=== PATIENT | female | born 1940 | race Caucasian/White ===

== ENCOUNTER → 2016-08-12 | Outpatient (CLI) | payer OTHER, BC ==
[2016-08-12 13:09] LABS: ALT/SGPT 11 U/L (12-78); AST/SGOT 12 U/L (15-37); BLOOD UREA NITROGEN 19 mg/dl (7-18); BUN/CREATININE RATIO 21.3 (10-20); CALCIUM 8.9 mg/dl (8.5-10.1); CARBON DIOXIDE 26 mmol/L (21-32); CHLORIDE 110 mmol/L (98-107); CHOLESTEROL 115 mg/dl (0-200); GLUCOSE 78 mg/dl (70-99); POTASSIUM 4.3 mmol/L (3.5-5.1); SODIUM 144 mmol/L (136-145); TRIGLYCERIDES 62 mg/dl (0-150); VERY LOW DENSITY LIPOPROT CALC 12 mg/dl
[2016-08-12 13:12] LABS: ALKALINE PHOSPHATASE 77 U/L (45-117); CHOLESTEROL/HDL RATIO 2.4; HDL CHOLESTEROL 47 mg/dl; LDL CHOLESTEROL CALCULATED 56 mg/dl
== END | disposition home or self-care (01) ==
LOC: C.LABWYN 11:45
PROVIDERS: ATTEND Nurse Practitioner Family
DX: E78.5 Hyperlipidemia, unspecified (principal)

== ENCOUNTER → 2017-09-10 | Outpatient (CLI) | payer OTHER, BC ==
[~2017-09-10] MED LIST: ACET1TAB84 PO; ARTIOIN OP; CARV6.252 PO; CLR10 PO; DIPH25CA65 PO; DOCU100C31 PO; DULO60CA44 PO; GABA-112 PO; IMD/2 PO; MELO7.5T5 PO; OMEG10007 PO; POLY335019 PO; PRAV20TA PO; PRLSR20 PO; RISP1TAB68 PO; SENN-65 PO
[2017-09-10 13:09] LABS: HEMATOCRIT 39.9 % (37-47); MEAN CELL VOLUME 93.4 fL (80-100); MEAN CORPUSCULAR HEMOGLOBIN 30.4 pg (25-34); MEAN CORPUSCULAR HGB CONC 32.6 g/dl (32-36); MEAN PLATELET VOLUME 10.2 fL (7.4-10.4); PLATELET COUNT 216 K/uL (130-400); RED CELL DISTRIBUTION WIDTH CV 14.1 % (11.5-14.5); RED CELL DISTRIBUTION WIDTH SD 48.1 fL (36.4-46.3); WHITE BLOOD COUNT 5.56 K/uL (4.8-10.8)
[2017-09-10 16:11] LABS: BLOOD UREA NITROGEN 18 mg/dl (7-18); CALCIUM 9.1 mg/dl (8.5-10.1); CARBON DIOXIDE 27 mmol/L (21-32); CREATININE 0.97 mg/dl (0.60-1.20); GLUCOSE 79 mg/dl (70-99); POTASSIUM 4.2 mmol/L (3.5-5.1); SODIUM 141 mmol/L (136-145)
== END | disposition home or self-care (01) ==
LOC: C.LABWYN 11:49
PROVIDERS: ATTEND Internal Medicine
DX: E03.9 Hypothyroidism, unspecified (principal); I10 Essential (primary) hypertension

== ENCOUNTER 2021-06-22 12:34 | Inpatient (IN) ==
--- NOTE | 2021-06-22 12:43 | Emergency Department Note ---
Impression & Plan Subarachnoid hemorrhage, Generalized weakness, SARS-CoV-2 positive ED Provider Note Name: TAMARA ROBLES Age: 81 Sex: F Arrives Via: Ambulance Informant: Patient, Daughter, EMS ED Provider: Sukhwinder Cline MD Chief Complaint: Weakness Impression: As per impressions above Medical Decision Making: This is an 81-year-old female with a recent history of Covid 11 to 12 days ago status post monoclonal antibody therapy. Patient with history of hypertension depression tardive dyskinesia hyperlipidemia and GERD. She apparently has been having significant tardive dyskinesia issues for the last few months and with working through neurology was started on Ingrezza but this was only begun about 2 days ago. Over the last few days patient's has been having worsening weakness confusion and decreased appetite. Patient without any focal neurologic deficits but does have diffuse weakness and is essentially unable to even sit up on her own. By exam she is also quite dehydrated appearing and thus was given 500 mL IV fluids. Given the findings and history she had labs chest x-ray EKG and a CT head obtained we did try straight cath UA without success consistent with her significant dehydration. CT head reveals a small right parietal subarachnoid hemorrhage. She has no recent trauma, injuries, falls. She has no evidence of head trauma on exam. She is on no blood thinners. Per the daughter she never really even had much of a cough during her episode of Covid. Covid is positive here but this would be consistent with her infection 11 to 12 days ago. There is no clear electrolyte nor infectious etiology of her weakness. Given the bleed I am suspicious that that is the cause of her generalized weakness. Is unclear why she has a bleed and it could either be that she did have an ischemic stroke that bled, spontaneous bleed versus other. As we do not have neurosurgical services at this facility [facility] was contacted given that is where she follows with neurology. After discussion with her she had a requested CT to be obtained of the head and neck. Images were sent to [facility] for evaluation by them. While awaiting those images to be evaluated by them I have signed her out to Dr. Singh pending their input. I will note patient blood pressure started to trend up and at that point I felt it was an indicated to start Cardene at a low dose. After about an hour and a half this is actually able to be titrated off. Prior Medical Record and Triage/Nursing Notes reviewed by Me Additional history obtained from chart, daughter Differentials:Infection, dehydration, metabolic abnormality, hypo/hyperglycemia, electrolyte disturbance, anemia, hypoxia, cardiac sources, intracerebral event, toxicologic, neurologic, as well as other pathologies. Vital Signs: reviewed and remarkable for hypotension Interventions: NSS Bolus 500mL IV Labs:Reviewed and remarkable for no significant abnormalities Imaging:Radiologist interpretation reviewed by me: CXR No acute findings. CT head right parietal subarachnoid hemorrhage EKG:Per My Interpretation: Indication weakness: NSR 96 bpm, qtc 459. No Ectopy. No Ischemia. No previous for comparison Cardiac/Tele Monitoring: Cardiac Monitoring: An Order was placed for continuous cardiac monitoring. The monitor shows a rate of 90 with a normal sinus rhythm. Consults:Dr. Mills at [facility] Plan: Disposition: Signed out to Dr Singh Condition: Fair History of Present Illness:81-year-old female arrives for evaluation of breathing difficulty. She arrives from group home after being referred here when her oxygen was reportedly 59% on room air. She has also been dealing with issues with tar dive dyskinesia and was recently started on Ingrezza 40 mg daily about 2 days ago. Per EMS she was having difficulty breathing and thus they w ere called. She was diagnosed with Covid 11 days ago and per EMS she received monoclonal antibodies over a week ago for this. Patient states that she feels well she has no chest pain, no shortness of breath, nausea, abdominal pain, vomiting, fevers, chills, headache, neck pain, urinary/bowel symptoms, leg swelling, weakness or other symptoms. She denies any significant cough nor breathing difficulty. Patient states she is fine and does not know why she is here. Patient denies any falls, trauma, injuries. Daughter called in to state that the patient has been having a lot of trouble over the last few days. She has been having worsening weakness, confusion, breathing difficulty and has been having episodes of full body tremors. She has not had reported seizure-like activity nor obtundation. ROS: See above HPI for pertinent positives & negatives. A total of 10 systems reviewed and were otherwise negative. Past Medical History:See Below Past Surgical History:See Below Family History:See Below Social History:See Below Home Medications:See Below Allergies:See Below Vitals:Blood Pressure: 91/70, Pulse 100, RR 20, T 36.8C, O2 95% on RA Physical Exam: GENERAL: Patient is tired/dehydrated appearing and in mild distress. Distant and diffusely weak. EYES: No scleral icterus, unremarkable pupils. ENT: Mucous membranes dry, no nasal congestion. NECK: No masses appreciated, nomeningismus, trachea is midline. RESPIRATORY: No dyspnea. Clear to auscultation and equal bilaterally. No wheeze, no rhonchi. CARDIOVASCULAR: Regular rate and rhythm.No murmurs, rubs, gallops appreciated. GASTROINTESTINAL: Abdomen soft, non-tender, no peritonitis.Bowel sounds positive.No masses appreciated. BACK: No midline tenderness, no CVA tenderness EXTREMITIES: Normal motion all extremities, no cyanosis, no edema. NEUROLOGIC: Distant and slow to respond. Oriented to place. Generalized weakness, no acute motor or sensory deficits, no focal weakness, cranial nerves grossly intact. SKIN: No rash, no jaundice, no diaphoresis. GCS: 15 ED Course: Times/Reassessments: Many repeat evaluations of the patient. She is calm no distress no continues to be distant and somewhat confused. I had several discussions with her daughter Sue regarding her symptoms and findings and the plan to await [facility]'s input. Critical Care: I have personally spent 45 minutes of critical care time in the direct management of this patient. Acute subarachnoid hemorrhage with hypertension started on Cardene IV drip. This was a life/limb threatening event. This 45 minutes is in excess of all separately billable procedures. Sukhwinder Cline MD Past Med/Surg History Medical History (Updated 06/22/21 @ 21:01 by Yahaira Toledo DO) Depression GERD (gastroesophageal reflux disease) Hyperlipidemia Hypertension Surgical History Surgical history unknown Family History Other Unknown family medical history Social History Smoking Status: Former smoker Tobacco Type: Cigarettes Preferred Language: Filipino Communication Ability: Impaired Communication Ability Comment: unknown marital status: / Current Living Situation Comment: lives at [facility] Feels Safe at Home: Yes Assistive Devices: Walker Allergies Allergies Allergy/AdvReac Type Severity Reaction Status Date / Time adhesive Allergy Mild RASH Verified 06/22/21 14:52 acetaminophen Allergy Unknown RASH Verified 06/22/21 14:52 codeine Allergy Unknown GI SYMPTOMS Verified 06/22/21 14:52 hydrocodone Allergy Unknown GI SYMPTOMS Verified 06/22/21 14:52 Penicillins Allergy Unknown RASH Verified 06/22/21 14:52 Home Meds Home Medications Medication Instructions Recorded Confirmed Meaghan Avendañobasilsneha Gummy Bear Viy 2 dose PO DAILY 06/14/21 06/22/21 duloxetine 60 mg capsule,delayed 60 mg PO DAILY 06/14/21 06/22/21 release food supplemt, lactose-reduced 1 ea PO BID 06/14/21 06/22/21 lisinopril 10 mg tablet 10 mg PO DAILY 06/14/21 06/22/21 lisinopril 2.5 mg tablet 2.5 mg PO DAILY 06/14/21 06/22/21 loperamide 2 mg capsule (Imodium 2 mg PO Q4H PRN 06/14/21 06/22/21 A-D) meloxicam 15 mg tablet 15 mg PO DAILY 06/14/21 06/22/21 naproxen sodium 220 mg tablet 220 mg PO Q4 PRN 06/14/21 06/22/21 nystatin 100,000 unit/gram topical 1 applic TOPICAL BID 06/14/21 06/22/21 cream omega 3-bpb-aav-fish oil 1,200 mg 1 cap PO BID 06/14/21 06/22/21 (144 mg-216 mg) capsule (Fish Oil) omeprazole 20 mg capsule,delayed 20 mg PO DAILY 06/14/21 06/22/21 release polyethylene glycol 3350 17 17 g PO DAILY 06/14/21 06/22/21 gram/dose oral powder (Miralax) pravastatin 40 mg tablet 40 mg PO HS 06/14/21 06/22/21 risperidone 0.5 mg tablet 0.5 mg PO BID 06/14/21 06/22/21 valbenazine 40 mg capsule 40 mg PO QAM 06/14/21 06/22/21 (Ingrezza) risperidone 0.25 mg tablet 0.25 mg PO BID 06/22/21 06/22/21 Results & Data (ED) Vital Signs Vital Signs - 24 hr 06/22/21 14:00 06/22/21 14:43 06/22/21 15:00 Pulse Rate 77 79 Pulse Rate [Apical] 77 Pulse Rate from SpO2 Sensor 77 80 Respiratory Rate 16 18 19 Respiratory Depth Normal Blood Pressure 105/66 138/82 Blood Pressure [Left Arm] 138/82 Blood Pressure Mean 79 100 Blood Pressure Mean [Left Arm] 100 Blood Pressure Position [Left Arm] Pulse Oximetry 89 L 94 94 Oxygen Delivery Method Room Air 06/22/21 15:15 06/22/21 15:30 06/22/21 16:18 Pulse Rate 77 Pulse Rate [Apical] 74 75 Pulse Rate from SpO2 Sensor 77 Respiratory Rate 20 17 20 Respiratory Depth Blood Pressure 121/82 Blood Pressure [Left Arm] 138/82 162/90 H Blood Pressure Mean 95 Blood Pressure Mean [Left Arm] 100 114 Blood Pressure Position [Left Arm] Pulse Oximetry 99 99 100 Oxygen Delivery Method 06/22/21 17:00 06/22/21 17:15 06/22/21 17:23 Pulse Rate 82 82 Pulse Rate [Apical] 86 Pulse Rate from SpO2 Sensor 82 84 Respiratory Rate 15 16 18 Respiratory Depth Blood Pressure 134/83 121/61 Blood Pressure [Left Arm] 121/61 Blood Pressure Mean 100 81 Blood Pressure Mean [Left Arm] 81 Blood Pressure Position [Left Arm] Lying Pulse Oximetry 99 93 98 Oxygen Delivery Method 06/22/21 17:30 06/22/21 18:00 06/22/21 18:30 Pulse Rate 87 74 83 Pulse Rate [Apical] Pulse Rate from SpO2 Sensor 87 74 83 Respiratory Rate 19 16 19 Respiratory Depth Blood Pressure 120/77 125/82 134/81 Blood Pressure [Left Arm] Blood Pressure Mean 91 96 98 Blood Pressure Mean [Left Arm] Blood Pressure Position [Left Arm] Pulse Oximetry 97 98 92 Oxygen Delivery Method 06/22/21 18:45 06/22/21 19:00 06/22/21 19:15 Pulse Rate 81 82 Pulse Rate [Apical] 81 Pulse Rate from SpO2 Sensor 82 80 Respiratory Rate 20 20 14 Respiratory Depth Blood Pressure 149/90 H 125/83 Blood Pressure [Left Arm] 149/90 H Blood Pressure Mean 109 97 Blood Pressure Mean [Left Arm] 109 Blood Pressure Position [Left Arm] Pulse Oximetry 96 97 93 Oxygen Delivery Method Room Air 06/22/21 19:30 06/22/21 19:45 06/22/21 20:00 Pulse Rate 93 H 86 89 Pulse Rate [Apical] Pulse Rate from SpO2 Sensor 82 85 89 Respiratory Rate 26 H 22 23 Respiratory Depth Blood Pressure 128/99 138/93 130/97 Blood Pressure [Left Arm] Blood Pressure Mean 108 108 108 Blood Pressure Mean [Left Arm] Blood Pressure Position [Left Arm] Pulse Oximetry 94 94 97 Oxygen Delivery Method 06/22/21 20:15 06/22/21 20:30 Pulse Rate 79 76 Pulse Rate [Apical] Pulse Rate from SpO2 Sensor 79 76 Respiratory Rate 19 19 Respiratory Depth Blood Pressure 122/83 124/84 Blood Pressure [Left Arm] Blood Pressure Mean 96 97 Blood Pressure Mean [Left Arm] Blood Pressure Position [Left Arm] Pulse Oximetry 98 92 Oxygen Delivery Method Laboratory Data Result diagrams: 06/23/21 07:39 06/23/21 07:39 Lab Results 06/22/21 06/22/21 06/22/21 Range/Units 13:04 13:16 13:16 WBC 6.30 (4.8-10.8) K/uL RBC 4.47 (4.2-5.4) M/uL Hgb 13.9 (12.0-16.0) g/dL Hct 42.8 (37-47) % MCV 95.7 (80-100) fL MCH 31.1 (25-34) pg MCHC 32.5 (32-36) g/dL RDW Std Deviation 45.9 (36.4-46.3) fL RDW Coeff of Miguel A 13.1 (11.5-14.5) % Plt Count 309 (130-400) K/uL MPV 9.8 (7.4-10.4) fL Immature Gran % (Auto) 0.8 % Neut % (Auto) 68.5 % Lymph % (Auto) 15.9 % [place] % (Auto) 11.6 % Eos % (Auto) 3.0 % Baso % (Auto) 0.2 % Neut # (Auto) 4.32 (1.4-6.5) K/uL Lymph # (Auto) 1.00 L (1.2-3.4) K/uL [place] # (Auto) 0.73 H (0.11-0.59) K/uL Eos # (Auto) 0.19 (0-0.5) K/uL Baso # (Auto) 0.01 (0-0.2) K/uL Immature Gran # (Auto) 0.05 H (0.00-0.02) K/uL PT (9.0-12.0) Seconds INR (0.9-1.1) APTT (21.0-31.0) Seconds PTT Ratio Sodium 139 (136-145) mmol/L Potassium 4.6 (3.5-5.1) mmol/L Chloride 110 H (98-107) mmol/L Carbon Dioxide 25 (21-32) mmol/L Anion Gap 4.0 (3-11) BUN 33 H (7-18) mg/dl Creatinine 1.16 (0.6-1.2) mg/dl Est Cr Clr Drug Dosing 30.9 ml/min Est GFR ( Amer) 50.8 ml/min Est GFR (Non-Af Amer) 43.8 ml/min BUN/Creatinine Ratio 28.6 H (10-20) Glucose 108 H (70-99) mg/dl Calcium 10.2 H (8.5-10.1) mg/dl Total Bilirubin 0.7 (0.2-1) mg/dl Direct Bilirubin 0.2 (0-0.2) mg/dl AST 14 L (15-37) U/L ALT 17 (12-78) Alkaline Phosphatase 95 (45-117) U/L Total Creatine Kinase 46 (26-192) U/L Troponin I < 0.015 (0-0.045) ng/ml Total Protein 7.5 (6.4-8.2) gm/dl Albumin 3.1 L (3.4-5.0) gm/dl Lipase 291 (73-393) U/L Procalcitonin (0-0.5) ng/ml Urine Color Urine Appearance (Clear) Urine pH (4.5-7.5) Ur Specific [place] (1.000-1.030) Urine Protein (Negative) Urine Glucose (UA) (Negative) Urine Ketones (Negative) Urine Blood (Negative) Urine Nitrite (Negative) Urine Bilirubin (Negative) Urine Urobilinogen (Negative) Ur Leukocyte Esterase (Negative) Urine WBC (Auto) (0-5) /hpf Urine RBC (Auto) (0-4) /hpf U Hyaline Cast (Auto) (0-5) /lpf U Epithel Cells (Auto) (0-5) /lpf Urine Bacteria (Auto) (Negative) SARS-CoV-2 (PCR) POSITIVE A* (Negative) Influenza Type A (PCR) Negative (Neg) Influenza Type B (PCR) Negative (Neg) RSV (RT-PCR) Negative (Neg) 06/22/21 06/22/21 06/22/21 Range/Units 13:16 13:19 15:18 WBC (4.8-10.8) K/uL RBC (4.2-5.4) M/uL Hgb (12.0-16.0) g/dL Hct (37-47) % MCV (80-100) fL MCH (25-34) pg MCHC (32-36) g/dL RDW Std Deviation (36.4-46.3) fL RDW Coeff of Miguel A (11.5-14.5) % Plt Count (130-400) K/uL MPV (7.4-10.4) fL Immature Gran % (Auto) % Neut % (Auto) % Lymph % (Auto) % [place] % (Auto) % Eos % (Auto) % Baso % (Auto) % Neut # (Auto) (1.4-6.5) K/uL Lymph # (Auto) (1.2-3.4) K/uL [place] # (Auto) (0.11-0.59) K/uL Eos # (Auto) (0-0.5) K/uL Baso # (Auto) (0-0.2) K/uL Immature Gran # (Auto) (0.00-0.02) K/uL PT 10.3 (9.0-12.0) Seconds INR 1.0 (0.9-1.1) APTT 27.9 (21.0-31.0) Seconds PTT Ratio 1.1 Sodium (136-145) mmol/L Potassium (3.5-5.1) mmol/L Chloride (98-107) mmol/L Carbon Dioxide (21-32) mmol/L Anion Gap (3-11) BUN (7-18) mg/dl Creatinine (0.6-1.2) mg/dl Est Cr Clr Drug Dosing ml/min Est GFR ( Amer) ml/min Est GFR (Non-Af Amer) ml/min BUN/Creatinine Ratio (10-20) Glucose (70-99) mg/dl Calcium (8.5-10.1) mg/dl Total Bilirubin (0.2-1) mg/dl Direct Bilirubin (0-0.2) mg/dl AST (15-37) U/L ALT (12-78) Alkaline Phosphatase (45-117) U/L Total Creatine Kinase (26-192) U/L Troponin I (0-0.045) ng/ml Total Protein (6.4-8.2) gm/dl Albumin (3.4-5.0) gm/dl Lipase (73-393) U/L Procalcitonin < 0.05 (0-0.5) ng/ml Urine Color Dark Yellow Urine Appearance Clear (Clear) Urine pH 5.0 (4.5-7.5) Ur Specific [place] 1.022 (1.000-1.030) Urine Protein Negative (Negative) Urine Glucose (UA) Negative (Negative) Urine Ketones Trace H (Negative) Urine Blood Negative (Negative) Urine Nitrite Negative (Negative) Urine Bilirubin Negative (Negative) Urine Urobilinogen Negative (Negative) Ur Leukocyte Esterase Trace H (Negative) Urine WBC (Auto) 1-5 (0-5) /hpf Urine RBC (Auto) 0-4 (0-4) /hpf U Hyaline Cast (Auto) 1-5 (0-5) /lpf U Epithel Cells (Auto) 10-20 H (0-5) /lpf Urine Bacteria (Auto) Negative (Negative) SARS-CoV-2 (PCR) (Negative) Influenza Type A (PCR) (Neg) Influenza Type B (PCR) (Neg) RSV (RT-PCR) (Neg) Administered Medications Discontinued Medications Gadobutrol (Gadobutrol 30ml Vial) 5.5 ml IV ONCE ONE Stop: 06/23/21 11:32 Last Admin: 06/23/21 11:31 Dose: 5.5 ml Documented by: [id number] Sodium Chloride (Nss 1000ml) 500 mls @ 999 mls/hr IV .Q31M ONE Stop: 06/22/21 13:46 Last Infusion: 06/22/21 16:33 Dose: 0 mls/hr Documented by: [id number] Admin: 06/22/21 13:41 Dose: 999 mls/hr Documented by: [id number] Levetiracetam 1,000 mg/ Sodium (Chloride) 110 mls @ 440 mls/hr IV NOW STA Stop: 06/22/21 15:42 Last Infusion: 06/22/21 16:33 Dose: 0 mls/hr Documented by: [id number] Admin: 06/22/21 15:45 Dose: 440 mls/hr Documented by: [id number] Nicardipine HCl 25 mg/ Sodium (Chloride) 250 mls @ 0 mls/hr IV .Q0M JENELLE; Protocol Stop: 07/22/21 16:29 Last Titration: 06/22/21 17:22 Dose: 0 mg/hr, 0 mls/hr Documented by: [id number] Admin: 06/22/21 16:46 Dose: 5 mg/hr, 50 mls/hr Documented by: [id number] Cosigned by: [id number] Ioversol (Optiray 320 125ml) 120 ml IV ONCE ONE Stop: 06/22/21 16:02 Last Admin: 06/22/21 16:01 Dose: 120 ml Documented by: [id number] Miscellaneous (Stat Iv Infusion Titration Per Protocol) 1 ea N/A NOW STA Stop: 06/22/21 16:28 Last Admin: 06/22/21 16:51 Dose: 1 ea Documented by: [id number] Imaging Data Radiologist's Impression: Chest X-Ray 06/22/21 12:42 SINGLE VIEW CHEST CLINICAL HISTORY: Dyspnea. FINDINGS: An AP, portable, upright chest radiograph is compared to study dated 06/14/2021. The examination is degraded by portable technique and patient ro tation. The heart is enlarged noting atherosclerotic calcification of the thoracic aorta. The pulmonary vasculature is noncongested. Chronic interstitial thickening is similar to previous. There are linear right basilar opacities. No large pleural effusion or pneumothorax is seen. The skeletal structures are osteopenic. The bony thorax is grossly intact. Surgical clips are noted in the right axilla. Cholecystectomy clips are noted in the right upper quadrant. IMPRESSION: 1. Cardiomegaly without radiographic evidence of congestive failure. 2. Right basilar opacities likely represent platelike atelectasis. Correlate clinically for evidence of an infectious/inflammatory pneumonitis. ACT 112: Negative or not required by law. Electronically signed by: Franky Juares M.D. 06/22/2021 12:[address] 06/22/21 13:16 CT SCAN OF THE BRAIN WITHOUT IV CONTRAST CLINICAL HISTORY: Change in mental status. Generalized weakness. COMPARISON STUDY: CT of the brain dated 05/14/2021. TECHNIQUE: Unenhanced axial CT scan of the brain is performed from the vertex to the skull base. A dose lowering technique was utilized adhering to the principles of ALARA. CT DOSE: 537.48 mGy.cm FINDINGS: Brain parenchyma: There are age-related involutional changes noting moderate confluent subcortical and periventricular microangiopathic change. There is trace subarachnoid hemorrhage identified along the high right parietal sulcus on axial image #23. No additional foci of hemorrhage are identified. There is no mass effect or evidence of acute territorial ischemia by CT criteria. Bullock-white matter differentiation is preserved. No extra-axial fluid collection is seen. Ventricles, sulci, cisterns: Prominent secondary to involutional change. Intracranial vasculature: There is atherosclerotic calcification of the cavernous carotid and vertebral arteries. Calvarium: Unremarkable. Sinuses and mastoids: The visualized paranasal sinuses are clear. There are left larger than right mastoid effusions. Orbits: The bony orbits are grossly intact. IMPRESSION: 1. There is trace subarachnoid hemorrhage identified along the high right parietal sulcus. 2. No additional foci of hemorrhage are identified. 3. There is no mass effect or evidence of acute territorial ischemia by CT criteria. ACT 112: Negative or not required by law. Electronically signed by: Franky Juares M.D. 06/22/2021 2:33 PM Head CTA 06/22/21 15:27 CT ANGIOGRAM OF THE BRAIN; CT ANGIOGRAM OF THE NECK CLINICAL HISTORY: Subarachnoid hemorrhage. COMPARISON STUDY: Unenhanced CT of the brain performed earlier the same day 06/22/2021. TECHNIQUE: Following the IV administration of 120 of Optiray 320, CT angiogram of the head and neck was performed from the aortic arch to the vertex. Images are reviewed in the axial, sagittal, and coronal planes. 3-D MIPS images are created and assessed. IV contrast was administered without complication. All measurements were calculated based on NASCET criteria. A dose lowering technique was utilized adhering to the principles of ALARA. CT DOSE: 452.13 mGy.cm FINDINGS: Brain parenchyma: Trace subarachnoid hemorrhage is again seen along the high right parietal lobe sulcus. This was much better visualized on the unenhanced examination performed earlier today due to lack of IV contrast. There is age- related involutional change noting moderate confluent subcortical and periventricular microangiopathic disease. There is no mass effect or evidence of acute territorial ischemia noting angiographic phase technique. There is no evidence of enhancing mass lesion on the angiogram phase images. The ventricles, sulci, and cisterns are prominent secondary to involutional change. Bullock-white matter differentiation is preserved. No extra-axial fluid collection is seen. Thoracic aorta: There is atherosclerotic calcification of the thoracic aorta. Visualized portions of the thoracic aorta are normal in caliber. The aortic arch demonstrates standard 3-vessel anatomy. Right carotid arterial system: The right common carotid artery is widely patent, as are the right internal and external carotid arteries. Calcified plaque is noted in the carotid bulb. Left carotid arterial system: The left common carotid artery is widely patent, as are the left internal and external carotid arteries. Calcified plaque is noted in the carotid bulb. Vertebral arteries: Vertebral arteries are widely patent bilaterally and codominant. Subclavian arteries: Widely patent bilaterally. Intracranial vasculature: There is atherosclerotic calcification of the c avernous carotid and vertebral arteries. The internal carotid arteries are patent at the skull base, as are the anterior and middle cerebral arteries bilaterally. The vertebrobasilar system and posterior cerebral arteries are widely patent. The vertebral arteries are codominant. There is no aneurysm, high-grade stenosis, or focal vessel cut off seen throughout the intracranial circulation. Jugular veins: Patent bilaterally. Dural sinuses: Patent. Lung apices: There is a 7 mm groundglass focus of the right apex seen on image #37. Apical lung parenchyma is otherwise clear as imaged. Soft tissues: The visualized pharyngeal soft tissues are normal in appearance noting angiographic phase technique. The oropharyngeal airway appears widely patent. The thyroid gland is heterogeneous. The salivary glands are normal in appearance. No cervical lymphadenopathy is seen. Skeletal structures: The skeletal structures are osteopenic. The calvarium appears intact. The cervical spine is maintained noting multilevel spondylosis. No lytic or blastic lesion is seen. Orbits: The bony orbits are intact. Orbital contents are normal as visualized. Sinuses and mastoids: The paranasal sinuses are clear. There are small bilateral mastoid effusions. IMPRESSION: 1. Trace subarachnoid hemorrhage is again suggested along a high right parietal lobe sulcus. This was much better visualized on today's unenhanced examination. 2. There is no mass effect or evidence of acute territorial ischemia noting angiographic phase technique. 3. Unremarkable CT angiogram of the brain. 4. Unremarkable CT head around the neck. 5. There is an indeterminant 7 mm groundglass focus at the right apex. A follow- up chest CT in 3 months time is recommended for reevaluation and full assessment of the thorax. ACT 112: Negative or not required by law. Electronically signed by: Franky Juares M.D. 06/22/2021 4:13 PM Neck CTA 06/22/21 15:27 CT ANGIOGRAM OF THE BRAIN; CT ANGIOGRAM OF THE NECK CLINICAL HISTORY: Subarachnoid hemorrhage. COMPARISON STUDY: Unenhanced CT of the brain performed earlier the same day 06/22/2021. TECHNIQUE: Following the IV administration of 120 of Optiray 320, CT angiogram of the head and neck was performed from the aortic arch to the vertex. Images are reviewed in the axial, sagittal, and coronal planes. 3-D MIPS images are created and assessed. IV contrast was administered without complication. All measurements were calculated based on NASCET criteria. A dose lowering technique was utilized adhering to the principles of ALARA. CT DOSE: 452.13 mGy.cm FINDINGS: Brain parenchyma: Trace subarachnoid hemorrhage is again seen along the high right parietal lobe sulcus. This was much better visualized on the unenhanced examination performed earlier today due to lack of IV contrast. 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 There is no mass effect or evidence of acute territorial ischemia noting angiographic phase technique. There is no evidence of enhancing mass lesion on the angiogram phase images. The ventricles, sulci, and cisterns are prominent secondary to involutional change. Bullock-white matter differentiation is preserved. No extra-axial fluid collection is seen. Thoracic aorta: There is atherosclerotic calcification of the thoracic aorta. Visualized portions of the thoracic aorta are normal in caliber. The aortic arch demonstrates standard 3-vessel anatomy. Right carotid arterial system: The right common carotid artery is widely patent, as are the right internal and external carotid arteries. Calcified plaque is no roney in the carotid bulb. Left carotid arterial system: The left common carotid artery is widely patent, as are the left internal and external carotid arteries. Calcified plaque is noted in the carotid bulb. Vertebral arteries: Vertebral arteries are widely patent bilaterally and codominant. Subclavian arteries: Widely patent bilaterally. Intracranial vasculature: There is atherosclerotic calcification of the cavernous carotid and vertebral arteries. The internal carotid arteries are patent at the skull base, as are the anterior and middle cerebral arteries bilaterally. The vertebrobasilar system and posterior cerebral arteries are widely patent. The vertebral arteries are codominant. There is no aneurysm, high-grade stenosis, or focal vessel cut off seen throughout the intracranial circulation. Jugular veins: Patent bilaterally. Dural sinuses: Patent. Lung apices: There is a 7 mm groundglass focus of the right apex seen on image #37. Apical lung parenchyma is otherwise clear as imaged. Soft tissues: The visualized pharyngeal soft tissues are normal in appearance noting angiographic phase technique. The oropharyngeal airway appears widely patent. The thyroid gland is heterogeneous. The salivary glands are normal in appearance. No cervical lymphadenopathy is seen. Skeletal structures: The skeletal structures are osteopenic. The calvarium appears intact. The cervical spine is maintained noting multilevel spondylosis. No lytic or blastic lesion is seen. Orbits: The bony orbits are intact. Orbital contents are normal as visualized. Sinuses and mastoids: The paranasal sinuses are clear. There are small bilateral mastoid effusions. IMPRESSION: 1. Trace subarachnoid hemorrhage is again suggested along a high right parietal lobe sulcus. This was much better visualized on today's unenhanced examination. 2. There is no mass effect or evidence of acute territorial ischemia noting angiographic phase technique. 3. Unremarkable CT angiogram of the brain. 4. Unremarkable CT head around the neck. 5. There is an indeterminant 7 mm groundglass focus at the right apex. A follow- up chest CT in 3 months time is recommended for reevaluation and full assessment of the thorax. ACT 112: Negative or not required by law. Electronically signed by: Franky Juares M.D. 06/22/2021 4:13 PM Discharge Plan Visit Data Chief Complaint: Shortness of Breath/Dyspnea Stated Complaint: SOB COVID+ tremors ED Provider: Oni Singh Discharge Problem: Subarachnoid hemorrhage, Generalized weakness, SARS-CoV-2 positive Patient Disposition: Admitted As Inpatient Discharge Instructions Interventions: ED Discharge Assessment Last Done: 06/23/21 00:00
--- NOTE | 2021-06-22 12:55 | XRay Report ---
SINGLE VIEW CHEST CLINICAL HISTORY: Dyspnea. FINDINGS: An AP, portable, upright chest radiograph is compared to study dated 06/14/2021. The examin ation is degraded by portable technique and patient rotation. The heart is enlarged noting atheroscle rotic calcification of the thoracic aorta. The pulmonary vasculature is noncongested. Chronic interst itial thickening is similar to previous. There are linear right basilar opacities. No large pleural e ffusion or pneumothorax is seen. The skeletal structures are osteopenic. The bony thorax is grossly i ntact. Surgical clips are noted in the right axilla. Cholecystectomy clips are noted in the right upp er quadrant. IMPRESSION: 1. Cardiomegaly without radiographic evidence of congestive failure. 2. Right basilar opacities likely represent platelike atelectasis. Correlate clinically for evidence of an infectious/inflammatory pneumonitis. ACT 112: Negative or not required by law. Electronically signed by: Franky Juares M.D. 06/22/2021 12:53 PM
[2021-06-22] MEDS ORDERED: SODIUM CHLORIDE 0.9% 1000ML 500 ML IV ONE (13:16)
[2021-06-22 13:35] LABS: Basophils # (auto) 0.01 K/uL (0-0.2); Basophils % (auto) 0.2 %; Eosinophils # (auto) 0.19 K/uL (0-0.5); Hematocrit (blood only) 42.8 % (37-47); Hemoglobin 13.9 g/dL (12.0-16.0); Immature Granulocytes # (auto) 0.05 K/uL (0.00-0.02); Immature Granulocytes % (auto) 0.8 %; Lymphocytes % (auto) 15.9 %; Mean Corpuscular Hemoglobin 31.1 pg (25-34); Mean Corpuscular Hgb Conc 32.5 g/dL (32-36); Mean Corpuscular Volume 95.7 fL (80-100); Mean Platelet Volume 9.8 fL (7.4-10.4); Monocytes # (auto) 0.73 K/uL (0.11-0.59); Monocytes % (auto) 11.6 %; Neutrophils # (auto) 4.32 K/uL (1.4-6.5); Neutrophils % (auto) 68.5 %; Platelet Count 309 K/uL (130-400); RDW Coefficient of Variation 13.1 % (11.5-14.5); RDW Standard Deviation 45.9 fL (36.4-46.3); Red Blood Count 4.47 M/uL (4.2-5.4)
[2021-06-22 14:00] LABS: Alanine Aminotransferase 17 (12-78); Albumin Level 3.1 gm/dl (3.4-5.0); Aspartate Aminotransferase 14 U/L (15-37); BUN Creatinine Ratio 28.6 (10-20); Bilirubin Direct 0.2 mg/dl (0-0.2); Blood Urea Nitrogen 33 mg/dl (7-18); Calcium 10.2 mg/dl (8.5-10.1); Carbon Dioxide 25 mmol/L (21-32); Chloride 110 mmol/L (98-107); Creatinine Clr Calc Pharmacy 30.9 ml/min; Est GFR (African American) 50.8 ml/min; Est GFR (Non-African American) 43.8 ml/min; Glucose 108 mg/dl (70-99); Lipase 291 U/L (73-393); Potassium 4.6 mmol/L (3.5-5.1); Sodium 139 mmol/L (136-145)
[2021-06-22 14:05] LABS: Alkaline Phosphatase 95 U/L (45-117); Bilirubin,Total 0.7 mg/dl (0.2-1); Creatine Kinase 46 U/L (26-192); Total Protein 7.5 gm/dl (6.4-8.2); Troponin I < 0.015 ng/ml (0-0.045)
[2021-06-22 14:19] LABS: Influenza A virus by PCR Negative (Neg); Influenza B virus by PCR Negative (Neg); RSV by PCR Negative (Neg)
[2021-06-22 14:32] LABS: SARS CoV2 RNA(COVID-19) InHosp POSITIVE (Negative)
--- NOTE | 2021-06-22 14:34 | CT Scan Report ---
CT SCAN OF THE BRAIN WITHOUT IV CONTRAST CLINICAL HISTORY: Change in mental status. Generalized weakness. COMPARISON STUDY: CT of the brain dated 05/14/2021. TECHNIQUE: Unenhanced axial CT scan of the brain is performed from the vertex to the skull base. A do se lowering technique was utilized adhering to the principles of ALARA. CT DOSE: 537.48 mGy.cm FINDINGS: Brain parenchyma: There are age-related involutional changes noting moderate confluent subcortical a nd periventricular microangiopathic change. There is trace subarachnoid hemorrhage identified along t he high right parietal sulcus on axial image #23. No additional foci of hemorrhage are identified. Th ere is no mass effect or evidence of acute territorial ischemia by CT criteria. Bullock-white matter dif ferentiation is preserved. No extra-axial fluid collection is seen. Ventricles, sulci, cisterns: Prominent secondary to involutional change. Intracranial vasculature: There is atherosclerotic calcification of the cavernous carotid and vertebr al arteries. Calvarium: Unremarkable. Sinuses and mastoids: The visualized paranasal sinuses are clear. There are left larger than right ma stoid effusions. Orbits: The bony orbits are grossly intact. IMPRESSION: 1. There is trace subarachnoid hemorrhage identified along the high right parietal sulcus. 2. No additional foci of hemorrhage are identified. 3. There is no mass effect or evidence of acute territorial ischemia by CT criteria. ACT 112: Negative or not required by law. Electronically signed by: Franky Juares M.D. 06/22/2021 2:33 PM
[2021-06-22 15:03] LABS: Partial Thromboplastin Ratio 1.1; Partial Thromboplastin Time 27.9 Seconds (21.0-31.0); Prothrombin Time 10.3 Seconds (9.0-12.0)
[2021-06-22] MEDS ORDERED: levETIRAcetam 1,000 MG in 0.9 % SODIUM CHLORIDE 100 ML IV STA (15:28)
[2021-06-22 15:51] LABS: Appearance Urine Clear (Clear); Bacteria Urine Automated Negative (Negative); Bilirubin Urine Negative (Negative); Blood Urine Negative (Negative); Color Urine Dark Yellow; Glucose Urine UA Negative (Negative); Ketones Urine Trace (Negative); Leukocyte Esterase Urine Trace (Negative); Nitrite Urine Negative (Negative); Protein Urine Negative (Negative); RBC Urine Automated 0-4 /hpf (0-4); Specific Gravity Urine 1.022 (1.000-1.030); Urobilinogen Urine Negative (Negative)
[2021-06-22] MEDS ORDERED: OPTIRAY 320 125ml IV ONE (16:01)
--- NOTE | 2021-06-22 16:14 | CT Scan Report ---
CT ANGIOGRAM OF THE BRAIN; CT ANGIOGRAM OF THE NECK CLINICAL HISTORY: Subarachnoid hemorrhage. COMPARISON STUDY: Unenhanced CT of the brain performed earlier the same day 06/22/2021. TECHNIQUE: Following the IV administration of 120 of Optiray 320, CT angiogram of the head and neck w as performed from the aortic arch to the vertex. Images are reviewed in the axial, sagittal, and jermaine nal planes. 3-D MIPS images are created and assessed. IV contrast was administered without complicati on. All measurements were calculated based on NASCET criteria. A dose lowering technique was utilize d adhering to the principles of ALARA. CT DOSE: 452.13 mGy.cm FINDINGS: Brain parenchyma: Trace subarachnoid hemorrhage is again seen along the high right parietal lobe sulc us. This was much better visualized on the unenhanced examination performed earlier today due to lack of IV contrast. There is age-related involutional change noting moderate confluent subcortical and p eriventricular microangiopathic disease. There is no mass effect or evidence of acute territorial isc hemia noting angiographic phase technique. There is no evidence of enhancing mass lesion on the angio gram phase images. The ventricles, sulci, and cisterns are prominent secondary to involutional change . Bullock-white matter differentiation is preserved. No extra-axial fluid collection is seen. Thoracic aorta: There is atherosclerotic calcification of the thoracic aorta. Visualized portions of the thoracic aorta are normal in caliber. The aortic arch demonstrates standard 3-vessel anatomy. Right carotid arterial system: The right common carotid artery is widely patent, as are the right int ernal and external carotid arteries. Calcified plaque is noted in the carotid bulb. Left carotid arterial system: The left common carotid artery is widely patent, as are the left physician internist al and external carotid arteries. Calcified plaque is noted in the carotid bulb. Vertebral arteries: Vertebral arteries are widely patent bilaterally and codominant. Subclavian arteries: Widely patent bilaterally. Intracranial vasculature: There is atherosclerotic calcification of the cavernous carotid and vertebr al arteries. The internal carotid arteries are patent at the skull base, as are the anterior and midd le cerebral arteries bilaterally. The vertebrobasilar system and posterior cerebral arteries are wide ly patent. The vertebral arteries are codominant. There is no aneurysm, high-grade stenosis, or focal vessel cut off seen throughout the intracranial circulation. Jugular veins: Patent bilaterally. Dural sinuses: Patent. Lung apices: There is a 7 mm groundglass focus of the right apex seen on image #37. Apical lung paren chyma is otherwise clear as imaged. Soft tissues: The visualized pharyngeal soft tissues are normal in appearance noting angiographic pha se technique. The oropharyngeal airway appears widely patent. The thyroid gland is heterogeneous. The salivary glands are normal in appearance. No cervical lymphadenopathy is seen. Skeletal structures: The skeletal structures are osteopenic. The calvarium appears intact. The cervic al spine is maintained noting multilevel spondylosis. No lytic or blastic lesion is seen. Orbits: The bony orbits are intact. Orbital contents are normal as visualized. Sinuses and mastoids: The paranasal sinuses are clear. There are small bilateral mastoid effusions. IMPRESSION: 1. Trace subarachnoid hemorrhage is again suggested along a high right parietal lobe sulcus. This was much better visualized on today's unenhanced examination. 2. There is no mass effect or evidence of acute territorial ischemia noting angiographic phase techni que. 3. Unremarkable CT angiogram of the brain. 4. Unremarkable CT head around the neck. 5. There is an indeterminant 7 mm groundglass focus at the right apex. A follow-up chest CT in 3 karen hs time is recommended for reevaluation and full assessment of the thorax. ACT 112: Negative or not required by law. Electronically signed by: Franky Juares M.D. 06/22/2021 4:13 PM
[2021-06-22] MEDS ORDERED: STAT IV Infusion **Titration per Protocol STA (16:27)
[2021-06-22] MEDS ORDERED: niCARdipine 25 MG in SODIUM CHLORIDE 0.9% 240 ML IV SCH (16:30)
--- NOTE | 2021-06-22 17:25 | Emergency Department Note ---
ED Visit Note Received this patient in signout. Awaiting input from neurosurgery based on the CT angiograms obtained of the patient with subarachnoid hemorrhage found on imaging today. Patient has been weak per her report for several days and is being treated for Covid approximately 11-12 days into illness. Patient's not been hypoxic here with blood pressures somewhat elevated now requiring nicardipine drip. Patient did previously receive Keppra by direction earlier. Discussed with Dr. Mills of neurosurgery of [facility] who did review the CTA did not feel any intervention or procedure was indicated. Recommended 7-day course of Keppra and MRI MRA of the brain with and without contrast in the morning and following stability with this in the morning of any bleeding. Do not feel transfer was to [facility] was acutely indicated. Will discuss with the hospitalist here. Additional discussions with her and again there is no tertiary care beds available at [facility] or [place]. Patient's blood pressure [address] Mills of neurosurgery at [place] could be liberalized in the morning and the [facility] neurosurgical team did not feel she required a blood pressure At all. In discussion the hospitalist will monitor here closely. Again patient's SAH is minimal in size. Dr. Toledo of the [facility] hospitalist team did discuss with Dr. Bonner of neurology here for additional consultation as well. .
--- NOTE | 2021-06-22 20:00 | History & Physical Report ---
Date of Service June 22, 2021 Assessment & Plan (1) Stroke-like symptoms: Plan: Patient has been exhibiting decreased functional abilities for the last 3 days at [facility]. Specifically she ambulates with a walker at baseline and is conversational and oriented, eating independently and toilet independently. Currently she is confused, lethargic, generally weak and exhibiting dehydration concerning for recent stroke with possible hemorrhagic conversion. MRI with and without contrast to definitively understand if this trace subarachnoid hemorrhage is truly a bleed or possibly laminar necrosis or other possible etiology. MRI will also rule out a tumor which may cause a head bleed and will rule out a stroke. As she is Covid positive, she is at high risk for stroke. Given the concern for acute bleeding we will hold off on aspirin for DVT prophylaxis at this time pending MRI read. Will place in PCU and monitor with neuro checks every 2 hours. We will keep blood pressure less than systolic of 180 with parenteral agents. Will order PT/OT and speech consults. Currently at bedside swallow exam is not appropriate until she is able to follow instructions more clearly and is more awake. Neuro consulted to assist with management. (2) Subarachnoid hemorrhage: Plan: We will plan to keep systolic blood pressure less than 180 and until MRI read returns we will hold off on giving Keppra for seizure prophylaxis. That being said we will place her on seizure precautions as she would be at high risk for this with a head bleed. (3) Hypertension: Plan: Hold home oral antihypertensive and managed with parenteral agents. Ideally we do not want her blood pressure to be too low in the setting of stroke, allowing permissive hypertension. However, with evidence of a possible trace subarachnoid hemorrhage systolic blood pressure should not go higher than 180 systolic. (4) Depression: Plan: Continue duloxetine once patient has passed bedside swallow study (5) SARS-CoV-2 positive: Plan: No indication for Covid specific therapy. Covid precautions (6) DVT prophylaxis: Plan: SCDs Full code as discussed with her daughter on admission Disposition-to PCU and then pending further work-up and evaluations by ancillary services and specialty services. [facility] History of Present Illness Chief Complaint: weakness Primary Care Provider: [facility] 81-year-old female with a recent history of Covid infection approximately 11 to 12 days ago status post monoclonal antibody therapy presented with worsening weakness, confusion and decreased appetite. In the ER she appeared dehydrated and was given 500 cc of IV fluids. During her work-up a CT of the head revealed a small right parietal subarachnoid hemorrhage. This was nontraumatic as it was no history of recent trauma, injuries or falls. There was no evidence of head trauma on exam and she is not on blood thinners. Her Covid infection is relatively asymptomatic per daughter. Patient is answering questions appropriately but giving answers in one-word and sometimes does not respond. She is oriented to person and place but does not know why she is here. She has no clear electrolyte or infectious etiology of her weakness. Further evaluation was performed including a CT angiogram of the brain and neck that was unremarkable outside of the revisualization of the trace subarachnoid hemorrhage seen at the high right parietal lobe sulcus. No mass-effect or evidence of acute territorial ischemia was noted. There was an indeterminate 7 mm groundglass focus at the right apex for which a repeat chest CT in 3 months was recommended. These results were called to [facility] we did review the images and did not feel an intervention or procedure was indicated. They recommended a 7- day course of Keppra and an MRI of the brain with and without contrast in the morning. Furthermore, they recommended her systolic blood pressure be less than 140 with use of a nicardipine drip to achieve that value. She was temporarily placed on a nicardipine drip in the ER. Use of a nicardipine drip in this facility requires an ICU admission however the ICU team declined the admission requesting the patient be sent to a tertiary care facility. [facility] was again contacted and stated that it would be greater than 24 hours prior to any acceptance of this patient. [facility] was contacted and I discussed the case with Dr. Vuong from neurology who also had the images for review. At baseline the patient ambulates with a walker and is oriented and conversational, knowing staff members names at [facility]. She eats independently on the table and toilets independently with minimal assistance. Staff at [facility] reports that over the last 3 days she acutely changed and is now not walking and not swallowing or sitting up with increased weakness. Her daughter corroborates this baseline. With this clinical history, Dr. Vuong suspected an embolic stroke and did not recommend transfer as there was no indication for neurosurgical intervention. In fact, he recommended starting aspirin and DVT prophylaxis for acute stroke. I contacted neurology at [facility], Dr. Bonner, with a consult request for the morning. I ordered the MRI with and without contrast of the brain and an EEG for the morning. Dr. Bonner will contact the catheterization laboratory technician to come in and administer the test. There were no nurses present at the facility any medication reconciliation and full history could not be obtained from the patient or outpatient records at this time as this was unavailable. History is therefore limited and from ER notes below Allergies Allergy/AdvReac Type Severity Reaction Status Date / Time adhesive Allergy Mild RASH Verified 06/22/21 14:52 acetaminophen Allergy Unknown RASH Verified 06/22/21 14:52 codeine Allergy Unknown GI SYMPTOMS Verified 06/22/21 14:52 hydrocodone Allergy Unknown GI SYMPTOMS Verified 06/22/21 14:52 Penicillins Allergy Unknown RASH Verified 06/22/21 14:52 Home Medications Medication Instructions Recorded Confirmed Type Enrico'Osei Phan Gummy Bear Viy 2 dose PO DAILY 06/14/21 06/22/21 History duloxetine 60 mg capsule,delayed 60 mg PO DAILY 06/14/21 06/22/21 History release food supplemt, lactose-reduced 1 ea PO BID 06/14/21 06/22/21 History lisinopril 10 mg tablet 10 mg PO DAILY 06/14/21 06/22/21 History lisinopril 2.5 mg tablet 2.5 mg PO DAILY 06/14/21 06/22/21 History loperamide 2 mg capsule (Imodium 2 mg PO Q4H PRN 06/14/21 06/22/21 History A-D) meloxicam 15 mg tablet 15 mg PO DAILY 06/14/21 06/22/21 History naproxen sodium 220 mg tablet 220 mg PO Q4 PRN 06/14/21 06/22/21 History nystatin 100,000 unit/gram topical 1 applic TOPICAL BID 06/14/21 06/22/21 History cream omega 3-qik-kyt-fish oil 1,200 mg 1 cap PO BID 06/14/21 06/22/21 History (144 mg-216 mg) capsule (Fish Oil) omeprazole 20 mg capsule,delayed 20 mg PO DAILY 06/14/21 06/22/21 History release polyethylene glycol 3350 17 17 g PO DAILY 06/14/21 06/22/21 History gram/dose oral powder (Miralax) pravastatin 40 mg tablet 40 mg PO HS 06/14/21 06/22/21 History risperidone 0.5 mg tablet 0.5 mg PO BID 06/14/21 06/22/21 History valbenazine 40 mg capsule 40 mg PO QAM 06/14/21 06/22/21 History (Ingrezza) risperidone 0.25 mg tablet 0.25 mg PO BID 06/22/21 06/22/21 History Past Med/Surg History Medical History (Updated 06/22/21 @ 21:01 by Yahaira Toledo DO) Depression GERD (gastroesophageal reflux disease) Hyperlipidemia Hypertension Surgical History Surgical history unknown Family History Other Unknown family medical history Social History Smoking Status: Former smoker Tobacco Type: Cigarettes Preferred Language: Cypriot Feels Safe at Home: Yes Review of Systems Review of Systems: Review of systems is limited. All systems were reviewed and negative except as indicated in HPI and below. Denies headache Denies pain Physical Exam Physical Exam: CONSTITUTIONAL: thin, elderly, vitals as above, generally ill- appearing and sleepy, occasionally attempts to crawl out of bed. Questions have to be repeated multiple times for her to answer and answers are in one word sentences but are appropriate. EYES: normal conjunctivae, no scleral icterus ENT: external ear and nose normal, mucous membranes are dry. NECK: trachea midline RESPIRATORY: clear to auscultation bilaterally, no crackles, rales or wheezes, normal respiratory effort CARDIOVASCULAR: regular rate and rhythm, S1 and 2 heard without murmurs, gallops or rubs, no JVD, no peripheral edema GASTROINTESTINAL: normal bowel sounds, soft, nontender, no hepatomegaly, no guarding MUSCULOSKELETAL: strength 5/5 throughout, head is normocephalic and atraumatic SKIN: warm and dry NEUROLOGIC: patellar DTRs -could not elicit, BR reflex 2/4 on right, unobtainable on the left. PERRL, patient would not perform EOM exam for me, no facial palsy, no dysarthria but limited speech. Could not answer sensation or proprioception questions. CN 2-12 grossly intact, sleepy, +occasional tremor at baseline. PSYCHIATRIC: alert and oriented to person and place, follows instructions with significant prompting. Doesn't make good eye contact. Results & Data Results & Data ([facility]) Vital Signs (Past 12 Hours) Vital Signs Temp Pulse Pulse Resp BP BP Pulse Ox 06/22/21 19:00 81 20 149/90 H 97 06/22/21 17:23 86 18 121/61 98 06/22/21 17:15 82 16 121/61 93 06/22/21 17:00 82 15 134/83 99 06/22/21 16:18 75 20 162/90 H 100 06/22/21 15:30 77 17 121/82 99 06/22/21 15:15 74 20 138/82 99 06/22/21 15:00 79 19 138/82 94 06/22/21 14:43 77 18 138/82 94 06/22/21 14:00 77 16 105/66 89 L 06/22/21 12:44 36.8 C 100 H 20 91/70 L 95 06/22/21 12:43 92 H Laboratory Results Short CBC 06/22/21 Range/Units 13:16 WBC 6.30 (4.8-10.8) K/uL Hgb 13.9 (12.0-16.0) g/dL Hct 42.8 (37-47) % Plt Count 309 (130-400) K/uL BMP 06/22/21 13:16 Sodium 139 Potassium 4.6 Chloride 110 H Carbon Dioxide 25 BUN 33 H Creatinine 1.16 Glucose 108 H Calcium 10.2 H Cardiac Enzymes 06/22/21 Range/Units 13:16 Total Creatine Kinase 46 (26-192) U/L Troponin I < 0.015 (0-0.045) ng/ml Liver Function 06/22/21 Range/Units 13:16 Total Bilirubin 0.7 (0.2-1) mg/dl Direct Bilirubin 0.2 (0-0.2) mg/dl AST 14 L (15-37) U/L ALT 17 (12-78) Alkaline Phosphatase 95 (45-117) U/L Albumin 3.1 L (3.4-5.0) gm/dl Urine 06/22/21 Range/Units 15:18 Urine Color Dark Yellow Urine Appearance Clear (Clear) Urine pH 5.0 (4.5-7.5) Ur Specific [place] 1.022 (1.000-1.030) Urine Protein Negative (Negative) Urine Glucose (UA) Negative (Negative) Diagnostic Findings Chest X-Ray 06/22/21 12:42 SINGLE VIEW CHEST CLINICAL HISTORY: Dyspnea. FINDINGS: An AP, portable, upright chest radiograph is compared to study dated 06/14/2021. The examination is degraded by portable technique and patient rotation. The heart is enlarged noting atherosclerotic calcification of the thoracic aorta. The pulmonary vasculature is noncongested. Chronic interstitial thickening is similar to previous. There are linear right basilar opacities. No large pleural effusion or pneumothorax is seen. The skeletal structures are osteopenic. The bony thorax is grossly intact. Surgical clips are noted in the right axilla. Cholecystectomy clips are noted in the right upper quadrant. IMPRESSION: 1. Cardiomegaly without radiographic evidence of congestive failure. 2. Right basilar opacities likely represent platelike atelectasis. Correlate clinically for evidence of an infectious/inflammatory pneumonitis. ACT 112: Negative or not required by law. Electronically signed by: Franky Juares M.D. 06/22/2021 12:[address] 06/22/21 13:16 CT SCAN OF THE BRAIN WITHOUT IV CONTRAST CLINICAL HISTORY: Change in mental status. Generalized weakness. COMPARISON STUDY: CT of the brain dated 05/14/2021. TECHNIQUE: Unenhanced axial CT scan of the brain is performed from the vertex to the skull base. A dose lowering technique was utilized adhering to the principles of ALARA. CT DOSE: 537.48 mGy.cm FINDINGS: Brain parenchyma: There are age-related involutional changes noting moderate confluent subcortical and periventricular microangiopathic change. There is trace subarachnoid hemorrhage identified along the high right parietal sulcus on axial image #23. No additional foci of hemorrhage are identified. There is no mass effect or evidence of acute territorial ischemia by CT criteria. Bullock-white matter differentiation is preserved. No extra-axial fluid collection is seen. Ventricles, sulci, cisterns: Prominent secondary to involutional change. Intracranial vasculature: There is atherosclerotic calcification of the cavernous carotid and vertebral arteries. Calvarium: Unremarkable. Sinuses and mastoids: The visualized paranasal sinuses are clear. There are left larger than right mastoid effusions. Orbits: The bony orbits are grossly intact. IMPRESSION: 1. There is trace subarachnoid hemorrhage identified along the high right parietal sulcus. 2. No additional foci of hemorrhage are identified. 3. There is no mass effect or evidence of acute territorial ischemia by CT criteria. ACT 112: Negative or not required by law. Electronically signed by: Franky Juares M.D. 06/22/2021 2:33 PM Head CTA 06/22/21 15:27 CT ANGIOGRAM OF THE BRAIN; CT ANGIOGRAM OF THE NECK CLINICAL HISTORY: Subarachnoid hemorrhage. COMPARISON STUDY: Unenhanced CT of the brain performed earlier the same day 06/22/2021. TECHNIQUE: Following the IV administration of 120 of Optiray 320, CT angiogram of the head and neck was performed from the aortic arch to the vertex. Images are reviewed in the axial, sagittal, and coronal planes. 3-D MIPS images are created and assessed. IV contrast was administered without complication. All measurements were calculated based on NASCET criteria. A dose lowering technique was utilized adhering to the principles of ALARA. CT DOSE: 452.13 mGy.cm FINDINGS: Brain parenchyma: Trace subarachnoid hemorrhage is again seen along the high right parietal lobe sulcus. This was much better visualized on the unenhanced examination performed earlier today due to lack of IV contrast. There is age-r elated involutional change noting moderate confluent subcortical and periventricular microangiopathic disease. There is no mass effect or evidence of acute territorial ischemia noting angiographic phase technique. There is no evidence of enhancing mass lesion on the angiogram phase images. The ventricles, sulci, and cisterns are prominent secondary to involutional change. Bullock-white matter differentiation is preserved. No extra-axial fluid collection is seen. Thoracic aorta: There is atherosclerotic calcification of the thoracic aorta. Visualized portions of the thoracic aorta are normal in caliber. The aortic arch demonstrates standard 3-vessel anatomy. Right carotid arterial system: The right common carotid artery is widely patent, as are the right internal and external carotid arteries. Calcified plaque is noted in the carotid bulb. Left carotid arterial system: The left common carotid artery is widely patent, as are the left internal and external carotid arteries. Calcified plaque is noted in the carotid bulb. Vertebral arteries: Vertebral arteries are widely patent bilaterally and codominant. Subclavian arteries: Widely patent bilaterally. Intracranial vasculature: There is atherosclerotic calcification of the cavernous carotid and vertebral arteries. The internal carotid arteries are patent at the skull base, as are the anterior and middle cerebral arteries bi laterally. The vertebrobasilar system and posterior cerebral arteries are widely patent. The vertebral arteries are codominant. There is no aneurysm, high-grade stenosis, or focal vessel cut off seen throughout the intracranial circulation. Jugular veins: Patent bilaterally. Dural sinuses: Patent. Lung apices: There is a 7 mm groundglass focus of the right apex seen on image #37. Apical lung parenchyma is otherwise clear as imaged. Soft tissues: The visualized pharyngeal soft tissues are normal in appearance noting angiographic phase technique. The oropharyngeal airway appears widely p atent. The thyroid gland is heterogeneous. The salivary glands are normal in appearance. No cervical lymphadenopathy is seen. Skeletal structures: The skeletal structures are osteopenic. The calvarium appears intact. The cervical spine is maintained noting multilevel spondylosis. No lytic or blastic lesion is seen. Orbits: The bony orbits are intact. Orbital contents are normal as visualized. Sinuses and mastoids: The paranasal sinuses are clear. There are small bilateral mastoid effusions. IMPRESSION: 1. Trace subarachnoid hemorrhage is again suggested along a high right parietal lobe sulcus. This was much better visualized on today's unenhanced examination. 2. There is no mass effect or evidence of acute territorial ischemia noting angiographic phase technique. 3. Unremarkable CT angiogram of the brain. 4. Unremarkable CT head around the neck. 5. There is an indeterminant 7 mm groundglass focus at the right apex. A follow- up chest CT in 3 months time is recommended for reevaluation and full assessment of the thorax. ACT 112: Negative or not required by law. Electronically signed by: Franky Juares M.D. 06/22/2021 4:13 PM Neck CTA 06/22/21 15:27 CT ANGIOGRAM OF THE BRAIN; CT ANGIOGRAM OF THE NECK CLINICAL HISTORY: Subarachnoid hemorrhage. COMPARISON STUDY: Unenhanced CT of the brain performed earlier the same day 06/22/2021. TECHNIQUE: Following the IV administration of 120 of Optiray 320, CT angiogram of the head and neck was performed from the aortic arch to the vertex. Images are reviewed in the axial, sagittal, and coronal planes. 3-D MIPS images are created and assessed. IV contrast was administered without complication. All measurements were calculated based on NASCET criteria. A dose lowering technique was utilized adhering to the principles of ALARA. CT DOSE: 452.13 mGy.cm FINDINGS: Brain parenchyma: Trace subarachnoid hemorrhage is again seen along the high right parietal lobe sulcus. This was much better visualized on the unenhanced examination performed earlier today due to lack of IV contrast. There is age- related involutional change noting moderate confluent subcortical and periventricular microangiopathic disease. There is no mass effect or evidence of acute territorial ischemia noting angiographic phase technique. There is no evidence of enhancing mass lesion on the angiogram phase images. The ventricles, sulci, and cisterns are prominent secondary to involutional change. Bullock-white matter differentiation is preserved. No extra-axial fluid collection is seen. Thoracic aorta: There is atherosclerotic calcification of the thoracic aorta. Visualized portions of the thoracic aorta are normal in caliber. The aortic arch demonstrates standard 3-vessel anatomy. Right carotid arterial system: The right common carotid artery is widely patent, as are the right internal and external carotid arteries. Calcified plaque is noted in the carotid bulb. Left carotid arterial system: The left common carotid artery is widely patent, as are the left internal and external carotid arteries. Calcified plaque is noted in the carotid bulb. Vertebral arteries: Vertebral arteries are widely patent bilaterally and codominant. Subclavian arteries: Widely patent bilaterally. Intracranial vasculature: There is atherosclerotic calcification of the cavernous carotid and vertebral arteries. The internal carotid arteries are patent at the skull base, as are the anterior and middle cerebral arteries bilaterally. The vertebrobasilar system and posterior cerebral arteries are widely patent. The vertebral arteries are codominant. There is no aneurysm, high-grade stenosis, or focal vessel cut off seen throughout the intracranial circulation. Jugular veins: Patent bilaterally. Dural sinuses: Patent. Lung apices: There is a 7 mm groundglass focus of the right apex seen on image #37. Apical lung parenchyma is otherwise clear as imaged. Soft tissues: The visualized pharyngeal soft tissues are normal in appearance noting angiographic phase technique. The oropharyngeal airway appears widely patent. The thyroid gland is heterogeneous. The salivary glands are normal in appearance. No cervical lymphadenopathy is seen. Skeletal structures: The skeletal structures are osteopenic. The calvarium appears intact. The cervical spine is maintained noting multilevel spondylosis. No lytic or blastic lesion is seen. Orbits: The bony orbits are intact. Orbital contents are normal as visualized. Sinuses and mastoids: The paranasal sinuses are clear. There are small bilateral mastoid effusions.
--- NOTE | 2021-06-22 22:53 | Electrocardiogram Report ---
Test Reason : Blood Pressure : / mmHG Vent. Rate : 096 BPM Atrial Rate : 096 BPM P-R Int : 188 ms QRS Dur : 082 ms QT Int : 364 ms P-R-T Axes : 047 -38 055 degrees QTc Int : 459 ms Poor data quality, interpretation may be adversely affected Normal sinus rhythm Left axis deviation Abnormal ECG No previous ECGs available Confirmed by Samuel Álvarez ([id number]) on 06/22/2021 10:53:42 PM Referred By: SELF Confirmed By:Samuel Álvarez
[2021-06-22] MEDS ORDERED: ONDANSETRON INJ 2 MG/ML 2 ML VIAL IV PRN (23:29)
[2021-06-22] MEDS ORDERED: PHARMACIST DISCHARGE MED REC CONSULT PRN (23:29)
[2021-06-23 07:54] LABS: Basophils # (auto) 0.01 K/uL (0-0.2); Basophils % (auto) 0.2 %; Eosinophils # (auto) 0.23 K/uL (0-0.5); Eosinophils % (auto) 3.6 %; Hematocrit (blood only) 41.9 % (37-47); Hemoglobin 13.5 g/dL (12.0-16.0); Immature Granulocytes # (auto) 0.05 K/uL (0.00-0.02); Immature Granulocytes % (auto) 0.8 %; Lymphocytes # (auto) 1.35 K/uL (1.2-3.4); Lymphocytes % (auto) 21.3 %; Mean Corpuscular Hemoglobin 31.5 pg (25-34); Mean Corpuscular Hgb Conc 32.2 g/dL (32-36); Mean Corpuscular Volume 97.9 fL (80-100); Mean Platelet Volume 9.7 fL (7.4-10.4); Monocytes # (auto) 0.85 K/uL (0.11-0.59); Monocytes % (auto) 13.4 %; Neutrophils # (auto) 3.85 K/uL (1.4-6.5); Neutrophils % (auto) 60.7 %; Platelet Count 317 K/uL (130-400); RDW Coefficient of Variation 13.4 % (11.5-14.5); RDW Standard Deviation 47.9 fL (36.4-46.3); Red Blood Count 4.28 M/uL (4.2-5.4); White Blood Count 6.34 K/uL (4.8-10.8)
[2021-06-23 08:24] LABS: BUN Creatinine Ratio 27.7 (10-20); Calcium 9.6 mg/dl (8.5-10.1); Creatinine Clr Calc Pharmacy 35.3 ml/min; Est GFR (African American) 60.8 ml/min; Est GFR (Non-African American) 52.4 ml/min; Potassium 5.1 mmol/L (3.5-5.1)
[2021-06-23] MEDS ORDERED: GADOBUTROL 30ML VIAL IV ONE (11:31)
--- NOTE | 2021-06-23 11:55 | Magnetic Resonance Report ---
MR brain wo/w con HISTORY: 81 years-old Female rule out stroke, SAH on CT acute strokelike symptoms COMPARISON: Head CT 06/22/2018 TECHNIQUE: Multiplanar multisequence MRI of the brain was obtained both with and without the use of 5 .5 cc Gadavist FINDINGS: Mildly motion degraded exam. There is no restricted diffusion to suggest acute or subacute infarct. T he midline structures appear unremarkable. The trace acute subarachnoid hemorrhage within the superio r right parietal lobe seen on yesterday's head CT is faintly visualized on image 16 of series 9. Age- related involutional changes. Extensive confluent T2/FLAIR hyperintense foci noted throughout the whi te matter the cerebral venous sinuses and major arterial flow voids are patent. Moderate left mastoid effusion. Minimal mucosal thickening of the paranasal sinuses and skull, orbits and soft tissues are unremarkable. No abnormal intra-axial or extra-axial enhancement. IMPRESSION: 1. Trace subarachnoid hemorrhage of the superior right parietal lobe is unchanged. 2. No acute or subacute infarct. 3. Age-related involutional changes with extensive chronic microvascular ischemic disease. 4. No abnormal enhancement. ACT 112: Negative or not required by law. The above report was generated using voice recognition software. It may contain grammatical, syntax o r spelling errors. Electronically signed by: Cullen Francisco M.D. 06/23/2021 11:53 AM
--- NOTE | 2021-06-23 12:22 | Hospitalist Progress Note ---
Date of Service June 23, 2021 Assessment & Plan (1) Encephalopathy acute: Plan: Uncertain cause with etiologies including but not limited to covid-19 infection, medication side effect including Ingressa (recently started Thursday, took two pills, however, she was worsening prior to taking this), Regeneron infusion given 06/14. SAH less likely to be the cause and suspect some trauma with medication list including NSAIDs--unable to confirm with [facility] staff regarding MAR and she states she is unable to send this over to the hospital so cannot verify what has been taken. SAH is stable and there is no aneurysmal source or tumor present. vasculitis in the differential, however, the timing would moreso point to a medication side effect from Regeneraon or worsening from covid infection. MRI reveals no evidence of acute stroke and SAH is stable in size. EEG was performed revealing mild to moderate generalized nonfocal slowing without any potentially epileptiform activity. Remains off Keppra at this time. Remains off ingressa, risperidone and all other PO meds as she is unable to tolerate PO at this time. Cont clinical monitoring and support with IVF and PPN. (2) Subarachnoid hemorrhage: Plan: We will plan to keep systolic blood pressure less than 180 and until MRI read returns we will hold off on giving Keppra for seizure prophylaxis. Stable in size overnight. (3) Tardive dyskinesia: Plan: Sees Dr. Madelyn Pack Neurology who has her on risperidone and recently started her on Ingressa. Has take two pills so far and is now off this. No dyskinetic movements are seen today on exam. Cont to monitor. (4) SARS-CoV-2 positive: Plan: No indication for Covid specific therapy. Covid precautions (5) Severe protein-calorie malnutrition: Plan: Poor oral intake recently with weight loss. Patient appears cachectic and malnourished. I am concerned with aspiration and changing ICP with placement of any NG tube. Will opt for PPN at this time as she has not eaten much at all in the last week per daughter. She is being hydrated with IVF. Nutrition consult. PPN consult placed to pharmacy to start Thursday at the earliest. (6) Hypertension: Plan: Hold home oral antihypertensive and managed with parenteral agents. Ideally we do not want her blood pressure to be too low in the setting of stroke, allowing permissive hypertension. However, with evidence of a possible trace subarachnoid hemorrhage systolic blood pressure should not go higher than 180 systolic. (7) Depression: Plan: Continue duloxetine once patient has passed bedside swallow study (8) DVT prophylaxis: Plan: SCDs Full code as discussed with her daughter on admission Disposition-to PCU and then pending further work-up and evaluations by ancillary services and specialty services. [facility] and Anticipated Discharge Date Admission Date: June 22, 2021 Subjective 81 yo covid positive female presents with altered mental status, weakness and decreased ability to eat for the past week. She was administered casivimab on 06/14 and had no immediate reactions, observed for 45 minutes post transfusion. Daughter notes that she was very tired the rest of the weekend and specifically noted mom was falling asleep while daughter was talking with her that following Thursday, 3 days later. She progressively remained fatigued and wasn't eating anything, also exhibiting large dyskinetic movements with her arms. For this reason, the recently approved Ingressa was started on Thu (06/21) morning and she took one pill. The following day daughter states staff reported patient was very anxious and was pacing around her room. Staff wasn't able to get her to eat and patient was agitated. Pill were given in applesauce that day including a second dose of Ingressa. Subsequently brought in 06/22 for worsening symptoms. There are no nurses available at [facility] and the med healthcare technician is ill- equipped to answer my questions and is unhelpful. There is no known trauma or fall and no MAR confirmation was made of this but the med tech confirmed only two pills of Ingressa were "taken out of the package." MRI today reveals no tumor or acute stroke and her SAH is stable. She is very lethargic despite significant prompting and is unable to verbalize a ROS for me or follow instructions. She has a difficult time holding her eyes open. Review of Systems Review of Systems: cannot elicit a ROS as patient is obtunded. Physical Exam Physical Exam: CONSTITUTIONAL: thin, elderly, vitals as above, generally ill- appearing and obtunded. EYES: normal conjunctivae, no scleral icterus ENT: external ear and nose normal, mucous membranes are dry. NECK: trachea midline RESPIRATORY: clear to auscultation bilaterally, no crackles, rales or wheezes, normal respiratory effort CARDIOVASCULAR: regular rate and rhythm, S1 and 2 heard without murmurs, gallops or rubs, no JVD, no peripheral edema GASTROINTESTINAL: normal bowel sounds, soft, nontender, no guarding MUSCULOSKELETAL: obtunded, cannot examine. SKIN: warm and dry NEUROLOGIC: obtunded, limited exam. pupils are round and equal bilaterally. PSYCHIATRIC: obtunded Results & Data Results & Data ([facility]) Vital Signs (Past 12 Hours) Vital Signs Temp Pulse Resp BP Pulse Ox 06/23/21 07:56 36.5 C 76 17 99/73 L 98 06/23/21 03:29 36.7 C 94 H 16 120/87 88 L Laboratory Results Short CBC 06/22/21 06/23/21 Range/Units 13:16 07:39 WBC 6.30 6.34 (4.8-10.8) K/uL Hgb 13.9 13.5 (12.0-16.0) g/dL Hct 42.8 41.9 (37-47) % Plt Count 309 317 (130-400) K/uL BMP 06/22/21 06/23/21 13:16 07:39 Sodium 139 143 Potassium 4.6 5.1 Chloride 110 H 115 H Carbon Dioxide 25 24 BUN 33 H 28 H Creatinine 1.16 1.00 Glucose 108 H 94 Calcium 10.2 H 9.6 Cardiac Enzymes 06/22/21 Range/Units 13:16 Total Creatine Kinase 46 (26-192) U/L Troponin I < 0.015 (0-0.045) ng/ml Liver Function 06/22/21 Range/Units 13:16 Total Bilirubin 0.7 (0.2-1) mg/dl Direct Bilirubin 0.2 (0-0.2) mg/dl AST 14 L (15-37) U/L ALT 17 (12-78) Alkaline Phosphatase 95 (45-117) U/L Albumin 3.1 L (3.4-5.0) gm/dl Urine 06/22/21 Range/Units 15:18 Urine Color Dark Yellow Urine Appearance Clear (Clear) Urine pH 5.0 (4.5-7.5) Ur Specific [place] 1.022 (1.000-1.030) Urine Protein Negative (Negative) Urine Glucose (UA) Negative (Negative) Diagnostic Findings Brain MRI 06/23/21 09:04 MR brain wo/w con HISTORY: 81 years-old Female rule out stroke, SAH on CT acute strokelike symptoms COMPARISON: Head CT 06/22/2018 TECHNIQUE: Multiplanar multisequence MRI of the brain was obtained both with and without the use of 5.5 cc Gadavist FINDINGS: Mildly motion degraded exam. There is no restricted diffusion to suggest acute or subacute infarct. The midline structures appear unremarkable. The trace acute subarachnoid hemorrhage within the superior right parietal lobe seen on yesterday's head CT is faintly visualized on image 16 of series 9. Age-related involutional changes. Extensive confluent T2/FLAIR hyperintense foci noted throughout the white matter the cerebral venous sinuses and major arterial flow voids are patent. Moderate left mastoid effusion. Minimal mucosal thickening of the paranasal sinuses and skull, orbits and soft tissues are unremarkable. No abnormal intra-axial or extra-axial enhancement. IMPRESSION: 1. Trace subarachnoid hemorrhage of the superior right parietal lobe is unchanged. 2. No acute or subacute infarct. 3. Age-related involutional changes with extensive chronic microvascular ischemic disease. 4. No abnormal enhancement. ACT 112: Negative or not required by law. The above report was generated using voice recognition software. It may contain grammatical, syntax or spelling errors. Electronically signed by: Cullen Francisco M.D. 06/23/2021 11:53 AM Medications Administered Current Inpatient Medications Miscellaneous Information (Pharmacist Discharge Med Rec Consult) 1 ea N/A UD PRN PRN Reason: Consult Stop: 07/22/21 23:28 Ondansetron HCl (Ondansetron Inj 2 Mg/Ml 2 Ml Vial) 4 mg IV Q6H PRN PRN Reason: Nausea Stop: 07/22/21 23:28
--- NOTE | 2021-06-23 12:40 | Communication Note ---
Date of Service: June 23, 2021 Sharron Emery is 81 years old currently resides [facility] suffers from depression tardive dyskinesia generative arthritis hypertension and was recently started on Ingrezza, central dopamine depleting agent for treatment of tardive dyskinesia. I am not clear who exactly prescribed this but the emergency room notes indicate that an neurologist is apparently working with her. It is possible her psychiatrist at also prescribed. She also takes Risperdal and relatively low doses, duloxetine 60 mg daily Her nonpsychiatry related medications include lisinopril loperamide meloxicam Naprosyn nystatin omega-3 fatty acids omeprazole polyethylene glycol pravastatin She claims allergies to adhesive tape acetaminophen codeine hydrocodeine and pen icillins She was diagnosed as having COVID-19 2 weeks ago had minimal symptoms and was doing well About 2 to 3 days ago theoretically correlating with the initiation of the Ingrezza therapy she began to demonstrate lethargy inattentiveness weakness and was brought to the emergency room because of the progressive nature of the symptoms. In the course of the work-up an incidental small high right parietal subarachnoid bleed was detected and she has had extensive CT angiographic studies and an MRI which show only the small area of hemorrhage no areas of enhancement no new strokes no aneurysms or other vascular malformations but with a fairly prominent degree of leukoencephalopathy An EEG has been done which shows mild to moderate generalized nonfocal slowing without any potentially epileptiform activity She has been admitted for observation to the Covid unit because of her positivity Past medical history social history family history are all as recorded on the emergency room chart and on her admission history and physical Radiographic studies are as described above chest x-ray shows only platelike atelectasis and no groundglass opacities or other indicators of significant COV ID-19 pneumonitis Basic laboratory studies show some low-grade renal failure but otherwise no significant metabolic abnormalities and no evidence for an underlying urinary tract infection I cannot obtain a review of systems Exam shows a blood pressure of 99/73 pulse 76 respirations 17 she is afebrile she has an O2 saturation 98% on 2 L She is quite lethargic but can be aroused there may be a slight right facial asymmetry there is no real clear head or eye deviation no visual field cuts to threat but she is a monotonous flat affect states it is 2001, does not know the location, cannot name her physicians, does not seem to know that she has had COVID-19, but denies any head injury although really avoided answering this question directly. She moves all extremities well but prefers to lie flat with her arms crossed across her abdomen and there is some repetitive movements of the distal right leg but not of the right arm and some of these may be slightly dyskinetic in appearance. Reflexes are difficult to assess because of poor relaxation but there is no clear extensor toe signs except perhaps on the right no Sami signs. Strength testing is very difficult because of her inat tentiveness and withdrawal state. She responds to noxious stimulation but detailed sensory examination was not possible I believe this small subarachnoid hemorrhage has very little to do with her cu rrent encephalopathy and suspicious about the agent that has just been added for treatment of her tardive dyskinesia and I am strongly recommending that this be held Cause of subarachnoid bleed remains uncertain there is certainly no evidence for aneurysm on CT angiogram there is no evidence for an underlying stroke or mass but of course we cannot exclude vasculitis and I am suspicious that there may have been an unobserved fall with closed head injury as a cause for all of this I discussed her case with Dr. Toledo her attending physician and she is going to feel more comfortable transferring the case to [place] where apparently this patient is followed by psychiatry neurology and has already been contacted release for advice regarding management of the subarachnoid hemorrhage. Recommendations to start her empirically on Keppra were not carried out as there is no clinical evidence for seizures nor electroencephalographic evidence and recommendations for blood pressure management which would have required ICU monitoring was not possible as the ICU staff here did not feel that she was appropriate for admission and were more comfortable if she would be managed at a tertiary care institution I would check back with her chart periodically and if she is still in house I will make another visit tomorrow but at this point I have no suggestions other than the fact in the very suspicious about the drug that was just added for control of her tardive dyskinesia as a cause for her 2 to 3-day history of behavioral decline, weakness and lethargy Trae Bonner MD
--- NOTE | 2021-06-23 12:58 | Electroencephalogram ---
EEG Procedure Note Date of Service June 23, 2021 Start / End Times Start Time: 1010 End Time: 1030 Referring Physician Yahaira Toledo DO History Increasing lethargy for 3 days in the setting of recent COVID-19 infection and institution of Ingrezza therapy for tardive dyskinesia Home Medication List Medication Instructions Recorded Confirmed Type L'Osei Andersenmy Bear Viy 2 dose PO DAILY 06/14/21 06/22/21 History duloxetine 60 mg capsule,delayed 60 mg PO DAILY 06/14/21 06/22/21 History release food supplemt, lactose-reduced 1 ea PO BID 06/14/21 06/22/21 History lisinopril 10 mg tablet 10 mg PO DAILY 06/14/21 06/22/21 History lisinopril 2.5 mg tablet 2.5 mg PO DAILY 06/14/21 06/22/21 History loperamide 2 mg capsule (Imodium 2 mg PO Q4H PRN 06/14/21 06/22/21 History A-D) meloxicam 15 mg tablet 15 mg PO DAILY 06/14/21 06/22/21 History naproxen sodium 220 mg tablet 220 mg PO Q4 PRN 06/14/21 06/22/21 History nystatin 100,000 unit/gram topical 1 applic TOPICAL BID 06/14/21 06/22/21 History cream omega [id number] oil 1,200 mg 1 cap PO BID 06/14/21 06/22/21 History (144 mg-216 mg) capsule (Fish Oil) omeprazole 20 mg capsule,delayed 20 mg PO DAILY 06/14/21 06/22/21 History release polyethylene glycol 3350 17 17 g PO DAILY 06/14/21 06/22/21 History gram/dose oral powder (Miralax) pravastatin 40 mg tablet 40 mg PO HS 06/14/21 06/22/21 History risperidone 0.5 mg tablet 0.5 mg PO BID 06/14/21 06/22/21 History valbenazine 40 mg capsule 40 mg PO QAM 06/14/21 06/22/21 History (Ingrezza) risperidone 0.25 mg tablet 0.25 mg PO BID 06/22/21 06/22/21 History Inpatient Medication List Discontinued Medications Gadobutrol (Gadobutrol 30ml Vial) 5.5 ml IV ONCE ONE Stop: 06/23/21 11:32 Last Admin: 06/23/21 11:31 Dose: 5.5 ml Documented by: [id number] Sodium Chloride (Nss 1000ml) 500 mls @ 999 mls/hr IV .Q31M ONE Stop: 06/22/21 13:46 Last Infusion: 06/22/21 16:33 Dose: 0 mls/hr Documented by: [id number] Admin: 06/22/21 13:41 Dose: 999 mls/hr Documented by: [id number] Levetiracetam 1,000 mg/ Sodium (Chloride) 110 mls @ 440 mls/hr IV NOW STA Stop: 06/22/21 15:42 Last Infusion: 06/22/21 16:33 Dose: 0 mls/hr Documented by: [id number] Admin: 06/22/21 15:45 Dose: 440 mls/hr Documented by: [id number] Nicardipine HCl 25 mg/ Sodium (Chloride) 250 mls @ 0 mls/hr IV .Q0M [facility]; Protocol Stop: 07/22/21 16:29 Last Titration: 06/22/21 17:22 Dose: 0 mg/hr, 0 mls/hr Documented by: [id number] Admin: 06/22/21 16:46 Dose: 5 mg/hr, 50 mls/hr Documented by: [id number] Cosigned by: [id number] Ioversol (Optiray 320 125ml) 120 ml IV ONCE ONE Stop: 06/22/21 16:02 Last Admin: 06/22/21 16:01 Dose: 120 ml Documented by: [id number] Miscellaneous (Stat Iv Infusion Titration Per Protocol) 1 ea N/A NOW STA Stop: 06/22/21 16:28 Last Admin: 06/22/21 16:51 Dose: 1 ea Documented by: [id number] Description This is a 21 electrode EEG with a single channel dedicated to limited EKG. The electrodes were placed in accordance with the International 10-20 system. This EEG was done as a bedside recording and is of good technical quality with fewer no muscle movement artifacts. Photic stimulation was performed. During the tracing the patient was drowsy and inattentive Full stages of sleep were not recorded In this clinical state there is evidence for a background rhythm in the mid to upper theta range at about 7 8 Hz and maximum frequency and 30 V a maximum amplitude which is maximal in the posterior head regions bilaterally symmetrical. Centrally theta activity is in the slower range is intermixed with delta activity which is polymorphic a modest amplitude but is also symmetrical and demonstrates no lateralizing predominance. Beta activity is difficult detect Photic stimulation provokes a minimal driving response There is no evidence for potentially epileptogenic activity Interpretation This is a moderately slow nonspecific EEG consistent with a generalized nonfocal encephalopathy and will without any potentially epileptogenic features Clinical Correlation Nonspecific generalized nonfocal encephalopathy without ongoing potentially epileptogenic patterns Trae Bonner MD
[2021-06-23] MEDS ORDERED: TPN/PPN CONSULT PHARMACY PRN (13:45)
[2021-06-23] MEDS: D5W AND 1/2NSS 1,000 ML IV SCH (14:37)
[2021-06-24] MEDS: D5W AND 1/2NSS 1,000 ML IV SCH ×2 (05:45→17:13)
--- NOTE | 2021-06-24 07:32 | CT Scan Report ---
CT head/brain wo con CLINICAL HISTORY: re-eval SAH Technique: Contiguous axial CT images of the head were acquired from the base of the skull to the richard mendel without intravenous contrast administration. Images were viewed in brain, subdural and [facility]. Automated dose lowering techniques and/or adjustment according to patient size were utilized for this exam. Comparison: Comparison is made to CT head 06/22/2021 Findings: Areas of decreased attenuation are present in the periventricular and subcortical white matter bilate rally consistent with small vessel ischemic disease. Generalized cerebral atrophy with commensurate e nlargement of the ventricles, sulci, and cisterns is also present. There is no acute intracranial hem orrhage or evidence of acute territorial infarction. No shift of the midline structures, mass effect, or extra-axial abnormalities are shown. Atherosclerotic calcifications are present in the intracran ial segments of the internal carotid arteries. Imaged portions of the paranasal sinuses and mastoid air cells are clear. The orbits appear normal. There are no acute fractures of the calvaria or scalp swelling. Impression: No acute intracranial hemorrhage, no evidence of acute territorial infarction or other acute intracra nial disease process. ACT 112: Negative or not required by law. Electronically signed by: Chino Estevez M.D. 06/24/2021 7:31 AM
[2021-06-24 07:47] LABS: Estimated Average Glucose 126 mg/dl
[2021-06-24 08:09] LABS: Basophils # (auto) 0.02 K/uL (0-0.2); Basophils % (auto) 0.3 %; Eosinophils # (auto) 0.35 K/uL (0-0.5); Eosinophils % (auto) 5.6 %; Hematocrit (blood only) 42.4 % (37-47); Hemoglobin 13.3 g/dL (12.0-16.0); Immature Granulocytes # (auto) 0.04 K/uL (0.00-0.02); Immature Granulocytes % (auto) 0.6 %; Lymphocytes # (auto) 1.28 K/uL (1.2-3.4); Lymphocytes % (auto) 20.6 %; Mean Corpuscular Hemoglobin 30.7 pg (25-34); Mean Corpuscular Hgb Conc 31.4 g/dL (32-36); Mean Corpuscular Volume 97.9 fL (80-100); Mean Platelet Volume 9.8 fL (7.4-10.4); Monocytes % (auto) 14.5 %; Neutrophils # (auto) 3.62 K/uL (1.4-6.5); Neutrophils % (auto) 58.4 %; Platelet Count 293 K/uL (130-400); RDW Coefficient of Variation 13.3 % (11.5-14.5); RDW Standard Deviation 47.4 fL (36.4-46.3); Red Blood Count 4.33 M/uL (4.2-5.4); White Blood Count 6.21 K/uL (4.8-10.8)
[2021-06-24 08:26] LABS: BUN Creatinine Ratio 32.4 (10-20); Calcium 9.3 mg/dl (8.5-10.1); Creatinine Clr Calc Pharmacy 47.7 ml/min; Est GFR (Non-African American) 74.2 ml/min; Magnesium 2.1 mg/dl (1.8-2.4); Potassium 4.5 mmol/L (3.5-5.1)
[2021-06-24 08:29] LABS: Bilirubin,Total 0.6 mg/dl (0.2-1); Phosphorus 3.1 mg/dl (2.5-4.9)
--- NOTE | 2021-06-24 08:50 | XRay Report ---
XR chest 1V portable CLINICAL HISTORY: covid assess for pna, +hypoxia COMPARISON STUDY: Chest radiograph June 22, 2021. FINDINGS: Lung volumes are normal. There is no pneumothorax or pleural effusion. Right basilar opacit y has decreased. There is mild left basilar opacity. There is no evidence for pulmonary edema. Cardia c size is normal. Mediastinal contours are unremarkable. Cholecystectomy clips are incidentally noted . IMPRESSION: Bibasilar opacities, decreased since chest radiograph of June 22, 2021. ACT 112: Negative or not required by law. Electronically signed by: Sampson Baker M.D. 06/24/2021 8:49 AM
--- NOTE | 2021-06-24 13:03 | Hospitalist Progress Note ---
Date of Service June 24, 2021 Assessment & Plan (1) Encephalopathy acute: Plan: Uncertain cause with etiologies including but not limited to covid-19 infection, medication side effect including Ingressa (recently started, took two pills, however, she was worsening prior to taking this), Regeneron infusion given 06/14. SAH less likely to be the cause and suspect some trauma with medication list including NSAIDs--Dr. Toledo was unable to confirm with [facility] staff regarding MAR and was unable to send this over to the hospital so cannot verify what has been taken. SAH is stable and there is no aneurysmal source or tumor present. MRI reveals no evidence of acute stroke and SAH is stable in size. EEG was performed revealing mild to moderate generalized nonfocal slowing without any potentially epileptiform activity. Remains off Keppra at this time. Remains off ingressa, risperidone and all other PO meds as she is unable to tolerate PO at this time. Cont clinical monitoring and patient will be on an easy to chew diet and lift supplements to meet her caloric needs. We will DC the PPN (2) Subarachnoid hemorrhage: Plan: We will plan to keep systolic blood pressure less than 180 and until MRI read returns we will hold off on giving Keppra for seizure prophylaxis. Stable in size overnight. (3) Tardive dyskinesia: Plan: Sees Dr. Madelyn Pack Neurology who has her on risperidone and recently started her on Ingressa. Has take two pills so far and is now off this. No dyskinetic movements are seen today on exam. Cont to monitor. (4) SARS-CoV-2 positive: Plan: No indication for Covid specific therapy. Covid precautions (5) Severe protein-calorie malnutrition: Plan: Poor oral intake recently with weight loss. Patient appears cachectic and malnourished. Diet now easy to chew with supplements to meet caloric intake. (6) Hypertension: Plan: Hold home oral antihypertensive and managed with parenteral agents. Permissive hypertension. (7) Depression: Plan: Continue duloxetine once patient has passed bedside swallow study (8) DVT prophylaxis: Plan: SCDs Full code as discussed with her daughter on admission Disposition-PCU ROS-offers little to no reliable history Physical Exam Gen-AAO x 1, NAD, Afebrile Head-NCAT, EOMI, PERRLA, Anicteric Sclera, No Posterior Pharyngeal Erythema Neck-Supple, No JVD, No Thyromegaly, No Masses, No LAD, No Bruits Lungs-Clear to Auscultation Bilaterally, No Rales, No Rhonchi, No Wheezing, No Crepitus Chest-No S4, +S1, +S2, No S3, No Murmurs, No Rubs, No Gallops, No Ectopy Abdomen-Soft, Bowel Sounds Present, Non Tender, Non Distended, No Hepatomegaly, No Splenomegaly, No Palpable Masses, No Rebound, No Rigidity, No Guarding Musculoskeletal-Full Range of Motion Bilaterally, No CVAT Extremities-No Cyanosis, No Clubbing, No Edema Nuero-Cranial Nerves II-XII grossly intact, Motor WNL, DTRs WNL, Strength WNL, Non Focal Psych-Pleasant Admission and Anticipated Discharge Date Admission Date: June 22, 2021 Subjective 81 yo covid positive female presents with altered mental status, weakness and decreased ability to eat for the past week. She was administered casivimab on 06/14 and had no immediate reactions, observed for 45 minutes post transfusion. Daughter notes that she was very tired the rest of the weekend and specifically noted mom was falling asleep while daughter was talking with her that following Thursday, 3 days later. She progressively remained fatigued and wasn't eating anything, also exhibiting large dyskinetic movements with her arms. For this reason, the recently approved Ingressa was started on Thu (06/21) morning and she took one pill. The following day daughter states staff reported patient was very anxious and was pacing around her room. Staff wasn't able to get her to eat and patient was agitated. Pill were given in applesauce that day including a second dose of Ingressa. Subsequently brought in 06/22 for worsening symptoms. Patient seen, did not offer much of a reliable history. Results & Data Results & Data ([facility]) Vital Signs (Past 12 Hours) Vital Signs Temp Pulse Resp BP Pulse Ox 06/24/21 12:14 36.4 C L 78 18 118/76 100 06/24/21 07:41 36.4 C L 53 L 12 146/70 H 99 06/24/21 03:18 36.9 C 66 16 138/79 100 Laboratory Results Reviewed
--- NOTE | 2021-06-24 17:00 | Communication Note ---
Date of Service: June 24, 2021 I saw Sharron today and I am impressed by her improvement. She certainly far from lethargic she is awake conversant to some degree knows she is in the hospital knows it is June can tell me she has been in [facility] for quite a number of years and I corroborated this with her daughter and denies any headaches, denies having fallen, and denies feeling ill but is quite thirsty and unfortunately now off her medications is back to a significant tardive dyskinetic picture with a lot of rocking and dyskinetic movements of her head extremities and this is really impairing her ability to take in food and water to some degree I have had a series of conversations with Sharron's daughter and the history suggests that the initial Covid diagnosed June 11 was actually fairly mild but that the daughter was concerned enough about the potential for progression that she requested the monoclonal antibody treatment which was received. After that Sharron continued to decline but it turns out she had been declining slowly for at least several months with weight loss anorexia and increasing problems with her tardive dyskinesia and the Ingrezza therapy had actually been requested back in May and only arrived this past Thursday and the first doses were given. The history suggests that her decline into her more withdrawn state correlates with the use of this agent but some of this may have been coming on anyway There is no history for head injury sudden headache and the subarachnoid hemorrhage may simply be part of her Covid as spontaneous nonaneurysmal subarachnoid hemorrhages and small size are reported in this entity I suspect it was an incidental finding and the CT scan was performed only because of her decline in mental status in the several days prior to admission and this correlates perhaps with the Ingrezza therapy At this point I see no reason to use nimodipine, Keppra as per the initial neurosurgical recommendations and I really do not think transfer to a tertiary center is going to be necessary if her tardive dyskinesia can be managed here I am going to try to contact her neurologist at [facility] and discussed the case tomorrow and perhaps consider a lower dose of the Ingrezza For now however I would suggest we put her back on the Risperdal which she takes according to the chart 5.25 mg twice a day and I would start her back on her duloxetine at 60 mg a day and I am going to contact her hospitalist regarding these recommendations I do not think she needs further neurodiagnostic testing although another CT in 5 to 7 days might be helpful to monitor the subarachnoid hemorrhage Trae Bonner MD
[2021-06-24] MEDS: DULoxetine HCL 60 MG CAP PO SCH (20:15)
[2021-06-24] MEDS: risperiDONE 0.5 MG TABLET PO SCH (20:16)
[2021-06-24] MEDS ORDERED: LORazepam 0.25 MG/0.5 ML VIAL IV STA (22:57)
[2021-06-24] MEDS ORDERED: SODIUM CHLORIDE 0.45 % 1,000 ML IV STA (22:59)
[2021-06-24] MEDS ORDERED: MAGNESIUM SULFATE / D5W 1 GM/100 ML BAG IV ONE (23:30)
[2021-06-25] MEDS ORDERED: XOPENEX/ATROVENT 1.25mg/0.5MG NEB COMBO NEB STA (00:01)
[2021-06-25] MEDS ORDERED: IPRATROPIUM BROMIDE NEB SOLN 0.02% 2.5 ML VIAL INH STA (00:05)
[2021-06-25] MEDS ORDERED: LEVALBUTEROL 1.25MG/0.5ML NEB INH STA (00:06)
--- NOTE | 2021-06-25 00:08 | Communication Note ---
Date of Service: June 25, 2021 Patient with O2 sats in the 90s with shallow breathing as per RN. Lowest O2 level 84% when patient moving around a lot. No obvious cough symptoms as per RN. Chest x-ray as per my interpretation : elevated right hemidiaphragm, bibasilar opacities AP Hypoxemic respiratory failure Severe COVID-19 pneumonia Continue supplemental O2 Baseline ABG Decadron course Consider CT angio chest to rule out PE if hypoxemia persistent given history of COVID-19 illness and episode of tachycardia last night. Patient daughter (Ms. Sue Emery) of developments over the phone. She requests for periodic updates from a.m. provider
[2021-06-25] MEDS ORDERED: dexAMETHasone 6 MG in SYRINGE 0 ML IV ONE (00:15)
[2021-06-25 01:30] LABS: Basophils # (auto) 0.02 K/uL (0-0.2); Basophils % (auto) 0.2 %; Eosinophils # (auto) 0.08 K/uL (0-0.5); Eosinophils % (auto) 0.8 %; Hematocrit (blood only) 36.7 % (37-47); Hemoglobin 12.2 g/dL (12.0-16.0); Immature Granulocytes # (auto) 0.04 K/uL (0.00-0.02); Immature Granulocytes % (auto) 0.4 %; Lymphocytes # (auto) 0.91 K/uL (1.2-3.4); Lymphocytes % (auto) 8.6 %; Mean Corpuscular Hemoglobin 31.9 pg (25-34); Mean Corpuscular Hgb Conc 33.2 g/dL (32-36); Mean Corpuscular Volume 95.8 fL (80-100); Mean Platelet Volume 9.6 fL (7.4-10.4); Monocytes # (auto) 0.94 K/uL (0.11-0.59); Monocytes % (auto) 8.9 %; Neutrophils # (auto) 8.59 K/uL (1.4-6.5); Neutrophils % (auto) 81.1 %; Platelet Count 316 K/uL (130-400); RDW Coefficient of Variation 12.8 % (11.5-14.5); RDW Standard Deviation 44.4 fL (36.4-46.3); Red Blood Count 3.83 M/uL (4.2-5.4); White Blood Count 10.58 K/uL (4.8-10.8)
[2021-06-25 01:43] LABS: Partial Thromboplastin Ratio 1.1; Partial Thromboplastin Time 29.1 Seconds (21.0-31.0)
[2021-06-25 01:52] LABS: Albumin Level 2.7 gm/dl (3.4-5.0); BUN Creatinine Ratio 24.4 (10-20); Bilirubin Direct 0.2 mg/dl (0-0.2); Bilirubin,Total 0.6 mg/dl (0.2-1); C Reactive Protein 0.38 mg/dl (0-0.29); Calcium 9.3 mg/dl (8.5-10.1); Creatinine Clr Calc Pharmacy 36.1 ml/min; Est GFR (African American) 61.5 ml/min; Est GFR (Non-African American) 53.1 ml/min; Potassium 3.7 mmol/L (3.5-5.1); Total Protein 6.3 gm/dl (6.4-8.2)
[2021-06-25] MEDS ORDERED: SODIUM CHLORIDE 0.9% 1000ML 1,000 ML IV ONE (02:11)
[2021-06-25] MEDS ORDERED: POTASSIUM CHLORIDE PWD 20 MEQ PACK PO STA (02:46)
[2021-06-25 07:41] LABS: Basophils # (auto) 0.01 K/uL (0-0.2); Basophils % (auto) 0.1 %; Eosinophils # (auto) 0.01 K/uL (0-0.5); Eosinophils % (auto) 0.1 %; Hematocrit (blood only) 35.2 % (37-47); Hemoglobin 11.5 g/dL (12.0-16.0); Immature Granulocytes # (auto) 0.03 K/uL (0.00-0.02); Immature Granulocytes % (auto) 0.4 %; Lymphocytes # (auto) 0.59 K/uL (1.2-3.4); Lymphocytes % (auto) 7.2 %; Mean Corpuscular Hemoglobin 31.3 pg (25-34); Mean Corpuscular Hgb Conc 32.7 g/dL (32-36); Mean Corpuscular Volume 95.9 fL (80-100); Mean Platelet Volume 9.7 fL (7.4-10.4); Monocytes # (auto) 0.22 K/uL (0.11-0.59); Monocytes % (auto) 2.7 %; Neutrophils # (auto) 7.35 K/uL (1.4-6.5); Neutrophils % (auto) 89.5 %; Platelet Count 289 K/uL (130-400); RDW Coefficient of Variation 12.7 % (11.5-14.5); RDW Standard Deviation 44.3 fL (36.4-46.3); Red Blood Count 3.67 M/uL (4.2-5.4); White Blood Count 8.21 K/uL (4.8-10.8)
--- NOTE | 2021-06-25 07:42 | XRay Report ---
XR chest 1V portable CLINICAL HISTORY: low o2 TECHNIQUE: Single frontal radiograph of the chest was obtained. Comparison: Comparison is made to chest one view 06/24/2021 FINDINGS: No lines and tubes are seen. Calcified aortic knob is seen. The lungs are clear. No evidence of pleur al effusion or pneumothorax. IMPRESSION: No significant opacities are seen. ACT 112: Negative or not required by law. Electronically signed by: Chino Estevez M.D. 06/25/2021 7:41 AM
[2021-06-25] MEDS: risperiDONE 0.5 MG TABLET PO SCH ×2 (08:21→19:53)
[2021-06-25] MEDS: DULoxetine HCL 60 MG CAP PO SCH (08:22)
[2021-06-25] MEDS: HEPARIN SOD 5,000 UNIT/0.5 ML VIAL SQ SCH ×2 (08:22→19:52)
[2021-06-25 09:26] LABS: BUN Creatinine Ratio 25.9 (10-20); Calcium 9.4 mg/dl (8.5-10.1); Creatinine Clr Calc Pharmacy 40.8 ml/min; Est GFR (African American) 70.9 ml/min; Est GFR (Non-African American) 61.2 ml/min; Potassium 5.4 mmol/L (3.5-5.1)
[2021-06-25] MEDS ORDERED: OPTIRAY 320 125ml IV ONE (10:37)
--- NOTE | 2021-06-25 10:57 | CT Scan Report ---
CT angio chest PE protocol CLINICAL HISTORY: sob, tachy, Covid positive. Evaluate for pulmonary embolus COMPARISON STUDY: Portable chest from 06/25/2021 CT DOSE: 523.14 mGycm TECHNIQUE: CT Angio of the chest was performed.followed by image post processing with coronal, and s agittal MIP reformats. Contrast Volume: Optiray 320, 120 ml FINDINGS: There is breathing motion artifact present. Vasculature: There is homogeneous perfusion of the pulmonary vasculature bilaterally. No intraluminal filling defects or evidence for pulmonary embolus is seen. Airway: The airway is clear. No endobronchial lesion is identified. Lungs: There is asymmetric elevation of the right hemidiaphragm with crowding of the bronchovascular markings at the right lung base. The lungs are otherwise clear of acute alveolar opacities, air bronc hograms or pulmonary nodules. Pleura: There is no evidence for pleural effusion. There is no evidence for pneumothorax. Mediastinum: There is no evidence for pathologic adenopathy. The heart size is within normal limits. There is mild coronary artery calcification. The thoracic aorta is within normal limits. Atherosclero tic calcification is seen. There is no evidence for pericardial effusion. Upper abdomen:The adrenal glands are normal bilaterally. Osseous structures: There is no acute osseous pathology. Degenerative changes are present within the spine. Impression: 1. No CTA evidence for pulmonary embolus. 2. No acute chest disease. 3. There is breathing motion artifact limiting the study. However, no gross abnormality is seen. ACT 112: Negative or not required by law. Electronically signed by: Thad Leal M.D. 06/25/2021 10:55 AM
--- NOTE | 2021-06-25 12:30 | Hospitalist Progress Note ---
Date of Service June 25, 2021 Assessment & Plan (1) Encephalopathy acute: Plan: Uncertain cause with etiologies including but not limited to covid-19 infection, medication side effect including Ingressa (recently started, took two pills, however, she was worsening prior to taking this), Regeneron infusion given 06/14. SAH less likely to be the cause and suspect some trauma with medication list including NSAIDs. SAH is stable and there is no aneurysmal source or tumor present. MRI reveals no evidence of acute stroke and SAH is stable in size. EEG was performed revealing mild to moderate generalized nonfocal slowing without any potentially epileptiform activity. Remains off Keppra at this time. Remains off Ingressa, Risperidone restarted. Cont clinical monitoring and patient will be on an easy to chew diet and supplements to meet her caloric needs. Daughter Sue updated. (2) Subarachnoid hemorrhage: Plan: We will plan to keep systolic blood pressure less than 180. (3) Tardive dyskinesia: Plan: Sees Dr. [facility] who has her on risperidone and recently started her on Ingressa. Has taken two pills so far and is now off this. Disgussed the case with Dr. Bonner we are trying to get in touch with the neurologist at [facility] to see if we can restart the Ingrezza which we would have to get from [facility] since is not on formulary. (4) SARS-CoV-2 positive: Plan: No indication for Covid specific therapy. Covid precautions (5) Severe protein-calorie malnutrition: Plan: Poor oral intake recently with weight loss. Patient appears cachectic and malnourished. Diet now easy to chew with supplements to meet caloric intake. (6) Hypertension: Plan: Hold home oral antihypertensive and managed with parenteral agents. Permissive hypertension. (7) Depression: Plan: Continue duloxetine (8) DVT prophylaxis: Plan: SCDs Full code Disposition-PCU ROS-No Headache, No Visual Changes, No Nausea, No Vomiting, No Fever, No Chills, No Neck Pain or Stiffness, No Chest Pain, No Palpitations, No SOB, No SYED, No Cough, No Sputum, No Wheezing, No Abdominal Pain, No Diarrhea, No Hematemesis, No Hemoptysis, No Unexpected Weight Loss, No Flank pain, No Melena, No Hematochezia, No Frequency, No Urgency, No Burning, No Hematuria, No Rashes, No Diaphoresis. Appetite is Normal Physical Exam Gen-AAO x 3, NAD, Afebrile, +Dyskinetic movements Head-NCAT, EOMI, PERRLA, Anicteric Sclera, No Posterior Pharyngeal Erythema Neck-Supple, No JVD, No Thyromegaly, No Masses, No LAD, No Bruits Lungs-Clear to Auscultation Bilaterally, No Rales, No Rhonchi, No Wheezing, No Crepitus Chest-No S4, +S1, +S2, No S3, No Murmurs, No Rubs, No Gallops, No Ectopy Abdomen-Soft, Bowel Sounds Present, Non Tender, Non Distended, No Hepatomegaly, No Splenomegaly, No Palpable Masses, No Rebound, No Rigidity, No Guarding Musculoskeletal-Full Range of Motion Bilaterally, No CVAT Extremities-No Cyanosis, No Clubbing, No Edema Nuero-Cranial Nerves II-XII grossly intact, Motor WNL, DTRs WNL, Strength WNL, Non Focal, Dyskinetic Psych-Normal Mood Admission and Anticipated Discharge Date Admission Date: June 22, 2021 Results & Data Results & Data ([facility]) Vital Signs (Past 12 Hours) Vital Signs Temp Pulse Resp BP Pulse Ox 06/25/21 11:29 36.7 C 79 16 110/69 95 06/25/21 07:44 36.6 C 82 18 101/65 97 06/25/21 03:47 36.8 C 105 H 24 114/92 93 06/25/21 01:26 96 06/25/21 00:49 96 H 20 97 06/25/21 00:39 97 Laboratory Results Current Diagnoses Unspecified severe protein-calorie malnutrition (06/22/21) Depression, unspecified (06/22/21) Drug induced subacute dyskinesia (06/22/21) Encephalopathy, unspecified (06/22/21) Essential (primary) hypertension (06/22/21) Nontraumatic subarachnoid hemorrhage, unspecified (06/22/21) Unspecified symptoms and signs involving the nervous system (06/22/21) COVID-19 (06/22/21) Encounter for prophylactic measures, unspecified (06/22/21) Allergies adhesive Allergy (Mild, Verified 06/22/21 14:52) RASH acetaminophen Allergy (Unknown, Verified 06/22/21 14:52) RASH codeine Allergy (Unknown, Verified 06/22/21 14:52) GI SYMPTOMS hydrocodone Allergy (Unknown, Verified 06/22/21 14:52) GI SYMPTOMS Penicillins Allergy (Unknown, Verified 06/22/21 14:52) RASH Height/Weight/Isolation Height 5 ft 3 in Weight 54.8 kg Isolation Type Airborne Precautions Chemistry 06/24/21 06/25/21 06/25/21 07:29 01:15 07:01 Sodium 145 139 136 Potassium 4.5 3.7 D 5.4 H D Chloride 114 H 109 H 110 H Carbon Dioxide 25 24 21 Anion Gap 7.0 6.0 5.0 BUN 24 H 24 H 23 H Creatinine 0.75 0.99 0.88 Glucose 84 125 H 132 H Microbiology 06/25/21 01:47 Blood Aerobic Blood Culture - Pending 06/25/21 01:47 Blood Anaerobic Blood Culture - Pending 06/25/21 01:15 Blood Aerobic Blood Culture - Pending 06/25/21 01:15 Blood Anaerobic Blood Culture - Pending
--- NOTE | 2021-06-25 16:39 | Communication Note ---
Date of Service: June 25, 2021 Sharron was sleepy today when I visited her and had apparently been pretty dyskinetic all afternoon according to my conversation with her attending physic zeynep. I finally did get in contact with a distribution sales representative from [facility] at [place] and I have suggested restarting the Ingrezza at a dose of 20 mg rather than 40 and we would have to break the capsules in pieces and use applesauce as a delivery system. The medication not on our formulary so we will try to collect it from [facility] and have nurses administer it and 20 mg doses but this may not be until tomorrow and fortunately currently she is really not demonstrating any abnormal involuntary movements but this would be expected in sedated individual She is arousable awake knows she is in [facility] knows [facility] knows about how long she has been here knows the name of the hospital and again has no abnormal involuntary movements at the present time but does appear to be a very emaciated woman and I agree with her daughter's concerns about her nutritional status I will check back with her tomorrow I did review the situation with her daughter and Dr. Cramer today Trae Bonner MD
--- NOTE | 2021-06-26 06:31 | Electrocardiogram Report ---
Test Reason : Blood Pressure : / mmHG Vent. Rate : 080 BPM Atrial Rate : 080 BPM P-R Int : 202 ms QRS Dur : 078 ms QT Int : 386 ms P-R-T Axes : 064 010 069 degrees QTc Int : 445 ms Sinus rhythm with Premature atrial complexes Minimal voltage criteria for LVH, may be normal variant Borderline ECG When compared with ECG of 24-JUN-2021 11:49, No significant change Confirmed by Samuel Álvarez ([id number]) on 06/26/2021 6:31:14 AM Referred By: REFERRED SELF Confirmed By:Samuel Álvarez
--- NOTE | 2021-06-26 06:31 | Electrocardiogram Report ---
Test Reason : Blood Pressure : / mmHG Vent. Rate : 085 BPM Atrial Rate : 084 BPM P-R Int : 000 ms QRS Dur : 080 ms QT Int : 380 ms P-R-T Axes : 000 026 082 degrees QTc Int : 452 ms Sinus rhythm with Premature atrial complexes Minimal voltage criteria for LVH, may be normal variant Nonspecific T wave abnormality Abnormal ECG When compared with ECG of 22-JUN-2021 13:01, Premature atrial complexes are now Present Confirmed by Samuel Álvarez ([id number]) on 06/26/2021 6:30:43 AM Referred By: REFERRED SELF Confirmed By:Samuel Álvarez
--- NOTE | 2021-06-26 08:41 | CT Scan Report ---
CT head/brain wo con CLINICAL HISTORY: Follow up SAH . Patient confused COMPARISON STUDY: 06/22/2021 and 06/24/2021 CT DOSE: 638.56 mGycm TECHNIQUE: Standard CT of the Brain was performed without IV contrast. A dose lowering technique was utilized adhering to the principles of ALARA. FINDINGS: Extraaxial space: There is no evidence for subdural hematoma. There are no extra-axial fluid collecti ons. Ventricles and cisterns: The ventricles are again mildly to moderately dilated bilaterally. There is no evidence for midline shift or mass effect. Parenchyma: Compared to the [address] examinations, there is a stable, very small subarachnoid h emorrhage present along one of the high right parietal sulci. This is seen on images 22 and 23. No ne w hemorrhage is seen. No increase in size is identified. No parenchymal hemorrhages are seen. There i s no evidence for an acute infarct or cerebral edema. There is mild cerebral cortical atrophy and decreased attenuation in the periventricular white matter representing remote small vessel disease. There are no gross mass lesions. Osseous structures: There is no evidence for an acute fracture. The visualized paranasal sinuses are clear. There is asymmetric mucosal thickening of the mastoid air cells on the left when compared to t he right characteristic of chronic mastoiditis. Soft tissues: There is no evidence for focal soft tissue swelling. IMPRESSION: 1. No significant interval change in the very small subarachnoid hemorrhage identified along one of t he high right parietal sulci. 2. No new subarachnoid or intracerebral hemorrhage. 3. Cerebral cortical atrophy and remote small vessel disease are again seen. 4. Evidence for chronic left mastoiditis. ACT 112: Negative or not required by law. Electronically signed by: Thad Leal M.D. 06/26/2021 8:39 AM
[2021-06-26 08:45] LABS: Hematocrit (blood only) 34.4 % (37-47); Hemoglobin 11.2 g/dL (12.0-16.0); Mean Corpuscular Hemoglobin 30.9 pg (25-34); Mean Corpuscular Hgb Conc 32.6 g/dL (32-36); Mean Corpuscular Volume 94.8 fL (80-100); Mean Platelet Volume 9.6 fL (7.4-10.4); Platelet Count 281 K/uL (130-400); RDW Coefficient of Variation 13.1 % (11.5-14.5); RDW Standard Deviation 45.8 fL (36.4-46.3); Red Blood Count 3.63 M/uL (4.2-5.4); White Blood Count 6.48 K/uL (4.8-10.8)
[2021-06-26 08:55] LABS: BUN Creatinine Ratio 32.5 (10-20); Calcium 9.5 mg/dl (8.5-10.1); Creatinine Clr Calc Pharmacy 49.1 ml/min; Est GFR (African American) 88.9 ml/min; Est GFR (Non-African American) 76.7 ml/min; Potassium 4.2 mmol/L (3.5-5.1)
[2021-06-26] MEDS ORDERED: dexAMETHasone 6 MG in SYRINGE 0 ML IV SCH (09:00)
[2021-06-26] MEDS: risperiDONE 0.5 MG TABLET PO SCH ×2 (09:09→20:39)
[2021-06-26] MEDS: VALBENAZINE 40 MG PO SCH (09:09)
[2021-06-26] MEDS: HEPARIN SOD 5,000 UNIT/0.5 ML VIAL SQ SCH ×2 (09:10→20:40)
[2021-06-26] MEDS: DULoxetine HCL 60 MG CAP PO SCH (09:10)
--- NOTE | 2021-06-26 16:12 | Hospitalist Progress Note ---
Date of Service June 26, 2021 Assessment & Plan (1) Encephalopathy acute: Plan: Uncertain cause with etiologies including but not limited to covid-19 infection, medication side effect including Ingressa (recently started, took two pills, however, she was worsening prior to taking this), Regeneron infusion given 06/14. SAH less likely to be the cause and suspect some trauma with medication list including NSAIDs. SAH is stable and there is no aneurysmal source or tumor present. MRI reveals no evidence of acute stroke and SAH is stable in size. EEG was performed revealing mild to moderate generalized nonfocal slowing without any potentially epileptiform activity. Remains off Keppra at this time. Was off Ingressa (now restarted 05/27 at lower dose of 20 mg daily). Risperidone restarted. Cont clinical monitoring and patient will be on an easy to chew diet and supplements to meet her caloric needs. Daughter Sue updated by previous hospitalist. (2) Subarachnoid hemorrhage: Plan: We will plan to keep systolic blood pressure less than 180. CT head repeated (05/27)- SAH stable (3) Tardive dyskinesia: Plan: Sees Dr. Madelyn [facility] ([facility]) who has her on risperidone and recently started her on Ingressa. Has taken two pills so far as outpt. Discussed the case with Dr. Bonner Restarted Ingrezza at lower dose (on 06/26) 20 mg daily - plan is to continue this dose for 1 week then increase to 40 mg then to 60 mg (then reconsult w/ [facility]) (4) SARS-CoV-2 positive: Plan: No indication for Covid specific therapy. Covid precautions (5) Severe protein-calorie malnutrition: Plan: Poor oral intake recently with weight loss. Patient appears cachectic and malnourished. Diet now easy to chew with supplements to meet caloric intake. (6) Hypertension: Plan: Hold home oral antihypertensive and managed with parenteral agents. Permissive hypertension. (7) Depression: Plan: Continue duloxetine (8) DVT prophylaxis: Plan: SCDs Full code Disposition-PCU Admission and Anticipated Discharge Date Admission Date: June 22, 2021 Subjective Pt seen in follow up of tardive dyskinesia, found to be covid 19 positive Currently pt is laying in bed, has some rocking movements Started on Ingrezza and is followed by neurology closely Pt denies any chest pain, shortness of breath, abd. pain, n/v Review of Systems Review of Systems: All systems reviewed & are unremarkable except as noted in Subjective Physical Exam Physical Exam: Gen- AAO x 3, NAD, +Dyskinetic movements Head-NCAT, EOMI, PERRL Neck-Supple, No JVD Lungs-Clear to Auscultation Bilaterally, No Rales, No Rhonchi, No Wheezing Chest- +S1, +S2, No Murmurs Abdomen-Soft, Bowel Sounds Present, Non Tender, Non Distended, No Guarding Musculoskeletal-Full Range of Motion Bilaterally, No CVAT Extremities-No Cyanosis, No Clubbing, No Edema Neuro- awake and alert, answers simple questions appropriately, +Dyskinetic (rocking movement) Psych-Normal Mood Results & Data Results & Data ([facility]) Vital Signs (Past 12 Hours) Vital Signs Temp Pulse Resp BP Pulse Ox 06/26/21 15:53 37.0 C 122 H 18 91/64 L 92 06/26/21 11:27 37.0 C 75 17 116/65 100 06/26/21 07:24 36.7 C 73 16 116/68 96 06/26/21 05:10 36.9 C 75 20 117/58 L 94 Laboratory Results 06/26/21 06/26/21 06/25/21 Range/Units 07:39 07:39 20:23 WBC 6.48 (4.8-10.8) K/uL RBC 3.63 L (4.2-5.4) M/uL Hgb 11.2 L (12.0-16.0) g/dL Hct 34.4 L (37-47) % MCV 94.8 (80-100) fL MCH 30.9 (25-34) pg MCHC 32.6 (32-36) g/dL RDW Std Deviation 45.8 (36.4-46.3) fL RDW Coeff of Miguel A 13.1 (11.5-14.5) % Plt Count 281 (130-400) K/uL MPV 9.6 (7.4-10.4) fL Sodium 141 (136-145) mmol/L Potassium 4.2 D (3.5-5.1) mmol/L Chloride 113 H (98-107) mmol/L Carbon Dioxide 22 (21-32) mmol/L Anion Gap 6.0 (3-11) BUN 24 H (7-18) mg/dl Creatinine 0.73 (0.6-1.2) mg/dl Est Cr Clr Drug Dosing 49.1 ml/min Est GFR ( Amer) 88.9 ml/min Est GFR (Non-Af Amer) 76.7 ml/min BUN/Creatinine Ratio 32.5 H (10-20) Glucose 76 (70-99) mg/dl POC Glucose 99 (70-99) mg/dl Calcium 9.5 (8.5-10.1) mg/dl 06/25/21 Range/Units 16:42 WBC (4.8-10.8) K/uL RBC (4.2-5.4) M/uL Hgb (12.0-16.0) g/dL Hct (37-47) % MCV (80-100) fL MCH (25-34) pg MCHC (32-36) g/dL RDW Std Deviation (36.4-46.3) fL RDW Coeff of Miguel A (11.5-14.5) % Plt Count (130-400) K/uL MPV (7.4-10.4) fL Sodium (136-145) mmol/L Potassium (3.5-5.1) mmol/L Chloride (98-107) mmol/L Carbon Dioxide (21-32) mmol/L Anion Gap (3-11) BUN (7-18) mg/dl Creatinine (0.6-1.2) mg/dl Est Cr Clr Drug Dosing ml/min Est GFR ( Amer) ml/min Est GFR (Non-Af Amer) ml/min BUN/Creatinine Ratio (10-20) Glucose (70-99) mg/dl POC Glucose 115 H (70-99) mg/dl Calcium (8.5-10.1) mg/dl Medications Administered Current Inpatient Medications Duloxetine HCl (Duloxetine Hcl 60 Mg Cap) 60 mg PO QAM JENELLE Stop: 07/24/21 19:14 Last Admin: 06/26/21 09:10 Dose: 60 mg Documented by: Heparin Sodium (Porcine) (Heparin Sod 5,000 Unit/0.5 Ml Vial) 5,000 units SQ Q12 JENELLE Stop: 07/25/21 08:59 Last Admin: 06/26/21 09:10 Dose: 5,000 units Documented by: Dexamethasone 6 mg/ Syringe 1.5 mls @ 1 mls/min IV DAILY [facility] Stop: 07/26/21 08:59 Last Admin: 06/26/21 09:10 Dose: 1 mls/min Documented by: Valbenazine ( Ingrezza) 40mg Capsule~Non- Formulary Patient's Own Med 1 ea PO QAM [facility] Stop: 07/26/21 08:59 Last Admin: 06/26/21 09:09 Dose: 20 mg Documented by: Ondansetron HCl (Ondansetron Inj 2 Mg/Ml 2 Ml Vial) 4 mg IV Q6H PRN PRN Reason: Nausea Stop: 07/22/21 23:28 Risperidone (Risperidone 0.5 Mg Tablet) 0.75 mg PO BID [facility] Stop: 07/24/21 20:59 Last Admin: 06/26/21 09:09 Dose: 0.75 mg Documented by:
--- NOTE | 2021-06-26 16:43 | Communication Note ---
Date of Service: June 26, 2021 I saw Sharron today discussed her case at length with the nurse who has been attending her and once her medications and note that she has received 2 doses of Decadron for unclear reasons yesterday and today. There is no notation as to why this medication was being given and it certainly could serve to activate her psychiatrically and exacerbate the underlying tardive dyskinesia which at present is relatively dramatic and consists of the rocking motions that we have seen episodically over the past several days She is awake alert oriented is somewhat desperate as she has been but apparently has been eating and able to swallow I am not sure she really needs to be in the Covid unit as she contracted the illness several weeks ago received monoclonal antibodies and does not have any significant respiratory issues and has apparently a negative chest x-ray save for some atelectasis I discussed her case with her new attending and I am recommending that we continue the Ingrezza at 20 mg/day which she seems to be tolerating so far without excessive sedation, I would stop the Decadron as am not sure why she is receiving it, I wonder if she can be transferred out of the Covid unit which would make her care much easier, I suggested that social service be consulted regarding placement as her daughter and one of my phone calls was really against having her go back to [facility] I will check back with her again tomorrow but I think the policy would be to continue the Ingrezza 20 mg a day for a week then moved up to 40 mg a day for a week and then to 60 mg a day which was the initial plan by her neurologist at the [facility] at [place] who will be returning after July 06 and could be consulted in her case at that point Trae Bonner MD
--- NOTE | 2021-06-27 06:07 | Electrocardiogram Report ---
Test Reason : Blood Pressure : / mmHG Vent. Rate : 135 BPM Atrial Rate : 135 BPM P-R Int : 168 ms QRS Dur : 080 ms QT Int : 278 ms P-R-T Axes : 035 -54 077 degrees QTc Int : 417 ms Poor data quality, interpretation may be adversely affected Sinus tachycardia Left anterior fascicular block Abnormal ECG When compared with ECG of 24-JUN-2021 11:49, HR has increased by 55 bpm Confirmed by Samuel Álvarez ([id number]) on 06/27/2021 6:07:05 AM Referred By: REFERRED SELF Confirmed By:Samuel Álvarez
--- NOTE | 2021-06-27 06:10 | Electrocardiogram Report ---
Test Reason : Blood Pressure : / mmHG Vent. Rate : 088 BPM Atrial Rate : 088 BPM P-R Int : 208 ms QRS Dur : 094 ms QT Int : 374 ms P-R-T Axes : 055 -37 028 degrees QTc Int : 452 ms Normal sinus rhythm Left axis deviation Cannot rule out Anterior infarct , age undetermined Abnormal ECG When compared with ECG of 24-JUN-2021 23:32, Vent. rate has decreased BY 47 BPM Confirmed by Samuel Álvarez ([id number]) on 06/27/2021 6:10:23 AM Referred By: REFERRED SELF Confirmed By:Samuel Álvarez
[2021-06-27 08:30] LABS: Hematocrit (blood only) 34.8 % (37-47); Hemoglobin 11.6 g/dL (12.0-16.0); Mean Corpuscular Hemoglobin 31.3 pg (25-34); Mean Corpuscular Hgb Conc 33.3 g/dL (32-36); Mean Corpuscular Volume 93.8 fL (80-100); Mean Platelet Volume 9.8 fL (7.4-10.4); Platelet Count 305 K/uL (130-400); RDW Standard Deviation 44.7 fL (36.4-46.3); Red Blood Count 3.71 M/uL (4.2-5.4); White Blood Count 7.69 K/uL (4.8-10.8)
[2021-06-27 08:55] LABS: BUN Creatinine Ratio 34.8 (10-20); Calcium 9.6 mg/dl (8.5-10.1); Creatinine Clr Calc Pharmacy 44.8 ml/min; Est GFR (African American) 79.6 ml/min; Est GFR (Non-African American) 68.7 ml/min; Magnesium 1.8 mg/dl (1.8-2.4); Phosphorus 2.9 mg/dl (2.5-4.9)
[2021-06-27] MEDS: DULoxetine HCL 60 MG CAP PO SCH (09:23)
[2021-06-27] MEDS: HEPARIN SOD 5,000 UNIT/0.5 ML VIAL SQ SCH ×2 (09:23→22:00)
[2021-06-27] MEDS: risperiDONE 0.5 MG TABLET PO SCH ×2 (09:23→23:40)
[2021-06-27] MEDS: VALBENAZINE 40 MG PO SCH (09:24)
--- NOTE | 2021-06-27 13:46 | Hospitalist Progress Note ---
Date of Service June 27, 2021 Assessment & Plan (1) Encephalopathy acute: Plan: Uncertain cause with etiologies including but not limited to covid-19 infection, medication side effect including Ingressa (recently started, took two pills, however, she was worsening prior to taking this), Regeneron infusion given 06/14. SAH less likely to be the cause and suspect some trauma with medication list including NSAIDs. SAH is stable and there is no aneurysmal source or tumor present. MRI reveals no evidence of acute stroke and SAH is stable in size. EEG was performed revealing mild to moderate generalized nonfocal slowing without any potentially epileptiform activity. Remains off Keppra at this time. Was off Ingressa (now restarted 05/27 at lower dose of 20 mg daily). Risperidone restarted. Cont clinical monitoring. Will need repeat CT head in 1 week. Daughter Sue updated. (2) Subarachnoid hemorrhage: Plan: We will plan to keep systolic blood pressure less than 180. CT head repeated (05/27)- SAH stable Repeat CT head in 1 week. (3) Tardive dyskinesia: Plan: Sees Dr. Madelyn [facility] (movement disorder) who has her on risperidone and recently started her on Ingressa. Has taken two pills so far as outpt. Discussed the case with Dr. Bonner Restarted Ingrezza at lower dose (on 06/26) 20 mg daily - plan is to continue this dose for 1 week then increase to 40 mg then to 60 mg (then reconsult w/ [facility] neurology) (4) SARS-CoV-2 positive: Plan: No indication for Covid specific therapy. Covid precautions (5) Severe protein-calorie malnutrition: Plan: Poor oral intake recently with weight loss. Patient appears cachectic and malnourished. Diet - easy to chew with supplements to meet caloric intake. Pt had a chocking episode on 05/28 - will obtain speech eval. (6) Hypertension: Plan: Hold home oral antihypertensive and managed with parenteral agents. Permissive hypertension. (7) Depression: Plan: Continue duloxetine (8) DVT prophylaxis: Plan: SCDs Full code Disposition-PCU Admission and Anticipated Discharge Date Admission Date: June 22, 2021 Subjective Pt seen in follow up of tardive dyskinesia, found to be covid 19 positive Currently pt is laying in bed, in NAD Involuntary movements improved today per nursing staff Started on Ingrezza yesterday and is followed by neurology closely Pt denies any chest pain, shortness of breath, abd. pain, n/v Update: pt had a chocking episode while eating dinner, RN was at the bedside, able to help the pt resolve this Pt satting in 90s , monitored on cont. pulse ox CXR obtained, start empiric Abx, speech eval ordered Daughter updated and notified Review of Systems Review of Systems: All systems reviewed & are unremarkable except as noted in Subjective Physical Exam Physical Exam: Gen- AAO x 3, NAD Head-NCAT, EOMI, PERRL Neck-Supple, No JVD Lungs-Clear to Auscultation Bilaterally, No Rales, No Rhonchi, No Wheezing Chest- +S1, +S2, No Murmurs Abdomen-Soft, Bowel Sounds Present, Non Tender, Non Distended, No Guarding Musculoskeletal-Full Range of Motion Bilaterally, No CVAT Extremities-No Cyanosis, No Clubbing, No Edema Neuro- drowsy but answers simple questions appropriately Psych-Normal Mood Results & Data Results & Data ([facility]) Vital Signs (Past 12 Hours) Vital Signs Temp Pulse Pulse Resp BP Pulse Ox 06/27/21 11:40 37.0 C 75 16 126/72 96 06/27/21 07:52 36.9 C 78 16 135/84 95 06/27/21 05:39 36.5 C 78 14 155/108 H 90 Laboratory Results 06/27/21 06/27/21 Range/Units 07:31 07:31 WBC 7.69 (4.8-10.8) K/uL RBC 3.71 L (4.2-5.4) M/uL Hgb 11.6 L (12.0-16.0) g/dL Hct 34.8 L (37-47) % MCV 93.8 (80-100) fL MCH 31.3 (25-34) pg MCHC 33.3 (32-36) g/dL RDW Std Deviation 44.7 (36.4-46.3) fL RDW Coeff of Miguel A 13.0 (11.5-14.5) % Plt Count 305 (130-400) K/uL MPV 9.8 (7.4-10.4) fL Sodium 139 (136-145) mmol/L Potassium 4.0 (3.5-5.1) mmol/L Chloride 109 H (98-107) mmol/L Carbon Dioxide 25 (21-32) mmol/L Anion Gap 5.0 (3-11) BUN 28 H (7-18) mg/dl Creatinine 0.80 (0.6-1.2) mg/dl Est Cr Clr Drug Dosing 44.8 ml/min Est GFR ( Amer) 79.6 ml/min Est GFR (Non-Af Amer) 68.7 ml/min BUN/Creatinine Ratio 34.8 H (10-20) Glucose 77 (70-99) mg/dl Calcium 9.6 (8.5-10.1) mg/dl Phosphorus 2.9 (2.5-4.9) mg/dl Magnesium 1.8 (1.8-2.4) mg/dl Medications Administered Current Inpatient Medications Duloxetine HCl (Duloxetine Hcl 60 Mg Cap) [address] [facility] Stop: 07/24/21 19:14 Last Admin: 06/27/21 09:23 Dose: 60 mg Documented by: Heparin Sodium (Porcine) (Heparin Sod 5,000 Unit/0.5 Ml Vial) 5,000 units SQ Q12 [facility] Stop: 07/25/21 08:59 Last Admin: 06/27/21 09:23 Dose: 5,000 units Documented by: Valbenazine ( Ingrezza) 40mg Capsule~Non- Formulary Patient's Own Med [address] [facility] Stop: 07/26/21 08:59 Last Admin: 06/27/21 09:24 Dose: 20 mg Documented by: Ondansetron HCl (Ondansetron Inj 2 Mg/Ml 2 Ml Vial) 4 mg IV Q6H PRN PRN Reason: Nausea Stop: 07/22/21 23:28 Risperidone (Risperidone 0.5 Mg Tablet) 0.75 mg PO BID [facility] Stop: 07/24/21 20:59 Last Admin: 06/27/21 09:23 Dose: 0.75 mg Documented by:
[2021-06-27] MEDS: MAGNESIUM OXIDE 400 MG TAB PO SCH ×2 (13:58→23:41)
--- NOTE | 2021-06-27 16:31 | Communication Note ---
Date of Service: June 27, 2021 Sharron looks much better today she is a little sleepy but can be aroused and when aroused her movements are much less prominent. I spoke to her nurse today and during lunch the movements were an issue but she was able to feed herself completed most of her meal and is now resting again. She is awake alert knows the month knows her location knows that she lives in [facility] and frankly looks much improved over her status when I first assessed her about a week ago At this point I would continue the Ingrezza at 20 mg a day for a total of a week since the dose was started and then move up to 40 mg for a week and then 60 mg as per the recommendations of the [facility] movement [facility] She should have an outpatient or inpatient CT scan of the head done in a week to follow-up on the subarachnoid hemorrhage but this may persist image fischer for some time and again I suspect as result of the Covid or is an idiopathic spontaneous subarachnoid bleed whose cause will never be established He remains in the Covid unit although I am not sure she really requires this as I doubt that she is infectious at this point Social service probably needs to get involved regarding discharge planning as a conversation I had with her daughter several days ago indicated that there was some dissatisfaction with the care she was receiving at [facility] and the desire for her to be placed elsewhere Neurology is going to sign off the case at this time. Dr. Mckoy will be on for the next week and will be available to provide advice or to reevaluate the patient should there be any changes Trae Bonner MD
[2021-06-27] MEDS ORDERED: CONSULT PHARMACY STA (19:43)
--- NOTE | 2021-06-27 19:57 | XRay Report ---
XR chest 1V portable CLINICAL HISTORY: chocking episode TECHNIQUE: Single frontal radiograph of the chest was obtained. Comparison: Comparison is made to chest one view 06/25/2021 FINDINGS: No lines and tubes are seen. The cardiomediastinal silhouette is stable. The lungs are clear. No evid ence of pleural effusion or pneumothorax. IMPRESSION: No evidence of airspace opacity to suggest aspiration. ACT 112: Negative or not required by law. Electronically signed by: Chino Estevez M.D. 06/27/2021 7:55 PM
[2021-06-27] MEDS ORDERED: ERTAPENEM CONSULT ACTIVE PRN (20:05)
[2021-06-27] MEDS ORDERED: ERTAPENEM SODIUM 1,000 MG in SODIUM CHLORIDE 0.9% 50 ML IV SCH (20:15)
[2021-06-27] MEDS: ERTAPENEM SODIUM 1,000 MG in SODIUM CHLORIDE 0.9% 50 ML IV SCH (20:55)
[2021-06-27] MEDS ORDERED: LORazepam 2 MG/ML VIAL (IM USE) IM STA (21:23)
[2021-06-28 07:19] LABS: Hematocrit (blood only) 37.7 % (37-47); Hemoglobin 12.7 g/dL (12.0-16.0); Mean Corpuscular Hemoglobin 31.6 pg (25-34); Mean Corpuscular Volume 93.8 fL (80-100); Mean Platelet Volume 10.1 fL (7.4-10.4); Platelet Count 271 K/uL (130-400); RDW Coefficient of Variation 13.1 % (11.5-14.5); RDW Standard Deviation 45.3 fL (36.4-46.3); Red Blood Count 4.02 M/uL (4.2-5.4); White Blood Count 6.09 K/uL (4.8-10.8)
[2021-06-28 07:38] LABS: Mean Corpuscular Hgb Conc 33.7 g/dL (32-36)
[2021-06-28 08:08] LABS: BUN Creatinine Ratio 31.3 (10-20); Calcium 9.5 mg/dl (8.5-10.1); Est GFR (African American) 82.1 ml/min; Est GFR (Non-African American) 70.8 ml/min; Potassium 4.2 mmol/L (3.5-5.1)
[2021-06-28] MEDS: risperiDONE 0.5 MG TABLET PO SCH ×2 (10:51→21:23)
[2021-06-28] MEDS: HEPARIN SOD 5,000 UNIT/0.5 ML VIAL SQ SCH ×2 (10:52→21:23)
[2021-06-28] MEDS: MAGNESIUM OXIDE 400 MG TAB PO SCH ×2 (10:52→21:23)
[2021-06-28] MEDS: DULoxetine HCL 60 MG CAP PO SCH (10:53)
[2021-06-28] MEDS: VALBENAZINE 40 MG PO SCH (10:58)
--- NOTE | 2021-06-28 10:58 | Hospitalist Progress Note ---
Date of Service June 28, 2021 Assessment & Plan (1) Encephalopathy acute: Plan: Uncertain cause with etiologies including but not limited to covid-19 infection, medication side effect including Ingressa (recently started, took two pills, however, she was worsening prior to taking this), Regeneron infusion given 06/14. SAH less likely to be the cause and suspect some trauma with medication list including NSAIDs. SAH is stable and there is no aneurysmal source or tumor present. MRI reveals no evidence of acute stroke and SAH is stable in size. EEG was performed revealing mild to moderate generalized nonfocal slowing without any potentially epileptiform activity. Remains off Keppra at this time. Was off Ingressa (now restarted 05/27 at lower dose of 20 mg daily). Risperidone restarted. Cont clinical monitoring. Will need repeat CT head in 1 week. Daughter Sue updated. (2) Subarachnoid hemorrhage: Plan: We will plan to keep systolic blood pressure less than 180. CT head repeated (05/27)- SAH stable Repeat CT head in 1 week. (3) Tardive dyskinesia: Plan: Sees Dr. Madelyn [facility] (movement disorder) who has her on risperidone and recently started her on Ingressa. Has taken two pills so far as outpt prior to her admission. Discussed the case with Dr. Bonner Restarted Ingrezza at lower dose (on 06/26) 20 mg daily - plan is to continue this dose for 1 week then increase to 40 mg then to 60 mg (then reconsult w/ [facility] neurology) (4) SARS-CoV-2 positive: Plan: No indication for Covid specific therapy. Covid precautions (5) Severe protein-calorie malnutrition: Plan: Poor oral intake recently with weight loss. Patient appears cachectic and malnourished. Diet - easy to chew with supplements to meet caloric intake. Pt had a chocking episode on 05/28 - obtain speech eval. empiric Abx for poss. aspiration cont. to monitor closely (6) Hypertension: Plan: Hold home oral antihypertensive and managed with parenteral agents. Permissive hypertension. (7) Depression: Plan: Continue duloxetine (8) DVT prophylaxis: Plan: SCDs Full code Disposition-PCU Admission and Anticipated Discharge Date Admission Date: June 22, 2021 Subjective Pt seen in follow up of tardive dyskinesia, found to be covid 19 positive Currently pt is laying in bed, in NAD Involuntary movements improved, his mood affect Per nursing staff, patient has been quite sleepy today without much of involuntary movements Started on Ingrezza, at lower dose of 20 mg daily, and is followed by neurology closely Pt denies any chest pain, shortness of breath, abd. pain, n/v Review of Systems Review of Systems: All systems reviewed & are unremarkable except as noted in Subjective Physical Exam Physical Exam: Gen- AAO x 3, NAD Head-NCAT, EOMI, PERRL Neck-Supple, No JVD Lungs-Clear to Auscultation Bilaterally, No Rales, No Rhonchi, No Wheezing Chest- +S1, +S2, No Murmurs Abdomen-Soft, Bowel Sounds Present, Non Tender, Non Distended, No Guarding Musculoskeletal-Full Range of Motion Bilaterally, No CVAT Extremities-No Cyanosis, No Clubbing, No Edema Neuro- drowsy but answers simple questions appropriately Psych-Normal Mood Results & Data Results & Data ([facility]) Vital Signs (Past 12 Hours) Vital Signs Temp Pulse Pulse Resp BP BP Pulse Ox 06/28/21 07:19 36.3 C L 73 18 169/87 H 93 06/28/21 06:28 97 H 06/28/21 04:00 36.5 C 78 16 113/72 99 06/27/21 23:08 36.7 C 96 H 24 152/92 H 98 Laboratory Results 06/28/21 06/28/21 06/28/21 Range/Units 07:01 06:28 06:28 WBC 6.09 RBC 4.02 L Hgb 12.7 Hct 37.7 MCV 93.8 MCH 31.6 MCHC 33.7 RDW Std Deviation 45.3 RDW Coeff of Miguel A 13.1 Plt Count 271 MPV 10.1 Absolute Nucleated RBC Nucleated RBC % (auto) Platelet Estimate Sodium 138 (136-145) mmol/L Potassium 4.2 (3.5-5.1) mmol/L Chloride 109 H (98-107) mmol/L Carbon Dioxide 24 (21-32) mmol/L Anion Gap 5.0 (3-11) BUN 24 H (7-18) mg/dl Creatinine 0.78 (0.6-1.2) mg/dl Est Cr Clr Drug Dosing 46.0 ml/min Est GFR ( Amer) 82.1 ml/min Est GFR (Non-Af Amer) 70.8 ml/min BUN/Creatinine Ratio 31.3 H (10-20) Glucose 79 (70-99) mg/dl Calcium 9.5 (8.5-10.1) mg/dl Phosphorus 3.0 (2.5-4.9) mg/dl Magnesium 2.0 (1.8-2.4) mg/dl Procalcitonin < 0.05 (0-0.5) ng/ml 06/28/21 Range/Units 06:28 WBC Cancelled RBC Cancelled Hgb Cancelled Hct Cancelled MCV Cancelled MCH Cancelled MCHC Cancelled RDW Std Deviation Cancelled RDW Coeff of Miguel A Cancelled Plt Count Cancelled MPV Cancelled Absolute Nucleated RBC Cancelled Nucleated RBC % (auto) Cancelled Platelet Estimate Cancelled Sodium (136-145) mmol/L Potassium (3.5-5.1) mmol/L Chloride (98-107) mmol/L Carbon Dioxide (21-32) mmol/L Anion Gap (3-11) BUN (7-18) mg/dl Creatinine (0.6-1.2) mg/dl Est Cr Clr Drug Dosing ml/min Est GFR ( Amer) ml/min Est GFR (Non-Af Amer) ml/min BUN/Creatinine Ratio (10-20) Glucose (70-99) mg/dl Calcium (8.5-10.1) mg/dl Phosphorus (2.5-4.9) mg/dl Magnesium (1.8-2.4) mg/dl Procalcitonin (0-0.5) ng/ml Medications Administered Current Inpatient Medications Duloxetine HCl (Duloxetine Hcl 60 Mg Cap) 60 mg PO QAM [facility] Stop: 07/24/21 19:14 Last Admin: 06/28/21 10:53 Dose: 60 mg Documented by: Ertapenem (Ertapenem Consult Active) 1 ea N/A UD PRN PRN Reason: Consult Stop: 07/27/21 20:04 Heparin Sodium (Porcine) (Heparin Sod 5,000 Unit/0.5 Ml Vial) 5,000 units SQ Q12 [facility] Stop: 07/25/21 08:59 Last Admin: 06/28/21 21:23 Dose: 5,000 units Documented by: Ertapenem 1,000 mg/ Sodium (Chloride) 60 mls @ 100 mls/hr IV Q24H [facility]; Protocol Stop: 07/04/21 20:59 Last Infusion: 06/28/21 22:45 Dose: Infused Documented by: Magnesium Oxide (Magnesium Oxide 400 Mg Tab) 400 mg PO BID [facility] Stop: 07/27/21 13:49 Last Admin: 06/28/21 21:23 Dose: 400 mg Documented by: Valbenazine ( Ingrezza) 40mg Capsule~Non- Formulary Patient's Own Med 1 ea PO QAM [facility] Stop: 07/26/21 08:59 Last Admin: 06/28/21 10:58 Dose: 20 mg Documented by: Ondansetron HCl (Ondansetron Inj 2 Mg/Ml 2 Ml Vial) 4 mg IV Q6H PRN PRN Reason: Nausea Stop: 07/22/21 23:28 Risperidone (Risperidone 0.5 Mg Tablet) 0.75 mg PO BID [facility] Stop: 07/24/21 20:59 Last Admin: 06/28/21 21:23 Dose: 0.75 mg Documented by:
[2021-06-28] MEDS: ERTAPENEM SODIUM 1,000 MG in SODIUM CHLORIDE 0.9% 50 ML IV SCH (21:23)
[2021-06-29 08:24] LABS: BUN Creatinine Ratio 28.1 (10-20); Calcium 9.5 mg/dl (8.5-10.1); Creatinine Clr Calc Pharmacy 55.2 ml/min; Est GFR (African American) 95.8 ml/min; Est GFR (Non-African American) 82.7 ml/min; Potassium 4.1 mmol/L (3.5-5.1)
--- NOTE | 2021-06-29 08:45 | Hospitalist Progress Note ---
Date of Service June 29, 2021 Assessment & Plan (1) Encephalopathy acute: Plan: Uncertain cause with etiologies including but not limited to covid-19 infection, medication side effect including Ingressa (recently started, took two pills, however, she was worsening prior to taking this), Regeneron infusion given 06/14. SAH less likely to be the cause and suspect some trauma with medication list including NSAIDs. SAH is stable and there is no aneurysmal source or tumor present. MRI reveals no evidence of acute stroke and SAH is stable in size. EEG was performed revealing mild to moderate generalized nonfocal slowing without any potentially epileptiform activity. Remains off Keppra at this time. Was off Ingressa (now restarted 05/27 at lower dose of 20 mg daily). Risperidone restarted. Cont clinical monitoring. Will need repeat CT head in 1 week. Daughter Sue updated. (2) Subarachnoid hemorrhage: Plan: We will plan to keep systolic blood pressure less than 180. CT head repeated (05/27)- SAH stable Repeat CT head in 1 week. (3) Tardive dyskinesia: Plan: Sees Dr. Madelyn [facility] (movement disorder) who has her on risperidone and recently started her on Ingressa. Has taken two pills so far as outpt prior to her admission. Discussed the case with Dr. Bonner Restarted Ingrezza at lower dose (on 06/26) 20 mg daily - plan is to continue this dose for 1 week then increase to 40 mg then to 60 mg (then reconsult w/ [facility] neurology) (4) SARS-CoV-2 positive: Plan: No indication for Covid specific therapy. Covid precautions (5) Severe protein-calorie malnutrition: Plan: Poor oral intake recently with weight loss. Patient appears cachectic and malnourished. Diet - easy to chew with supplements to meet caloric intake. Pt had a chocking episode on 05/28 - obtained speech eval. -seems to be isolated incident, continue previous diet empiric Abx for poss. aspiration cont. to monitor closely (6) Hypertension: Plan: BP seems to be well controlled, cont. to monitor (7) Depression: Plan: Continue duloxetine (8) DVT prophylaxis: Plan: SCDs Full code Disposition-PCU Admission and Anticipated Discharge Date Admission Date: June 22, 2021 Subjective Pt seen in follow up of tardive dyskinesia, found to be covid 19 positive Currently pt is laying in bed, in NAD Involuntary movements improved Patient ate her breakfast today, and per nursing staff also ate independently lunch Started on Ingrezza, at lower dose of 20 mg daily, and is followed by neurology closely Pt denies any chest pain, shortness of breath, abd. pain, n/v Review of Systems Review of Systems: All systems reviewed & are unremarkable except as noted in Subjective Physical Exam Physical Exam: Gen- AAO x 3, NAD Head-NCAT, EOMI, PERRL Neck-Supple, No JVD Lungs-Clear to Auscultation Bilaterally, No Rales, No Rhonchi, No Wheezing Chest- +S1, +S2, No Murmurs Abdomen-Soft, Bowel Sounds Present, Non Tender, Non Distended, No Guarding Musculoskeletal-Full Range of Motion Bilaterally, No CVAT Extremities-No Cyanosis, No Clubbing, No Edema Neuro-sleepy but easily arousable, answers simple questions appropriately Psych-Normal Mood Results & Data Results & Data ([facility]) Vital Signs (Past 12 Hours) Vital Signs Temp Pulse Resp BP BP Pulse Ox 06/29/21 07:55 36.4 C L 84 18 132/75 99 06/29/21 02:51 36.7 C 84 13 143/87 H 93 06/28/21 22:51 36.8 C 84 15 132/86 93 Laboratory Results 06/29/21 Range/Units 06:46 Sodium 138 (136-145) mmol/L Potassium 4.1 (3.5-5.1) mmol/L Chloride 107 (98-107) mmol/L Carbon Dioxide 24 (21-32) mmol/L Anion Gap 7.0 (3-11) BUN 18 (7-18) mg/dl Creatinine 0.65 (0.6-1.2) mg/dl Est Cr Clr Drug Dosing 55.2 ml/min Est GFR ( Amer) 95.8 ml/min Est GFR (Non-Af Amer) 82.7 ml/min BUN/Creatinine Ratio 28.1 H (10-20) Glucose 78 (70-99) mg/dl Calcium 9.5 (8.5-10.1) mg/dl Medications Administered Current Inpatient Medications Duloxetine HCl (D[facility] Hcl 60 Mg Cap) [facility] Stop: 07/24/21 19:14 Last Admin: 06/28/21 10:53 Dose: 60 mg Documented by: Ertapenem (Ertapenem Consult Active) 1 ea N/A UD PRN PRN Reason: Consult Stop: 07/27/21 20:04 Heparin Sodium (Porcine) (Heparin Sod 5,000 Unit/0.5 Ml Vial) 5,000 units SQ Q12 [facility] Stop: 07/25/21 08:59 Last Admin: 06/28/21 21:23 Dose: 5,000 units Documented by: Ertapenem 1,000 mg/ Sodium (Chloride) 60 mls @ 100 mls/hr IV Q24H [facility]; Protocol Stop: 07/04/21 20:59 Last Infusion: 06/28/21 22:45 Dose: Infused Documented by: Magnesium Oxide (Magnesium Oxide 400 Mg Tab) 400 mg PO BID [facility] Stop: 07/27/21 13:49 Last Admin: 06/28/21 21:23 Dose: 400 mg Documented by: Valbenazine ( Ingrezza) 40mg Capsule~Non- Formulary Patient's Own Med 1 ea PO QAM [facility] Stop: 07/26/21 08:59 Last Admin: 06/28/21 10:58 Dose: 20 mg Documented by: Ondansetron HCl (Ondansetron Inj 2 Mg/Ml 2 Ml Vial) 4 mg IV Q6H PRN PRN Reason: Nausea Stop: 07/22/21 23:28 Risperidone (Risperidone 0.5 Mg Tablet) 0.75 mg PO BID [facility] Stop: 07/24/21 20:59 Last Admin: 06/28/21 21:23 Dose: 0.75 mg Documented by:
[2021-06-29] MEDS: risperiDONE 0.5 MG TABLET PO SCH ×2 (10:03→21:01)
[2021-06-29] MEDS: HEPARIN SOD 5,000 UNIT/0.5 ML VIAL SQ SCH ×2 (10:04→21:00)
[2021-06-29] MEDS: MAGNESIUM OXIDE 400 MG TAB PO SCH ×2 (10:04→21:01)
[2021-06-29] MEDS: DULoxetine HCL 60 MG CAP PO SCH (10:04)
[2021-06-29] MEDS: VALBENAZINE 40 MG PO SCH (10:05)
[2021-06-29] MEDS: ERTAPENEM SODIUM 1,000 MG in SODIUM CHLORIDE 0.9% 50 ML IV SCH (21:00)
[2021-06-29] MEDS: PRAVASTATIN SOD 40 MG TAB PO SCH (21:02)
[2021-06-30 07:24] LABS: Hematocrit (blood only) 36.2 % (37-47); Hemoglobin 11.7 g/dL (12.0-16.0); Mean Corpuscular Hgb Conc 32.3 g/dL (32-36); Mean Platelet Volume 9.5 fL (7.4-10.4); Platelet Count 296 K/uL (130-400); RDW Coefficient of Variation 13.4 % (11.5-14.5); RDW Standard Deviation 46.8 fL (36.4-46.3); Red Blood Count 3.77 M/uL (4.2-5.4); White Blood Count 5.53 K/uL (4.8-10.8)
[2021-06-30 07:52] LABS: BUN Creatinine Ratio 33.1 (10-20); Calcium 9.6 mg/dl (8.5-10.1); Est GFR (African American) 82.1 ml/min; Est GFR (Non-African American) 70.8 ml/min; Magnesium 2.4 mg/dl (1.8-2.4); Phosphorus 2.9 mg/dl (2.5-4.9); Potassium 4.2 mmol/L (3.5-5.1)
[2021-06-30] MEDS: HEPARIN SOD 5,000 UNIT/0.5 ML VIAL SQ SCH ×2 (08:56→21:24)
[2021-06-30] MEDS: PANTOprazole 40 MG TAB PO SCH (08:56)
[2021-06-30] MEDS: risperiDONE 0.5 MG TABLET PO SCH ×2 (08:56→21:24)
[2021-06-30] MEDS: MAGNESIUM OXIDE 400 MG TAB PO SCH ×2 (08:57→21:25)
[2021-06-30] MEDS: DULoxetine HCL 60 MG CAP PO SCH (08:57)
[2021-06-30] MEDS: VALBENAZINE 40 MG PO SCH (08:58)
--- NOTE | 2021-06-30 13:32 | Hospitalist Progress Note ---
Date of Service June 30, 2021 Assessment & Plan (1) Encephalopathy acute: Plan: Uncertain cause with etiologies including but not limited to covid-19 infection, medication side effect including Ingressa (recently started, took two pills, however, she was worsening prior to taking this), Regeneron infusion given 06/14. SAH less likely to be the cause and suspect some trauma with medication list including NSAIDs. SAH is stable and there is no aneurysmal source or tumor present. MRI reveals no evidence of acute stroke and SAH is stable in size. EEG was performed revealing mild to moderate generalized nonfocal slowing without any potentially epileptiform activity. Remains off Keppra at this time. Was off Ingressa (now restarted 05/27 at lower dose of 20 mg daily). Risperidone restarted. Cont clinical monitoring. Will need repeat CT head in 1 week. Daughter Sue updated. (2) Subarachnoid hemorrhage: Plan: We will plan to keep systolic blood pressure less than 180. CT head repeated (05/27)- SAH stable Repeat CT head in 1 week. (3) Tardive dyskinesia: Plan: Sees Dr. Madelyn [facility] (movement disorder) who has her on risperidone and recently started her on Ingressa. Has taken two pills so far as outpt prior to her admission. Discussed the case with Dr. Bonner Restarted Ingrezza at lower dose (on 06/26) 20 mg daily - plan is to continue this dose for 1 week then increase to 40 mg then to 60 mg (then reconsult w/ [facility]) (4) SARS-CoV-2 positive: Plan: No indication for Covid specific therapy. Covid precautions (5) Severe protein-calorie malnutrition: Plan: Poor oral intake recently with weight loss. Patient appears cachectic and malnourished. Diet - easy to chew with supplements to meet caloric intake. Pt had a chocking episode on 05/28 - obtained speech eval. -seems to be isolated incident, continue previous diet empiric Abx for poss. aspiration- will stop now cont. to monitor closely (6) Hypertension: Plan: BP seems to be well controlled, cont. to monitor (7) Depression: Plan: Continue duloxetine (8) DVT prophylaxis: Plan: SCDs Full code Disposition-PCU Admission and Anticipated Discharge Date Admission Date: June 22, 2021 Subjective Pt seen in follow up of tardive dyskinesia, found to be covid 19 positive Currently pt is laying in bed, in NAD Involuntary movements much improved Patient ate most of her lunch independently Started on Ingrezza, at lower dose of 20 mg daily, and is followed by neurology closely Pt denies any chest pain, shortness of breath, abd. pain, n/v Review of Systems Review of Systems: All systems reviewed & are unremarkable except as noted in Subjective Physical Exam Physical Exam: Gen- AAO x 3, NAD Head-NCAT, EOMI, PERRL Neck-Supple, No JVD Lungs-Clear to Auscultation Bilaterally, No Rales, No Rhonchi, No Wheezing Chest- +S1, +S2, No Murmurs Abdomen-Soft, Bowel Sounds Present, Non Tender, Non Distended, No Guarding Musculoskeletal-Full Range of Motion Bilaterally, No CVAT Extremities-No Cyanosis, No Clubbing, No Edema Neuro-awake and alert, has minimal dyskinesia, answers simple questions appropriately Psych-Normal Mood Results & Data Results & Data ([facility]) Vital Signs (Past 12 Hours) Vital Signs Temp Pulse Pulse Resp BP BP Pulse Ox 06/30/21 11:51 36.4 C L 62 16 98/62 L 94 06/30/21 08:54 36.6 C 80 18 105/68 94 06/30/21 05:56 90 06/30/21 02:44 36.6 C 83 22 119/70 95 Laboratory Results 06/30/21 06/30/21 Range/Units 06:49 06:49 WBC 5.53 (4.8-10.8) K/uL RBC 3.77 L (4.2-5.4) M/uL Hgb 11.7 L (12.0-16.0) g/dL Hct 36.2 L (37-47) % MCV 96.0 (80-100) fL MCH 31.0 (25-34) pg MCHC 32.3 (32-36) g/dL RDW Std Deviation 46.8 H (36.4-46.3) fL RDW Coeff of Miguel A 13.4 (11.5-14.5) % Plt Count 296 (130-400) K/uL MPV 9.5 (7.4-10.4) fL Sodium 136 (136-145) mmol/L Potassium 4.2 (3.5-5.1) mmol/L Chloride 105 (98-107) mmol/L Carbon Dioxide 27 (21-32) mmol/L Anion Gap 4.0 (3-11) BUN 26 H (7-18) mg/dl Creatinine 0.78 (0.6-1.2) mg/dl Est Cr Clr Drug Dosing 46.0 ml/min Est GFR ( Amer) 82.1 ml/min Est GFR (Non-Af Amer) 70.8 ml/min BUN/Creatinine Ratio 33.1 H (10-20) Glucose 86 (70-99) mg/dl Calcium 9.6 (8.5-10.1) mg/dl Phosphorus 2.9 (2.5-4.9) mg/dl Magnesium 2.4 (1.8-2.4) mg/dl Medications Administered Current Inpatient Medications Duloxetine HCl (Duloxetine Hcl 60 Mg Cap) 60 mg PO DAILY [facility] Stop: 07/30/21 08:59 Last Admin: 06/30/21 08:57 Dose: 60 mg Documented by: Heparin Sodium (Porcine) (Heparin Sod 5,000 Unit/0.5 Ml Vial) 5,000 units SQ Q12 [facility] Stop: 07/25/21 08:59 Last Admin: 06/30/21 08:56 Dose: 5,000 units Documented by: Magnesium Oxide (Magnesium Oxide 400 Mg Tab) 400 mg PO BID [facility] Stop: 07/27/21 13:49 Last Admin: 06/30/21 08:57 Dose: 400 mg Documented by: Valbenazine ( Ingrezza) 40mg Capsule~Non- Formulary Patient's Own Med 1 ea PO QAM [facility] Stop: 07/26/21 08:59 Last Admin: 06/30/21 08:58 Dose: 20 mg Documented by: Pantoprazole Sodium (Pantoprazole 40 Mg Tab) 40 mg PO DAILY [facility] Stop: 07/30/21 08:59 Last Admin: 06/30/21 08:56 Dose: 40 mg Documented by: Pravastatin Sodium (Pravastatin Sod 40 Mg Tab) 40 mg PO HS [facility] Stop: 07/29/21 20:59 Last Admin: 06/29/21 21:02 Dose: 40 mg Documented by: Risperidone (Risperidone 0.5 Mg Tablet) 0.75 mg PO BID [facility] Stop: 01/19/22 20:59 Last Admin: 06/30/21 08:56 Dose: 0.75 mg Documented by:
[2021-06-30] MEDS: PRAVASTATIN SOD 40 MG TAB PO SCH (21:25)
[2021-06-30] MEDS ORDERED: OLANZapine 10 MG/2.1 ML SDV IM STA (22:49)
[2021-06-30] MEDS ORDERED: OLANZapine 10 MG/2.1 ML SDV IM ONE (22:57)
--- NOTE | 2021-07-01 08:41 | Hospitalist Progress Note ---
Date of Service July 01, 2021 Assessment & Plan (1) Encephalopathy acute: Plan: Uncertain cause with etiologies including but not limited to covid-19 infection, medication side effect including Ingressa (recently started, took two pills, however, she was worsening prior to taking this), Regeneron infusion given 06/14. SAH less likely to be the cause and suspect some trauma with medication list including NSAIDs. SAH is stable and there is no aneurysmal source or tumor present. MRI reveals no evidence of acute stroke and SAH is stable in size. EEG was performed revealing mild to moderate generalized nonfocal slowing without any potentially epileptiform activity. Remains off Keppra at this time. Was off Ingressa (now restarted 05/27 at lower dose of 20 mg daily). Risperidone restarted. Cont clinical monitoring. Will need repeat CT head in next 2-4 days from now Daughter Sue updated. (2) Subarachnoid hemorrhage: Plan: We will plan to keep systolic blood pressure less than 180. CT head repeated (05/27)- SAH stable Repeat CT head in 1 week (around 06/03). (3) Tardive dyskinesia: Plan: Sees Dr. Joshi [facility] (movement disorder) who has her on risperidone and recently started her on Ingressa. Has taken two pills so far as outpt prior to her admission. Discussed the case with Dr. Bonner Restarted Ingrezza at lower dose (on 06/26) 20 mg daily - plan is to continue this dose for 1 week then increase to 40 mg then to 60 mg (then reconsult w/ [place] neurology) Please contact Dr. Joshi at [facility], with any questions regarding Ingrezza (4) SARS-CoV-2 positive: Plan: No indication for Covid specific therapy. Covid precautions (5) Severe protein-calorie malnutrition: Plan: Poor oral intake recently with weight loss. Patient appears cachectic and malnourished. Diet - easy to chew with supplements to meet caloric intake. Pt had a chocking episode on 05/28 - obtained speech eval. - seems to be isolated incident, continue previous diet empiric Abx for poss. aspiration given- stopped now cont. to monitor closely Patient tends to eat fast and having larger amount of food at a time when not supervised. Recommend assistance and supervision with eating. Aspiration precautions. (6) Hypertension: Plan: BP seems to be well controlled, cont. to monitor (7) Depression: Plan: Continue duloxetine (8) DVT prophylaxis: Plan: SCDs Full code Disposition- Med/tele Admission and Anticipated Discharge Date Admission Date: June 22, 2021 Subjective Pt seen in follow up of tardive dyskinesia, found to be covid 19 positive Currently pt is laying in bed, in NAD Involuntary movements much improved Patient has a good appetite Started on Ingrezza, at lower dose of 20 mg daily, and is followed by neurology closely For the past 2 days patient has been doing much better, involuntary movements much improved and patient has been able to eat reasonably well Overnight reportedly patient was trying to get out of bed, and received Zyprexa Pt denies any chest pain, shortness of breath, abd. pain, n/v Patient's daughter Sue updated over the phone. Review of Systems Review of Systems: All systems reviewed & are unremarkable except as noted in Subjective Physical Exam Physical Exam: Gen- AAO x 3, NAD Head-NCAT, EOMI, PERRL Neck-Supple, No JVD Lungs-Clear to Auscultation Bilaterally, No Rales, No Rhonchi, No Wheezing Chest- +S1, +S2, No Murmurs Abdomen-Soft, Bowel Sounds Present, Non Tender, Non Distended, No Guarding Musculoskeletal-Full Range of Motion Bilaterally, No CVAT Extremities-No Edema Neuro-awake and alert, has minimal dyskinesia, answers simple questions appropriately Psych-Normal Mood Results & Data Results & Data ([facility]) Vital Signs (Past 12 Hours) Vital Signs Temp Pulse Pulse Resp BP Pulse Ox 07/01/21 08:00 87 07/01/21 07:06 36.4 C L 94 H 12 107/60 91 07/01/21 03:06 36.8 C 95 H 16 144/81 H 91 06/30/21 23:11 80 06/30/21 22:55 36.8 C 85 24 159/104 H 94 Laboratory Results 07/01/21 07/01/21 Range/Units 08:56 08:56 WBC 5.76 (4.8-10.8) K/uL RBC 3.92 L (4.2-5.4) M/uL Hgb 12.3 (12.0-16.0) g/dL Hct 37.7 (37-47) % MCV 96.2 (80-100) fL MCH 31.4 (25-34) pg MCHC 32.6 (32-36) g/dL RDW Std Deviation 46.6 H (36.4-46.3) fL RDW Coeff of Miguel A 13.5 (11.5-14.5) % Plt Count 300 (130-400) K/uL MPV 9.6 (7.4-10.4) fL Sodium 137 (136-145) mmol/L Potassium 4.1 (3.5-5.1) mmol/L Chloride 106 (98-107) mmol/L Carbon Dioxide 25 (21-32) mmol/L Anion Gap 6.0 (3-11) BUN 22 H (7-18) mg/dl Creatinine 0.81 (0.6-1.2) mg/dl Est Cr Clr Drug Dosing 44.3 ml/min Est GFR ( Amer) 78.4 ml/min Est GFR (Non-Af Amer) 67.6 ml/min BUN/Creatinine Ratio 27.2 H (10-20) Glucose 105 H (70-99) mg/dl Calcium 9.5 (8.5-10.1) mg/dl Phosphorus 3.0 (2.5-4.9) mg/dl Magnesium 2.2 (1.8-2.4) mg/dl Medications Administered Current Inpatient Medications Duloxetine HCl (Duloxetine Hcl 60 Mg Cap) 60 mg PO DAILY [facility] Stop: 07/30/21 08:59 Last Admin: 06/30/21 08:57 Dose: 60 mg Documented by: Heparin Sodium (Porcine) (Heparin Sod 5,000 Unit/0.5 Ml Vial) 5,000 units SQ Q12 [facility] Stop: 07/25/21 08:59 Last Admin: 06/30/21 21:24 Dose: 5,000 units Documented by: Magnesium Oxide (Magnesium Oxide 400 Mg Tab) 400 mg PO BID [facility] Stop: 07/27/21 13:49 Last Admin: 06/30/21 21:25 Dose: 400 mg Documented by: Valbenazine ( Ingrezza) 40mg Capsule~Non- Formulary Patient's Own Med 1 ea PO QAM [facility] Stop: 07/26/21 08:59 Last Admin: 06/30/21 08:58 Dose: 20 mg Documented by: Pantoprazole Sodium (Pantoprazole 40 Mg Tab) 40 mg PO DAILY [facility] Stop: 07/30/21 08:59 Last Admin: 06/30/21 08:56 Dose: 40 mg Documented by: Pravastatin Sodium (Pravastatin Sod 40 Mg Tab) 40 mg PO HS [facility] Stop: 07/29/21 20:59 Last Admin: 06/30/21 21:25 Dose: 40 mg Documented by: Risperidone (Risperidone 0.5 Mg Tablet) 0.75 mg PO BID [facility] Stop: 07/24/21 20:59 Last Admin: 06/30/21 21:24 Dose: 0.75 mg Documented by:
[2021-07-01 09:34] LABS: Hematocrit (blood only) 37.7 % (37-47); Hemoglobin 12.3 g/dL (12.0-16.0); Mean Corpuscular Hemoglobin 31.4 pg (25-34); Mean Corpuscular Hgb Conc 32.6 g/dL (32-36); Mean Corpuscular Volume 96.2 fL (80-100); Mean Platelet Volume 9.6 fL (7.4-10.4); Platelet Count 300 K/uL (130-400); RDW Coefficient of Variation 13.5 % (11.5-14.5); RDW Standard Deviation 46.6 fL (36.4-46.3); Red Blood Count 3.92 M/uL (4.2-5.4); White Blood Count 5.76 K/uL (4.8-10.8)
[2021-07-01 09:58] LABS: BUN Creatinine Ratio 27.2 (10-20); Calcium 9.5 mg/dl (8.5-10.1); Creatinine Clr Calc Pharmacy 44.3 ml/min; Est GFR (African American) 78.4 ml/min; Est GFR (Non-African American) 67.6 ml/min; Magnesium 2.2 mg/dl (1.8-2.4); Potassium 4.1 mmol/L (3.5-5.1)
[2021-07-01] MEDS: MAGNESIUM OXIDE 400 MG TAB PO SCH (10:18)
[2021-07-01] MEDS: DULoxetine HCL 60 MG CAP PO SCH (10:18)
[2021-07-01] MEDS: VALBENAZINE 40 MG PO SCH (10:19)
[2021-07-01] MEDS: PANTOprazole 40 MG TAB PO SCH (10:19)
[2021-07-01] MEDS: HEPARIN SOD 5,000 UNIT/0.5 ML VIAL SQ SCH (10:20)
[2021-07-01] MEDS: risperiDONE 0.5 MG TABLET PO SCH (10:20)
--- NOTE | 2021-07-01 13:02 | Discharge Summary ---
Date of Service July 01, 2021 Admission HPI Per Admitting Provider 81-year-old female with a recent history of Covid infection approximately 11 to 12 days ago status post monoclonal antibody therapy presented with worsening weakness, confusion and decreased appetite. In the ER she appeared dehydrated and was given 500 cc of IV fluids. During her work-up a CT of the head revealed a small right parietal subarachnoid hemorrhage. This was nontraumatic as it was no history of recent trauma, injuries or falls. There was no evidence of head trauma on exam and she is not on blood thinners. Her Covid infection is relatively asymptomatic per daughter. Patient is answering questions appropriately but giving answers in one-word and sometimes does not respond. She is oriented to person and place but does not know why she is here. She has no clear electrolyte or infectious etiology of her weakness. Further evaluation was performed including a CT angiogram of the brain and neck that was unremarkable outside of the revisualization of the trace subarachnoid hemorrhage seen at the high right parietal lobe sulcus. No mass-effect or evidence of acute territorial ischemia was noted. There was an indeterminate 7 mm groundglass focus at the right apex for which a repeat chest CT in 3 months was recommended. These results were called to [facility] we did review the images and did not feel an intervention or procedure was indicated. They recommended a 7- day course of Keppra and an MRI of the brain with and without contrast in the morning. Furthermore, they recommended her systolic blood pressure be less than 140 with use of a nicardipine drip to achieve that value. She was temporarily placed on a nicardipine drip in the ER. Use of a nicardipine drip in this facility requires an ICU admission however the ICU team declined the admission requesting the patient be sent to a tertiary care facility. [facility] was again contacted and stated that it would be greater than 24 hours prior to any acceptance of this patient. [facility] was contacted and I discussed the case with Dr. Vuong from neurology who also had the images for review. At baseline the patient ambulates with a walker and is oriented and conversational, knowing staff members names at [facility]. She eats independently on the table and toilets independently with minimal assistance. Staff at [facility] reports that over the last 3 days she acutely changed and is now not walking and not swallowing or sitting up with increased weakness. Her daughter corroborates this baseline. With this clinical history, Dr. Vuong suspected an embolic stroke and did not recommend transfer as there was no indication for neurosurgical intervention. In fact, he recommended starting aspirin and DVT prophylaxis for acute stroke. I contacted neurology at [facility], Dr. Bonner, with a consult request for the morning. I ordered the MRI with and without contrast of the brain and an EEG for the morning. Dr. Bonner will contact the management technician to come in and administer the test. There were no nurses present at the facility any medication reconciliation and full history could not be obtained from the patient or outpatient records at this time as this was unavailable. History is therefore limited and from ER notes below Admission Exam Per Admitting Provider CONSTITUTIONAL: thin, elderly, vitals as above, generally ill-appearing and sleepy, occasionally attempts to crawl out of bed. Questions have to be repeated multiple times for her to answer and answers are in one word sentences but are appropriate. EYES: normal conjunctivae, no scleral icterus ENT: external ear and nose normal, mucous membranes are dry. NECK: trachea midline RESPIRATORY: clear to auscultation bilaterally, no crackles, rales or wheezes, normal respiratory effort CARDIOVASCULAR: regular rate and rhythm, S1 and 2 heard without murmurs, gallops or rubs, no JVD, no peripheral edema GASTROINTESTINAL: normal bowel sounds, soft, nontender, no hepatomegaly, no guarding MUSCULOSKELETAL: strength 5/5 throughout, head is normocephalic and atraumatic SKIN: warm and dry NEUROLOGIC: patellar DTRs -could not elicit, BR reflex 2/4 on right, unobtainable on the left. PERRL, patient would not perform EOM exam for me, no facial palsy, no dysarthria but limited speech. Could not answer sensation or proprioception questions. CN 2-12 grossly intact, sleepy, +occasional tremor at baseline. PSYCHIATRIC: alert and oriented to person and place, follows instructions with significant prompting. Doesn't make good eye contact. Principal Diagnosis Encephalopathy Tardive dyskinesia Subarachnoid hemorrhage Positive for COVID-19 Severe protein calorie malnutrition HTN Discharge Exam Gen- AAO x 3, NAD Head-NCAT, EOMI, PERRL Neck-Supple, No JVD Lungs-Clear to Auscultation Bilaterally, No Rales, No Rhonchi, No Wheezing Chest- +S1, +S2, No Murmurs Abdomen-Soft, Bowel Sounds Present, Non Tender, Non Distended, No Guarding Musculoskeletal-Full Range of Motion Bilaterally, No CVAT Extremities-No Edema Neuro-awake and alert, has minimal dyskinesia, answers simple questions appropriately Psych-Normal Mood Discharge Data Allergies Allergy/AdvReac Type Severity Reaction Status Date / Time adhesive Allergy Mild RASH Verified 06/22/21 14:52 acetaminophen Allergy Unknown RASH Verified 06/22/21 14:52 codeine Allergy Unknown GI SYMPTOMS Verified 06/22/21 14:52 hydrocodone Allergy Unknown GI SYMPTOMS Verified 06/22/21 14:52 Penicillins Allergy Unknown RASH Verified 06/22/21 14:52 Consultations 06/22/21 18:20 ED Decision to Admit Stat 06/22/21 23:29 Consult Neurology Routine Ordered Studies 06/22/21 13:16 CT head/brain wo con Stat IMPRESSION: 1. There is trace subarachnoid hemorrhage identified along the high right parietal sulcus. 2. No additional foci of hemorrhage are identified. 3. There is no mass effect or evidence of acute territorial ischemia by CT criteria. 06/22/21 15:27 CT angio head w con Stat CT angio neck with con Stat IMPRESSION: 1. Trace subarachnoid hemorrhage is again suggested along a high right parietal lobe sulcus. This was much better visualized on today's unenhanced examination. 2. There is no mass effect or evidence of acute territorial ischemia noting angiographic phase technique. 3. Unremarkable CT angiogram of the brain. 4. Unremarkable CT head around the neck. 5. There is an indeterminant 7 mm groundglass focus at the right apex. A follow- up chest CT in 3 months time is recommended for reevaluation and full assessment of the thorax. 06/23/21 09:04 MR brain wo/w con Routine IMPRESSION: 1. Trace subarachnoid hemorrhage of the superior right parietal lobe is unchanged. 2. No acute or subacute infarct. 3. Age-related involutional changes with extensive chronic microvascular ischemic disease. 4. No abnormal enhancement. 06/24/21 07:00 CT head/brain wo con Routine Impression: No acute intracranial hemorrhage, no evidence of acute territorial infarction or other acute intracranial disease process. 06/25/21 07:07 CT angio chest PE protocol Routine Impression: 1. No CTA evidence for pulmonary embolus. 2. No acute chest disease. 3. There is breathing motion artifact limiting the study. However, no gross abnormality is seen. 06/26/21 08:00 CT head/brain wo con Routine IMPRESSION: 1. No significant interval change in the very small subarachnoid hemorrhage identified along one of the high right parietal sulci. 2. No new subarachnoid or intracerebral hemorrhage. 3. Cerebral cortical atrophy and remote small vessel disease are again seen. 4. Evidence for chronic left mastoiditis. Hospital Course (1) Encephalopathy acute: Uncertain cause with etiologies including but not limited to covid-19 infection, medication side effect including Ingressa (recently started, took two pills, however, she was worsening prior to taking this), Regeneron infusion given 06/14. SAH less likely to be the cause and suspect some trauma with medication list including NSAIDs. SAH is stable and there is no aneurysmal source or tumor present. MRI reveals no evidence of acute stroke and SAH is stable in size. EEG was performed revealing mild to moderate generalized nonfocal slowing without any potentially epileptiform activity. Remains off Keppra at this time. Was off Ingressa (now restarted 05/27 at lower dose of 20 mg daily). Risperidone restarted. Cont clinical monitoring. Will need repeat CT head in next 2-4 days from now Daughter Sue updated. (2) Subarachnoid hemorrhage: We will plan to keep systolic blood pressure less than 180. CT head repeated (05/27)- SAH stable Repeat CT head in 1 week (around 07/03). (3) Tardive dyskinesia: Sees Dr. Joshi [facility] (movement disorder) who has her on risperidone and recently started her on Ingressa. Has taken two pills so far as outpt prior to her admission. Discussed the case with Dr. Bonner Restarted Ingrezza at lower dose (on 06/26) 20 mg daily - plan is to continue this dose for 1 week then increase to 40 mg then to 60 mg (then reconsult w/ [facility]) Please contact Dr. Joshi at [facility], with any questions regarding Ingrezza (4) SARS-CoV-2 positive: No indication for Covid specific therapy. Covid precautions (5) Severe protein-calorie malnutrition: Poor oral intake recently with weight loss. Patient appears cachectic and malnourished. Diet - easy to chew with supplements to meet caloric intake. Pt had a chocking episode on 05/28 - obtained speech eval. - seems to be isolated incident, continue previous diet empiric Abx for poss. aspiration given- stopped now cont. to monitor closely Patient tends to eat fast and having larger amount of food at a time when not supervised. Recommend assistance and supervision with eating. Aspiration precautions. (6) Hypertension: BP seems to be well controlled, cont. to monitor (7) Depression: Continue duloxetine Abnormal CT chest 7 mm groundglass focus at the right apex. A follow-up chest CT in 3 months time is recommended for reevaluation and full assessment of the thorax. (8) DVT prophylaxis: SCDs Full code Disposition- [facility] Total Time Total Time Spent Total Time Spent (In Minutes): 45 Discharge Plan Discharge Items Patient Disposition: Transfer Inpatient Rehab Fac Reason For Visit: STROKE LIKE SYMPTOMS, SAH Discharge Diagnosis: Encephalopathy Tardive dyskinesia Subarachnoid hemorrhage Positive for COVID-19 Severe protein calorie malnutrition HTN Activity: Per Instructions section Non-emergency contact: Primary Care Provider and Neurologist Call non-emergency contact if: you have any medication questions and your symptoms worsen Follow-up/Referrals: KHURRAM MCDANIEL ABDI [Primary Care Provider] - Diet: Heart Healthy Diet Texture: Mechanical soft (ground) Diet Comment: Recommend supervision with eating, aspiration precautions Addtl Attending Provider Instructions: Patient was started on Ingrezza, on June 26, on 20 milligrams dose - it is recommended that she is on this dose for 1 week, then increase to 40 mg for 1 week, then increase to 60 mg. Please make sure to contact Dr. Casarez at [facility], her neurologist, with any questions regarding Ingrezza. The medication comes in a capsule form, which can be opened, and then it contains a [id number] mg. Please break in half while she is on 20 mg dose. For subarachnoid hemorrhage, it is recommended that patient has a routine CT head follow-up imaging, this should be obtained in the next 2 to 4 days. Patient's blood pressure has been lower in the hospital, and her blood pressure medicationlisinopril, was held. Monitor her blood pressure, and reassess the need for blood pressure medication. Pending Studies at Discharge: No Stand-Alone Forms: My [facility] Skilled Items Patient informed of condition?: Yes DNR: No Discharge Level of Care: Acute rehab Communicable Disease: No Discharge Prognosis: Stable Lines: None Urinary Catheter: Yes Medications and DC Order Prescriptions: Continued omeprazole 20 mg capsule,delayed release(DR/EC) 20 mg PO DAILY RF: 0 pravastatin 40 mg tablet 40 mg PO HS RF: 0 polyethylene glycol 3350 [Miralax] 17 gram/dose Powder 17 g PO DAILY RF: 0 risperidone 0.5 mg tablet 0.5 mg PO BID RF: 0 duloxetine 60 mg Capsule,Delayed Release(Dr/Ec) 60 mg PO DAILY RF: 0 omega 6-srh-fwo-fish oil [Fish Oil] 1,200 (144-216) mg Capsule 1 cap PO BID RF: 0 loperamide [Imodium A-D] 2 mg Capsule 2 mg PO Q4H PRN (Reason: Diarrhea) RF: 0 nystatin 100,000 unit/gram cream 1 applic TOPICAL BID RF: 0 Boost Liquid 1 ea PO BID RF: 0 L'Il Critters Gummy Bear Viy 2 dose PO DAILY RF: 0 risperidone 0.25 mg tablet 0.25 mg PO BID RF: 0 Changed Ingrezza 40 mg capsule 20 mg PO QAM Qty: 0 RF: 0 Discontinued meloxicam 15 mg tablet 15 mg PO DAILY RF: 0 lisinopril 10 mg tablet 10 mg PO DAILY RF: 0 lisinopril 2.5 mg tablet 2.5 mg PO DAILY RF: 0 naproxen sodium 220 mg Tablet 220 mg PO Q4 PRN (Reason: Pain) RF: 0 Discharge Orders: Discharge Order (Routine); Ordered 07/01/21 Ordered By: Martell Pandey/Other Patient Handouts: Managing Type 2 Diabetes, Special Foot Care for Diabetes Admission Data Admit Date/Time: 06/22/21 20:44 Attending Provider: Martell Brink Admit Provider: Yahaira Toledo Primary Care Provider: [facility] Other Providers: Jonathon Cramer ; [facility] ; Man Camacho [facility] [place] ; Bran Jimenez ; Trae Bonner
== END 2021-07-01 16:49 | DRG 64 ==
LOC: ED 12:34 → SUATTDRO 20:44 → EDINP 20:44 → 2S 06-23

== ENCOUNTER 2022-01-11 12:38 | Inpatient (IN) ==
--- NOTE | 2022-01-11 12:47 | Emergency Department Note ---
Impression & Plan Ambulatory dysfunction, Fall, Abrasion of right arm ED Provider Note Name: TAMARA ROBLES Age: 81 Sex: F Arrives Via: Ambulance Informant: Patient( Poor historian), daughter ED Provider: Sukhwinder Cline MD Chief Complaint: Fall Impression: As per impressions above Medical Decision Making: Pleasant 81-year-old female with a history of treated dyskinesia, hypertension, hyperlipidemia, GERD's previous subarachnoid hemorrhage arrives following a fall at her nursing facility. She has had rapid worsening of ambulatory dysfunction over the last day or so as per daughter. Daughter notes she is unable to walk properly or even go up the stairs which she previously was able to do without difficulty. On examination patient with an abrasion to the right arm but no evidence of caries. With ambulatory dysfunction and recent fall CT imaging of the head and neck were obtained which are negative. X-ray of the forearm is negative chest x-ray and pelvis x-ray are negative. I discussed the case with her daughter who notes that this is an acute change for her she is slightly confused but primarily she just cannot walk now which she was able to do recently. With this in mind laboratory evaluation was ordered along with a UA. She is unable to provider a urinary specimen. Patient is not septic appearing is breathing comfortably no distress. Her blood pressure is quite elevated on repeat though this is a forearm pressure hypertensive encephalopathy. Prior Medical Record and Triage/Nursing Notes reviewed by Me Additional history obtained from chart & daughter Differentials:Infection, dehydration, metabolic abnormality, hypo/hyperglycemia, electrolyte disturbance, anemia, hypoxia, cardiac sources, intracerebral event, toxicologic, neurologic, as well as other pathologies. Vital Signs: reviewed and remarkable for HTN Interventions: nss bolus Labs:Reviewed and remarkable for no significant abnormalities Imaging:ct head/cervical as per radiology no acute findings. CXR, Pelv xray, right forearm xray negative as per radiologist Consults:Dr Everardo Londono Hospitalist Plan: Disposition:Hospitalization. Condition: Good History of Present Illness:79-year-old female arrives for evaluation of injury. Patient apparently had an unwitnessed fall at her nursing facility this morning. She was not on the ground for any prolonged length of time. She has an injury to her right forearm and no other reported injuries. She had no interventions prior to arrival. Nothing makes better or worse. She denies any headache or neck pain. No fevers, shortness of breath, chest pain, vomiting, abdominal pain, back pain, urinary/bowel symptoms, leg swelling or other signs or symptoms. She apparently is unsteady at baseline. Per EMS they report the halfway stated patient was at her baseline mental status. Patient declines any pain medicines or other needs. She denies any other concerns. No medications prior to arrival. Nothing makes better worse ROS: See above HPI for pertinent positives & negatives. A total of 10 systems reviewed and were otherwise negative. Past Medical History:See Below Past Surgical History:See Below Family History:See Below Social History:See Below Home Medications:See Below Allergies:See Below Vitals:Blood Pressure: 168/109, Pulse 98, RR 18, T 36.7C, O2 99% on RA Physical Exam: GENERAL: Patient is well appearing and in no acute distress. Constant movement consistent with history of tardive dyscinesia EYES: No scleral icterus, unremarkable pupils. ENT: Mucous membranes moist, no nasal congestion. NECK: No masses appreciated, nomeningismus, trachea is midline. RESPIRATORY: No dyspnea. Clear to auscultation and equal bilaterally. No wheeze, no rhonchi. CARDIOVASCULAR: Regular rate and rhythm.No murmurs, rubs, gallops appreciated. GASTROINTESTINAL: Abdomen soft, non-tender, no peritonitis.Bowel sounds positive.No masses appreciated. BACK: No midline tenderness, no CVA tenderness EXTREMITIES: Normal motion all extremities, no cyanosis, no edema. NEUROLOGIC: Alert and oriented, no acute motor or sensory deficits, no focal weakness, cranial nerves grossly intact. SKIN: Abrasion right forearm. No rash, no jaundice, no diaphoresis. PSYCH: Appropriate GCS: 15 ED Course: Times/Reassessments: Stable, no distress Sukhwinder Cline MD Past Med/Surg History Medical History (Updated 01/11/22 @ 15:37 by Sukhwinder Cline MD) Depression GERD (gastroesophageal reflux disease) Hyperlipidemia Hypertension Tardive dyskinesia Surgical History Surgical history unknown Family History Other Unknown family medical history Social History Smoking Status: Never smoker Tobacco Type: Cigarettes Hx Alcohol Use: No Hx Substance Use: No Preferred Language: [place] Communication Ability: Effective Trim Stencil Maker Required: No Beliefs That Will Affect Care: None marital status: / Current Living Situation: [facility] Current Living Situation Comment: [facility] Other Information That Helps Us Care for You: No Feels Safe at Home: Yes Safety Concerns: Feels Safe At This Time Assistive Devices: Allergies Allergies Allergy/AdvReac Type Severity Reaction Status Date / Time adhesive Allergy Mild RASH Verified 06/22/21 14:52 acetaminophen Allergy Unknown RASH Verified 06/22/21 14:52 codeine Allergy Unknown GI SYMPTOMS Verified 06/22/21 14:52 hydrocodone Allergy Unknown GI SYMPTOMS Verified 06/22/21 14:52 Penicillins Allergy Unknown RASH Verified 06/22/21 14:52 Home Meds Home Medications Medication Instructions Recorded Confirmed Enrico'Osei Phan Gummy Bear Viy 2 dose PO DAILY 06/14/21 01/11/22 duloxetine 60 mg capsule,delayed 60 mg PO DAILY 06/14/21 01/11/22 release food supplemt, lactose-reduced 1 ea PO BID 06/14/21 01/11/22 loperamide 2 mg capsule (Imodium 2 mg PO Q4H PRN 06/14/21 01/11/22 A-D) nystatin 100,000 unit/gram topical 1 applic TOPICAL BID PRN 06/14/21 01/11/22 cream omeprazole 20 mg capsule,delayed 20 mg PO DAILY 06/14/21 01/11/22 release polyethylene glycol 3350 17 17 g PO DAILY 06/14/21 01/11/22 gram/dose oral powder (Miralax) Fish Oil 1,000 mg fish oil PO BID 01/11/22 01/11/22 Previous Rx's Medication Instructions Recorded valbenazine 40 mg capsule 20 mg PO QAM #0 cap 07/01/21 (Ingrezza) Results & Data (ED) Vital Signs Vital Signs - 24 hr 01/11/22 12:41 01/11/22 13:18 01/11/22 15:00 Temperature 36.7 C Temperature Source Oral Pulse Rate 98 H Pulse Rate [Finger] 91 H 99 H Respiratory Rate 18 15 16 Respiratory Effort / Characteristics Non-Labored Spontaneous Non-Labored Spontaneous Non-Labored Spontaneous Respiratory Depth Normal Normal Normal Blood Pressure 168/109 H Blood Pressure [Right Arm] 198/138 H Blood Pressure Mean 128 Blood Pressure Mean [Right Arm] 158 Pulse Oximetry 99 90 96 Oxygen Delivery Method Room Air Room Air Room Air Sepsis Recent Fever Within 48 Hours No Sepsis New/Unexplained Change in Mental Status No Sepsis Action Taken by Nursing No Action Required Laboratory Data Result diagrams: 01/12/22 05:36 01/12/22 05:36 Lab Results 01/11/22 01/11/22 01/11/22 Range/Units 14:21 14:21 14:21 WBC 6.81 (4.8-10.8) K/ul RBC 4.52 (3.93-5.22) M/uL Hgb 14.1 (12.0-16.0) g/dl Hct 42.2 (34.1-44.9) % MCV 93.4 (80.0-100.0) fL MCH 31.2 (25.0-34.0) pg MCHC 33.4 (32.0-36.0) g/dL RDW Std Deviation 45.8 (36.4-46.3) fL RDW Coeff of Miguel A 13.2 (11.5-14.5) % Plt Count 233 (130-400) K/uL MPV 10.1 (9.4-12.3) fL Immature Gran % (Auto) 0.3 % Neut % (Auto) 59.6 % Lymph % (Auto) 27.3 % [place] % (Auto) 10.3 % Eos % (Auto) 1.8 % Baso % (Auto) 0.7 % Neut # (Auto) 4.06 (1.4-6.5) K/uL Lymph # (Auto) 1.86 (1.2-3.4) K/uL [place] # (Auto) 0.70 (0.24-0.82) K/uL Eos # (Auto) 0.12 (0-0.50) K/uL Baso # (Auto) 0.05 (0-0.2) K/uL Immature Gran # (Auto) 0.02 (0.00-0.02) K/uL Sodium 138 (136-145) mmol/L Potassium 4.0 (3.5-5.1) mmol/L Chloride 102 (98-107) mmol/L Carbon Dioxide 27 (21-32) mmol/L Anion Gap 9 (3-11) BUN 30 H (6-23) mg/dl Creatinine 0.87 (0.6-1.2) mg/dl Est Cr Clr Drug Dosing 41.2 ml/min Est GFR ( Amer) 71.9 ml/min Est GFR (Non-Af Amer) 62.0 ml/min BUN/Creatinine Ratio 34.5 H (10-20) Glucose 89 (70-99(Fasting)) mg/dl Calcium 10.1 (8.5-10.1) mg/dl Magnesium 2.0 (1.7-2.4) mg/dl Troponin I High Sens 8.2 (0-14) pg/ml SARS-CoV-2, RNA, NAAT NEGATIVE (NEGATIVE) Administered Medications Miscellaneous (Valbenazine: Order Awaiting Action) 1 ea N/A QS [facility] Stop: 02/11/22 00:00 Last Admin: 01/11/22 23:48 Dose: Not Given Documented by: [id number] Pravastatin Sodium (Pravastatin Sod 40 Mg Tab) 40 mg PO DAILY@1700 [facility] Stop: 02/10/22 16:59 Last Admin: 01/11/22 21:11 Dose: 40 mg Documented by: [id number] Discontinued Medications Sodium Chloride (Nss 1000ml) 1,000 mls @ 999 mls/hr IV .Q1H1M ONE Stop: 01/11/22 16:08 Last Infusion: 01/11/22 17:13 Dose: 0 mls/hr Documented by: [id number] Admin: 01/11/22 15:30 Dose: 999 mls/hr Documented by: [id number] Imaging Data Radiologist's Impression: Cervical Spine CT 01/11/22 12:45 CT cervical spine wo con CLINICAL HISTORY: Status post fall with neck pain COMPARISON STUDY: No previous studies for comparison. CT DOSE: TECHNIQUE: Standard CT of the Cervical Spine was performed without IV contrast. A dose lowering technique was utilized adhering to the principles of ALARA. FINDINGS: Bones: Bones are osteopenic. There is intervertebral body fusion from C5 through C7. There is no evidence for an acute fracture or malalignment. There is straightening and mild reversal of expected cervical lordosis. The heights of the vertebral bodies are maintained. The vertebral bodies are in anatomic alignment. The odontoid is intact and the atlantoaxial articulation is within normal limits. Disc spaces: There is moderate disc space narrowing at C3-4 and C4-5 along with C7-T1. Apophyseal joints: Degenerative apophyseal joint disease is also present above and below the fused vertebral body levels. Soft tissues: The prevertebral soft tissues are within normal limits. IMPRESSION: 1. Osteopenia with no acute osseous pathology. 2. Intervertebral body fusion from C5 through C7. 3. Degenerative disc and degenerative joint disease above and below the fused disc space levels. ACT 112: Negative or not required by law. Electronically signed by: Thad Leal M.D. 01/11/2022 1:21 PM Chest X-Ray 01/11/22 12:45 XR chest 1V portable CLINICAL HISTORY: Status post fall with pain. COMPARISON STUDY: 06/27/2021 TECHNIQUE: 1 view of the chest FINDINGS: Single frontal view of the chest demonstrates the cardiomediastinal silhouette to be within normal limits. The lungs are clear of alveolar opacities. There is no evidence for pleural effusion. There is no evidence for vascular congestion. There is no acute osseous pathology. IMPRESSION: 1. No acute cardiopulmonary disease. ACT 112: Negative or not required by law. Electronically signed by: Thad Leal M.D. 01/11/2022 1:[address] 01/11/22 12:45 CT head/brain wo con CLINICAL HISTORY: fall, confusion . Altered mental status COMPARISON STUDY: 07/10/2021 CT DOSE: 968.83 mGy.cm TECHNIQUE: Standard CT of the Brain was performed without IV contrast. A dose lowering technique was utilized adhering to the principles of ALARA. FINDINGS: Extraaxial space: There is no evidence for subdural hematoma. There are no extra-axial fluid collections. Ventricles and cisterns: The ventricles are mildly to moderately dilated bilaterally. There is no evidence for midline shift or mass effect. Parenchyma: There is no subarachnoid or intraparenchymal hemorrhage. There is no evidence for an acute infarct or cerebral edema. There is mild to moderate cereb ral cortical atrophy and decreased attenuation in the periventricular white matter representing extensive remote small vessel disease. There are no gross mass lesions. Osseous structures: There is no evidence for an acute fracture. The visualized paranasal sinuses are clear. The mastoid air cells are clear bilaterally. Soft tissues: There is no evidence for focal soft tissue swelling. IMPRESSION: 1. No acute intracerebral pathology. 2. Cerebral cortical atrophy and extensive remote small vessel disease. ACT 112: Negative or not required by law. Electronically signed by: Thad Leal M.D. 01/11/2022 1:17 PM Pelvis X-Ray 01/11/22 12:45 XR pelvis 1-2V routine CLINICAL HISTORY: Status post fall with pain. COMPARISON STUDY: No previous studies for comparison. TECHNIQUE: [A single AP radiograph was obtained. FINDINGS: There is no evidence for an acute fracture. The hip joint spaces are maintained bilaterally and the bones are in anatomic alignment. The SI joints are intact bilaterally. The remaining visualized bones of the pelvis are intact. No focal soft tissue abnormalities identified. IMPRESSION: 1. No acute abnormality. ACT 112: Negative or not required by law. Electronically signed by: Thad Leal M.D. 01/11/2022 1:32 PM Forearm X-Ray 01/11/22 12:47 XR forearm RT 2V CLINICAL HISTORY: right forearm injury. Status post fall with pain COMPARISON STUDY: No previous studies for comparison. TECHNIQUE: AP and lateral right forearm views FINDINGS: Bones: There is no evidence for an acute fracture or dislocation. There is no lytic or blastic lesion. Joints: The joint spaces are maintained. The bones are in anatomic alignment. Soft tissues: There is no focal soft tissue abnormality. There is no radiopaque foreign body. IMPRESSION: 1. No acute osseous pathology. ACT 112: Negative or not required by law. Electronically signed by: Thad Leal M.D. 01/11/2022 1:33 PM Discharge Plan Visit Data Chief Complaint: Fall Stated Complaint: FALL, MOBILITY ISSUES, NAUSEA ED Provider: Sukhwinder Cline Discharge Problem: Ambulatory dysfunction, Fall, Abrasion of right arm Patient Disposition: Admitted As Inpatient Discharge Instructions Interventions: ED Discharge Assessment Last Done: 01/11/22 17:59 Discharge Problem: Fall Qualifiers: Encounter type: initial encounter Qualified Code(s): W19.XXXA - Unspecified fall, initial encounter Abrasion of right arm Qualifiers: Encounter type: initial encounter Qualified Code(s): S40.811A - Abrasion of right upper arm, initial encounter
--- NOTE | 2022-01-11 13:19 | CT Scan Report ---
CT head/brain wo con CLINICAL HISTORY: fall, confusion . Altered mental status COMPARISON STUDY: 07/10/2021 CT DOSE: 968.83 mGy.cm TECHNIQUE: Standard CT of the Brain was performed without IV contrast. A dose lowering technique was utilized adhering to the principles of ALARA. FINDINGS: Extraaxial space: There is no evidence for subdural hematoma. There are no extra-axial fluid collecti ons. Ventricles and cisterns: The ventricles are mildly to moderately dilated bilaterally. There is no beltran dence for midline shift or mass effect. Parenchyma: There is no subarachnoid or intraparenchymal hemorrhage. There is no evidence for an acut e infarct or cerebral edema. There is mild to moderate cerebral cortical atrophy and decreased attenu ation in the periventricular white matter representing extensive remote small vessel disease. There a re no gross mass lesions. Osseous structures: There is no evidence for an acute fracture. The visualized paranasal sinuses are clear. The mastoid air cells are clear bilaterally. Soft tissues: There is no evidence for focal soft tissue swelling. IMPRESSION: 1. No acute intracerebral pathology. 2. Cerebral cortical atrophy and extensive remote small vessel disease. ACT 112: Negative or not required by law. Electronically signed by: Thad Leal M.D. 01/11/2022 1:17 PM
--- NOTE | 2022-01-11 13:24 | CT Scan Report ---
CT cervical spine wo con CLINICAL HISTORY: Status post fall with neck pain COMPARISON STUDY: No previous studies for comparison. CT DOSE: TECHNIQUE: Standard CT of the Cervical Spine was performed without IV contrast. A dose lowering gaurav hnique was utilized adhering to the principles of ALARA. FINDINGS: Bones: Bones are osteopenic. There is intervertebral body fusion from C5 through C7. There is no evid ence for an acute fracture or malalignment. There is straightening and mild reversal of expected cerv ical lordosis. The heights of the vertebral bodies are maintained. The vertebral bodies are in anatom ic alignment. The odontoid is intact and the atlantoaxial articulation is within normal limits. Disc spaces: There is moderate disc space narrowing at C3-4 and C4-5 along with C7-T1. Apophyseal joints: Degenerative apophyseal joint disease is also present above and below the fused ve rtebral body levels. Soft tissues: The prevertebral soft tissues are within normal limits. IMPRESSION: 1. Osteopenia with no acute osseous pathology. 2. Intervertebral body fusion from C5 through C7. 3. Degenerative disc and degenerative joint disease above and below the fused disc space levels. ACT 112: Negative or not required by law. Electronically signed by: Thad Leal M.D. 01/11/2022 1:21 PM
--- NOTE | 2022-01-11 13:33 | XRay Report ---
XR pelvis 1-2V routine CLINICAL HISTORY: Status post fall with pain. COMPARISON STUDY: No previous studies for comparison. TECHNIQUE: [A single AP radiograph was obtained. FINDINGS: There is no evidence for an acute fracture. The hip joint spaces are maintained bilaterally and the b ones are in anatomic alignment. The SI joints are intact bilaterally. The remaining visualized bones of the pelvis are intact. No focal soft tissue abnormalities identified. IMPRESSION: 1. No acute abnormality. ACT 112: Negative or not required by law. Electronically signed by: Thad Leal M.D. 01/11/2022 1:32 PM
--- NOTE | 2022-01-11 13:33 | XRay Report ---
XR chest 1V portable CLINICAL HISTORY: Status post fall with pain. COMPARISON STUDY: 06/27/2021 TECHNIQUE: 1 view of the chest FINDINGS: Single frontal view of the chest demonstrates the cardiomediastinal silhouette to be within normal li mits. The lungs are clear of alveolar opacities. There is no evidence for pleural effusion. There is no evidence for vascular congestion. There is no acute osseous pathology. IMPRESSION: 1. No acute cardiopulmonary disease. ACT 112: Negative or not required by law. Electronically signed by: Thad Leal M.D. 01/11/2022 1:31 PM
--- NOTE | 2022-01-11 13:34 | XRay Report ---
XR forearm RT 2V CLINICAL HISTORY: right forearm injury. Status post fall with pain COMPARISON STUDY: No previous studies for comparison. TECHNIQUE: AP and lateral right forearm views FINDINGS: Bones: There is no evidence for an acute fracture or dislocation. There is no lytic or blastic lesion . Joints: The joint spaces are maintained. The bones are in anatomic alignment. Soft tissues: There is no focal soft tissue abnormality. There is no radiopaque foreign body. IMPRESSION: 1. No acute osseous pathology. ACT 112: Negative or not required by law. Electronically signed by: Thad Leal M.D. 01/11/2022 1:33 PM
[2022-01-11 14:34] LABS: Basophils # (auto) 0.05 K/uL (0-0.2); Basophils % (auto) 0.7 %; Eosinophils # (auto) 0.12 K/uL (0-0.50); Eosinophils % (auto) 1.8 %; Hematocrit (blood only) 42.2 % (34.1-44.9); Hemoglobin 14.1 g/dl (12.0-16.0); Immature Granulocytes # (auto) 0.02 K/uL (0.00-0.02); Immature Granulocytes % (auto) 0.3 %; Lymphocytes # (auto) 1.86 K/uL (1.2-3.4); Lymphocytes % (auto) 27.3 %; Mean Corpuscular Hemoglobin 31.2 pg (25.0-34.0); Mean Corpuscular Hgb Conc 33.4 g/dL (32.0-36.0); Mean Corpuscular Volume 93.4 fL (80.0-100.0); Mean Platelet Volume 10.1 fL (9.4-12.3); Monocytes % (auto) 10.3 %; Neutrophils # (auto) 4.06 K/uL (1.4-6.5); Neutrophils % (auto) 59.6 %; Platelet Count 233 K/uL (130-400); RDW Coefficient of Variation 13.2 % (11.5-14.5); RDW Standard Deviation 45.8 fL (36.4-46.3); Red Blood Count 4.52 M/uL (3.93-5.22); White Blood Count 6.81 K/ul (4.8-10.8)
[2022-01-11 14:55] LABS: BUN Creatinine Ratio 34.5 (10-20); Calcium 10.1 mg/dl (8.5-10.1); Creatinine Clr Calc Pharmacy 41.2 ml/min; Est GFR (African American) 71.9 ml/min
[2022-01-11 15:00] LABS: Troponin I High Sensitivity 8.2 pg/ml (0-14)
[2022-01-11] MEDS ORDERED: SODIUM CHLORIDE 0.9% 1000ML 1,000 ML IV ONE (15:08)
[2022-01-11] MEDS ORDERED: ALUMINUM/MAGNESIUM SUSP 30 ML UDC PO PRN (16:06)
[2022-01-11] MEDS ORDERED: MAGNESIUM HYDROXIDE SUSP 30 ML UDC PO PRN (16:06)
[2022-01-11] MEDS ORDERED: LABETALOL HCL IV 5 MG/ML 20ML IV PRN (16:33)
--- NOTE | 2022-01-11 16:33 | History & Physical Report ---
Date of Service January 11, 2022 Assessment & Plan (1) Ambulatory dysfunction: (2) Fall: Plan: #. Ambulatory dysfunction #. Likely worsening tardive dyskinesia #. Fall Per patient's daughter, patient has worsening involuntary movements since last 1 month [risperidone is stopped by her neurologist a month ago], patient has difficulty ambulating since last week Patient fell today a.m. while trying to get out of bed, mechanical in nature Admitting imagings - Right forearm x-ray, pelvic x-ray, head CT, CXR, C-spine CT: With no acute findings Labs and electrolytes fairly normal, no signs of infection, await urine analysis. Neurology consult for likely worsening tardive dyskinesia PT/OT for ambulatory dysfunction, fall precaution. Telemetry monitoring. #. Hypertension Blood pressure elevated at 168/109 at presentation, going up to 198/138 But due to her constant involuntary movements, it is hard to get appropriate blood pressure, will add as needed medication Patient was on blood pressure medication in the past, daughter not sure why it was stopped, likely consider adding blood pressure medication depending on how much p.o. medications she is needing. #. Other chronic medical conditions: Depression, anxiety, HLD Continue with/resume home meds as and when appropriate #. DVT prophylaxis: SCDs, re: SAH in June 2021 #. DNR/DNI History of Present Illness Chief Complaint: Worsening tardive dyskinesia Fall Primary Care Provider: [facility] 81-year-old lady with PMH of tardive dyskinesia, SAH and COVID in June 2021, severe protein calorie malnutrition, hypertension, depression, anxiety, HLD presented from [facility] to our ED 01/11 with complaint of worsening involuntary tremors since stoppage of risperidone by her neurologist a month ago, ambulatory dysfunction, unwitnessed fall in the morning. Patient reports that she got wrapped up in her blanket while trying to get out of bed today morning and fell [not sure whether she fell on a recliner or on her bed], has a small bruise over her right forearm, she was not on the ground for prolonged length of time. No other injuries reported. Also her daughter who was at bedside reports that her her ambulation has been worsening since last 1 week, her tardive dyskinesia has been worsening since last 1 month. Of note her risperidone was stopped by her outpatient neurologist. Patient also felt nauseous and tired. Per daughter, patient was able to walk fairly better a week ago. Patient denies headache/dizziness/sore throat/cough/chest pain/palpitations/belly pain/acute changes in bowel or bladder habit. Patient does have increased frequency of urination at baseline. Updated medication list obtained from Dtr, takes ingrezza 40 mg capsule daily, pravastatin 40 mg HS, omeprazole 20 mg daily, duloxetine 60 mg daily along w/ other bowel regimen/vitamins. Reviewed video on her Dtr's phone where patient seen taking small steps w/ walker and per dtr she could walk better than this a week ago. Patient quit smoking in her 30s, denies alcohol or recreational drug use. DNR/DNI Allergies Allergy/AdvReac Type Severity Reaction Status Date / Time adhesive Allergy Mild RASH Verified 06/22/21 14:52 acetaminophen Allergy Unknown RASH Verified 06/22/21 14:52 codeine Allergy Unknown GI SYMPTOMS Verified 06/22/21 14:52 hydrocodone Allergy Unknown GI SYMPTOMS Verified 06/22/21 14:52 Penicillins Allergy Unknown RASH Verified 06/22/21 14:52 Home Medications Medication Instructions Recorded Confirmed Type Enrico'Osei Phan Gummy Bear Viy 2 dose PO DAILY 06/14/21 01/11/22 History duloxetine 60 mg capsule,delayed 60 mg PO DAILY 06/14/21 01/11/22 History release food supplemt, lactose-reduced 1 ea PO BID 06/14/21 01/11/22 History loperamide 2 mg capsule (Imodium 2 mg PO Q4H PRN 06/14/21 01/11/22 History A-D) nystatin 100,000 unit/gram topical 1 applic TOPICAL BID PRN 06/14/21 01/11/22 History cream omeprazole 20 mg capsule,delayed 20 mg PO DAILY 06/14/21 01/11/22 History release polyethylene glycol 3350 17 17 g PO DAILY 06/14/21 01/11/22 History gram/dose oral powder (Miralax) valbenazine 40 mg capsule 20 mg PO QAM #0 cap 07/01/21 01/11/22 Rx (Ingrezza) Fish Oil 1,000 mg fish oil PO BID 01/11/22 01/11/22 History Past Med/Surg History Medical History (Updated 01/11/22 @ 15:37 by Sukhwinder Cline MD) Depression GERD (gastroesophageal reflux disease) Hyperlipidemia Hypertension Tardive dyskinesia Surgical History Surgical history unknown Family History Other Unknown family medical history Social History Smoking Status: Never smoker Tobacco Type: Cigarettes Hx Alcohol Use: No Hx Substance Use: No Preferred Language: Swedish Communication Ability: Effective Senior Payroll Manager Required: No Beliefs That Will Affect Care: None marital status: / Current Living Situation: Care Home Current Living Situation Comment: [facility] Other Information That Helps Us Care for You: No Feels Safe at Home: Yes Safety Concerns: Feels Safe At This Time Assistive Devices: Review of Systems Review of Systems: Negative otherwise mentioned in HPI. Physical Exam Physical Exam: GENERAL: Alert and oriented x3. NAD, on RA. Repetitive involuntary movements of whole body. HEENT: No pallor, no icterus. Pupils equal, round and reactive to light. Oral mucosa moist. NECK: No JVD, no neck masses. HEART: S1 and S2 heard. Regular rate and rhythm. No murmur, no gallop. RESPIRATORY SYSTEM: Normal AP diameter. No accessory muscle use. No wheezing, no crackles. ABDOMEN: Soft, bowel sounds present, nontender, no distention. CENTRAL NERVOUS SYSTEM: No facial droop. Speech is clear. Obeys simple commands. Moves extremities. EXTREMITIES: No edema, no erythema seen. Bruise over dorsum of rt forearm, doesn't look infected. Results & Data Results & Data ([facility]) Vital Signs (Past 12 Hours) Vital Signs Temp Pulse Pulse Resp BP BP Pulse Ox 01/11/22 15:00 99 H 16 96 01/11/22 13:18 91 H 15 198/138 H 90 01/11/22 12:41 36.7 C 98 H 18 168/109 H 99 (1) Fall Encounter type: initial encounter Qualified Code(s): W19.XXXA - Unspecified fall, initial encounter
[2022-01-11] MEDS: PRAVASTATIN SOD 40 MG TAB PO SCH (21:11)
[2022-01-12 01:02] LABS: Appearance Urine Clear (Clear); Bacteria Urine Automated Negative (Negative); Bilirubin Urine Negative (Negative); Blood Urine Negative (Negative); Color Urine Yellow; Glucose Urine UA Negative (Negative); Ketones Urine Trace (Negative); Leukocyte Esterase Urine Trace (Negative); Nitrite Urine Negative (Negative); Protein Urine Negative (Negative); Specific Gravity Urine 1.018 (1.000-1.030); Urobilinogen Urine Negative (Negative); pH Urine 6.5 (4.5-7.5)
[2022-01-12 03:29] LABS: RBC Urine Automated 0-4 /hpf (0-4)
[2022-01-12 05:55] LABS: Hematocrit (blood only) 39.5 % (34.1-44.9); Hemoglobin 13.3 g/dl (12.0-16.0); Mean Corpuscular Hgb Conc 33.7 g/dL (32.0-36.0); Mean Corpuscular Volume 92.1 fL (80.0-100.0); Platelet Count 221 K/uL (130-400); RDW Coefficient of Variation 13.2 % (11.5-14.5); RDW Standard Deviation 44.7 fL (36.4-46.3); Red Blood Count 4.29 M/uL (3.93-5.22); White Blood Count 4.89 K/ul (4.8-10.8)
[2022-01-12 06:05] LABS: BUN Creatinine Ratio 29.5 (10-20); Calcium 9.5 mg/dl (8.5-10.1); Est GFR (African American) 82.1 ml/min; Est GFR (Non-African American) 70.8 ml/min; Phosphorus 3.6 mg/dl (2.5-4.9); Potassium 3.7 mmol/L (3.5-5.1)
--- NOTE | 2022-01-12 07:44 | Hospitalist Progress Note ---
Date of Service January 12, 2022 Assessment & Plan (1) Ambulatory dysfunction: (2) Fall: Plan: #. Ambulatory dysfunction #. Likely worsening tardive dyskinesia #. Fall Per patient's daughter, patient has worsening involuntary movements since last 1 month [risperidone is stopped by her neurologist a month ago], patient has difficulty ambulating since last week Patient fell while trying to get out of bed, mechanical in nature Admitting images - Right forearm x-ray, pelvic x-ray, head CT, CXR, C-spine CT: With no acute findings Labs and electrolytes fairly normal, no signs of infection, UA negative Neurology consult for likely worsening tardive dyskinesia - pending PT/OT for ambulatory dysfunction, fall precaution. Telemetry monitoring. #. Hypertension Blood pressure elevated at 168/109 at presentation, going up to 198/138 But due to her constant involuntary movements, it is hard to get appropriate blood pressure, added as needed medication Patient was on blood pressure medication in the past, daughter not sure why it was stopped, likely consider adding blood pressure medication depending on how much p.o. medications she is needing. #. Other chronic medical conditions: Depression, anxiety, HLD Continue with/resume home meds as and when appropriate #. DVT prophylaxis: SCDs, re: SAH in June 2021 #. DNR/DNI Admission and Anticipated Discharge Date Admission Date: January 11, 2022 Subjective Patient seen in follow-up of ambulatory dysfunction, possibly worsening dyskinesia Patient seen in the room, with nurse and MILL BEAM FITTER, they are trying to sit patient in the chair, however she is to shaky jittery When patient lies in bed, she is not moving as much and more calm Patient is smiling, denies any complaints No fevers, chills, chest pain, shortness of breath, abdominal pain, nausea vomiting Review of Systems Review of Systems: All systems reviewed & are unremarkable except as noted in Subjective Physical Exam Physical Exam: GENERAL: Alert and oriented x3. NAD, on RA. Repetitive involuntary movements of whole body. HEENT: No pallor, no icterus. Pupils equal, round and reactive to light. Oral mucosa moist. NECK: No JVD, no neck masses. HEART: S1 and S2 heard. Regular rate and rhythm. No murmur, no gallop. RESPIRATORY SYSTEM: Normal AP diameter. No accessory muscle use. No wheezing, no crackles. ABDOMEN: Soft, bowel sounds present, nontender, no distention. CENTRAL NERVOUS SYSTEM: No facial droop. Speech is clear. Obeys simple commands. Moves extremities. EXTREMITIES: No edema, no erythema seen. Bruise over dorsum of rt forearm Results & Data Results & Data ([facility]) Vital Signs (Past 12 Hours) Vital Signs Temp Pulse Pulse Resp BP BP Pulse Ox 01/12/22 04:51 165/90 H 01/12/22 04:00 36.5 C 93 H 20 178/101 H 95 01/11/22 22:14 85 01/11/22 22:00 36.7 C 88 18 173/99 H 96 Laboratory Results 01/12/22 01/12/22 01/12/22 Range/Units 05:36 05:36 00:45 WBC 4.89 (4.8-10.8) K/ul RBC 4.29 (3.93-5.22) M/uL Hgb 13.3 (12.0-16.0) g/dl Hct 39.5 (34.1-44.9) % MCV 92.1 (80.0-100.0) fL MCH 31.0 (25.0-34.0) pg MCHC 33.7 (32.0-36.0) g/dL RDW Std Deviation 44.7 (36.4-46.3) fL RDW Coeff of Miguel A 13.2 (11.5-14.5) % Plt Count 221 (130-400) K/uL MPV 10.0 (9.4-12.3) fL Immature Gran % (Auto) % Neut % (Auto) % Lymph % (Auto) % [place] % (Auto) % Eos % (Auto) % Baso % (Auto) % Neut # (Auto) (1.4-6.5) K/uL Lymph # (Auto) (1.2-3.4) K/uL [place] # (Auto) (0.24-0.82) K/uL Eos # (Auto) (0-0.50) K/uL Baso # (Auto) (0-0.2) K/uL Immature Gran # (Auto) (0.00-0.02) K/uL Sodium 139 (136-145) mmol/L Potassium 3.7 (3.5-5.1) mmol/L Chloride 107 (98-107) mmol/L Carbon Dioxide 27 (21-32) mmol/L Anion Gap 5 (3-11) BUN 23 (6-23) mg/dl Creatinine 0.78 (0.6-1.2) mg/dl Est Cr Clr Drug Dosing 46.0 ml/min Est GFR ( Amer) 82.1 ml/min Est GFR (Non-Af Amer) 70.8 ml/min BUN/Creatinine Ratio 29.5 H (10-20) Glucose 85 (70-99(Fasting)) mg/dl Calcium 9.5 (8.5-10.1) mg/dl Phosphorus 3.6 (2.5-4.9) mg/dl Magnesium 2.0 (1.7-2.4) mg/dl Troponin I High Sens (0-14) pg/ml Urine Color Yellow Urine Appearance Clear (Clear) Urine pH 6.5 (4.5-7.5) Ur Specific [place] 1.018 (1.000-1.030) Urine Protein Negative (Negative) Urine Glucose (UA) Negative (Negative) Urine Ketones Trace H (Negative) Urine Blood Negative (Negative) Urine Nitrite Negative (Negative) Urine Bilirubin Negative (Negative) Urine Urobilinogen Negative (Negative) Ur Leukocyte Esterase Trace H (Negative) Urine WBC (Auto) 5-10 H (0-5) /hpf Urine RBC (Auto) 0-4 (0-4) /hpf U Hyaline Cast (Auto) 1-5 (0-5) /lpf U Epithel Cells (Auto) 10-20 H (0-5) /lpf Urine Bacteria (Auto) Negative (Negative) Urine Yeast Not Reportable Nasal Screen MRSA (PCR) (Negative) SARS-CoV-2, RNA, NAAT (NEGATIVE) 01/11/22 01/11/22 01/11/22 Range/Units 20:20 14:21 14:21 WBC (4.8-10.8) K/ul RBC (3.93-5.22) M/uL Hgb (12.0-16.0) g/dl Hct (34.1-44.9) % MCV (80.0-100.0) fL MCH (25.0-34.0) pg MCHC (32.0-36.0) g/dL RDW Std Deviation (36.4-46.3) fL RDW Coeff of Miguel A (11.5-14.5) % Plt Count (130-400) K/uL MPV (9.4-12.3) fL Immature Gran % (Auto) % Neut % (Auto) % Lymph % (Auto) % [place] % (Auto) % Eos % (Auto) % Baso % (Auto) % Neut # (Auto) (1.4-6.5) K/uL Lymph # (Auto) (1.2-3.4) K/uL [place] # (Auto) (0.24-0.82) K/uL Eos # (Auto) (0-0.50) K/uL Baso # (Auto) (0-0.2) K/uL Immature Gran # (Auto) (0.00-0.02) K/uL Sodium 138 (136-145) mmol/L Potassium 4.0 (3.5-5.1) mmol/L Chloride 102 (98-107) mmol/L Carbon Dioxide 27 (21-32) mmol/L Anion Gap 9 (3-11) BUN 30 H (6-23) mg/dl Creatinine 0.87 (0.6-1.2) mg/dl Est Cr Clr Drug Dosing 41.2 ml/min Est GFR ( Amer) 71.9 ml/min Est GFR (Non-Af Amer) 62.0 ml/min BUN/Creatinine Ratio 34.5 H (10-20) Glucose 89 (70-99(Fasting)) mg/dl Calcium 10.1 (8.5-10.1) mg/dl Phosphorus (2.5-4.9) mg/dl Magnesium 2.0 (1.7-2.4) mg/dl Troponin I High Sens 8.2 (0-14) pg/ml Urine Color Urine Appearance (Clear) Urine pH (4.5-7.5) Ur Specific [place] (1.000-1.030) Urine Protein (Negative) Urine Glucose (UA) (Negative) Urine Ketones (Negative) Urine Blood (Negative) Urine Nitrite (Negative) Urine Bilirubin (Negative) Urine Urobilinogen (Negative) Ur Leukocyte Esterase (Negative) Urine WBC (Auto) (0-5) /hpf Urine RBC (Auto) (0-4) /hpf U Hyaline Cast (Auto) (0-5) /lpf U Epithel Cells (Auto) (0-5) /lpf Urine Bacteria (Auto) (Negative) Urine Yeast Nasal Screen MRSA (PCR) Negative (Negative) SARS-CoV-2, RNA, NAAT NEGATIVE (NEGATIVE) 01/11/22 Range/Units 14:21 WBC 6.81 (4.8-10.8) K/ul RBC 4.52 (3.93-5.22) M/uL Hgb 14.1 (12.0-16.0) g/dl Hct 42.2 (34.1-44.9) % MCV 93.4 (80.0-100.0) fL MCH 31.2 (25.0-34.0) pg MCHC 33.4 (32.0-36.0) g/dL RDW Std Deviation 45.8 (36.4-46.3) fL RDW Coeff of Miguel A 13.2 (11.5-14.5) % Plt Count 233 (130-400) K/uL MPV 10.1 (9.4-12.3) fL Immature Gran % (Auto) 0.3 % Neut % (Auto) 59.6 % Lymph % (Auto) 27.3 % [place] % (Auto) 10.3 % Eos % (Auto) 1.8 % Baso % (Auto) 0.7 % Neut # (Auto) 4.06 (1.4-6.5) K/uL Lymph # (Auto) 1.86 (1.2-3.4) K/uL [place] # (Auto) 0.70 (0.24-0.82) K/uL Eos # (Auto) 0.12 (0-0.50) K/uL Baso # (Auto) 0.05 (0-0.2) K/uL Immature Gran # (Auto) 0.02 (0.00-0.02) K/uL Sodium (136-145) mmol/L Potassium (3.5-5.1) mmol/L Chloride (98-107) mmol/L Carbon Dioxide (21-32) mmol/L Anion Gap (3-11) BUN (6-23) mg/dl Creatinine (0.6-1.2) mg/dl Est Cr Clr Drug Dosing ml/min Est GFR ( Amer) ml/min Est GFR (Non-Af Amer) ml/min BUN/Creatinine Ratio (10-20) Glucose (70-99(Fasting)) mg/dl Calcium (8.5-10.1) mg/dl Phosphorus (2.5-4.9) mg/dl Magnesium (1.7-2.4) mg/dl Troponin I High Sens (0-14) pg/ml Urine Color Urine Appearance (Clear) Urine pH (4.5-7.5) Ur Specific [place] (1.000-1.030) Urine Protein (Negative) Urine Glucose (UA) (Negative) Urine Ketones (Negative) Urine Blood (Negative) Urine Nitrite (Negative) Urine Bilirubin (Negative) Urine Urobilinogen (Negative) Ur Leukocyte Esterase (Negative) Urine WBC (Auto) (0-5) /hpf Urine RBC (Auto) (0-4) /hpf U Hyaline Cast (Auto) (0-5) /lpf U Epithel Cells (Auto) (0-5) /lpf Urine Bacteria (Auto) (Negative) Urine Yeast Nasal Screen MRSA (PCR) (Negative) SARS-CoV-2, RNA, NAAT (NEGATIVE) Medications Administered Current Inpatient Medications Al Hydrox/Mg Hydrox/Simethicone (Aluminum/Magnesium Susp 30 Ml Udc) 15 ml PO Q4H PRN PRN Reason: Dyspepsia Stop: 02/10/22 16:05 Duloxetine HCl (Duloxetine Hcl 60 Mg Cap) 60 mg PO DAILY JENELLE Stop: 02/11/22 08:59 Labetalol HCl (Labetalol Hcl Iv 5 Mg/Ml 20ml) 5 mg IV Q6H PRN PRN Reason: hypertension Stop: 02/10/22 16:32 Magnesium Hydroxide (Magnesium Hydroxide Susp 30 Ml Udc) 30 ml PO Q12H PRN PRN Reason: Constipation Stop: 02/10/22 16:05 Miscellaneous (Valbenazine: Order Awaiting Action) 1 ea N/A QS JENELLE Stop: 02/11/22 00:00 Last Admin: 01/11/22 23:48 Dose: Not Given Documented by: Multivitamins/Folic Acid/Vitamin C (Multivitamin Chewable Tab) 1 tab PO DAILY JENELLE; Protocol Stop: 02/11/22 08:59 Pantoprazole Sodium (Pantoprazole 40 Mg Tab) 40 mg PO DAILY JENELLE; Protocol Stop: 02/11/22 08:59 Pravastatin Sodium (Pravastatin Sod 40 Mg Tab) 40 mg PO DAILY@1700 [facility] Stop: 02/10/22 16:59 Last Admin: 01/11/22 21:11 Dose: 40 mg Documented by: (1) Fall Encounter type: initial encounter Qualified Code(s): W19.XXXA - Unspecified fall, initial encounter
[2022-01-12] MEDS: PANTOprazole 40 MG TAB PO SCH (09:09)
[2022-01-12] MEDS: DULoxetine HCL 60 MG CAP PO SCH (09:09)
[2022-01-12] MEDS: MULTIVITAMIN CHEWABLE TAB PO SCH (09:09)
[2022-01-12] MEDS: PRAVASTATIN SOD 40 MG TAB PO SCH (17:03)
--- NOTE | 2022-01-12 22:55 | Consultation Report ---
NEUROLOGY CONSULTATION NOTE DATE OF CONSULTATION: 01/12/2022. CHIEF COMPLAINT: Fall. HISTORY OF PRESENT ILLNESS: An 81-year-old woman with a history of tardive dyskinesias, subarachnoid hemorrhage and COVID-19 infection with severe protein malnutrition, admitted from [facility] with complaint of worsening involuntary movements as well as recurrent or more frequent falls. The patie nt is a poor historian, but although from chart review, she recently had her risperidone stopped. Th e patient states she fell while attempting to get out of bed due to her feet being tangled in a blank et or comforter. She currently denies any complaints. She was sleeping upon my arrival. She denies pain, numbness or weakness. She has been up, walking today using a walker. When questioned whether she had been on antipsychotic medications in the past, she states no. ALLERGIES: ADHESIVE TAPE, ACETAMINOPHEN, CODEINE, HYDROCODONE, PENICILLIN. HOME MEDICATIONS: Duloxetine, loperamide, Nystatin, omeprazole, valbenazine, fish oil. PAST MEDICAL HISTORY: Depression, gastroesophageal reflux disease, hyperlipidemia, hypertension, tar dive dyskinesias, subarachnoid hemorrhage, COVID-19 infection, anxiety, hypertension. PAST SURGICAL HISTORY: No recent or pertinent surgeries. FAMILY HISTORY: Unknown. SOCIAL HISTORY: She lives at [facility]. She is a nonsmoker. No alcohol use. She does a mbulate with a walker or cane. REVIEW OF SYSTEMS: Includes recurrent falls, gait unsteadiness, tardive dyskinesias. Otherwise, oth er review of systems was negative. PHYSICAL EXAMINATION: GENERAL: The patient is sleeping upon arrival, although arouses to voice. She is oriented to person and age, disoriented to place. She appears in no acute distress. Thin appearing female. HEENT: Head is atraumatic, normocephalic. Eyes are midline. Normal conjunctivae. NECK: Supple. LUNGS: Normal respiratory effort. CARDIAC: Pulses intact. ABDOMEN: Nondistended. SKIN: No skin rash. PSYCHIATRIC: She has a normal mood. NEUROLOGIC: She is awake and alert. She is following simple commands. Her speech is soft. Her ton isael is midline. Her extraocular muscles are intact. She had some intermittent tardive dyskinesias, predominantly involving the extremities, although at times looking like akathisia or restlessness. H er tongue is midline with no atrophy. She has no tremor with outstretched hands. She is bradykineti c. She ambulates okay with a walker. She turns en bloc and has a shuffling gait. VITAL SIGNS: Blood pressure was 156/95, pulse of 75, respiratory rate was 17, temperature was 36.4 d egrees Celsius. DIAGNOSTIC TESTING AND IMAGING: WBC 4.89, platelet count 221, hemoglobin was 13.3. Sodium was 139, potassium 3.7, chloride was 107, carbon dioxide was 27, BUN was 23. Magnesium was 2.0. Urinalysis s howed clear fluid. Trace leukocyte esterase, 5-10 WBCs, negative bacteria. COVID-19 testing was neg ative. Head CT noncontrast performed on 01/11/2022 showed no acute intracranial abnormality. Cerebr al cortical atrophy and extensive remote small vessel disease. ASSESSMENT AND PLAN: An 81-year-old female on valbenazine for tardive dyskinesias by outpatient [facility] admitted with a fall. The patient on examination this afternoon at 3 p.m. has some tardive dys kinesia movements or at times appearing like akathisia. The severity of this does not appear bad or interfere with her walking at this time. I did ambulate the patient with a walker and she appears com fortable and does well with a walker. In regards to treatment of her tardive dyskinesias or involunt yulissa movements, the patient is currently on VMAT2 inhibitor, valbenazine. If no improvement with the use of this medication, an alternative as an outpatient will be to switch to deutetrabenazine, althlulu gh I would defer this to her outpatient neurologist. For now as an inpatient, I would not recommend changing her medications as this is a chronic condition. If necessary, can consider adding low dose Klonopin 0.5 mg daily and titrated as tolerated, although I would prefer to defer this to the discret ion of her outpatient neurologist. Otherwise, no additional neurology recommendations at this time. Please contact me with any additional questions or concerns. Job ID: [id number]
[2022-01-13] MEDS: PANTOprazole 40 MG TAB PO SCH (07:39)
[2022-01-13] MEDS: DULoxetine HCL 60 MG CAP PO SCH (07:39)
[2022-01-13] MEDS: MULTIVITAMIN CHEWABLE TAB PO SCH (07:39)
[2022-01-13] MEDS: PRAVASTATIN SOD 40 MG TAB PO SCH (16:40)
[2022-01-14] MEDS: MULTIVITAMIN CHEWABLE TAB PO SCH (07:46)
[2022-01-14] MEDS: PANTOprazole 40 MG TAB PO SCH (07:46)
[2022-01-14] MEDS: DULoxetine HCL 60 MG CAP PO SCH (07:46)
--- NOTE | 2022-01-14 08:11 | Hospitalist Progress Note ---
Date of Service January 13, 2022 Assessment & Plan (1) Ambulatory dysfunction: (2) Fall: Plan: #. Ambulatory dysfunction #. Likely worsening tardive dyskinesia #. Fall Per patient's daughter, patient has worsening involuntary movements since last 1 month [risperidone is stopped by her neurologist a month ago], patient has difficulty ambulating since last week Patient fell while trying to get out of bed, mechanical in nature Admitting images - Right forearm x-ray, pelvic x-ray, head CT, CXR, C-spine CT: With no acute findings Labs and electrolytes fairly normal, no signs of infection, UA negative Neurology consult for likely worsening tardive dyskinesia An 81-year-old female on valbenazine for tardive dyskinesias by outpatient neurology admitted with a fall. The patient on examination this afternoon at 3 p.m. has some tardive dyskinesia movements or at times appearing like akathisia. The severity of this does not appear bad or interfere with her walking at this time. I did ambulate the patient with a walker and she appears comfortable and does well with a walker. In regards to treatment of her tardive dyskinesias or involuntary movements, the patient is currently on VMAT2 inhibitor, valbenazine. If no improvement with the use of this medication, an alternative as an outpatient will be to switch to deutetrabenazine, although I would defer this to her outpatient neurologist. For now as an inpatient, I would not recommend changing her medications as this is a chronic condition. If necessary, can consider adding low dose Klonopin 0.5 mg daily and titrated as tolerated, although I would prefer to defer this to the discretion of her outpatient neurologist. Otherwise, no additional neurology recommendations at this time. Please contact me with any additional questions or concerns. 01/13 -discussed with patient's daughter, above neurology findings and recommendations. She plans for outpatient follow-up with neurology at [place]. She also states that her mom was doing much better after she was in rehab at [facility]. Per her report, her ambulation and strength was much better before and therefore she is very interested in PT/rehab. I contacted case management. We will try to discharge patient to [facility] again. PT/OT for ambulatory dysfunction, fall precaution - as above Telemetry monitoring. #. Hypertension Blood pressure elevated at 168/109 at presentation, going up to 198/138 But due to her constant involuntary movements, it is hard to get appropriate blood pressure, added as needed medication Patient was on blood pressure medication in the past, daughter not sure why it was stopped, likely consider adding blood pressure medication depending on how much p.o. medications she is needing. BP improved, SBP in 150s #. Other chronic medical conditions: Depression, anxiety, HLD Continue with/resume home meds as and when appropriate #. DVT prophylaxis: SCDs, re: SAH in June 2021 #. DNR/DNI Admission and Anticipated Discharge Date Admission Date: January 11, 2022 Subjective Patient seen in follow-up of ambulatory dysfunction, possibly worsening dyskinesia Patient is currently laying in bed, in no acute distress, some involuntary mo vements noted Patient denies any complaints No fevers, chills, chest pain, shortness of breath, abdominal pain, nausea vomiting Review of Systems 2 Review of Systems: All systems reviewed & are unremarkable except as noted in Subjective Physical Exam Physical Exam: GENERAL: Awake and alert, in NAD, on RA. Repetitive involuntary movements of whole body. HEENT: No pallor, no icterus. Pupils equal, round and reactive to light. Oral mucosa moist. NECK: No JVD, no neck masses. HEART: S1 and S2 heard. Regular rate and rhythm. No murmur, no gallop. RESPIRATORY SYSTEM: Normal AP diameter. No accessory muscle use. No wheezing, no crackles. ABDOMEN: Soft, bowel sounds present, nontender, no distention. CENTRAL NERVOUS SYSTEM:Awake and alert, able to answer simple questions appropriately. No facial droop. Speech is clear. Obeys simple commands. Moves extremities. EXTREMITIES: No edema, no erythema seen. Bruise over dorsum of rt forearm Results & Data Results & Data ([facility]) Vital Signs (Past 12 Hours) Vital Signs Temp Pulse Pulse Resp BP Pulse Ox 01/13/22 23:09 36.2 C L 92 H 20 165/93 H 96 01/13/22 23:00 107 H 01/13/22 20:24 36.5 C 99 H 20 86/43 L 96 Medications Administered Current Inpatient Medications Al Hydrox/Mg Hydrox/Simethicone (Aluminum/Magnesium Susp 30 Ml Udc) 15 ml PO Q4H PRN PRN Reason: Dyspepsia Stop: 02/10/22 16:05 Duloxetine HCl (Duloxetine Hcl 60 Mg Cap) 60 mg PO DAILY [facility] Stop: 02/11/22 08:59 Last Admin: 01/14/22 07:46 Dose: 60 mg Documented by: Labetalol HCl (Labetalol Hcl Iv 5 Mg/Ml 20ml) 5 mg IV Q6H PRN PRN Reason: hypertension Stop: 02/10/22 16:32 Magnesium Hydroxide (Magnesium Hydroxide Susp 30 Ml Udc) 30 ml PO Q12H PRN PRN Reason: Constipation Stop: 02/10/22 16:05 Multivitamins/Folic Acid/Vitamin C (Multivitamin Chewable Tab) 1 tab PO DAILY [facility]; Protocol Stop: 02/11/22 08:59 Last Admin: 01/14/22 07:46 Dose: 1 tab Documented by: Valbenazine 40mg: Non-Formulary Patient's Own Medication 1 each N/A QAM [facility] Stop: 02/13/22 08:59 Last Admin: 01/14/22 07:45 Dose: 1 dose Documented by: Pantoprazole Sodium (Pantoprazole 40 Mg Tab) 40 mg PO DAILY [facility]; Protocol Stop: 02/11/22 08:59 Last Admin: 01/14/22 07:46 Dose: 40 mg Documented by: Pravastatin Sodium (Pravastatin Sod 40 Mg Tab) 40 mg PO DAILY@1700 [facility] Stop: 02/10/22 16:59 Last Admin: 01/13/22 16:40 Dose: 40 mg Documented by: (1) Fall Encounter type: initial encounter Qualified Code(s): W19.XXXA - Unspecified fall, initial encounter
[2022-01-14] MEDS ORDERED: VALBENAZINE 40 MG SCH (09:00)
--- NOTE | 2022-01-14 11:24 | Hospitalist Progress Note ---
Date of Service January 14, 2022 Assessment & Plan (1) Ambulatory dysfunction: (2) Fall: Plan: #. Ambulatory dysfunction #. Likely worsening tardive dyskinesia #. Fall Per patient's daughter, patient has worsening involuntary movements since last 1 month [risperidone is stopped by her neurologist a month ago], patient has difficulty ambulating since last week Patient fell while trying to get out of bed, mechanical in nature Admitting images - Right forearm x-ray, pelvic x-ray, head CT, CXR, C-spine CT: With no acute findings Labs and electrolytes fairly normal, no signs of infection, UA negative Neurology consult for likely worsening tardive dyskinesia An 81-year-old female on valbenazine for tardive dyskinesias by outpatient neurology admitted with a fall. The patient on examination this afternoon at 3 p.m. has some tardive dyskinesia movements or at times appearing like akathisia. The severity of this does not appear bad or interfere with her walking at this time. I did ambulate the patient with a walker and she appears comfortable and does well with a walker. In regards to treatment of her tardive dyskinesias or involuntary movements, the patient is currently on VMAT2 inhibitor, valbenazine. If no improvement with the use of this medication, an alternative as an outpatient will be to switch to deutetrabenazine, although I would defer this to her outpatient neurologist. For now as an inpatient, I would not recommend changing her medications as this is a chronic condition. If necessary, can consider adding low dose Klonopin 0.5 mg daily and titrated as tolerated, although I would prefer to defer this to the discretion of her outpatient neurologist. Otherwise, no additional neurology recommendations at this time. Please contact me with any additional questions or concerns. 01/13 -discussed with patient's daughter, above neurology findings and recommendations. She plans for outpatient follow-up with neurology at [place]. She also states that her mom was doing much better after she was in rehab at [facility]. Per her report, her ambulation and strength was much better before and therefore she is very interested in PT/rehab. I contacted case management. We will try to discharge patient to [facility] again. 01/14 -Per CM, patient can go to [facility] for short-term rehab. Family aware. Plan to discharge patient today. PT/OT for ambulatory dysfunction, fall precaution - as above Telemetry monitoring. #. Hypertension Blood pressure elevated at 168/109 at presentation, going up to 198/138 But due to her constant involuntary movements, it is hard to get appropriate blood pressure, added as needed medication Patient was on blood pressure medication in the past, daughter not sure why it was stopped, likely consider adding blood pressure medication depending on how much p.o. medications she is needing. BP improved, SBP in 150s #. Other chronic medical conditions: Depression, anxiety, HLD Continue with/resume home meds as and when appropriate #. DVT prophylaxis: SCDs, re: SAH in June 2021 #. DNR/DNI Admission and Anticipated Discharge Date Admission Date: January 11, 2022 Subjective Patient seen in follow-up of ambulatory dysfunction, possibly worsening dyskinesia Patient is currently laying in bed, in no acute distress, some involuntary movements noted Patient denies any complaints No fevers, chills, chest pain, shortness of breath, abdominal pain, nausea vomiting Review of Systems Review of Systems: All systems reviewed & are unremarkable except as noted in Subjective Physical Exam Physical Exam: GENERAL: Awake and alert, in NAD, on RA. Repetitive involuntary movements of whole body. HEENT: No pallor, no icterus. Pupils equal, round and reactive to light. Oral mucosa moist. NECK: No JVD, no neck masses. HEART: S1 and S2 heard. Regular rate and rhythm. No murmur, no gallop. RESPIRATORY SYSTEM: Normal AP diameter. No accessory muscle use. No wheezing, no crackles. ABDOMEN: Soft, bowel sounds present, nontender, no distention. CENTRAL NERVOUS SYSTEM:Awake and alert, able to answer simple questions appropriately. No facial droop. Speech is clear. Obeys simple commands. Moves extremities. EXTREMITIES: No edema, no erythema seen. Bruise over dorsum of rt forearm Results & Data Results & Data ([facility]) Vital Signs (Past 12 Hours) Vital Signs Temp Pulse Pulse Resp BP Pulse Ox 01/14/22 09:11 77 01/14/22 08:31 36.7 C 84 16 158/87 H 95 01/14/22 03:31 36.6 C 92 H 18 164/92 H 96 Medications Administered Current Inpatient Medications Al Hydrox/Mg Hydrox/Simethicone (Aluminum/Magnesium Susp 30 Ml Udc) 15 ml PO Q4H PRN PRN Reason: Dyspepsia Stop: 02/10/22 16:05 Duloxetine HCl (Duloxetine Hcl 60 Mg Cap) 60 mg PO DAILY [facility] Stop: 02/11/22 08:59 Last Admin: 01/14/22 07:46 Dose: 60 mg Documented by: Labetalol HCl (Labetalol Hcl Iv 5 Mg/Ml 20ml) 5 mg IV Q6H PRN PRN Reason: hypertension Stop: 02/10/22 16:32 Magnesium Hydroxide (Magnesium Hydroxide Susp 30 Ml Udc) 30 ml PO Q12H PRN PRN Reason: Constipation Stop: 02/10/22 16:05 Multivitamins/Folic Acid/Vitamin C (Multivitamin Chewable Tab) 1 tab PO DAILY [facility]; Protocol Stop: 02/11/22 08:59 Last Admin: 01/14/22 07:46 Dose: 1 tab Documented by: Valbenazine 40mg: Non-Formulary Patient's Own Medication 1 each N/A QAM [facility] Stop: 02/13/22 08:59 Last Admin: 01/14/22 07:45 Dose: 1 dose Documented by: Pantoprazole Sodium (Pantoprazole 40 Mg Tab) 40 mg PO DAILY [facility]; Protocol Stop: 02/11/22 08:59 Last Admin: 01/14/22 07:46 Dose: 40 mg Documented by: Pravastatin Sodium (Pravastatin Sod 40 Mg Tab) 40 mg PO DAILY@1700 [facility] Stop: 02/10/22 16:59 Last Admin: 01/13/22 16:40 Dose: 40 mg Documented by: (1) Fall Encounter type: initial encounter Qualified Code(s): W19.XXXA - Unspecified fall, initial encounter
--- NOTE | 2022-01-14 11:40 | Discharge Summary ---
Date of Service January 14, 2022 Admission HPI Per Admitting Provider 81-year-old lady with PMH of tardive dyskinesia, SAH and COVID in June 2021, severe protein calorie malnutrition, hypertension, depression, anxiety, HLD presented from [facility] to our ED 01/11 with complaint of worsening involuntary tremors since stoppage of risperidone by her neurologist a month ago, ambulatory dysfunction, unwitnessed fall in the morning. Patient reports that she got wrapped up in her blanket while trying to get out of bed today morning and fell [not sure whether she fell on a recliner or on her bed], has a small bruise over her right forearm, she was not on the ground for prolonged length of time. No other injuries reported. Also her daughter who was at bedside reports that her her ambulation has been worsening since last 1 week, her tardive dyskinesia has been worsening since last 1 month. Of note her risperidone was stopped by her outpatient neurologist. Patient also felt nauseous and tired. Per daughter, patient was able to walk fairly better a week ago. Patient denies headache/dizziness/sore throat/cough/chest pain/palpitations/belly pain/acute changes in bowel or bladder habit. Patient does have increased frequency of urination at baseline. Updated medication list obtained from Dtr, takes ingrezza 40 mg capsule daily, pravastatin 40 mg HS, omeprazole 20 mg daily, duloxetine 60 mg daily along w/ other bowel regimen/vitamins. Reviewed video on her Dtr's phone where patient seen taking small steps w/ walker and per dtr she could walk better than this a week ago. Patient quit smoking in her 30s, denies alcohol or recreational drug use. DNR/DNI Admission Exam Per Admitting Provider GENERAL: Alert and oriented x3. NAD, on RA. Repetitive involuntary movements of whole body. HEENT: No pallor, no icterus. Pupils equal, round and reactive to light. Oral mucosa moist. NECK: No JVD, no neck masses. HEART: S1 and S2 heard. Regular rate and rhythm. No murmur, no gallop. RESPIRATORY SYSTEM: Normal AP diameter. No accessory muscle use. No wheezing, no crackles. ABDOMEN: Soft, bowel sounds present, nontender, no distention. CENTRAL NERVOUS SYSTEM: No facial droop. Speech is clear. Obeys simple commands. Moves extremities. EXTREMITIES: No edema, no erythema seen. Bruise over dorsum of rt forearm, doesn't look infected. Principal Diagnosis Ambulatory dysfunction, fall, tardive dyskinesia Discharge Exam GENERAL: Awake and alert, in NAD, on RA. Repetitive involuntary movements of whole body. HEENT: No pallor, no icterus. Pupils equal, round and reactive to light. Oral mucosa moist. NECK: No JVD, no neck masses. HEART: S1 and S2 heard. Regular rate and rhythm. No murmur, no gallop. RESPIRATORY SYSTEM: Normal AP diameter. No accessory muscle use. No wheezing, no crackles. ABDOMEN: Soft, bowel sounds present, nontender, no distention. CENTRAL NERVOUS SYSTEM:Awake and alert, able to answer simple questions appropriately. No facial droop. Speech is clear. Obeys simple commands. Moves extremities. EXTREMITIES: No edema, no erythema seen. Bruise over dorsum of rt forearm Discharge Data Allergies Allergy/AdvReac Type Severity Reaction Status Date / Time adhesive Allergy Mild RASH Verified 06/22/21 14:52 acetaminophen Allergy Unknown RASH Verified 06/22/21 14:52 codeine Allergy Unknown GI SYMPTOMS Verified 06/22/21 14:52 hydrocodone Allergy Unknown GI SYMPTOMS Verified 06/22/21 14:52 Penicillins Allergy Unknown RASH Verified 06/22/21 14:52 Consultations 01/11/22 15:37 ED Decision to Admit Stat 01/11/22 16:05 Consult Neurology Routine Ordered Studies 01/11/22 12:45 CT cervical spine wo con Stat FINDINGS: Bones: Bones are osteopenic. There is intervertebral body fusion from C5 through C7. There is no evidence for an acute fracture or malalignment. There is straightening and mild reversal of expected cervical lordosis. The heights of the vertebral bodies are maintained. The vertebral bodies are in anatomic alignment. The odontoid is intact and the atlantoaxial articulation is within normal limits. Disc spaces: There is moderate disc space narrowing at C3-4 and C4-5 along with C7-T1. Apophyseal joints: Degenerative apophyseal joint disease is also present above and below the fused vertebral body levels. Soft tissues: The prevertebral soft tissues are within normal limits. IMPRESSION: 1. Osteopenia with no acute osseous pathology. 2. Intervertebral body fusion from C5 through C7. 3. Degenerative disc and degenerative joint disease above and below the fused disc space levels. CT head/brain wo con Stat FINDINGS: Extraaxial space: There is no evidence for subdural hematoma. There are no extra-axial fluid collections. Ventricles and cisterns: The ventricles are mildly to moderately dilated bilaterally. There is no evidence for midline shift or mass effect. Parenchyma: There is no subarachnoid or intraparenchymal hemorrhage. There is no evidence for an acute infarct or cerebral edema. There is mild to moderate cerebral cortical atrophy and decreased attenuation in the periventricular white matter representing extensive remote small vessel disease. There are no gross mass lesions. Osseous structures: There is no evidence for an acute fracture. The visualized paranasal sinuses are clear. The mastoid air cells are clear bilaterally. Soft tissues: There is no evidence for focal soft tissue swelling. IMPRESSION: 1. No acute intracerebral pathology. 2. Cerebral cortical atrophy and extensive remote small vessel disease. Hospital Course (1) Ambulatory dysfunction: (2) Fall: #. Ambulatory dysfunction #. Likely worsening tardive dyskinesia #. Fall Per patient's daughter, patient has worsening involuntary movements since last 1 month [risperidone is stopped by her neurologist a month ago], patient has difficulty ambulating since last week Patient fell while trying to get out of bed, mechanical in nature Admitting images - Right forearm x-ray, pelvic x-ray, head CT, CXR, C-spine CT: With no acute findings Labs and electrolytes fairly normal, no signs of infection, UA negative Neurology consult for likely worsening tardive dyskinesia An 81-year-old female on valbenazine for tardive dyskinesias by outpatient neurology admitted with a fall. The patient on examination this afternoon at 3 p.m. has some tardive dyskinesia movements or at times appearing like akathisia. The severity of this does not appear bad or interfere with her walking at this time. I did ambulate the patient with a walker and she appears comfortable and does well with a walker. In regards to treatment of her tardive dyskinesias or involuntary movements, the patient is currently on VMAT2 inhibitor, valbenazine. If no improvement with the use of this medication, an alternative as an outpatient will be to switch to deutetrabenazine, although I would defer this to her outpatient neurologist. For now as an inpatient, I would not recommend changing her medications as this is a chronic condition. If necessary, can consider adding low dose Klonopin 0.5 mg daily and titrated as tolerated, although I would prefer to defer this to the discretion of her outpatient neurologist. Otherwise, no additional neurology recommendations at this time. Please contact me with any additional questions or concerns. 01/13 -discussed with patient's daughter, above neurology findings and recommendations. She plans for outpatient follow-up with neurology at [place]. She also states that her mom was doing much better after she was in rehab at [facility]. Per her report, her ambulation and strength was much better before and therefore she is very interested in PT/rehab. I contacted case management. We will try to discharge patient to [facility] again. 01/14 -Per CM, patient can go to [facility] for short-term rehab. Family aware. Plan to discharge patient today. PT/OT for ambulatory dysfunction, fall precaution - as above Telemetry monitoring. #. Hypertension Blood pressure elevated at 168/109 at presentation, going up to 198/138 But due to her constant involuntary movements, it is hard to get appropriate blood pressure, added as needed medication Patient was on blood pressure medication in the past, daughter not sure why it was stopped, likely consider adding blood pressure medication depending on how much p.o. medications she is needing. BP improved, SBP in 150s #. Other chronic medical conditions: Depression, anxiety, HLD Continue with/resume home meds as and when appropriate Total Time Total Time Spent Total Time Spent (In Minutes): 40 Discharge Plan Discharge Items Patient Disposition: Transfer Inpatient Rehab Fac Reason For Visit: AMBULATORY DYSFXN, WORSENING TARDIVE DYSKINESIA Discharge Diagnosis: Ambulatory dysfunction, fall, tardive dyskinesia Activity: Per Instructions section Non-emergency contact: Primary Care Provider and Neurologist Call non-emergency contact if: you have any medication questions and your symptoms worsen Follow-up/Referrals: [facility] [Primary Care Provider] - Janae Tipton MD [Outside Practitioners] - 06/02/22 10:45 am (You have been placed on a wait list for cancelled appointments, the Neurology office will call you if any sooner appointments become available. ) Diet: Regular Addtl Attending Provider Instructions: Follow-up with your neurologist at [facility] at your earliest convenience. Also recommend to follow-up with primary care doctor. Continue physical therapy, as per [facility]. Pending Studies at Discharge: No Stand-Alone Forms: My [facility] Skilled Items Patient informed of condition?: Yes DNR: Yes Discharge Level of Care: Acute rehab Communicable Disease: No Discharge Prognosis: Stable Lines: None Urinary Catheter: No Medications and DC Order Prescriptions: Continued omeprazole 20 mg capsule,delayed release(DR/EC) 20 mg PO DAILY RF: 0 polyethylene glycol 3350 [Miralax] 17 gram/dose Powder 17 g PO DAILY RF: 0 duloxetine 60 mg Capsule,Delayed Release(Dr/Ec) 60 mg PO DAILY RF: 0 loperamide [Imodium A-D] 2 mg Capsule 2 mg PO Q4H PRN (Reason: Diarrhea) RF: 0 nystatin 100,000 unit/gram cream 1 applic TOPICAL BID PRN (Reason: Rash) RF: 0 food supplemt, lactose-reduced Liquid 1 ea PO BID RF: 0 L'Il Critters Gummy Bear Viy 2 dose PO DAILY RF: 0 Ingrezza 40 mg capsule 20 mg PO QAM Qty: 0 RF: 0 Fish Oil capsule 1,000 mg fish oil PO BID RF: 0 Discharge Orders: Discharge Order (Routine); Ordered 01/14/22 Ordered By: Martell Brink Admission Data Admit Date/Time: 01/11/22 16:07 Attending Provider: Martell Brink Admit Provider: Emily Mcgee Primary Care Provider: [facility] Other Providers: Emily Mcgee ; Corona Tesfaye ; Jason Fitzpatrick ; [facility]
== END 2022-01-14 16:31 | DRG 91 ==
LOC: ED 12:38 → SUATTDRO 16:07 → 2N 16:07

== ENCOUNTER 2022-11-21 18:04 | Inpatient (IN) ==
[2022-11-21] MEDS ORDERED: SODIUM CHLORIDE 0.9% 1000ML 1,000 ML IV ONE (18:32)
[2022-11-21 19:39] LABS: Albumin Globulin Ratio 1.2 (0.9-2); Albumin Level 3.7 gm/dl (3.4-5.0); BUN Creatinine Ratio 28.1 (10-20); Bilirubin,Total 0.3 mg/dl (0.2-1.0); Creatinine Clr Calc Pharmacy 36.7 ml/min; Est GFR (African American) 63.4 ml/min; Est GFR (Non-African American) 54.7 ml/min; Magnesium 1.9 mg/dl (1.7-2.4); Phosphorus 2.8 mg/dl (2.5-4.9); Potassium 3.8 mmol/L (3.5-5.1); Total Protein 6.7 gm/dl (6.0-8.3)
[2022-11-21 19:46] LABS: Troponin I High Sensitivity 8.3 pg/ml (0-14)
[2022-11-21 20:06] LABS: Adenovirus PCR Not Detected (NotDetected); Bordetella parapertussis PCR Not Detected (NotDetected); Bordetella pertussis PCR Not Detected (NotDetected); Chlamydia pneumoniae PCR Not Detected (NotDetected); Coronavirus 229E PCR Not Detected (NotDetected); Coronavirus CoV-2 (COVID19)PCR Not Detected (NotDetected); Coronavirus HKU1 PCR Not Detected (NotDetected); Coronavirus NL63 PCR Not Detected (NotDetected); Coronavirus OC43PCR Not Detected (NotDetected); Human Metapneumovirus PCR Not Detected (NotDetected); Influenza A PCR Not Detected (NotDetected); Influenza B PCR Not Detected (NotDetected); Mycoplasma pneumoniae PCR Not Detected (NotDetected); Parainfluenza Virus 1 PCR Not Detected (NotDetected); Parainfluenza Virus 2 PCR Not Detected (NotDetected); Parainfluenza Virus 3 PCR Not Detected (NotDetected); Parainfluenza Virus 4 PCR Not Detected (NotDetected); Respiratory Syncytial VirusPCR Not Detected (NotDetected); Rhinovirus/Enterovirus PCR Not Detected (NotDetected)
[2022-11-21] MEDS ORDERED: OPTIRAY 320 500ml IV ONE (20:15)
[2022-11-21] MEDS ORDERED: ACETAMINOPHEN 1,000 MG/100 ML VIAL IV STA (20:21)
[2022-11-21 21:27] LABS: Basophils # (auto) 0.04 K/uL (0-0.2); Basophils % (auto) 0.5 %; Eosinophils # (auto) 0.11 K/uL (0-0.50); Eosinophils % (auto) 1.5 %; Hemoglobin 12.4 g/dl (12.0-16.0); Immature Granulocytes # (auto) 0.02 K/uL (0.01-0.20); Immature Granulocytes % (auto) 0.3 %; Lymphocytes # (auto) 1.09 K/uL (1.2-3.4); Lymphocytes % (auto) 14.5 %; Mean Corpuscular Hemoglobin 31.6 pg (25.0-34.0); Mean Corpuscular Hgb Conc 34.4 g/dL (32.0-36.0); Mean Corpuscular Volume 91.8 fL (80.0-100.0); Mean Platelet Volume 9.6 fL (9.4-12.4); Monocytes % (auto) 6.6 %; Neutrophils # (auto) 5.76 K/uL (1.40-6.50); Neutrophils % (auto) 76.6 %; Platelet Count 221 K/uL (130-400); RDW Coefficient of Variation 12.5 % (11.5-14.5); RDW Standard Deviation 41.8 fL (36.4-46.3); Red Blood Count 3.92 M/uL (4.20-5.40); White Blood Count 7.52 K/ul (4.8-10.8)
--- NOTE | 2022-11-21 22:03 | CT Scan Report ---
Exam(s): CT HEAD Without Contrast EXAM: CT Head Without Intravenous Contrast CLINICAL HISTORY: Reason for exam: dizziness, fall. TECHNIQUE: Axial computed tomography images of the head/brain without intravenous contrast. Automated exposure control was utilized for the study. A dose lowering technique was utilized adhering to the principles of ALARA. COMPARISON: November 19, 2022 FINDINGS: Brain: Moderate cerebral atrophy and periventricular white matter low density consistent with chronic small vessel disease and/or senescent changes, unchanged. No acute large vessel infarct or intracranial hemorrhage is seen. Ventricles: Dilated. No mass or hemorrhage. Bones/joints: Unremarkable. No acute fracture. Soft tissues: Unremarkable. Sinuses: Unremarkable as visualized. No acute sinusitis. Mastoid air cells: Unremarkable as visualized. No mastoid effusion. IMPRESSION: Moderate cerebral atrophy and periventricular white matter low density consistent with chronic small vessel disease and/or senescent changes, unchanged. No acute large vessel infarct or intracranial hemorrhage is seen. Electronically signed by: Oni Lombardo MD 11/21/22 22:02 PM
--- NOTE | 2022-11-21 22:07 | CT Scan Report ---
Exam(s): CTA NECK With Contrast IV Amt: 108 ml optiray 320 EXAM: CT Angiography Neck With Intravenous Contrast CLINICAL HISTORY: Reason for exam: dizziness, fall. TECHNIQUE: Routine carotid CT angiography protocol was performed with intravenous contrast. NASCET criteria using the distal ICAs for comparison were used for evaluation of stenoses. Automated exposure control was utilized for the study. A dose lowering technique was utilized adhering to the principles of ALARA. MIP reconstructed images were created and reviewed. CONTRAST: Patient received 108 ml optiray 320 of IV contrast COMPARISON: None. FINDINGS: VASCULATURE: Right common carotid artery: Unremarkable. No occlusion or significant stenosis. No dissection. Right internal carotid artery: Moderate calcified plaque in the right carotid bulb and proximal internal carotid artery causing 20% stenosis. The right internal carotid artery is tortuous distally but widely patent. No dissection. Right external carotid artery: Unremarkable. No occlusion. Right vertebral artery: Unremarkable. No occlusion or significant stenosis. No dissection. Left common carotid artery: Severe calcified plaque in the distal left common carotid artery and proximal left internal carotid artery causing 70% stenosis. No dissection. Left internal carotid artery: See above. Left external carotid artery: Unremarkable. No occlusion. Left vertebral artery: Calcified plaque causing 40% stenosis of the proximal left vertebral artery. No dissection. 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 No acute fracture or subluxation is seen. Soft tissues: Unremarkable. Thyroid: 11 mm right thyroid nodule. Lung apices: Clear. CAROTID STENOSIS REFERENCE USING NASCET CRITERIA: % ICA stenosis = (1 - narrowest ICA diameter/diameter of distal cervical ICA) x 100. Mild - <50% stenosis. Moderate - 50-69% stenosis. Severe - 70-94% stenosis. Near occlusion - 95-99% stenosis. Occluded - 100% stenosis. IMPRESSION: Severe calcified plaque in the distal left common carotid artery and proximal left internal carotid artery causing 70% stenosis. Electronically signed by: Oni Lombardo MD 11/21/22 22:05 PM
[2022-11-21 22:13] LABS: Appearance Urine Clear (Clear); Bacteria Urine Automated Negative (Negative); Bilirubin Urine Negative (Negative); Blood Urine Negative (Negative); Color Urine Yellow; Glucose Urine UA Negative (Negative); Ketones Urine Negative (Negative); Leukocyte Esterase Urine 1+ (Negative); Nitrite Urine Negative (Negative); Protein Urine Negative (Negative); Specific Gravity Urine 1.031 (1.000-1.030); Urobilinogen Urine Negative (Negative)
--- NOTE | 2022-11-21 22:13 | CT Scan Report ---
Exam(s): CTA HEAD With Contrast IV Amt: 110 ml optiray 320 EXAM: CT Angiography Head With Intravenous Contrast CLINICAL HISTORY: Reason for exam: dizziness, fall. TECHNIQUE: Axial computed tomographic angiography images of the head with intravenous contrast. Automated exposure control was utilized for the study. A dose lowering technique was utilized adhering to the principles of ALARA. MIP reconstructed images were created and reviewed. CONTRAST: Patient received 110 ml optiray 320 of IV contrast COMPARISON: No relevant prior studies available. FINDINGS: Right internal carotid artery: There is mild calcified plaque through the cavernous portions of the distal internal carotid arteries bilaterally with less than 20% stenosis. No aneurysm. Right anterior cerebral artery: Unremarkable. No occlusion or significant stenosis. No aneurysm. Right middle cerebral artery: Unremarkable. No occlusion or significant stenosis. No aneurysm. Right posterior cerebral artery: Unremarkable. No occlusion or significant stenosis. No aneurysm. Right vertebral artery: Unremarkable as visualized. Left internal carotid artery: See above. Left anterior cerebral artery: Unremarkable. No occlusion or significant stenosis. No aneurysm. Left middle cerebral artery: Unremarkable. No occlusion or significant stenosis. No aneurysm. Left posterior cerebral artery: Unremarkable. No occlusion or significant stenosis. No aneurysm. Left vertebral artery: The distal left vertebral artery demonstrates 30% stenosis. The right vertebral and basilar arteries are widely patent. Basilar artery: See above. IMPRESSION: No acute findings in the arteries of the head/brain. Electronically signed by: Oni Lombardo MD 11/21/22 22:13 PM
[2022-11-21] MEDS ORDERED: cefTRIAXone SODIUM 2,000 MG/70 ML BAG IV STA (22:29)
--- NOTE | 2022-11-22 02:19 | Emergency Department Note ---
Impression & Plan Fall from standing, Ambulatory dysfunction, Dehydration, Acute UTI ED Provider Note NAME: TAMARA ROBLES AGE: 82 SEX: F ARRIVES VIA: Ambulance INFORMANT: Patient ED PROVIDER(S): Arias Love MD CHIEF COMPLAINT: Fall, dizziness PLAN: Disposition: Admit MEDICAL DECISION MAKING: The patient is a pleasant 82-year-old woman with a past medical history of ambulatory dysfunction, tardive dyskinesia, GERD, hypertension, hyperlipidemia who presents to the emergency department via EMS and then accompanied by her daughter for evaluation of fall that occurred prior to arrival in the setting of the patient being seen the emergency department 2 days ago for initial fall in the setting of the patient reporting feeling ill and lightheaded that is not typical for her. She does have baseline ambulatory dysfunction for which she requires a walker at all times but her symptoms recently have been different. Patient did have a staff member with her when she fell backwards and hit her head. The patient did not lose consciousness. On arrival the patient is in no acute distress, with temperature of 37.7, heart rate in the 90s and blood pressure 140s/110s. O2 saturation is 99% on room air with normal respiratory effort. EKG without overt acute ischemia. CXR negative for acute cardiopulmonary process per my preliminary review. WBC, hemoglobin and platelets within normal limits. Chemistry without metabolic acidosis. BUN/creatinine> 20 consistent with patient's clinically dry appearance. Lactic acid 1.0, within normal limits. Electrolytes and LFTs witho ut significant abnormality. CPK within normal limits. High-sensitivity troponin 8.3, within normal limits. Lipase within normal limits. Procalcitonin is not elevated. TSH within normal limits. UA demonstrates WBCs and leuk esterase but no bacteria and there are some epithelial cells present. Respiratory viral panel/[employer] was negative. Given patient's generalized weakness with low-grade temperature with suspicious urinalysis she was ordered for ceftriaxone for suspected UTI. CT of the head and CTA of the head and neck were performed and were negative for acute findings. The patient's daughter does prefer and request admission for further evaluation and management given this was her second fall in the past several days and she feels she is not at her baseline. The patient agrees with plan for admission and defers to her daughter's preference at this time. [facility] the [facility] for [facility]. Triage Nursing notes reviewed and agree them. Prior/outside medical records reviewed Vital Signs: reviewed Differential diagnosis: Benign positional vertigo, dehydration, hypovolemia, anemia, tumor, infection, hypoglycemia, electrolyte abnormalities, cardiac sources, intracerebral event, toxicologic, neurologic, as well as other pathologies. ER treatment provided: See below. Diagnostics interpreted by me: ECG: Sinus rhythm, 88 bpm, PSVCs, nonspecific ST and T wave abnormality, no overt ST elevation or depression, QTc 425, QRS 86. Cardiac Monitoring: An order for continuous cardiac monitoring was placed and demonstrated Sinus rhythm, 88 bpm, PSVCs. Laboratory studies: See below Imaging studies: See below Consultation(s): [facility] HPI: The patient is a pleasant 82-year-old woman with a past medical history of ambulatory dysfunction, tardive dyskinesia, GERD, hypertension, hyperlipidemia who presents to the emergency department via EMS and then accompanied by her daughter for evaluation of fall that occurred prior to arrival in the setting of the patient being seen the emergency department 2 days ago for initial fall in the setting of the patient reporting feeling ill and lightheaded that is not typical for her. She does have baseline ambulatory dysfunction for which she requires a walker at all times but her symptoms recently have been different. Patient did have a staff member with her when she fell backwards and hit her head. The patient did not lose consciousness. ROS: See above HPI for pertinent positives & negatives. A total of 10 systems reviewed and were otherwise negative. VITALS:See Below PHYSICAL EXAMINATION: GENERAL: Awake, alert, fatigued-appearing, in no distress HENT: Normocephalic, atraumatic. Oropharynx with dry mucous membranes and otherwise unremarkable. EYES: Normal conjunctiva. Sclera non-icteric. NECK: Supple. No nuchal rigidity. FROM. No JVD. RESPIRATORY: Clear to auscultation. CARDIAC: Regular rate, normal rhythm. Extremities warm and well perfused. Pulses equal. ABDOMEN: Soft, non-distended. No tenderness to palpation. No rebound or guarding. No masses. RECTAL: Deferred. MUSCULOSKELETAL: Chest examination reveals no tenderness. The back is symmetrical on inspection without obvious abnormality. There is no CVA tenderness to palpation. No joint edema. LOWER EXTREMITIES: Calves are equal size bilaterally and non-tender. No edema. No discoloration. NEURO: No focal sensory or motor deficits noted. Baseline TD. SKIN: No rash or jaundice noted. 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 Beliefs That Will Affect Care: None marital status: / Current Living Situation: [facility] Current Living Situation Comment: [place] Feels Safe at Home: Yes Assistive Devices: Walker Allergies Allergies Allergy/AdvReac Type Severity Reaction Status Date / Time acetaminophen Allergy Intermediate RASH Verified 11/21/22 20:47 adhesive Allergy Intermediate RASH Verified 11/21/22 20:47 Penicillins Allergy Intermediate RASH Verified 11/21/22 20:47 codeine AdvReac Intermediate GI SYMPTOMS Verified 11/21/22 20:47 hydrocodone AdvReac Intermediate GI SYMPTOMS Verified 11/21/22 20:47 Home Meds Home Medications Medication Instructions Recorded Confirmed Enrico'Osei Phan Gummy Bear Viy 2 ea PO DAILY 06/14/21 11/21/22 duloxetine 60 mg capsule,delayed 60 mg PO DAILY 06/14/21 11/21/22 release loperamide 2 mg capsule (Imodium 2 mg PO Q4H PRN loose stools 06/14/21 11/21/22 A-D) nystatin 100,000 unit/gram topical 1 applic topical BID PRN Rash 06/14/21 11/21/22 cream omeprazole 20 mg capsule,delayed 20 mg PO DAILYBB 06/14/21 11/21/22 release polyethylene glycol 3350 17 17 g PO DAILY PRN Constipation 06/14/21 11/21/22 gram/dose oral powder (Miralax) amlodipine 5 mg tablet 5 mg PO DAILY 11/19/22 11/21/22 bisacodyl 10 mg rectal suppository 10 mg ND DAILY PRN Constipation 11/19/22 11/21/22 (Dulcolax (bisacodyl)) food supplemt, lactose-reduced 1 ea PO TID 11/19/22 11/21/22 magnesium hydroxide 400 mg/5 mL 30 ml PO DAILY PRN Constipation 11/19/22 11/21/22 oral suspension (Milk of Magnesia) multivitamin-iron 9 mg-folic acid 1 tab PO DAILY 11/19/22 11/21/22 400 mcg-calcium and minerals tablet (Therems-M) omega-3 fatty acids 1,000 mg 1,000 mg PO BID 11/19/22 11/21/22 capsule pravastatin 40 mg tablet 40 mg PO QDD 11/19/22 11/21/22 sennosides 8.6 mg-docusate sodium 1 tab-cap PO QDL PRN Constipation 11/19/22 11/21/22 50 mg tablet (Senna-Time S) valbenazine 40 mg capsule 40 mg PO QAM 11/19/22 11/21/22 (Ingrezza) Results & Data (ED) Vital Signs Vital Signs - 24 hr 11/21/22 18:08 11/21/22 18:08 11/21/22 18:45 Temperature Temperature Source Pulse Rate 91 H Pulse Rate [Right Apical] 91 H Pulse Rate [Right Finger] Pulse Rhythm [Right Finger] Pulse Strength [Right Finger] Respiratory Rate 20 20 Respiratory Effort / Characteristics Non-Labored Spontaneous Non-Labored Spontaneous Respiratory Depth Normal Normal Respiratory Pattern Regular Regular Blood Pressure 145/118 H Blood Pressure [Right Arm] 145/118 H Blood Pressure Mean 127 Blood Pressure Mean [Right Arm] 127 Blood Pressure Position [Right Arm] Pulse Oximetry 99 99 98 Oxygen Delivery Method Room Air Room Air Room Air Sepsis Recent Fever Within 48 Hours No Sepsis New/Unexplained Change in Mental Status No Sepsis Action Taken by Nursing No Action Required 11/21/22 18:49 11/21/22 19:36 11/21/22 21:00 Temperature 37.7 C H Temperature Source Oral Pulse Rate 90 Pulse Rate [Right Apical] 91 H Pulse Rate [Right Finger] 89 Pulse Rhythm [Right Finger] Regular Pulse Strength [Right Finger] Normal Respiratory Rate 18 19 Respiratory Effort / Characteristics Non-Labored Spontaneous Respiratory Depth Normal Respiratory Pattern Regular Blood Pressure Blood Pressure [Right Arm] 160/131 H 156/111 H Blood Pressure Mean Blood Pressure Mean [Right Arm] 140 126 Blood Pressure Position [Right Arm] Semi-fowlers Pulse Oximetry 97 98 Oxygen Delivery Method Room Air Room Air Sepsis Recent Fever Within 48 Hours Sepsis New/Unexplained Change in Mental Status Sepsis Action Taken by Nursing 11/21/22 22:37 Temperature 36.7 C Temperature Source Oral Pulse Rate Pulse Rate [Right Apical] Pulse Rate [Right Finger] 91 H Pulse Rhythm [Right Finger] Pulse Strength [Right Finger] Respiratory Rate 18 Respiratory Effort / Characteristics Respiratory Depth Respiratory Pattern Blood Pressure Blood Pressure [Right Arm] 184/104 H Blood Pressure Mean Blood Pressure Mean [Right Arm] 130 Blood Pressure Position [Right Arm] Semi-fowlers Pulse Oximetry 97 Oxygen Delivery Method Room Air Sepsis Recent Fever Within 48 Hours Sepsis New/Unexplained Change in Mental Status Sepsis Action Taken by Nursing Laboratory Data Attestation: I reviewed the patient's lab results. 11/21/22 21:01 11/21/22 19:01 Lab Results 11/21/22 11/21/22 11/21/22 Range/Units 19:01 19:01 19:01 WBC Cancelled RBC Cancelled Hgb Cancelled Hct Cancelled MCV Cancelled MCH Cancelled MCHC Cancelled RDW Std Deviation Cancelled RDW Coeff of Miguel A Cancelled Plt Count Cancelled MPV Cancelled Immature Gran % (Auto) Cancelled Neut % (Auto) Cancelled Lymph % (Auto) Cancelled [place] % (Auto) Cancelled Eos % (Auto) Cancelled Baso % (Auto) Cancelled Neut # (Auto) Cancelled Lymph # (Auto) Cancelled [place] # (Auto) Cancelled Eos # (Auto) Cancelled Baso # (Auto) Cancelled Immature Gran # (Auto) Cancelled Absolute Nucleated RBC Cancelled Nucleated RBC % (auto) Cancelled Neutrophils % (Manual) Cancelled Band Neutrophils % Cancelled Lymphocytes % (Manual) Cancelled Prolymphocyte % Cancelled Reactive Lymphs % (Man) Cancelled Monocytes % (Manual) Cancelled Eosinophils % (Manual) Cancelled Basophils % (Manual) Cancelled Metamyelocytes % (Man) Cancelled Myelocytes % (Man) Cancelled Promyelocytes % (Man) Cancelled Blast Cells % (Manual) Cancelled Plasma Cell % (Manual) Cancelled Other Cells % Cancelled Nucleated RBC % Cancelled Neutrophils # (Manual) Cancelled Band Neutrophils # Cancelled Total Absolute Neuts Cancelled Lymphocytes # (Manual) Cancelled Prolymphocyte # Cancelled Reactive Lymphs # Cancelled Total Abs Lymphocytes Cancelled Monocytes # (Manual) Cancelled Eosinophils # (Manual) Cancelled Basophils # (Manual) Cancelled Metamyelocytes # (Man) Cancelled Myelocytes # (Manual) Cancelled Promyelocytes # (Man) Cancelled Blast Cells # (Man) Cancelled Plasma Cell # (Manual) Cancelled Other Cells # Cancelled Nucleated RBCs # (Man) Cancelled Hypersegmented Neuts Cancelled Hyposegmented Neuts Cancelled Hypogranular Neuts Cancelled Large Granular Lymphs Cancelled # Lrg Granular Lymphs Cancelled Hairy Cells Cancelled Smudge Cells Cancelled Toxic Granulation Cancelled Toxic Vacuolation Cancelled Dohle Bodies Cancelled Freddie Rods Cancelled Platelet Estimate Cancelled Hypogranular Platelets Cancelled Giant Platelets Cancelled Platelet Satelliting Cancelled RBC Morphology Cancelled Polychromasia Cancelled Hypochromasia Cancelled Poikilocytosis Cancelled Basophilic Stippling Cancelled Anisocytosis Cancelled Microcytosis Cancelled Macrocytosis Cancelled Spherocytes Cancelled Pappenheimer Bodies Cancelled Sickle Cells Cancelled Target Cells Cancelled Tear Drop Cells Cancelled Ovalocytes Cancelled Stomatocytes Cancelled [place] Bodies Cancelled Echinocytes Cancelled Acanthocytes (Spur) Cancelled Rouleaux Cancelled RBC Agglutinates Cancelled Schistocytes Cancelled [place] Cell Cancelled Sodium 139 (136-145) mmol/L Potassium 3.8 (3.5-5.1) mmol/L Chloride 106 (98-107) mmol/L Carbon Dioxide 25 (21-32) mmol/L Anion Gap 8 (3-11) BUN 27 H (6-23) mg/dl Creatinine 0.96 (0.6-1.2) mg/dl Est Cr Clr Drug Dosing 36.7 ml/min Est GFR ( Amer) 63.4 ml/min Est GFR (Non-Af Amer) 54.7 ml/min BUN/Creatinine Ratio 28.1 H (10-20) Glucose 156 H (70-99(Fasting)) mg/dl Lactate (0.4-2.0) mmol/L Calcium 10.0 (8.6-10.3) mg/dl Phosphorus 2.8 (2.5-4.9) mg/dl Magnesium 1.9 (1.7-2.4) mg/dl Total Bilirubin 0.3 (0.2-1.0) mg/dl AST 15 (13-39) U/L ALT 10 (7-52) U/L Alkaline Phosphatase 115 H (34-104) U/L Total Creatine Kinase 29 (26-192) U/L Troponin I High Sens 8.3 (0-14) pg/ml Total Protein 6.7 (6.0-8.3) gm/dl Albumin 3.7 (3.4-5.0) gm/dl Globulin 3.0 (2.5-4.0) gm/dl Albumin/Globulin Ratio 1.2 (0.9-2) Lipase 65 (11-82) U/L Procalcitonin (0-0.5) ng/ml TSH 1.366 (0.300-4.500) uIu/ml Urine Color Urine Appearance (Clear) Urine pH (4.5-7.5) Ur Specific [place] (1.000-1.030) Urine Protein (Negative) Urine Glucose (UA) (Negative) Urine Ketones (Negative) Urine Blood (Negative) Urine Nitrite (Negative) Urine Bilirubin (Negative) Urine Urobilinogen (Negative) Ur Leukocyte Esterase (Negative) Urine WBC (Auto) (0-5) /hpf Urine RBC (Auto) (0-4) /hpf U Hyaline Cast (Auto) (0-5) /lpf U Epithel Cells (Auto) (0-5) /lpf Urine Bacteria (Auto) (Negative) Adenovirus (PCR) (NotDetected) B. pertussis DNA (PCR) (NotDetected) B.parapertussis DNA PCR (NotDetected) C. pneumoniae DNA (PCR) (NotDetected) Coronavirus OC43 (PCR) (NotDetected) Coronavirus HKU1 (PCR) (NotDetected) Coronavirus 229E (PCR) (NotDetected) SARS-CoV-2 (PCR) (NotDetected) Coronavirus NL63 (PCR) (NotDetected) Human Metapneumovir PCR (NotDetected) Influenza Type A (PCR) (NotDetected) Influenza Type B (PCR) (NotDetected) M. pneumoniae (PCR) (NotDetected) Parainfluenza 1 (PCR) (NotDetected) Parainfluenza 2 (PCR) (NotDetected) Parainfluenza 3 (PCR) (NotDetected) Parainfluenza 4 (PCR) (NotDetected) RSV (PCR) (NotDetected) Entero/Rhino (PCR) (NotDetected) Blood Parasites ID Cancelled 11/21/22 11/21/22 11/21/22 Range/Units 19:03 21:01 21:45 WBC 7.52 RBC 3.92 L Hgb 12.4 Hct 36.0 L MCV 91.8 MCH 31.6 MCHC 34.4 RDW Std Deviation 41.8 RDW Coeff of Miguel A 12.5 Plt Count 221 MPV 9.6 Immature Gran % (Auto) 0.3 Neut % (Auto) 76.6 Lymph % (Auto) 14.5 [place] % (Auto) 6.6 Eos % (Auto) 1.5 Baso % (Auto) 0.5 Neut # (Auto) 5.76 Lymph # (Auto) 1.09 L [place] # (Auto) 0.50 Eos # (Auto) 0.11 Baso # (Auto) 0.04 Immature Gran # (Auto) 0.02 Absolute Nucleated RBC Nucleated RBC % (auto) Neutrophils % (Manual) Band Neutrophils % Lymphocytes % (Manual) Prolymphocyte % Reactive Lymphs % (Man) Monocytes % (Manual) Eosinophils % (Manual) Basophils % (Manual) Metamyelocytes % (Man) Myelocytes % (Man) Promyelocytes % (Man) Blast Cells % (Manual) Plasma Cell % (Manual) Other Cells % Nucleated RBC % Neutrophils # (Manual) Band Neutrophils # Total Absolute Neuts Lymphocytes # (Manual) Prolymphocyte # Reactive Lymphs # Total Abs Lymphocytes Monocytes # (Manual) Eosinophils # (Manual) Basophils # (Manual) Metamyelocytes # (Man) Myelocytes # (Manual) Promyelocytes # (Man) Blast Cells # (Man) Plasma Cell # (Manual) Other Cells # Nucleated RBCs # (Man) Hypersegmented Neuts Hyposegmented Neuts Hypogranular Neuts Large Granular Lymphs # Lrg Granular Lymphs Hairy Cells Smudge Cells Toxic Granulation Toxic Vacuolation Dohle Bodies Freddie Rods Platelet Estimate Hypogranular Platelets Giant Platelets Platelet Satelliting RBC Morphology Polychromasia Hypochromasia Poikilocytosis Basophilic Stippling Anisocytosis Microcytosis Macrocytosis Spherocytes Pappenheimer Bodies Sickle Cells Target Cells Tear Drop Cells Ovalocytes Stomatocytes [place] Bodies Echinocytes Acanthocytes (Spur) Rouleaux RBC Agglutinates Schistocytes [place] Cell Sodium (136-145) mmol/L Potassium (3.5-5.1) mmol/L Chloride (98-107) mmol/L Carbon Dioxide (21-32) mmol/L Anion Gap (3-11) BUN (6-23) mg/dl Creatinine (0.6-1.2) mg/dl Est Cr Clr Drug Dosing ml/min Est GFR ( Amer) ml/min Est GFR (Non-Af Amer) ml/min BUN/Creatinine Ratio (10-20) Glucose (70-99(Fasting)) mg/dl Lactate (0.4-2.0) mmol/L Calcium (8.6-10.3) mg/dl Phosphorus (2.5-4.9) mg/dl Magnesium (1.7-2.4) mg/dl Total Bilirubin (0.2-1.0) mg/dl AST (13-39) U/L ALT (7-52) U/L Alkaline Phosphatase (34-104) U/L Total Creatine Kinase (26-192) U/L Troponin I High Sens (0-14) pg/ml Total Protein (6.0-8.3) gm/dl Albumin (3.4-5.0) gm/dl Globulin (2.5-4.0) gm/dl Albumin/Globulin Ratio (0.9-2) Lipase (11-82) U/L Procalcitonin (0-0.5) ng/ml TSH (0.300-4.500) uIu/ml Urine Color Yellow Urine Appearance Clear (Clear) Urine pH 6.0 (4.5-7.5) Ur Specific [place] 1.031 H (1.000-1.030) Urine Protein Negative (Negative) Urine Glucose (UA) Negative (Negative) Urine Ketones Negative (Negative) Urine Blood Negative (Negative) Urine Nitrite Negative (Negative) Urine Bilirubin Negative (Negative) Urine Urobilinogen Negative (Negative) Ur Leukocyte Esterase 1+ H (Negative) Urine WBC (Auto) 10-30 H (0-5) /hpf Urine RBC (Auto) 5-10 H (0-4) /hpf U Hyaline Cast (Auto) 1-5 (0-5) /lpf U Epithel Cells (Auto) 10-20 H (0-5) /lpf Urine Bacteria (Auto) Negative (Negative) Adenovirus (PCR) Not Detected (NotDetected) B. pertussis DNA (PCR) Not Detected (NotDetected) B.parapertussis DNA PCR Not Detected (NotDetected) C. pneumoniae DNA (PCR) Not Detected (NotDetected) Coronavirus OC43 (PCR) Not Detected (NotDetected) Coronavirus HKU1 (PCR) Not Detected (NotDetected) Coronavirus 229E (PCR) Not Detected (NotDetected) SARS-CoV-2 (PCR) Not Detected (NotDetected) Coronavirus NL63 (PCR) Not Detected (NotDetected) Human Metapneumovir PCR Not Detected (NotDetected) Influenza Type A (PCR) Not Detected (NotDetected) Influenza Type B (PCR) Not Detected (NotDetected) M. pneumoniae (PCR) Not Detected (NotDetected) Parainfluenza 1 (PCR) Not Detected (NotDetected) Parainfluenza 2 (PCR) Not Detected (NotDetected) Parainfluenza 3 (PCR) Not Detected (NotDetected) Parainfluenza 4 (PCR) Not Detected (NotDetected) RSV (PCR) Not Detected (NotDetected) Entero/Rhino (PCR) Not Detected (NotDetected) Blood Parasites ID 11/21/22 11/21/22 Range/Units 22:46 22:46 WBC RBC Hgb Hct MCV MCH MCHC RDW Std Deviation RDW Coeff of Miguel A Plt Count MPV Immature Gran % (Auto) Neut % (Auto) Lymph % (Auto) [place] % (Auto) Eos % (Auto) Baso % (Auto) Neut # (Auto) Lymph # (Auto) [place] # (Auto) Eos # (Auto) Baso # (Auto) Immature Gran # (Auto) Absolute Nucleated RBC Nucleated RBC % (auto) Neutrophils % (Manual) Band Neutrophils % Lymphocytes % (Manual) Prolymphocyte % Reactive Lymphs % (Man) Monocytes % (Manual) Eosinophils % (Manual) Basophils % (Manual) Metamyelocytes % (Man) Myelocytes % (Man) Promyelocytes % (Man) Blast Cells % (Manual) Plasma Cell % (Manual) Other Cells % Nucleated RBC % Neutrophils # (Manual) Band Neutrophils # Total Absolute Neuts Lymphocytes # (Manual) Prolymphocyte # Reactive Lymphs # Total Abs Lymphocytes Monocytes # (Manual) Eosinophils # (Manual) Basophils # (Manual) Metamyelocytes # (Man) Myelocytes # (Manual) Promyelocytes # (Man) Blast Cells # (Man) Plasma Cell # (Manual) Other Cells # Nucleated RBCs # (Man) Hypersegmented Neuts Hyposegmented Neuts Hypogranular Neuts Large Granular Lymphs # Lrg Granular Lymphs Hairy Cells Smudge Cells Toxic Granulation Toxic Vacuolation Dohle Bodies Freddie Rods Platelet Estimate Hypogranular Platelets [place] Platelets Platelet Satelliting RBC Morphology Polychromasia Hypochromasia Poikilocytosis Basophilic Stippling Anisocytosis Microcytosis Macrocytosis Spherocytes Pappenheimer Bodies Sickle Cells Target Cells Tear Drop Cells Ovalocytes Stomatocytes [place] Bodies Echinocytes Acanthocytes (Spur) Rouleaux RBC Agglutinates Schistocytes Sezary Cell Sodium (136-145) mmol/L Potassium (3.5-5.1) mmol/L Chloride (98-107) mmol/L Carbon Dioxide (21-32) mmol/L Anion Gap (3-11) BUN (6-23) mg/dl Creatinine (0.6-1.2) mg/dl Est Cr Clr Drug Dosing ml/min Est GFR ( Amer) ml/min Est GFR (Non-Af Amer) ml/min BUN/Creatinine Ratio (10-20) Glucose (70-99(Fasting)) mg/dl Lactate 1.0 (0.4-2.0) mmol/L Calcium (8.6-10.3) mg/dl Phosphorus (2.5-4.9) mg/dl Magnesium (1.7-2.4) mg/dl Total Bilirubin (0.2-1.0) mg/dl AST (13-39) U/L ALT (7-52) U/L Alkaline Phosphatase (34-104) U/L Total Creatine Kinase (26-192) U/L Troponin I High Sens (0-14) pg/ml Total Protein (6.0-8.3) gm/dl Albumin (3.4-5.0) gm/dl Globulin (2.5-4.0) gm/dl Albumin/Globulin Ratio (0.9-2) Lipase (11-82) U/L Procalcitonin < 0.05 (0-0.5) ng/ml TSH (0.300-4.500) uIu/ml Urine Color Urine Appearance (Clear) Urine pH (4.5-7.5) Ur Specific [place] (1.000-1.030) Urine Protein (Negative) Urine Glucose (UA) (Negative) Urine Ketones (Negative) Urine Blood (Negative) Urine Nitrite (Negative) Urine Bilirubin (Negative) Urine Urobilinogen (Negative) Ur Leukocyte Esterase (Negative) Urine WBC (Auto) (0-5) /hpf Urine RBC (Auto) (0-4) /hpf U Hyaline Cast (Auto) (0-5) /lpf U Epithel Cells (Auto) (0-5) /lpf Urine Bacteria (Auto) (Negative) Adenovirus (PCR) (NotDetected) B. pertussis DNA (PCR) (NotDetected) B.parapertussis DNA PCR (NotDetected) C. pneumoniae DNA (PCR) (NotDetected) Coronavirus OC43 (PCR) (NotDetected) Coronavirus HKU1 (PCR) (NotDetected) Coronavirus 229E (PCR) (NotDetected) SARS-CoV-2 (PCR) (NotDetected) Coronavirus NL63 (PCR) (NotDetected) Human Metapneumovir PCR (NotDetected) Influenza Type A (PCR) (NotDetected) Influenza Type B (PCR) (NotDetected) M. pneumoniae (PCR) (NotDetected) Parainfluenza 1 (PCR) (NotDetected) Parainfluenza 2 (PCR) (NotDetected) Parainfluenza 3 (PCR) (NotDetected) Parainfluenza 4 (PCR) (NotDetected) RSV (PCR) (NotDetected) Entero/Rhino (PCR) (NotDetected) Blood Parasites ID Administered Medications Sodium Chloride (Nss 1000ml) 1,000 mls @ 80 mls/hr IV .[id number] JENELLE Stop: 11/22/22 14:59 Last Admin: 11/22/22 02:41 Dose: 80 mls/hr Documented By: BERNIE Discontinued Medications Sodium Chloride (Nss 1000ml) 1,000 mls @ 999 mls/hr IV .[id number] ONE Stop: 11/21/22 19:32 Last Infusion: 11/21/22 20:02 Dose: 0 mls/hr Documented By: Admin: 11/21/22 19:01 Dose: 999 mls/hr Documented By: STANFORD Acetaminophen (Ofirmev) 1,000 mg in 100 mls @ 400 mls/hr IV NOW STA Stop: 11/21/22 20:35 Last Admin: 11/21/22 21:12 Dose: Not Given Documented By: HORTENCIA Ceftriaxone Sodium (Rocephin) 2,000 mg in 70 mls @ 140 mls/hr IV NOW STA Stop: 11/21/22 22:58 Last Infusion: 11/21/22 23:52 Dose: 0 mls/hr Documented By: Admin: 11/21/22 23:22 Dose: 140 mls/hr Documented By: HORTENCIA Ioversol (Optiray 320 500ml) 108 ml IV ONCE ONE Stop: 11/21/22 20:16 Last Admin: 11/21/22 20:16 Dose: 108 ml Documented By: RJ Imaging Data Radiologist's Impression: Head CT 11/21/22 18:28 Exam(s): CT HEAD Without Contrast EXAM: CT Head Without Intravenous Contrast CLINICAL HISTORY: Reason for exam: dizziness, fall. TECHNIQUE: Axial computed tomography images of the head/brain without intravenous contrast. Automated exposure control was utilized for the study. A dose lowering technique was utilized adhering to the principles of ALARA. COMPARISON: November 19, 2022 FINDINGS: Brain: Moderate cerebral atrophy and periventricular white matter low density consistent with chronic small vessel disease and/or senescent changes, unchanged. No acute large vessel infarct or intracranial hemorrhage is seen. Ventricles: Dilated. No mass or hemorrhage. Bones/joints: Unremarkable. No acute fracture. Soft tissues: Unremarkable. Sinuses: Unremarkable as visualized. No acute sinusitis. Mastoid air cells: Unremarkable as visualized. No mastoid effusion. IMPRESSION: Moderate cerebral atrophy and periventricular white matter low density consistent with chronic small vessel disease and/or senescent changes, unchanged. No acute large vessel infarct or intracranial hemorrhage is seen. Electronically signed by: Oni Lombardo MD 11/21/22 22:02 PM Head CTA 11/21/22 18:28 Exam(s): CTA HEAD With Contrast IV Amt: 110 ml optiray 320 EXAM: CT Angiography Head With Intravenous Contrast CLINICAL HISTORY: Reason for exam: dizziness, fall. TECHNIQUE: Axial computed tomographic angiography images of the head with intravenous contrast. Automated exposure control was utilized for the study. A dose lowering technique was utilized adhering to the principles of ALARA. MIP reconstructed images were created and reviewed. CONTRAST: Patient received 110 ml optiray 320 of IV contrast COMPARISON: No relevant prior studies available. FINDINGS: Right internal carotid artery: There is mild calcified plaque through the cavernous portions of the distal internal carotid arteries bilaterally with less than 20% stenosis. No aneurysm. Right anterior cerebral artery: Unremarkable. No occlusion or significant stenosis. No aneurysm. Right middle cerebral artery: Unremarkable. No occlusion or significant stenosis. No aneurysm. Right posterior cerebral artery: Unremarkable. No occlusion or significant stenosis. No aneurysm. Right vertebral artery: Unremarkable as visualized. Left internal carotid artery: See above. Left anterior cerebral artery: Unremarkable. No occlusion or significant stenosis. No aneurysm. Left middle cerebral artery: Unremarkable. No occlusion or significant stenosis. No aneurysm. Left posterior cerebral artery: Unremarkable. No occlusion or significant stenosis. No aneurysm. Left vertebral artery: The distal left vertebral artery demonstrates 30% stenosis. The right vertebral and basilar arteries are widely patent. Basilar artery: See above. IMPRESSION: No acute findings in the arteries of the head/brain. Electronically signed by: Oni Lombardo MD 11/21/22 22:13 PM Neck CTA 11/21/22 18:28 Exam(s): CTA NECK With Contrast IV Amt: 108 ml optiray 320 EXAM: CT Angiography Neck With Intravenous Contrast CLINICAL HISTORY: Reason for exam: dizziness, fall. TECHNIQUE: Routine carotid CT angiography protocol was performed with intravenous contrast. NASCET criteria using the distal ICAs for comparison were used for evaluation of stenoses. Automated exposure control was utilized for the study. A dose lowering technique was utilized adhering to the principles of ALARA. MIP reconstructed images were created and reviewed. CONTRAST: Patient received 108 ml optiray 320 of IV contrast COMPARISON: None. FINDINGS: VASCULATURE: Right common carotid artery: Unremarkable. No occlusion or significant stenosis. No dissection. Right internal carotid artery: Moderate calcified plaque in the right carotid bulb and proximal internal carotid artery causing 20% stenosis. The right internal carotid artery is tortuous distally but widely patent. No dissection. Right external carotid artery: Unremarkable. No occlusion. Right vertebral artery: Unremarkable. No occlusion or significant stenosis. No dissection. Left common carotid artery: Severe calcified plaque in the distal left common carotid artery and proximal left internal carotid artery causing 70% stenosis. No dissection. Left internal carotid artery: See above. Left external carotid artery: Unremarkable. No occlusion. Left vertebral artery: Calcified plaque causing 40% stenosis of the proximal left vertebral artery. No dissection. 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 No acute fracture or subluxation is seen. Soft tissues: Unremarkable. Thyroid: 11 mm right thyroid nodule. Lung apices: Clear. CAROTID STENOSIS REFERENCE USING NASCET CRITERIA: % ICA stenosis = (1 - narrowest ICA diameter/diameter of distal cervical ICA) x 100. Mild - <50% stenosis. Moderate - 50-69% stenosis. Severe - 70-94% stenosis. Near occlusion - 95-99% stenosis. Occluded - 100% stenosis. IMPRESSION: Severe calcified plaque in the distal left common carotid artery and proximal left internal carotid artery causing 70% stenosis. Electronically signed by: Oni Lombardo MD 11/21/22 22:05 PM Discharge Plan Visit Data Chief Complaint: Fall Stated Complaint: FALL, ED Provider: Arias Love Discharge Problem: Fall from standing, Ambulatory dysfunction, Dehydration, Acute UTI Patient Disposition: Admitted As Inpatient Discharge Instructions Interventions: ED Discharge Assessment Last Done: 11/22/22 03:05
--- NOTE | 2022-11-22 02:20 | History and Physical Report ---
DATE OF ADMISSION: 11/21/2022 CHIEF COMPLAINT: Frequent falls. HISTORY OF PRESENT ILLNESS: This is an 82-year-old female with past medical history significant for tardive dyskinesia, history of mild subarachnoid hemorrhage and history of COVID in June 2021, severe protein calorie malnutrition, hypertension, depression, anxiety, hyperlipidemia, comes from [facility] with complaints of fall. The patient walks with a walker. She was in the ER on 11/19/2022 with a fall and at that time workup was negative and she was discharged.. She fell again today. As per daughter, the patient is very unstable and she ambulates with a walker and she is falling frequently. She fell backwards, both the time, she hit her head. No loss of consciousness. As per daughter, there is no recent fever, chills or cough. Her appetite is okay. She eats regular food and swallows okay. As per daughter, the patient is alert and oriented. The patient at present can tell her name, knows that she is in the hospital, but could not tell today's date. The patient denies any headache. Denies any chest pain, denies shortness of breath. Denies nausea, denies abdominal pain.Hemodynamically stable.Somewhat hard of hearing. ALLERGIES: ACETAMINOPHEN, ADHESIVES, PENICILLINS, CODEINE, HYDROCODONE. PAST MEDICAL HISTORY: As mentioned above. PAST SURGICAL HISTORY: Unknown at this time. FAMILY HISTORY: Unknown family history. SOCIAL HISTORY: No alcohol use. No substance abuse. History of smoking present. Currently a resident of [facility]. MEDICATIONS: The patient is on amlodipine 5 mg p.o. daily, Dulcolax 10 mg MA daily p.r.n., duloxetine seems to be on 60 mg daily, Boost 1 p.o. t.i.d., Ingrezza 40 mg p.o. a.m., Imodium 2 mg p.o. q. 4 hours p.r.n., multivitamins 1 tablet daily, Nystatin topical b.i.d. p.r.n., omega-3 fatty acid 1000 mg p.o. b.i.d., omeprazole 20 mg p.o. daily, MiraLax 17 grams p.o. daily p.r.n., pravastatin 40 mg p.o. daily, Senokot-S 1 tablet p.o. daily p.r.n. REVIEW OF SYSTEMS: As per HPI. PHYSICAL EXAMINATION: GENERAL: The patient is old and frail, not in acute distress. VITAL SIGNS: Temperature 36.7, pulse 91, respiratory rate 18, blood pressure 184/104, oxygen 97% on room air. HEENT: Pupils equal, round and reactive to light. Oral mucosa dry. NECK: No JVD, no neck masses. CARDIOVASCULAR: S1 and S2 heard. Regular rate and rhythm. No murmur, no gallop. RESPIRATORY SYSTEM: Normal AP diameter. No accessory muscle use. No wheezing or crackles. ABDOMEN: Soft, bowel sounds present, nontender, no distention. CENTRAL NERVOUS SYSTEM: Alert and awake, oriented to name and place. No facial droop. Speech is clear. Obeys simple commands. Moves extremities. EXTREMITIES: No edema, no erythema. LABORATORY DATA: WBC 7.5, hemoglobin 12.4, hematocrit 36, platelets 221. Sodium 139, potassium 3.8, chloride 106, bicarbonate 25, BUN 27, creatinine 0.9, serum glucose 156. Lactate 1.0, calcium 10, phosphorus 2.8, magnesium 1.9, total bilirubin 0.3, AST 15, ALT 10, alkaline phosphatase 115. Total creatinine kinase 29. Troponin I high sensitivity 8.3, lipase 65. Procalcitonin less than 0.05. TSH 1.3. Urinalysis, +1 leukocyte esterase, bacteria negative. Respiratory BioFire negative. IMAGING DATA: CTA of the neck showing severe calcified plaque in the distal left common carotid artery and proximal left internal carotid artery causing 70% stenosis. CT of the head without contrast, no acute findings. Chest x-ray, no acute findings. EKG: Sinus rhythm with premature supraventricular complexes, rate of 88, nonspecific ST abnormalities. ASSESSMENT AND PLAN: This is an 82-year-old female who presents with frequent falls. 1. Frequent falls and ambulatory dysfunction, walks with a walker, but as per daughter, she is very unstable. Will admit to medical floor. PT/OT, social service to help with discharge planning. The patient is a resident of [facility]. 2. Possible UTI. Will follow the cultures. Empiric Rocephin. Gentle fluids for now. 3. History of tardive dyskinesia. The patient is currently on Ingrezza, follows with [facility] neurologist as an outpatient. Daughter is saying whether this medication causing the falls .As per uptodate there is chance of ambulatory dysfunction and falls as side effect of the med. Daughter wants check with neurology if we can do anything about the side effect.Our pharmacy dont have the med. Daughter said she will get the med in am. 4. Hypertension. Continue her home medication of amlodipine. We will monitor the blood pressure. 5. History of depression, anxiety. There is question of being on duloxetine need to confirm in the a.m. ER seems to attempted to call [facility] , but they could not get any answer. 6. Gastroesophageal reflux disease: Continue omeprazole. 7. Hyperlipidemia: Continue statin. 8. Deep venous thrombosis prophylaxis: Heparin subcutaneously. DISPOSITION: Closely monitor in the medical floor. PT/OT. Social service to help with discharge planning. Level 1 full code as per my discussion with the daughter. Job ID: [id number] MTDD
[2022-11-22] MEDS ORDERED: LOPERAMIDE HCL 2 MG CAP PO PRN (02:30)
[2022-11-22] MEDS ORDERED: MAGNESIUM HYDROXIDE SUSP 30 ML UDC PO PRN (02:30)
[2022-11-22] MEDS ORDERED: bisacodyL 10 MG SUPP PR PRN (02:30)
[2022-11-22] MEDS ORDERED: DOCUSATE SODIUM/SENNA 50/8.6MG TAB PO PRN (02:30)
[2022-11-22] MEDS ORDERED: POLYETHYLENE (MIRALAX) 17 GM PACK PO PRN (02:30)
[2022-11-22] MEDS ORDERED: NYSTATIN CR 15 GM TUBE EXT PRN (02:30)
[2022-11-22] MEDS ORDERED: SODIUM CHLORIDE 0.9% 1000ML 1,000 ML IV SCH (02:30)
[2022-11-22] MEDS: PANTOprazole 40 MG TAB PO SCH (07:02)
--- NOTE | 2022-11-22 07:05 | Electrocardiogram Report ---
Test Reason : Blood Pressure : / mmHG Vent. Rate : 088 BPM Atrial Rate : 088 BPM P-R Int : 190 ms QRS Dur : 086 ms QT Int : 352 ms P-R-T Axes : 022 -36 -12 degrees QTc Int : 425 ms Sinus rhythm with Premature supraventricular complexes Left axis deviation Nonspecific ST and T wave abnormality Abnormal ECG When compared with ECG of 19-NOV-2022 15:42, ND interval has decreased Confirmed by Yuri Cao ([id number]) on 11/22/2022 7:04:31 AM Referred By: REFERRED SELF Confirmed By:Joseph Cao
[2022-11-22 07:10] LABS: Basophils # (auto) 0.04 K/uL (0-0.2); Basophils % (auto) 0.6 %; Eosinophils # (auto) 0.23 K/uL (0-0.50); Eosinophils % (auto) 3.5 %; Hematocrit (blood only) 36.4 % (37.0-47.0); Hemoglobin 12.5 g/dl (12.0-16.0); Immature Granulocytes # (auto) 0.02 K/uL (0.01-0.20); Immature Granulocytes % (auto) 0.3 %; Lymphocytes # (auto) 1.68 K/uL (1.2-3.4); Lymphocytes % (auto) 25.5 %; Mean Corpuscular Hemoglobin 31.2 pg (25.0-34.0); Mean Corpuscular Hgb Conc 34.3 g/dL (32.0-36.0); Mean Corpuscular Volume 90.8 fL (80.0-100.0); Mean Platelet Volume 9.5 fL (9.4-12.4); Monocytes # (auto) 0.66 K/uL (0.11-0.59); Neutrophils # (auto) 3.95 K/uL (1.40-6.50); Neutrophils % (auto) 60.1 %; Platelet Count 226 K/uL (130-400); RDW Coefficient of Variation 12.3 % (11.5-14.5); RDW Standard Deviation 40.8 fL (36.4-46.3); Red Blood Count 4.01 M/uL (4.20-5.40); White Blood Count 6.58 K/ul (4.8-10.8)
[2022-11-22 07:26] LABS: BUN Creatinine Ratio 25.3 (10-20); Calcium 9.4 mg/dl (8.6-10.3); Est GFR (African American) 85.4 ml/min; Est GFR (Non-African American) 73.7 ml/min; Magnesium 1.8 mg/dl (1.7-2.4); Potassium 3.5 mmol/L (3.5-5.1)
--- NOTE | 2022-11-22 07:36 | XRay Report ---
XR chest 1V portable HISTORY: Dizziness. Chest pain, nonspecific COMPARISON: Chest and left rib series 11/19/2022. FINDINGS: No pneumothorax. No pleural effusions. The cardiac silhouette is normal in size. The lungs are clear. There are surgical clips within the axilla. Nondisplaced left lower rib fractures. IMPRESSION: Nondisplaced left lower rib fractures. No pneumothorax. ACT 112: Negative or not required by law. Electronically signed by: Aaron Dobson M.D. 11/22/2022 7:34 AM
[2022-11-22] MEDS ORDERED: NON-FORMULARY MEDICATION (Food Supplemt, Lactose-Reduced Liquid) PO SCH (09:00)
[2022-11-22] MEDS ORDERED: amLODIPine BESYLATE 5 MG TAB PO SCH (09:00)
[2022-11-22] MEDS: CEROVITE ADV FORMULA TAB PO SCH (09:34)
[2022-11-22] MEDS: HEPARIN SOD 5,000 UNIT/0.5 ML VIAL SQ SCH ×2 (09:34→20:07)
[2022-11-22] MEDS: VALBENAZINE TOSYLATE PO SCH (10:31)
--- NOTE | 2022-11-22 15:28 | Hospitalist Progress Note ---
Date of Service November 22, 2022 Assessment & Plan (1) Fall: Plan: Patient is an 82 yr female who presents with frequent falls. Frequent falls Ambulatory dysfunction Likely secondary to Tardive dyskinesia/Ingrezza Fall precautions PT OT Dizziness Orthostatic hypotension Orthostatics Positive Doubt carotid stenosis contributing Dizziness likely multifactorial secondary to orthostatic hypotension, Ingrezza --CT head:Moderate cerebral atrophy and periventricular white matter low density consistent with chronic small vessel disease and/or senescent changes, unchanged. No acute large vessel infarct or intracranial hemorrhage is seen. --Head CTA:No acute findings in the arteries of the head/brain. Discontinue Amlodipine -- Needs vascular surgery follow-up as outpatient Continue Ingrezza for now Consulted neurology for input Suspected UTI Blood, urine cultures pending Empirically on Rocephin Tardive dyskinesia Thought to be secondary to Risperdal use as per family Follows with neurology Dr. Janae Tipton at [facility] Currently on Ingrezza 40 mg daily Hypertension Amlodipine discontinued secondary to orthostatic hypotension Monitor BP off medications Mood disorder On duloxetine GERD on PPI Hyperlipidemia: Continue statin. DVT Px: Heparin SQ CODE STATUS Full code Disposition PT OT prior to discharge Admission and Anticipated Discharge Date Admission Date: November 22, 2022 Subjective Patient is seen and examined at bedside States having dizziness intermittently Poor historian Denies any chest pain, dyspnea, nausea, vomiting, abdominal pain No other complaints Review of Systems Review of Systems: All systems reviewed & are unremarkable except as noted in Subjective Physical Exam Physical Exam: Physical Exam: Vitals signs as noted above General Appearance:Moderately built and nourished, frail, chronic ill-appearing, elderly, no apparent distress Head: normocephalic, Atraumatic Eyes: normal inspection, EOMI Neck: supple, Trachea midline Respiratory/Chest: Normal breath sounds, CTA, No accessory muscle use Cardiovascular: S1, S2, No murmur Abdomen/GI:Soft, Non tender, Bowel sounds present Extremities/Musculoskeletal:normal inspection, no edema Neurologic/Psych:AAOX2, grossly no focal neurological deficits Skin: normal color, warm Results & Data Results & Data Vital Signs (Past 12 Hours) Vital Signs Temp Pulse Resp BP Pulse Ox O2 Del Method 11/22/22 14:55 36.9 C 20 97 Room Air 11/22/22 10:00 Room Air 11/22/22 07:57 36.9 C 74 16 154/87 H 93 Room Air Laboratory Results Short CBC 11/21/22 11/21/22 11/22/22 Range/Units 19:01 21:01 06:55 WBC Cancelled 7.52 6.58 Hgb Cancelled 12.4 12.5 Hct Cancelled 36.0 L 36.4 L Plt Count Cancelled 221 226 BMP 11/21/22 11/22/22 19:01 06:55 Sodium 139 140 Potassium 3.8 3.5 Chloride 106 108 H Carbon Dioxide 25 26 BUN 27 H 19 Creatinine 0.96 0.75 Glucose 156 H 85 Calcium 10.0 9.4 Cardiac Enzymes 11/21/22 Range/Units 19:01 Total Creatine Kinase 29 (26-192) U/L Liver Function 11/21/22 Range/Units 19:01 Total Bilirubin 0.3 (0.2-1.0) mg/dl AST 15 (13-39) U/L ALT 10 (7-52) U/L Alkaline Phosphatase 115 H (34-104) U/L Albumin 3.7 (3.4-5.0) gm/dl Urine 11/21/22 Range/Units 21:45 Urine Color Yellow Urine Appearance Clear (Clear) Urine pH 6.0 (4.5-7.5) Ur Specific [place] 1.031 H (1.000-1.030) Urine Protein Negative (Negative) Urine Glucose (UA) Negative (Negative)
[2022-11-22] MEDS: PRAVASTATIN SOD 40 MG TAB PO SCH (16:25)
[2022-11-22] MEDS: cefTRIAXone SODIUM 1,000 MG in DEXTROSE 5% AD-VAN 50 ML IV SCH (22:47)
[2022-11-23] MEDS: PANTOprazole 40 MG TAB PO SCH (06:20)
[2022-11-23] MEDS: CEROVITE ADV FORMULA TAB PO SCH (08:14)
[2022-11-23] MEDS: VALBENAZINE TOSYLATE PO SCH (08:14)
[2022-11-23] MEDS: DULoxetine HCL 60 MG CAP PO SCH (08:14)
[2022-11-23] MEDS: HEPARIN SOD 5,000 UNIT/0.5 ML VIAL SQ SCH ×2 (08:14→20:03)
[2022-11-23] MEDS ORDERED: amLODIPine BESYLATE 5 MG TAB PO SCH (09:00)
[2022-11-23 10:05] LABS: Hematocrit (blood only) 37.8 % (37.0-47.0); Hemoglobin 12.8 g/dl (12.0-16.0); Mean Corpuscular Hemoglobin 31.2 pg (25.0-34.0); Mean Corpuscular Hgb Conc 33.9 g/dL (32.0-36.0); Mean Corpuscular Volume 92.2 fL (80.0-100.0); Mean Platelet Volume 9.8 fL (9.4-12.4); Platelet Count 230 K/uL (130-400); RDW Coefficient of Variation 12.5 % (11.5-14.5); RDW Standard Deviation 42.4 fL (36.4-46.3)
[2022-11-23 10:24] LABS: BUN Creatinine Ratio 20.5 (10-20); Calcium 9.7 mg/dl (8.6-10.3); Creatinine Clr Calc Pharmacy 40.1 ml/min; Est GFR (African American) 70.4 ml/min; Est GFR (Non-African American) 60.8 ml/min; Potassium 3.5 mmol/L (3.5-5.1)
[2022-11-23] MEDS: LOSARTAN POTASSIUM 25 MG TAB PO SCH (11:17)
--- NOTE | 2022-11-23 14:50 | Consultation Report ---
NEUROLOGY CONSULTATION NOTE DATE OF CONSULTATION: 11/23/2022. CHIEF COMPLAINT: Frequent falls. HISTORY OF PRESENT ILLNESS: An 82-year-old female with a history of tardive dyskinesia, subarachnoid hemorrhage, and history of COVID in June of 2021 as well as protein malnutrition admitted from care home facility due to falls. She does ambulate with a walker and she was seen in the ER on 11/19/2022 with a fall. She fell again yesterday prior to admission. She is very unstable and has difficulty ambulating with a walker. She does fall frequently. She tends to fall backwards and she will often hit her head. She has no loss of consciousness. She has no recent fevers or chills. Appetite has been okay. She does follow up with [facility] for movement disorder. ALLERGIES: ACETAMINOPHEN, ASPIRIN, PENICILLIN, AND CODEINE. PAST MEDICAL HISTORY: Subarachnoid hemorrhage, tardive dyskinesia, protein nutrition, hypertension, depression, anxiety, and hyperlipidemia. PAST SURGICAL HISTORY: Unknown. FAMILY HISTORY: Unknown. SOCIAL HISTORY: No alcohol use. No substance abuse. Nonsmoker. She lives at the [facility]. HOME MEDICATIONS: Norvasc, Imodium, multivitamin, omeprazole, pravastatin, and Ingrezza 40 mg in the morning. PHYSICAL EXAMINATION: VITAL SIGNS: Blood pressure is 160/81, pulse is 76, respiratory rate is 16, and temperature is 36.7 degrees Celsius. GENERAL: She appears chronically ill, appears stated age, in no acute distress. HEENT: Atraumatic, normocephalic. Eyes are midline. Face is symmetric. Tongue is midline. NEUROLOGIC: Patient ambulates with a flexed posture. Bradykinetic. Short shuffling stride. Ambulating with walker. DIAGNOSTIC TESTING: WBC 4.50, hemoglobin 12.8, and platelet count 230. Sodium 138, potassium 3.5, chloride 107, carbon dioxide 25, BUN 18, creatinine 0.88, and calcium 9.7. Procalcitonin negative. TSH normal. Urinalysis: 1+ leukocyte esterase and 10 to 30 wbc's. Urine culture is negative. IMAGING: Head CTA head and neck: Severe calcified plaque in the distal left common carotid artery and proximal left internal carotid artery causing 70% stenosis. No large vessel intracranial occlusion or high-grade stenosis. No evidence of hemorrhage or acute stroke. Head CT noncontrast showed moderate cerebral atrophy and periventricular white matter low density consistent with chronic small vessel disease. No large vessel infarct or intracranial hemorrhage is seen. ASSESSMENT AND PLAN: An 82-year-old female with history of tardive dyskinesia, who is following with [facility] Movement Disorders, on Ingrezza admitted with increased ambulatory difficulties with recurrent falls. Head CTA of the head and neck showed no evidence of acute intracranial abnormality. There was [id number] left carotid artery disease with 70% stenosis. On examine patient appears to have some parkinsonian features including shuffling gait, bradykinesia, and postural instability. Ingrezza may be contributing as cases of parkinsonism have been reported. Recommend stopping Ingrezza. PAtient also noted to have some cognitive impairments as well as incontinence. Normal pressure hydrocephalus is also posisble although recent CT head showing hydrocephalus ex vacuo. Could consider high volume LP or trial of Sinemet if gait does not improve with stopping INgrezza. Would recommend patient discuss further her her movement disorder provider as Alvino Pack. Will sign off for now please contact Neurology on-call if there is any other questions or concerns. Job ID: [id number] [facility]
--- NOTE | 2022-11-23 16:56 | Hospitalist Progress Note ---
Date of Service November 23, 2022 Assessment & Plan (1) Fall: Plan: Patient is an 82 yr female who presents with frequent falls. Frequent falls Ambulatory dysfunction Likely secondary to Tardive dyskinesia/Ingrezza Fall precautions PT OT-eval pending May need rehab placement Dizziness Orthostatic hypotension Doubt carotid stenosis contributing Dizziness likely multifactorial secondary to orthostatic hypotension, Ingrezza ? Parkinsonian-like symptoms secondary to Ingrezza --CT head:Moderate cerebral atrophy and periventricular white matter low density consistent with chronic small vessel disease and/or senescent changes, unchanged. No acute large vessel infarct or intracranial hemorrhage is seen. --Head CTA:No acute findings in the arteries of the head/brain. Discontinue Amlodipine -- Needs vascular surgery follow-up as outpatient Continue Ingrezza for now Appreciate neurology input We will discuss with [facility] neurology for further recommendations Suspected UTI Blood Cx: Negative to date Urine culture: Probable skin ramana Empirically on Rocephin Tardive dyskinesia Thought to be secondary to Risperdal use as per family Follows with neurology Dr. Janae Tipton at [facility] Currently on Ingrezza 40 mg daily Hypertension Amlodipine discontinued Started on losartan Monitor BP off medications Mood disorder On duloxetine GERD on PPI Hyperlipidemia: Continue statin. DVT Px: Heparin SQ CODE STATUS Full code Disposition PT OT prior to discharge Admission and Anticipated Discharge Date Admission Date: November 22, 2022 Subjective Patient is seen and examined at bedside Still has dizziness intermittently Discussed with neurology today Also discussed with patient's daughter at bedside Denies any chest pain, dyspnea, nausea, vomiting, abdominal pain No other complaints Review of Systems Review of Systems: All systems reviewed & are unremarkable except as noted in Subjective Physical Exam Physical Exam: Physical Exam: Vitals signs as noted above General Appearance:Moderately built and nourished, frail, chronic ill-appearing, elderly, no apparent distress Head: normocephalic, Atraumatic Eyes: normal inspection, EOMI Neck: supple, Trachea midline Respiratory/Chest: Normal breath sounds, CTA, No accessory muscle use Cardiovascular: S1, S2, No murmur Abdomen/GI:Soft, Non tender, Bowel sounds present Extremities/Musculoskeletal:normal inspection, no edema Neurologic/Psych:AAOX2, grossly no focal neurological deficits Skin: normal color, warm Results & Data Results & Data Vital Signs (Past 12 Hours) Vital Signs Temp Pulse Pulse Resp BP Pulse Ox O2 Del Method 11/23/22 15:43 36.8 C 77 18 147/84 H 95 Room Air 11/23/22 09:00 Room Air 11/23/22 08:18 36.7 C 76 16 160/81 H 94 Room Air Laboratory Results Short CBC 11/23/22 Range/Units 09:22 WBC 4.50 L (4.8-10.8) K/ul Hgb 12.8 (12.0-16.0) g/dl Hct 37.8 (37.0-47.0) % Plt Count 230 (130-400) K/uL BMP 11/23/22 09:22 Sodium 138 Potassium 3.5 Chloride 107 Carbon Dioxide 25 BUN 18 Creatinine 0.88 Glucose 114 H Calcium 9.7
[2022-11-23] MEDS: PRAVASTATIN SOD 40 MG TAB PO SCH (17:10)
[2022-11-23] MEDS: cefTRIAXone SODIUM 1,000 MG in DEXTROSE 5% AD-VAN 50 ML IV SCH (21:41)
[2022-11-24] MEDS: PANTOprazole 40 MG TAB PO SCH (06:13)
[2022-11-24 08:45] LABS: BUN Creatinine Ratio 21.9 (10-20); Calcium 9.7 mg/dl (8.6-10.3); Creatinine Clr Calc Pharmacy 36.7 ml/min; Est GFR (African American) 63.4 ml/min; Est GFR (Non-African American) 54.7 ml/min; Potassium 3.8 mmol/L (3.5-5.1)
[2022-11-24] MEDS: VALBENAZINE TOSYLATE PO SCH (08:51)
[2022-11-24] MEDS: CEROVITE ADV FORMULA TAB PO SCH (08:56)
[2022-11-24] MEDS: DULoxetine HCL 60 MG CAP PO SCH (08:56)
[2022-11-24] MEDS: LOSARTAN POTASSIUM 25 MG TAB PO SCH (08:56)
[2022-11-24] MEDS: HEPARIN SOD 5,000 UNIT/0.5 ML VIAL SQ SCH ×2 (08:56→20:21)
--- NOTE | 2022-11-24 16:18 | Hospitalist Progress Note ---
Date of Service November 24, 2022 Assessment & Plan (1) Fall: Plan: Patient is an 82 yr female who presents with frequent falls. Frequent falls Ambulatory dysfunction Likely secondary to Tardive dyskinesia/Ingrezza Fall precautions PT OT-eval: Recommends PCF May need rehab placement Dizziness Orthostatic hypotension Doubt carotid stenosis contributing Dizziness likely multifactorial secondary to orthostatic hypotension, Ingrezza ? Parkinsonian-like symptoms secondary to Ingrezza --CT head:Moderate cerebral atrophy and periventricular white matter low density consistent with chronic small vessel disease and/or senescent changes, unchanged. No acute large vessel infarct or intracranial hemorrhage is seen. --Head CTA:No acute findings in the arteries of the head/brain. -- Needs vascular surgery follow-up as outpatient Continue Ingrezza for now Appreciate neurology input Plan to discuss with [facility] neurology Dr.Samer Tipton for further recommendations--Attempted to reach multiple times today. Will try again. Suspected UTI Blood Cx: Negative to date Urine culture: Probable skin ramana Empirically received Rocephin Tardive dyskinesia Thought to be secondary to Risperdal use as per family Follows with neurology Dr. Janae Tipton at [facility] Currently on Ingrezza 40 mg daily Hypertension Amlodipine discontinued Started on losartan BP better Mood disorder On duloxetine GERD on PPI Hyperlipidemia: Continue statin. DVT Px: Heparin SQ CODE STATUS Full code Disposition PT OT prior to discharge Admission and Anticipated Discharge Date Admission Date: November 22, 2022 Subjective Patient is seen and examined at bedside States feeling tired and sleepy Discussed with patient's daughter over the phone Unable to reach [facility] today on multiple attempts Images transmitted to [facility] Dizziness better today Denies any chest pain, dyspnea, nausea, vomiting, abdominal pain Review of Systems Review of Systems: All systems reviewed & are unremarkable except as noted in Subjective Physical Exam Physical Exam: Physical Exam: Vitals signs as noted above General Appearance:Moderately built and nourished, frail, chronic ill-appearing, elderly, no apparent distress Head: normocephalic, Atraumatic Eyes: normal inspection, EOMI Neck: supple, Trachea midline Respiratory/Chest: Normal breath sounds, CTA, No accessory muscle use Cardiovascular: S1, S2, No murmur Abdomen/GI:Soft, Non tender, Bowel sounds present Extremities/Musculoskeletal:normal inspection, no edema Neurologic/Psych:AAOX2, grossly no focal neurological deficits Skin: normal color, warm Results & Data Results & Data Vital Signs (Past 12 Hours) Vital Signs Temp Pulse Resp BP Pulse Ox O2 Del Method 11/24/22 15:53 36.5 C 78 16 135/81 96 Room Air 11/24/22 07:54 36.8 C 80 16 144/94 H 97 Room Air Laboratory Results [facility] 11/24/22 07:46 Sodium 140 Potassium 3.8 Chloride 108 H Carbon Dioxide 26 BUN 21 Creatinine 0.96 Glucose 73 Calcium 9.7
[2022-11-24] MEDS: PRAVASTATIN SOD 40 MG TAB PO SCH (17:20)
[2022-11-24] MEDS: cefTRIAXone SODIUM 1,000 MG in DEXTROSE 5% AD-VAN 50 ML IV SCH (21:39)
[2022-11-25] MEDS: PANTOprazole 40 MG TAB PO SCH (05:42)
[2022-11-25 06:18] LABS: Hematocrit (blood only) 39.9 % (37.0-47.0); Hemoglobin 13.4 g/dl (12.0-16.0); Mean Corpuscular Hemoglobin 31.1 pg (25.0-34.0); Mean Corpuscular Hgb Conc 33.6 g/dL (32.0-36.0); Mean Corpuscular Volume 92.6 fL (80.0-100.0); Mean Platelet Volume 9.3 fL (9.4-12.4); Platelet Count 253 K/uL (130-400); RDW Coefficient of Variation 12.2 % (11.5-14.5); RDW Standard Deviation 41.5 fL (36.4-46.3); Red Blood Count 4.31 M/uL (4.20-5.40); White Blood Count 5.86 K/ul (4.8-10.8)
[2022-11-25] MEDS: HEPARIN SOD 5,000 UNIT/0.5 ML VIAL SQ SCH (09:23)
[2022-11-25] MEDS: CEROVITE ADV FORMULA TAB PO SCH (09:23)
[2022-11-25] MEDS: LOSARTAN POTASSIUM 25 MG TAB PO SCH (09:23)
[2022-11-25] MEDS: DULoxetine HCL 60 MG CAP PO SCH (09:23)
[2022-11-25] MEDS: VALBENAZINE TOSYLATE PO SCH (09:23)
--- NOTE | 2022-11-25 14:31 | Hospitalist Progress Note ---
Date of Service November 25, 2022 Assessment & Plan (1) Fall: Plan: Patient is an 82 yr female who presents with frequent falls. Frequent falls Ambulatory dysfunction Likely secondary to Tardive dyskinesia/Ingrezza Fall precautions PT OT-eval completed Rehab today Dizziness Orthostatic hypotension Doubt carotid stenosis contributing Dizziness likely multifactorial secondary to orthostatic hypotension, Ingrezza ? Parkinsonian-like symptoms secondary to Ingrezza --CT head:Moderate cerebral atrophy and periventricular white matter low density consistent with chronic small vessel disease and/or senescent changes, unchanged. No acute large vessel infarct or intracranial hemorrhage is seen. --Head CTA:No acute findings in the arteries of the head/brain. -- Needs vascular surgery follow-up as outpatient Appreciate neurology input Discussed with [facility] neurolog[facility] Dr.Samer Tipton for further recommendations on 11/25/22:Advised to hold Ingrezza. 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 Less likely NPH. Will arrange for outpatient follow-up for further recommendations. Needs follow-up with neurology upon discharge Suspected UTI Blood Cx: Negative to date Urine culture: Probable skin ramana Empirically received Rocephin Tardive dyskinesia Thought to be secondary to Risperdal use as per family Follows with neurology Dr. Janae Tipton at [facility] Ingrezza 40 mg daily--- will be held for now until follow-up with neurology as outpatient as above. Hypertension Amlodipine discontinued Started on losartan BP better Mood disorder On duloxetine GERD on PPI Hyperlipidemia: Continue statin. DVT Px: Heparin SQ CODE STATUS Full code Disposition Acute Rehab Admission and Anticipated Discharge Date Admission Date: November 22, 2022 Subjective Patient is seen and examined at bedside Offers no new complaints Dizziness improved Discussed with [facility] neurology today Updated patient's daughter over the phone Denies any chest pain, dyspnea, nausea, vomiting, abdominal pain Plan to discharge to rehab facility today Review of Systems Review of Systems: All systems reviewed & are unremarkable except as noted in Subjective Physical Exam Physical Exam: Physical Exam: Vitals signs as noted above General Appearance:Moderately built and nourished, frail, chronic ill-appearing, elderly, no apparent distress Head: normocephalic, Atraumatic Eyes: normal inspection, EOMI Neck: supple, Trachea midline Respiratory/Chest: Normal breath sounds, CTA, No accessory muscle use Cardiovascular: S1, S2, No murmur Abdomen/GI:Soft, Non tender, Bowel sounds present Extremities/Musculoskeletal:normal inspection, no edema Neurologic/Psych:AAOX2, grossly no focal neurological deficits Skin: normal color, warm Results & Data Results & Data Vital Signs (Past 12 Hours) Vital Signs Temp Pulse Resp BP Pulse Ox O2 Del Method 11/25/22 07:45 Room Air 11/25/22 07:40 36.6 C 86 14 156/93 H 97 Room Air Laboratory Results Short CBC 11/25/22 Range/Units 05:56 WBC 5.86 (4.8-10.8) K/ul Hgb 13.4 (12.0-16.0) g/dl Hct 39.9 (37.0-47.0) % Plt Count 253 (130-400) K/uL
--- NOTE | 2022-11-25 14:42 | Discharge Summary ---
Date of Service November 25, 2022 Admission HPI Per Admitting Provider CHIEF COMPLAINT: Frequent falls. HISTORY OF PRESENT ILLNESS: This is an 82-year-old female with past medical history significant for tardive dyskinesia, history of mild subarachnoid hemorrhage and history of COVID in June 2021, severe protein calorie malnutrition, hypertension, depression, anxiety, hyperlipidemia, comes from [facility] with complaints of fall. The patient walks with a walker. She was in the ER on 11/19/2022 with a fall and at that time workup was negative and she was discharged.. She fell again today. As per daughter, the patient is very unstable and she ambulates with a walker and she is falling frequently. She fell backwards, both the time, she hit her head. No loss of consciousness. As per daughter, there is no recent fever, chills or cough. Her appetite is okay. She eats regular food and swallows okay. As per daughter, the patient is alert and oriented. The patient at present can tell her name, knows that she is in the hospital, but could not tell today's date. The patient denies any headache. Denies any chest pain, denies shortness of breath. Denies nausea, denies abdominal pain.Hemodynamically stable.Somewhat hard of hearing. Admission Exam Per Admitting Provider PHYSICAL EXAMINATION: GENERAL: The patient is old and frail, not in acute distress. VITAL SIGNS: Temperature 36.7, pulse 91, respiratory rate 18, blood pressure 184/104, oxygen 97% on room air. HEENT: Pupils equal, round and reactive to light. Oral mucosa dry. NECK: No JVD, no neck masses. CARDIOVASCULAR: S1 and S2 heard. Regular rate and rhythm. No murmur, no gallop. RESPIRATORY SYSTEM: Normal AP diameter. No accessory muscle use. No wheezing or crackles. ABDOMEN: Soft, bowel sounds present, nontender, no distention. CENTRAL NERVOUS SYSTEM: Alert and awake, oriented to name and place. No facial droop. Speech is clear. Obeys simple commands. Moves extremities. EXTREMITIES: No edema, no erythema. Principal Diagnosis Dizziness Recurrent falls Ambulatory dysfunction H/O Tardive dyskinesia Discharge Data Allergies Allergy/AdvReac Type Severity Reaction Status Date / Time acetaminophen Allergy Intermediate RASH Verified 11/21/22 20:47 adhesive Allergy Intermediate RASH Verified 11/21/22 20:47 Penicillins Allergy Intermediate RASH Verified 11/21/22 20:47 codeine AdvReac Intermediate GI SYMPTOMS Verified 11/21/22 20:47 hydrocodone AdvReac Intermediate GI SYMPTOMS Verified 11/21/22 20:47 Consultations 11/21/22 22:19 ED Decision to Admit Stat 11/22/22 15:44 Consult Neurology Routine Procedures Performed Laboratory Results WBC 5.86 K/ul (4.8-10.8) 11/25/22 05:56 RBC 4.31 M/uL (4.20-5.40) 11/25/22 05:56 Hgb 13.4 g/dl (12.0-16.0) 11/25/22 05:56 Hct 39.9 % (37.0-47.0) 11/25/22 05:56 MCV 92.6 fL (80.0-100.0) 11/25/22 05:56 MCH 31.1 pg (25.0-34.0) 11/25/22 05:56 MCHC 33.6 g/dL (32.0-36.0) 11/25/22 05:56 RDW Std Deviation 41.5 fL (36.4-46.3) 11/25/22 05:56 RDW Coeff of Miguel A 12.2 % (11.5-14.5) 11/25/22 05:56 Plt Count 253 K/uL (130-400) 11/25/22 05:56 MPV 9.3 fL (9.4-12.4) L 11/25/22 05:56 Immature Gran % (Auto) 0.3 % 11/22/22 06:55 Neut % (Auto) 60.1 % 11/22/22 06:55 Lymph % (Auto) 25.5 % 11/22/22 06:55 [place] % (Auto) 10.0 % 11/22/22 06:55 Eos % (Auto) 3.5 % 11/22/22 06:55 Baso % (Auto) 0.6 % 11/22/22 06:55 Neut # (Auto) 3.95 K/uL (1.40-6.50) 11/22/22 06:55 Lymph # (Auto) 1.68 K/uL (1.2-3.4) 11/22/22 06:55 [place] # (Auto) 0.66 K/uL (0.11-0.59) H 11/22/22 06:55 Eos # (Auto) 0.23 K/uL (0-0.50) 11/22/22 06:55 Baso # (Auto) 0.04 K/uL (0-0.2) 11/22/22 06:55 Immature Gran # (Auto) 0.02 K/uL (0.01-0.20) 11/22/22 06:55 Absolute Nucleated RBC Cancelled 11/21/22 19:01 Nucleated RBC % (auto) Cancelled 11/21/22 19:01 Neutrophils % (Manual) Cancelled 11/21/22 19:01 Band Neutrophils % Cancelled 11/21/22 19:01 Lymphocytes % (Manual) Cancelled 11/21/22 19:01 Prolymphocyte % Cancelled 11/21/22 19:01 Reactive Lymphs % (Man) Cancelled 11/21/22 19:01 Monocytes % (Manual) Cancelled 11/21/22 19:01 Eosinophils % (Manual) Cancelled 11/21/22 19:01 Basophils % (Manual) Cancelled 11/21/22 19:01 Metamyelocytes % (Man) Cancelled 11/21/22 19:01 Myelocytes % (Man) Cancelled 11/21/22 19:01 Promyelocytes % (Man) Cancelled 11/21/22 19:01 Blast Cells % (Manual) Cancelled 11/21/22 19:01 Plasma Cell % (Manual) Cancelled 11/21/22 19:01 Other Cells % Cancelled 11/21/22 19:01 Nucleated RBC % Cancelled 11/21/22 19:01 Neutrophils # (Manual) Cancelled 11/21/22 19:01 Band Neutrophils # Cancelled 11/21/22 19:01 Total Absolute Neuts Cancelled 11/21/22 19:01 Lymphocytes # (Manual) Cancelled 11/21/22 19:01 Prolymphocyte # Cancelled 11/21/22 19:01 Reactive Lymphs # Cancelled 11/21/22 19:01 Total Abs Lymphocytes Cancelled 11/21/22 19:01 Monocytes # (Manual) Cancelled 11/21/22 19:01 Eosinophils # (Manual) Cancelled 11/21/22 19:01 Basophils # (Manual) Cancelled 11/21/22 19:01 Metamyelocytes # (Man) Cancelled 11/21/22 19:01 Myelocytes # (Manual) Cancelled 11/21/22 19:01 Promyelocytes # (Man) Cancelled 11/21/22 19:01 Blast Cells # (Man) Cancelled 11/21/22 19:01 Plasma Cell # (Manual) Cancelled 11/21/22 19:01 Other Cells # Cancelled 11/21/22 19:01 Nucleated RBCs # (Man) Cancelled 11/21/22 19:01 Hypersegmented Neuts Cancelled 11/21/22 19:01 Hyposegmented Neuts Cancelled 11/21/22 19:01 Hypogranular Neuts Cancelled 11/21/22 19:01 Large Granular Lymphs Cancelled 11/21/22 19:01 # Lrg Granular Lymphs Cancelled 11/21/22 19:01 Hairy Cells Cancelled 11/21/22 19:01 Smudge Cells Cancelled 11/21/22 19:01 Toxic Granulation Cancelled 11/21/22 19:01 Toxic Vacuolation Cancelled 11/21/22 19:01 Dohle Bodies Cancelled 11/21/22 19:01 Freddie Rods Cancelled 11/21/22 19:01 Platelet Estimate Cancelled 11/21/22 19:01 Hypogranular Platelets Cancelled 11/21/22 19:01 Giant Platelets Cancelled 11/21/22 19:01 Platelet Satelliting Cancelled 11/21/22 19:01 RBC Morphology Cancelled 11/21/22 19:01 Polychromasia Cancelled 11/21/22 19:01 Hypochromasia Cancelled 11/21/22 19:01 Poikilocytosis Cancelled 11/21/22 19:01 Basophilic Stippling Cancelled 11/21/22 19:01 Anisocytosis Cancelled 11/21/22 19:01 Microcytosis Cancelled 11/21/22 19:01 Macrocytosis Cancelled 11/21/22 19:01 Spherocytes Cancelled 11/21/22 19:01 Pappenheimer Bodies Cancelled 11/21/22 19:01 Sickle Cells Cancelled 11/21/22 19:01 Target Cells Cancelled 11/21/22 19:01 Tear Drop Cells Cancelled 11/21/22 19:01 Ovalocytes Cancelled 11/21/22 19:01 Stomatocytes Cancelled 11/21/22 19:01 [place] Bodies Cancelled 11/21/22 19:01 Echinocytes Cancelled 11/21/22 19:01 Acanthocytes (Spur) Cancelled 11/21/22 19:01 Rouleaux Cancelled 11/21/22 19:01 RBC Agglutinates Cancelled 11/21/22 19:01 Schistocytes Cancelled 11/21/22 19:01 Sezary Cell Cancelled 11/21/22 19:01 Sodium 140 mmol/L (136-145) 11/24/22 07:46 Potassium 3.8 mmol/L (3.5-5.1) 11/24/22 07:46 Chloride 108 mmol/L (98-107) H 11/24/22 07:46 Carbon Dioxide 26 mmol/L (21-32) 11/24/22 07:46 Anion Gap 6 (3-11) 11/24/22 07:46 BUN 21 mg/dl (6-23) 11/24/22 07:46 Creatinine 0.96 mg/dl (0.6-1.2) 11/24/22 07:46 Est Cr Clr Drug Dosing 36.7 ml/min 11/24/22 07:46 Est GFR ( Amer) 63.4 ml/min 11/24/22 07:46 Est GFR (Non-Af Amer) 54.7 ml/min 11/24/22 07:46 BUN/Creatinine Ratio 21.9 (10-20) H 11/24/22 07:46 Glucose 73 mg/dl (70-99(Fasting)) 11/24/22 07:46 Lactate 1.0 mmol/L (0.4-2.0) 11/21/22 22:46 Calcium 9.7 mg/dl (8.6-10.3) 11/24/22 07:46 Phosphorus 2.8 mg/dl (2.5-4.9) 11/21/22 19:01 Magnesium 1.8 mg/dl (1.7-2.4) 11/22/22 06:55 Total Bilirubin 0.3 mg/dl (0.2-1.0) 11/21/22 19:01 AST 15 U/L (13-39) 11/21/22 19:01 ALT 10 U/L (7-52) 11/21/22 19:01 Alkaline Phosphatase 115 U/L (34-104) H 11/21/22 19:01 Total Creatine Kinase 29 U/L (26-192) 11/21/22 19:01 Troponin I High Sens 8.3 pg/ml (0-14) 11/21/22 19:01 Total Protein 6.7 gm/dl (6.0-8.3) 11/21/22 19: Albumin 3.7 gm/dl (3.4-5.0) 11/21/22 19: Globulin 3.0 gm/dl (2.5-4.0) 11/21/22 19: Albumin/Globulin Ratio 1.2 (0.9-2) 11/21/22 19: Lipase 65 U/L (11-82) 11/21/22 19: Procalcitonin < 0.05 ng/ml (0-0.5) 11/21/22 22:46 TSH 1.366 uIu/ml (0.300-4.500) 11/21/22 19:01 Urine Color Yellow 11/21/22 21:45 Urine Appearance Clear (Clear) 11/21/22 21:45 Urine pH 6.0 (4.5-7.5) 11/21/22 21:45 Ur Specific [place] 1.031 (1.000-1.030) H 11/21/22 21:45 Urine Protein Negative (Negative) 11/21/22 21:45 Urine Glucose (UA) Negative (Negative) 11/21/22 21:45 Urine Ketones Negative (Negative) 11/21/22 21:45 Urine Blood Negative (Negative) 11/21/22 21:45 Urine Nitrite Negative (Negative) 11/21/22 21:45 Urine Bilirubin Negative (Negative) 11/21/22 21:45 Urine Urobilinogen Negative (Negative) 11/21/22 21:45 Ur Leukocyte Esterase 1+ (Negative) H 11/21/22 21:45 Urine WBC (Auto) 10-30 /hpf (0-5) H 11/21/22 21:45 Urine RBC (Auto) 5-10 /hpf (0-4) H 11/21/22 21:45 U Hyaline Cast (Auto) 1-5 /lpf (0-5) 11/21/22 21:45 U Epithel Cells (Auto) 10-20 /lpf (0-5) H 11/21/22 21:45 Urine Bacteria (Auto) Negative (Negative) 11/21/22 21:45 Adenovirus (PCR) Not Detected (NotDetected) 11/21/22 19:03 B. pertussis DNA (PCR) Not Detected (NotDetected) 11/21/22 19:03 B.parapertussis DNA PCR Not Detected (NotDetected) 11/21/22 19:03 C. pneumoniae DNA (PCR) Not Detected (NotDetected) 11/21/22 19:03 Coronavirus OC43 (PCR) Not Detected (NotDetected) 11/21/22 19:03 Coronavirus HKU1 (PCR) Not Detected (NotDetected) 11/21/22 19:03 Coronavirus 229E (PCR) Not Detected (NotDetected) 11/21/22 19:03 SARS-CoV-2 (PCR) Not Detected (NotDetected) 11/21/22 19:03 Coronavirus NL63 (PCR) Not Detected (NotDetected) 11/21/22 19:03 Human Metapneumovir PCR Not Detected (NotDetected) 11/21/22 19:03 Influenza Type A (PCR) Not Detected (NotDetected) 11/21/22 19:03 Influenza Type B (PCR) Not Detected (NotDetected) 11/21/22 19:03 M. pneumoniae (PCR) Not Detected (NotDetected) 11/21/22 19:03 Parainfluenza 1 (PCR) Not Detected (NotDetected) 11/21/22 19:03 Parainfluenza 2 (PCR) Not Detected (NotDetected) 11/21/22 19:03 Parainfluenza 3 (PCR) Not Detected (NotDetected) 11/21/22 19:03 Parainfluenza 4 (PCR) Not Detected (NotDetected) 11/21/22 19:03 RSV (PCR) Not Detected (NotDetected) 11/21/22 19:03 Entero/Rhino (PCR) Not Detected (NotDetected) 11/21/22 19:03 Blood Parasites ID Cancelled 11/21/22 19:01 Impressions Chest X-Ray 11/21/22 18:27 XR chest 1V portable HISTORY: Dizziness. Chest pain, nonspecific COMPARISON: Chest and left rib series 11/19/2022. FINDINGS: No pneumothorax. No pleural effusions. The cardiac silhouette is normal in size. The lungs are clear. There are surgical clips within the axilla. Nondisplaced left lower rib fractures. IMPRESSION: Nondisplaced left lower rib fractures. No pneumothorax. ACT 112: Negative or not required by law. Electronically signed by: Aaron Dobson M.D. 11/22/2022 7:[address] 11/21/22 18:28 Exam(s): CT HEAD Without Contrast EXAM: CT Head Without Intravenous Contrast CLINICAL HISTORY: Reason for exam: dizziness, fall. TECHNIQUE: Axial computed tomography images of the head/brain without intravenous contrast. Automated exposure control was utilized for the study. A dose lowering technique was utilized adhering to the principles of ALARA. COMPARISON: November 19, 2022 FINDINGS: Brain: Moderate cerebral atrophy and periventricular white matter low density consistent with chronic small vessel disease and/or senescent changes, unchanged. No acute large vessel infarct or intracranial hemorrhage is seen. Ventricles: Dilated. No mass or hemorrhage. Bones/joints: Unremarkable. No acute fracture. Soft tissues: Unremarkable. Sinuses: Unremarkable as visualized. No acute sinusitis. Mastoid air cells: Unremarkable as visualized. No mastoid effusion. IMPRESSION: Moderate cerebral atrophy and periventricular white matter low density consistent with chronic small vessel disease and/or senescent changes, unchanged. No acute large vessel infarct or intracranial hemorrhage is seen. Electronically signed by: Oni Lombardo MD 11/21/22 22:02 PM Head CTA 11/21/22 18:28 Exam(s): CTA HEAD With Contrast IV Amt: 110 ml optiray 320 EXAM: CT Angiography Head With Intravenous Contrast CLINICAL HISTORY: Reason for exam: dizziness, fall. TECHNIQUE: Axial computed tomographic angiography images of the head with intravenous contrast. Automated exposure control was utilized for the study. A dose lowering technique was utilized adhering to the principles of ALARA. MIP reconstructed images were created and reviewed. CONTRAST: Patient received 110 ml optiray 320 of IV contrast COMPARISON: No relevant prior studies available. FINDINGS: Right internal carotid artery: There is mild calcified plaque through the cavernous portions of the distal internal carotid arteries bilaterally with less than 20% stenosis. No aneurysm. Right anterior cerebral artery: Unremarkable. No occlusion or significant stenosis. No aneurysm. Right middle cerebral artery: Unremarkable. No occlusion or significant stenosis. No aneurysm. Right posterior cerebral artery: Unremarkable. No occlusion or significant stenosis. No aneurysm. Right vertebral artery: Unremarkable as visualized. Left internal carotid artery: See above. Left anterior cerebral artery: Unremarkable. No occlusion or significant stenosis. No aneurysm. Left middle cerebral artery: Unremarkable. No occlusion or significant stenosis. No aneurysm. Left posterior cerebral artery: Unremarkable. No occlusion or significant stenosis. No aneurysm. Left vertebral artery: The distal left vertebral artery demonstrates 30% stenosis. The right vertebral and basilar arteries are widely patent. Basilar artery: See above. IMPRESSION: No acute findings in the arteries of the head/brain. Electronically signed by: Oni Lombardo MD 11/21/22 22:13 PM Neck CTA 11/21/22 18:28 Exam(s): CTA NECK With Contrast IV Amt: 108 ml optiray 320 EXAM: CT Angiography Neck With Intravenous Contrast CLINICAL HISTORY: Reason for exam: dizziness, fall. TECHNIQUE: Routine carotid CT angiography protocol was performed with intravenous contrast. NASCET criteria using the distal ICAs for comparison were used for evaluation of stenoses. Automated exposure control was utilized for the study. A dose lowering technique was utilized adhering to the principles of ALARA. MIP reconstructed images were created and reviewed. CONTRAST: Patient received 108 ml optiray 320 of IV contrast COMPARISON: None. FINDINGS: VASCULATURE: Right common carotid artery: Unremarkable. No occlusion or significant stenosis. No dissection. Right internal carotid artery: Moderate calcified plaque in the right carotid bulb and proximal internal carotid artery causing 20% stenosis. The right internal carotid artery is tortuous distally but widely patent. No dissection. Right external carotid artery: Unremarkable. No occlusion. Right vertebral artery: Unremarkable. No occlusion or significant stenosis. No dissection. Left common carotid artery: Severe calcified plaque in the distal left common carotid artery and proximal left internal carotid artery causing 70% stenosis. No dissection. Left internal carotid artery: See above. Left external carotid artery: Unremarkable. No occlusion. Left vertebral artery: Calcified plaque causing 40% stenosis of the proximal left vertebral artery. No dissection. 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 No acute fracture or subluxation is seen. Soft tissues: Unremarkable. Thyroid: 11 mm right thyroid nodule. Lung apices: Clear. CAROTID STENOSIS REFERENCE USING NASCET CRITERIA: % ICA stenosis = (1 - narrowest ICA diameter/diameter of distal cervical ICA) x 100. Mild - <50% stenosis. Moderate - 50-69% stenosis. Severe - 70-94% stenosis. Near occlusion - 95-99% stenosis. Occluded - 100% stenosis. IMPRESSION: Severe calcified plaque in the distal left common carotid artery and proximal left internal carotid artery causing 70% stenosis. Electronically signed by: Oni Lombardo MD 11/21/22 22:05 PM Ordered Studies 11/21/22 18:28 CT angio head w con Stat CT angio neck with con Stat CT head/brain wo con Stat Hospital Course (1) Fall: Patient is an 82 yr female who presents with frequent falls. Frequent falls Ambulatory dysfunction Likely secondary to Tardive dyskinesia/Ingrezza Fall precautions PT OT-eval completed Rehab today Dizziness Orthostatic hypotension Doubt carotid stenosis contributing Dizziness likely multifactorial secondary to orthostatic hypotension, Ingrezza ? Parkinsonian-like symptoms secondary to Ingrezza --CT head:Moderate cerebral atrophy and periventricular white matter low density consistent with chronic small vessel disease and/or senescent changes, unchanged. No acute large vessel infarct or intracranial hemorrhage is seen. --Head CTA:No acute findings in the arteries of the head/brain. -- Needs vascular surgery follow-up as outpatient Appreciate neurology input Discussed with [facility] neurology Dr.Samer Tipton for further recommendations on 11/25/22:Advised to hold Ingrezza. 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 Less likely NPH. Will arrange for outpatient follow-up for further recommendations. Needs follow-up with neurology upon discharge Suspected UTI Blood Cx: Negative to date Urine culture: Probable skin ramana Empirically received Rocephin Tardive dyskinesia Thought to be secondary to Risperdal use as per family Follows with neurology Dr. Janae Tipton at [facility] Ingrezza 40 mg daily--- will be held for now until follow-up with neurology as outpatient as above. Hypertension Amlodipine discontinued Started on losartan BP better Mood disorder On duloxetine GERD on PPI Hyperlipidemia: Continue statin. DVT Px: Heparin SQ CODE STATUS Full code Disposition Acute Rehab Total Time Total Time Spent Total Time Spent (In Minutes): 59 minutes Discharge Plan Discharge Items Patient Disposition: Transfer Acute Care Hospital Reason For Visit: FALLS Discharge Diagnosis: Dizziness Recurrent falls Ambulatory dysfunction H/O Tardive dyskinesia Activity: Per Instructions section Exercise/Sports: Gradually increase as tolerated Non-emergency contact: Primary Care Provider and Neurologist Call non-emergency contact if: you have any medication questions, your symptoms worsen, your pain is concerning for you and you have a fever Follow-up/Referrals: Julio Jones [Primary Care Provider] - Diet: Heart Healthy Diet Texture: Easy to Chew Addtl Attending Provider Instructions: Follow-up with your primary care physician in 1 week upon discharge from rehab facility Follow-up with your neurologist at [facility] Dr. Janae Tipton in 1-2 weeks as scheduled --Hold Taking Ingrezza for now until follow-up with neurology as recommended by your neurologist. Further recommendations as per your neurologist. -- Your Blood Culture are pending at the time of discharge. Follow-up with your physician for results. Seek immediate medical attention if your symptoms reoccur or worsen Please take all medications as instructed on discharge list below. Please call if you have any questions or problems. You can reach a [facility] hospitalist on duty at [facility] 24 hours a day by calling [phone] Pending Studies at Discharge: Yes Studies:: Blood Cultures Stand-Alone Forms: My [facility] Skilled Items Patient informed of condition?: Yes DNR: No Discharge Level of Care: Acute rehab Communicable Disease: No Discharge Prognosis: Stable Lines: None Urinary Catheter: No Medications and DC Order Prescriptions: New losartan 25 mg Tablet 25 mg PO QAM Qty: 30 0RF Continued omeprazole 20 mg capsule,delayed release(DR/EC) 20 mg PO DAILYBB polyethylene glycol 3350 [Miralax] 17 gram/dose Powder 17 g PO DAILY PRN (Reason: Constipation) duloxetine 60 mg Capsule,Delayed Release(Dr/Ec) 60 mg PO DAILY loperamide [Imodium A-D] 2 mg Capsule 2 mg PO Q4H PRN (Reason: loose stools) nystatin 100,000 unit/gram cream 1 applic TOPICAL BID PRN (Reason: Rash) Meaghan Andersenmy Bear Viy 2 ea PO DAILY Rx Instructions: 2 gummies daily omega-3 fatty acids 1,000 mg Capsule 1,000 mg PO BID pravastatin 40 mg tablet 40 mg PO QDD Therems-M 9 mg iron-400 mcg Tablet 1 tab PO DAILY sennosides-docusate sodium [Senna-Time S] 8.6-50 mg Tablet 1 tab-cap PO QDL PRN (Reason: Constipation) Boost Liquid 1 ea PO TID Rx Instructions: drink can of BOOST VERY VANILLA three times a day magnesium hydroxide [Milk of Magnesia] 400 mg/5 mL Suspension 30 ml PO DAILY PRN (Reason: Constipation) bisacodyl [Dulcolax (bisacodyl)] 10 mg Suppository 10 mg [place] DAILY PRN (Reason: Constipation) Held Ingrezza 40 mg capsule 40 mg PO QAM Hold Instructions: Resume on 01/02/23. Hold until follow up with your Neurologist for further recommendations. Discontinued amlodipine 5 mg tablet 5 mg PO DAILY Discharge Orders: Discharge Order (Routine); Ordered 11/25/22 Ordered By: Bran Jimenez Admission Data Admit Date/Time: 11/22/22 00:01 Attending Provider: Bran Jimenez Admit Provider: Karson Jacobson Primary Care Provider: Julio Jones [facility] Other Providers: Karson Jacobson ; [facility]
== END 2022-11-25 16:37 | DRG 92 ==
LOC: ED 18:04 → 3E 11-22 00:01

== ENCOUNTER 2022-12-21 19:34 | Inpatient (IN) ==
[2022-12-21] MEDS ORDERED: LORazepam 2 MG/1 ML VIAL IV STA (19:58)
[2022-12-21] MEDS ORDERED: diphenhydrAMINE 50 MG/ML VIAL IV STA (19:58)
[2022-12-21 20:46] LABS: Basophils # (auto) 0.03 K/uL (0-0.2); Basophils % (auto) 0.4 %; Eosinophils # (auto) 0.01 K/uL (0-0.50); Eosinophils % (auto) 0.1 %; Hematocrit (blood only) 36.5 % (37.0-47.0); Hemoglobin 12.2 g/dl (12.0-16.0); Immature Granulocytes # (auto) 0.04 K/uL (0.01-0.20); Immature Granulocytes % (auto) 0.5 %; Lymphocytes # (auto) 0.69 K/uL (1.2-3.4); Lymphocytes % (auto) 8.5 %; Mean Corpuscular Hemoglobin 31.5 pg (25.0-34.0); Mean Corpuscular Hgb Conc 33.4 g/dL (32.0-36.0); Mean Corpuscular Volume 94.3 fL (80.0-100.0); Mean Platelet Volume 9.7 fL (9.4-12.4); Monocytes # (auto) 0.38 K/uL (0.11-0.59); Monocytes % (auto) 4.7 %; Neutrophils # (auto) 6.94 K/uL (1.40-6.50); Neutrophils % (auto) 85.8 %; Platelet Count 248 K/uL (130-400); RDW Coefficient of Variation 13.6 % (11.5-14.5); RDW Standard Deviation 46.2 fL (36.4-46.3); Red Blood Count 3.87 M/uL (4.20-5.40); White Blood Count 8.09 K/ul (4.8-10.8)
[2022-12-21 20:49] LABS: Appearance Urine Cloudy (Clear); Bacteria Urine Automated Negative (Negative); Bilirubin Urine Negative (Negative); Blood Urine Negative (Negative); Color Urine Dark Yellow; Epithelial Cell Urine Auto >30 /lpf (0-5); Glucose Urine UA Negative (Negative); Ketones Urine Trace (Negative); Leukocyte Esterase Urine 2+ (Negative); Nitrite Urine Negative (Negative); Protein Urine Trace (Negative); Specific Gravity Urine 1.015 (1.000-1.030); Urobilinogen Urine Negative (Negative); WBC Urine Automated >30 /hpf (0-5)
[2022-12-21 21:02] LABS: Alanine Aminotransferase 17 U/L (7-52); Albumin Globulin Ratio 1.3 (0.9-2); Alkaline Phosphatase 91 U/L (34-104); Anion Gap 12 (3-11); Aspartate Aminotransferase 35 U/L (13-39); BUN Creatinine Ratio 26.1 (10-20); Bilirubin,Total 0.5 mg/dl (0.2-1.0); Blood Urea Nitrogen 48 mg/dl (6-23); Calcium 10.4 mg/dl (8.6-10.3); Carbon Dioxide 19 mmol/L (21-32); Chloride 104 mmol/L (98-107); Est GFR (African American) 28.9 ml/min; Est GFR (Non-African American) 24.9 ml/min; Globulin 3.2 gm/dl (2.5-4.0); Glucose 148 mg/dl (70-99(Fasting)); Magnesium 1.8 mg/dl (1.7-2.4); Potassium 4.9 mmol/L (3.5-5.1); Sodium 135 mmol/L (136-145); Total Protein 7.2 gm/dl (6.0-8.3)
[2022-12-21 21:10] LABS: Troponin I High Sensitivity 14.7 pg/ml (0-14)
[2022-12-21 21:12] LABS: INR 1.1 (0.9-1.1); Partial Thromboplastin Time 28.2 Seconds (21.0-31.0); Prothrombin Time 11.6 Seconds (9.0-12.0)
[2022-12-21 21:13] LABS: Amphetamines+Metham, Urine Neg (Neg); Barbiturates, Urine Neg (Neg); Benzodiazepine, Urine Pos (Neg); Cocaine, Urine Neg (Neg); MDMA (Ecstacy), Urine Neg (Neg); Methadone, Urine Neg (Neg); Opiate, Urine Neg (Neg); Phencyclidine, Urine Neg (Neg)
--- NOTE | 2022-12-21 21:14 | Emergency Department Note ---
Impression & Plan SAMY (acute kidney injury), Acute dehydration ED Provider Note INFORMANT: Patient and daughter ED PROVIDER(S): Molina Roque DO CHIEF COMPLAINT: Not acting herself PLAN: Disposition: Admission Outpatient prescription management: [none] Discussion with: I spoke with the hospitalist, who will see the patient for admission/observation and further evaluation and consultation. MEDICAL DECISION MAKING: This is a 82-year-old female who presents to the ED with the daughter and a friend of the daughter. The patient was brought in from the [facility] for evaluation as the daughter has not seen the patient for about a week. She states that today she noticed that she had more tremors than usual. She states that her speech does not sound as clear as it normally does. She is moving her tongue in an abnormal way that she had not been doing prior. She has had a couple falls recently. The patient does have an underlying diagnosis of tardive dyskinesia. She had previously been on another medication Entresto but has been off this for about a month because of possible side effects. The family has noticed that the tardive dyskinesia has worsened over the period of time that she has been off of it. The daughter states that she seems restless for the past 2 to 3 days. She walks around all night. She was started on a new medication Austedo, and just started that medication yesterday. Of note, acathisia is a listed known side effect of the medication. The patient answers questions appropriately. She is awake, alert and oriented. She denies any spe cific complaints at this time. The daughter states that she feels like the patient may not be eating or drinking well at the nursing facility. The patient does not have any complaints to corroborate this. CBC shows no leukocytosis or anemia. Chemistry panel shows a BUN of 48 and creatinine of 1.84. This does suggest dehydration as a baseline creatinine is typically normal and her baseline creatinine is around 1. His troponin is mildly elevated at 14.7. This has been previously normal, however the patient does not complain of chest discomfort. Urinalysis appears to be contaminated. No clear infection. Urine toxicology screen was positive for the benzodiazepines. The patient's CT scan of the brain and chest x-ray did not show any acute process. The patient was hydrated with normal saline 1 L IV for her SAMY related to likely dehydration. Vital signs are stable. She was given some IV Benadryl and IV lorazepam for the CT scan and to help her sleep. On reassessment, she is comfortable sleeping. Because of her SAMY and the concerns that the family has about the patient not ge tting adequate care at the assisted care living facility, the patient will be seen by the hospitalist. Some of her symptoms could be related to the new medication, Austedo, which is known to cause akathisia's. Triage Nursing notes reviewed. Vital Signs: reviewed Prior /Outside records reviewed: [none] Differential diagnosis: Differential includes infection, pneumonia, UTI, pyelonephritis, poor nutrition, dehydration, electrolyte disturbance,hypoglycemia, medication side effect, other. Diagnostics, as interpreted by me: 12 lead ECG: Sinus tach rate of 104. No ST elevation. No PVCs. Normal QTc. Cardiac Monitoring ordered: [none] Medical decision rules: [none] Imaging studies: CT scan of the brain: No intracranial hemorrhage. Chest x-ray: No acute disease. No pneumonia or pneumothorax. Procedures: none. Critical care: none. HPI: See MDM above. PAST MEDICAL HISTORY: See Below PAST SURGICAL HISTORY: See Below SOCIAL HISTORY: See Below HOME MEDICATIONS:See Below ALLERGIES: See Below VITALS: See Below PHYSICAL EXAMINATION: See MDM for positive findings otherwise unremarkable. CONSTITUTIONAL/VITAL SIGNS: Reviewed GENERAL:done as appropriate INTEGUMENTARY: done as appropriate HEAD: done as appropriate EYES: done as appropriate RESPIRATORY: done as appropriate CARDIOVASCULAR:done as appropriate GI/ABDOMEN:done as appropriate EXTREMITIES: done as appropriate NEUROLOGICAL: done as appropriate PSYCHIATRIC:done as appropriate MUSCULOSKELETAL:done as appropriate TRIAGE NURSING DOCUMENTATION REVIEWED. Past Med/Surg History Medical History Depression GERD (gastroesophageal reflux disease) Hyperlipidemia Hypertension Tardive dyskinesia Surgical History Surgical history unknown Family History Other Unknown family medical history Social History Smoking Status: Unknown if ever smoked Tobacco Type: Cigarettes Hx Alcohol Use: No Hx Substance Use: No Preferred Language: Lao Communication Ability: Impaired Communication Ability Comment: unknown Dining Room Attendant Cafeteria Required: No Beliefs That Will Affect Care: None marital status: / Current Living Situation: Legal Guardian Current Living Situation Comment: [facility] Feels Safe at Home: Yes Assistive Devices: Denture - Upper, Denture - Lower and Walker Allergies Allergies Allergy/AdvReac Type Severity Reaction Status Date / Time acetaminophen Allergy Intermediate RASH Verified 12/21/22 20:43 adhesive Allergy Intermediate RASH Verified 12/21/22 20:43 Penicillins Allergy Intermediate RASH Verified 12/21/22 20:43 codeine AdvReac Intermediate GI SYMPTOMS Verified 12/21/22 20:43 hydrocodone AdvReac Intermediate GI SYMPTOMS Verified 12/21/22 20:43 Home Meds Home Medications Medication Instructions Recorded Confirmed Meaghan Phan aNthalymy Bear Viy 2 ea PO DAILY 06/14/21 12/21/22 duloxetine 60 mg capsule,delayed 60 mg PO DAILY 06/14/21 12/21/22 release loperamide 2 mg capsule (Imodium 2 mg PO Q4H PRN loose stools 06/14/21 12/21/22 A-D) omeprazole 20 mg capsule,delayed 20 mg PO DAILYBB 06/14/21 12/21/22 release polyethylene glycol 3350 17 17 g PO DAILY PRN Constipation 06/14/21 12/21/22 gram/dose oral powder (Miralax) bisacodyl 10 mg rectal suppository 10 mg IL DAILY PRN Constipation 11/19/22 12/21/22 (Dulcolax (bisacodyl)) food supplemt, lactose-reduced 1 ea PO TID 11/19/22 12/21/22 magnesium hydroxide 400 mg/5 mL 30 ml PO DAILY PRN Constipation 11/19/22 12/21/22 oral suspension (Milk of Magnesia) multivitamin-iron 9 mg-folic acid 1 tab PO DAILY 11/19/22 12/21/22 400 mcg-calcium and minerals tablet (Therems-M) omega-3 fatty acids 1,000 mg 1,000 mg PO BID 11/19/22 12/21/22 capsule pravastatin 40 mg tablet 40 mg PO QDD 11/19/22 12/21/22 sennosides 8.6 mg-docusate sodium 1 tab-cap PO QDL PRN Constipation 11/19/22 12/21/22 50 mg tablet (Senna-Time S) valbenazine 40 mg capsule 40 mg PO QAM 11/19/22 12/21/22 (Ingrezza) deutetrabenazine 6 mg tablet 6 mg PO BID 12/21/22 12/21/22 (Austedo) Previous Rx's Medication Instructions Recorded losartan 25 mg tablet 25 mg PO QAM #30 tabs 11/25/22 Results & Data (ED) Vital Signs Vital Signs - 24 hr 12/21/22 19:46 12/21/22 20:51 12/21/22 20:58 Temperature 37.2 C Temperature Source Oral Pulse Rate 107 H Pulse Rate [Bilateral] 100 H Pulse Rhythm [Bilateral] Regular Respiratory Rate 24 16 Respiratory Effort / Characteristics Non-Labored Spontaneous Respiratory Depth Normal Normal Respiratory Pattern Regular Blood Pressure 182/142 H Blood Pressure [Right Arm] 116/65 Blood Pressure Mean 155 Blood Pressure Mean [Right Arm] 82 Pulse Oximetry 92 94 95 Oxygen Delivery Method Room Air Room Air Room Air Sepsis Recent Fever Within 48 Hours No Sepsis New/Unexplained Change in Mental Status N/A Sepsis Action Taken by Nursing Physician Notified 12/21/22 21:58 Temperature Temperature Source Pulse Rate Pulse Rate [Bilateral] 90 Pulse Rhythm [Bilateral] Respiratory Rate 16 Respiratory Effort / Characteristics Respiratory Depth Respiratory Pattern Blood Pressure Blood Pressure [Right Arm] 125/64 Blood Pressure Mean Blood Pressure Mean [Right Arm] 84 Pulse Oximetry 93 Oxygen Delivery Method Room Air Sepsis Recent Fever Within 48 Hours Sepsis New/Unexplained Change in Mental Status Sepsis Action Taken by Nursing Laboratory Data 12/21/22 20:15 12/21/22 20:15 Lab Results 12/21/22 12/21/22 12/21/22 Range/Units 20:15 20:15 20:15 WBC 8.09 (4.8-10.8) K/ul RBC 3.87 L (4.20-5.40) M/uL Hgb 12.2 (12.0-16.0) g/dl Hct 36.5 L (37.0-47.0) % MCV 94.3 (80.0-100.0) fL MCH 31.5 (25.0-34.0) pg MCHC 33.4 (32.0-36.0) g/dL RDW Std Deviation 46.2 (36.4-46.3) fL RDW Coeff of Miguel A 13.6 (11.5-14.5) % Plt Count 248 (130-400) K/uL MPV 9.7 (9.4-12.4) fL Immature Gran % (Auto) 0.5 % Neut % (Auto) 85.8 % Lymph % (Auto) 8.5 % Bryan % (Auto) 4.7 % Eos % (Auto) 0.1 % Baso % (Auto) 0.4 % Neut # (Auto) 6.94 H (1.40-6.50) K/uL Lymph # (Auto) 0.69 L (1.2-3.4) K/uL Bryan # (Auto) 0.38 (0.11-0.59) K/uL Eos # (Auto) 0.01 (0-0.50) K/uL Baso # (Auto) 0.03 (0-0.2) K/uL Immature Gran # (Auto) 0.04 (0.01-0.20) K/uL PT 11.6 (9.0-12.0) Seconds INR 1.1 (0.9-1.1) APTT 28.2 (21.0-31.0) Seconds PTT Ratio 1.0 Sodium 135 L (136-145) mmol/L Potassium 4.9 (3.5-5.1) mmol/L Chloride 104 (98-107) mmol/L Carbon Dioxide 19 L (21-32) mmol/L Anion Gap 12 H (3-11) BUN 48 H (6-23) mg/dl Creatinine 1.84 H (0.6-1.2) mg/dl Est Cr Clr Drug Dosing Not Reportable Est GFR ( Amer) 28.9 ml/min Est GFR (Non-Af Amer) 24.9 ml/min BUN/Creatinine Ratio 26.1 H (10-20) Glucose 148 H (70-99(Fasting)) mg/dl Calcium 10.4 H (8.6-10.3) mg/dl Magnesium 1.8 (1.7-2.4) mg/dl Total Bilirubin 0.5 (0.2-1.0) mg/dl AST 35 (13-39) U/L ALT 17 (7-52) U/L Alkaline Phosphatase 91 (34-104) U/L Troponin I High Sens 14.7 H (0-14) pg/ml Total Protein 7.2 (6.0-8.3) gm/dl Albumin 4.0 (3.4-5.0) gm/dl Globulin 3.2 (2.5-4.0) gm/dl Albumin/Globulin Ratio 1.3 (0.9-2) TSH (0.300-4.500) uIu/ml Urine Color Urine Appearance (Clear) Urine pH (4.5-7.5) Ur Specific [place] (1.000-1.030) Urine Protein (Negative) Urine Glucose (UA) (Negative) Urine Ketones (Negative) Urine Blood (Negative) Urine Nitrite (Negative) Urine Bilirubin (Negative) Urine Urobilinogen (Negative) Ur Leukocyte Esterase (Negative) Urine WBC (Auto) (0-5) /hpf Urine RBC (Auto) (0-4) /hpf U Hyaline Cast (Auto) (0-5) /lpf U Epithel Cells (Auto) (0-5) /lpf Urine Bacteria (Auto) (Negative) Urine Opiates Screen (Neg) Ur Methadone, Qual (Neg) Urine Barbiturates (Neg) Ur Phencyclidine (PCP) (Neg) U Amphetamin/Meth Scrn (Neg) MDMA (Ecstasy) Screen (Neg) U Benzodiazepines Scrn (Neg) Ur Cocaine Metabolite (Neg) U Marijuana (THC) Screen (Neg) 12/21/22 12/21/22 12/21/22 Range/Units 20:15 20:15 20:15 WBC (4.8-10.8) K/ul RBC (4.20-5.40) M/uL Hgb (12.0-16.0) g/dl Hct (37.0-47.0) % MCV (80.0-100.0) fL MCH (25.0-34.0) pg MCHC (32.0-36.0) g/dL RDW Std Deviation (36.4-46.3) fL RDW Coeff of Miguel A (11.5-14.5) % Plt Count (130-400) K/uL MPV (9.4-12.4) fL Immature Gran % (Auto) % Neut % (Auto) % Lymph % (Auto) % Bryan % (Auto) % Eos % (Auto) % Baso % (Auto) % Neut # (Auto) (1.40-6.50) K/uL Lymph # (Auto) (1.2-3.4) K/uL Bryan # (Auto) (0.11-0.59) K/uL Eos # (Auto) (0-0.50) K/uL Baso # (Auto) (0-0.2) K/uL Immature Gran # (Auto) (0.01-0.20) K/uL PT (9.0-12.0) Seconds INR (0.9-1.1) APTT (21.0-31.0) Seconds PTT Ratio Sodium (136-145) mmol/L Potassium (3.5-5.1) mmol/L Chloride (98-107) mmol/L Carbon Dioxide (21-32) mmol/L Anion Gap (3-11) BUN (6-23) mg/dl Creatinine (0.6-1.2) mg/dl Est Cr Clr Drug Dosing Est GFR ( Amer) ml/min Est GFR (Non-Af Amer) ml/min BUN/Creatinine Ratio (10-20) Glucose (70-99(Fasting)) mg/dl Calcium (8.6-10.3) mg/dl Magnesium (1.7-2.4) mg/dl Total Bilirubin (0.2-1.0) mg/dl AST (13-39) U/L ALT (7-52) U/L Alkaline Phosphatase (34-104) U/L Troponin I High Sens (0-14) pg/ml Total Protein (6.0-8.3) gm/dl Albumin (3.4-5.0) gm/dl Globulin (2.5-4.0) gm/dl Albumin/Globulin Ratio (0.9-2) TSH 1.734 (0.300-4.500) uIu/ml Urine Color Dark Yellow Urine Appearance Cloudy A (Clear) Urine pH 5.0 (4.5-7.5) Ur Specific [place] 1.015 (1.000-1.030) Urine Protein Trace H (Negative) Urine Glucose (UA) Negative (Negative) Urine Ketones Trace H (Negative) Urine Blood Negative (Negative) Urine Nitrite Negative (Negative) Urine Bilirubin Negative (Negative) Urine Urobilinogen Negative (Negative) Ur Leukocyte Esterase 2+ H (Negative) Urine WBC (Auto) >30 H (0-5) /hpf Urine RBC (Auto) 5-10 H (0-4) /hpf U Hyaline Cast (Auto) 5-10 H (0-5) /lpf U Epithel Cells (Auto) >30 H (0-5) /lpf Urine Bacteria (Auto) Negative (Negative) Urine Opiates Screen Neg (Neg) Ur Methadone, Qual Neg (Neg) Urine Barbiturates Neg (Neg) Ur Phencyclidine (PCP) Neg (Neg) U Amphetamin/Meth Scrn Neg (Neg) MDMA (Ecstasy) Screen Neg (Neg) U Benzodiazepines Scrn Pos H (Neg) Ur Cocaine Metabolite Neg (Neg) U Marijuana (THC) Screen Neg (Neg) Administered Medications Discontinued Medications Diphenhydramine HCl (Diphenhydramine 50 Mg/Ml Vial) 25 mg IV NOW STA Stop: 12/21/22 19:59 Last Admin: 12/21/22 20:16 Dose: 25 mg Documented By: MONA Lorazepam (Lorazepam 2 Mg/1 Ml Vial) 0.5 mg IV NOW STA Stop: 12/21/22 19:59 Last Admin: 12/21/22 20:16 Dose: 0.5 mg Documented By: MONA Imaging Data Radiologist's Impression: Head CT 12/21/22 19:58 CT SCAN OF THE BRAIN WITHOUT IV CONTRAST CLINICAL HISTORY: Change in mental status. COMPARISON STUDY: CT of the brain dated 11/21/2022. TECHNIQUE: Unenhanced axial CT scan of the brain is performed from the vertex to the skull base. A dose lowering technique was utilized adhering to the principles of ALARA. 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 There is no hemorrhage, mass effect, or evidence of acute territorial ischemia by CT criteria. Bullock-white matter differentiation is preserved. No extra-axial fluid collection is seen. Ventricles, sulci, cisterns: Prominent secondary to involutional change. Intracranial vasculature: There is atherosclerotic calcification of the cavernous carotid and vertebral arteries. Calvarium: Unremarkable. Sinuses and mastoids: The visualized paranasal sinuses are clear. There is a left mastoid effusion. The right mastoid air cells are well pneumatized. Orbits: The bony orbits are grossly intact. IMPRESSION: There is no hemorrhage, mass effect, or evidence of acute territorial ischemia by CT criteria. ACT 112: Negative or not required by law. Electronically signed by: Franky Juares M.D. 12/21/2022 10:01 PM Discharge Plan Visit Data Chief Complaint: Altered Mental Status Stated Complaint: Confusion, Tremors, Not Eating ED Provider: Molina Roque Discharge Problem: SAMY (acute kidney injury), Acute dehydration Patient Disposition: Being Evaluated by Hospitalist Forms Stand Alone Forms: My [facility] Prescriptions Prescriptions: No Action omeprazole 20 mg capsule,delayed release(DR/EC) 20 mg PO DAILYBB polyethylene glycol 3350 [Miralax] 17 gram/dose Powder 17 g PO DAILY PRN (Reason: Constipation) duloxetine 60 mg Capsule,Delayed Release(Dr/Ec) 60 mg PO DAILY loperamide [Imodium A-D] 2 mg Capsule 2 mg PO Q4H PRN (Reason: loose stools) L'Il Critters Gummy Bear Viy 2 ea PO DAILY Rx Instructions: 2 gummies daily Ingrezza 40 mg capsule 40 mg PO QAM Hold Instructions: Resume on 01/02/23. Hold until follow up with your Neurologist for further recommendations. omega-3 fatty acids 1,000 mg Capsule 1,000 mg PO BID pravastatin 40 mg tablet 40 mg PO QDD Therems-M 9 mg iron-400 mcg Tablet 1 tab PO DAILY sennosides-docusate sodium [Senna-Time S] 8.6-50 mg Tablet 1 tab-cap PO QDL PRN (Reason: Constipation) food supplemt, lactose-reduced Liquid 1 ea PO TID Rx Instructions: drink can of BOOST VERY VANILLA three times a day magnesium hydroxide [Milk of Magnesia] 400 mg/5 mL Suspension 30 ml PO DAILY PRN (Reason: Constipation) bisacodyl [Dulcolax (bisacodyl)] 10 mg Suppository 10 mg IL DAILY PRN (Reason: Constipation) Austedo 6 mg tablet 6 mg PO BID losartan 25 mg Tablet 25 mg PO QAM Qty: 30 0RF Referrals Referrals: Liliana CorbettAshuelot [Primary Care Provider] -
[2022-12-21] MEDS ORDERED: SODIUM CHLORIDE 0.9% 1000ML 1,000 ML IV ONE (22:02)
--- NOTE | 2022-12-21 22:04 | CT Scan Report ---
CT SCAN OF THE BRAIN WITHOUT IV CONTRAST CLINICAL HISTORY: Change in mental status. COMPARISON STUDY: CT of the brain dated 11/21/2022. TECHNIQUE: Unenhanced axial CT scan of the brain is performed from the vertex to the skull base. A do se lowering technique was utilized adhering to the principles of ALARA. 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 There is no hemorrhage, mass effect, or evidence of acute t erritorial ischemia by CT criteria. Bullock-white matter differentiation is preserved. No extra-axial fl uid collection is seen. Ventricles, sulci, cisterns: Prominent secondary to involutional change. Intracranial vasculature: There is atherosclerotic calcification of the cavernous carotid and vertebr al arteries. Calvarium: Unremarkable. Sinuses and mastoids: The visualized paranasal sinuses are clear. There is a left mastoid effusion. T he right mastoid air cells are well pneumatized. Orbits: The bony orbits are grossly intact. IMPRESSION: There is no hemorrhage, mass effect, or evidence of acute territorial ischemia by CT manny mancuso. ACT 112: Negative or not required by law. Electronically signed by: Franky Juares M.D. 12/21/2022 10:01 PM
--- NOTE | 2022-12-21 22:34 | XRay Report ---
SINGLE VIEW CHEST CLINICAL HISTORY: Generalized weakness. FINDINGS: 2 AP, portable, upright chest radiographs are compared to study dated 11/21/2022. Correlatio n is made with chest CT dated 06/25/2021. The examination is degraded by portable technique and apica l lordotic positioning. The heart is enlarged noting atherosclerotic calcification of the thoracic ao rta. The pulmonary vasculature is nondistended congested. Chronic interstitial thickening similar to previous. There is mild chronic elevation of the right hemidiaphragm. Mild scarring/atelectasis is se en at the lung bases. No airspace consolidation or large pleural effusion is identified. No pneumotho rax is seen. The skeletal structures are osteopenic. The bony thorax is grossly intact. Surgical clip s are noted in the right axilla. IMPRESSION: No acute cardiopulmonary abnormality. ACT 112: Negative or not required by law. Electronically signed by: Franky Juares M.D. 12/21/2022 10:31 PM
[2022-12-21] MEDS ORDERED: LACTATED RINGER'S 1,000 ML IV ONE (22:58)
[2022-12-21] MEDS ORDERED: MAGNESIUM SULFATE / D5W 1 GM/100 ML BAG IV ONE (23:15)
--- NOTE | 2022-12-22 01:00 | History & Physical Report ---
Date of Service December 22, 2022 Assessment & Plan (1) Tardive dyskinesia: Plan: 82yo female with history of tardive dyskinesia presenting with abnormal movements and overall failure to thrive. Patient was previously being treated in Ingrezza (Valbenazine) which was discontinued at the end of November due to development of parkinsonian symptoms (bradykinesia, postural instability and shuffling gait). Patient was then prescribed Austedo (Deutetrabenazine) on December 05, 2022 for treatment of her tardive dyskinesia. There was some delay in obtaining the medication and she finally started it on 12/20/22. It does not seem that she received any medication for her tardive dyskinesia in for several weeks. There was a recommendation for a trial of Sinemet, however, this medication is to be avoided due to patient having a history of hallucinations with Sinemet. Per review of notes from [facility], patient was demonstrating severe involuntary movements during her time at rehab. It was noted that she was unable to stay still. Suspect that patient's movements at this time are secondary to her tardive dyskinesia. Symptoms seemingly ongoing during her time at [facility]. Could also consider medication effects from the Austedo -Admit to medical with telemetry -Continue Austedo 6mg po BID -Neurology consultation appreciated - Family requests that the team reach out to [facility] - Dr. Tipton - before making any changes to her medications -Check CK (2) Elevated troponin: Plan: Patient with mild elevation of troponin = 14.7. EKG with non-specific changes. No complaint of chest pain -Telemetry monitoring -Repeat troponin (3) SAMY (acute kidney injury): Plan: BUN elevated to 48, Cr to 1.84 from 29 and 1.07, respectively. Patient appears dry on clinical exam. She has received 1L NSS thus far. -Continue NSS at 80mL/hr x 2L -Check CK -Avoid nephrotoxic agents -Renal dosing where needed -Repeat chemistry in AM (4) Depression: Plan: Chronic -Continue Duloxetine 60mg po daily (5) Hyperlipidemia: Plan: Chronic -Continue Pravastatin 40mg po daily (6) GERD (gastroesophageal reflux disease): Plan: Chronic -Protonix 40mg po daily F/E/N - NSS at 80mL/hr x 2 liters, repeat chemistry in AM, AHA diet as tolerated/easy to chew consistency with aspiration precautions. Continue home bowel regimen - Miralax, Dulcolax, MOM and Senokot Ppx - Low risk for DVT Code - Full per discussion with daughters at bedside Dispo - Admit to medical with telemetry History of Present Illness Chief Complaint: abnormal movements Primary Care Provider: [facility] PCP: DEBORAH Polanco - [facility] Neurology: Dr. Janae Tipton - [facility] - MOVEMENT DISORDERS Sharron Emery is an 82yo female with history of HTN, HLP, GERD, Depression and Tardive dyskinesia presenting with abnormal movement and failure to thrive. Patient follows with Dr. Tipton in [facility]. She was previously being treated with Ingrezza (Valbenazine) for her tardive dyskinesia. While she was on Ingrezza she developed shuffling gait, bradykinesia and postural instability. She fell twice in November 2022 which required hospitalization and inpatient rehabilitation at [facility] (11/25/22 - 12/05/22). Her Neurologist discontinued her Ingrezza due to concern that the medication was contributing to Parkinsonian symptoms. Patient was seen by Neurology on December 05, 2022 and was started on Austedo for her tardive dyskinesia. There was some delay in obtaining the medication and she ultimately started it on 12/20/22 at 6mg po BID. She has had 3 doses of this medication so far. She was not on any medication for her tardive dyskinesia in the interim. She was discharged from [facility] on 12/05/2022 Patient's daughter visited her at [facility] this evening and was very concerned about how her mother looked. She reports that she was much thinner than when she saw her last (appx 2 weeks prior). She was also very restless, pacing around and marching in place at times (daughter has video of this on her phone which she shared with me). She also reports delayed verbal response and slurred speech at times. They have also noted increased movements of her mouth and twisting her head to the left as well as rolling her eyes to the left. Patient has not been eating well for the last several days and has not slept for 2 days. She also had two unwitnessed falls at [facility] on 12/18/22. Additional complaints include clamminess, nausea, dizziness and "stomach business" leading to poor appetite and decreased oral intake. Also with loose stools. In the ER patient is afebrile, HD stable. ER Course: Benadryl 25mg IV Lorazepam 0.5mg IV NSS x 1L Allergies Allergy/AdvReac Type Severity Reaction Status Date / Time acetaminophen Allergy Intermediate RASH Verified 12/21/22 20:43 adhesive Allergy Intermediate RASH Verified 12/21/22 20:43 Penicillins Allergy Intermediate RASH Verified 12/21/22 20:43 codeine AdvReac Intermediate GI SYMPTOMS Verified 12/21/22 20:43 hydrocodone AdvReac Intermediate GI SYMPTOMS Verified 12/21/22 20:43 Home Medications Medication Instructions Recorded Confirmed Type Meaghan Andersendesi Smith Viy 2 ea PO DAILY 06/14/21 12/21/22 History duloxetine 60 mg capsule,delayed 60 mg PO DAILY 06/14/21 12/21/22 History release loperamide 2 mg capsule (Imodium 2 mg PO Q4H PRN loose stools 06/14/21 12/21/22 History A-D) omeprazole 20 mg capsule,delayed 20 mg PO DAILYBB 06/14/21 12/21/22 History release polyethylene glycol 3350 17 17 g PO DAILY PRN Constipation 06/14/21 12/21/22 History gram/dose oral powder (Miralax) bisacodyl 10 mg rectal suppository 10 mg NC DAILY PRN Constipation 11/19/22 12/21/22 History (Dulcolax (bisacodyl)) food supplemt, lactose-reduced 1 ea PO TID 11/19/22 12/21/22 History magnesium hydroxide 400 mg/5 mL 30 ml PO DAILY PRN Constipation 11/19/22 12/21/22 History oral suspension (Milk of Magnesia) multivitamin-iron 9 mg-folic acid 1 tab PO DAILY 11/19/22 12/21/22 History 400 mcg-calcium and minerals tablet (Therems-M) omega-3 fatty acids 1,000 mg 1,000 mg PO BID 11/19/22 12/21/22 History capsule pravastatin 40 mg tablet 40 mg PO QDD 11/19/22 12/21/22 History sennosides 8.6 mg-docusate sodium 1 tab-cap PO QDL PRN Constipation 11/19/22 12/21/22 History 50 mg tablet (Senna-Time S) valbenazine 40 mg capsule 40 mg PO QAM 11/19/22 12/21/22 History (Ingrezza) losartan 25 mg tablet 25 mg PO QAM #30 tabs 11/25/22 12/21/22 Rx deutetrabenazine 6 mg tablet 6 mg PO BID 12/21/22 12/21/22 History (Austedo) Past Med/Surg History Medical History (Updated 12/22/22 @ 01:35 by Louann Lombardo DO) Depression GERD (gastroesophageal reflux disease) Hyperlipidemia Hypertension Tardive dyskinesia Surgical History (Updated 12/22/22 @ 01:15 by Louann Lombardo DO) History of mastectomy Family History Other Unknown family medical history Social History Smoking Status: Unknown if ever smoked Tobacco Type: Cigarettes Hx Alcohol Use: No Hx Substance Use: No Preferred Language: Kiswahili Communication Ability: Impaired Communication Ability Comment: unknown Epic Radiant Analyst Required: No Beliefs That Will Affect Care: None marital status: / Current Living Situation: Legal Guardian Current Living Situation Comment: Mikal Corbett Feels Safe at Home: Yes Assistive Devices: Denture - Upper, Denture - Lower and Walker Review of Systems Review of Systems: All systems reviewed & are unremarkable except as noted in HPI & below Patient sleeping during my encounter after receiving Ativan and Benadryl. Review of systems obtained from daughters at bedside Physical Exam Physical Exam: General: patient sleeping, NAD, opens eyes slightly to verbal stimuli Skin: warm, dry, intact, no rashes or lesions HEENT: NC/AT, PERRL, anicteric sclera, conjunctiva without injection, external ear normal to inspection and nontender, nares patent,slightly dry lips and mucus membranes, no oropharyngeal lesions, neck supple, trachea midline, no LAD, no thyromegaly, no JVD Heart: +S1/S2, regular, no m/r/g Lungs: equal air entry bilaterally, no rales/rhonchi/wheezes Abd: +BS, soft, NT/ND, no masses/organomegaly/ascites Ext: warm, 2+ pulses in UE/LE bilaterally, no clubbing/cyanosis or edema Neuro: patient sleeping after receiving medication, withdraws all 4 extremities to stimuli Results & Data Results & Data Vital Signs (Past 12 Hours) Vital Signs Temp Pulse Pulse Resp BP BP Pulse Ox 12/22/22 00:30 82 24 96 12/22/22 00:30 135/92 12/22/22 00:00 85 25 H 96 12/22/22 00:00 134/83 12/21/22 23:30 89 26 H 97 12/21/22 23:30 128/77 12/21/22 23:00 81 22 131/73 91 12/21/22 22:56 122/83 12/21/22 23:37 88 12/21/22 22:55 87 16 122/83 12/21/22 21:58 90 16 125/64 93 12/21/22 20:58 95 12/21/22 20:51 100 H 16 116/65 94 12/21/22 19:46 37.2 C 107 H 24 182/142 H 92 O2 Del Method 12/22/22 00:30 12/22/22 00:30 12/22/22 00:00 12/22/22 00:00 12/21/22 23:30 12/21/22 23:30 12/21/22 23:00 12/21/22 22:56 12/21/22 23:37 12/21/22 22:55 12/21/22 21:58 Room Air 12/21/22 20:58 Room Air 12/21/22 20:51 Room Air 12/21/22 19:46 Room Air Laboratory Results Laboratory Results WBC 8.09 K/ul (4.8-10.8) 12/21/22 20:15 RBC 3.87 M/uL (4.20-5.40) L 12/21/22 20:15 Hgb 12.2 g/dl (12.0-16.0) 12/21/22 20:15 Hct 36.5 % (37.0-47.0) L 12/21/22 20:15 MCV 94.3 fL (80.0-100.0) 12/21/22 20:15 MCH 31.5 pg (25.0-34.0) 12/21/22 20:15 MCHC 33.4 g/dL (32.0-36.0) 12/21/22 20:15 RDW Std Deviation 46.2 fL (36.4-46.3) 12/21/22 20:15 RDW Coeff of Miguel A 13.6 % (11.5-14.5) 12/21/22 20:15 Plt Count 248 K/uL (130-400) 12/21/22 20:15 MPV 9.7 fL (9.4-12.4) 12/21/22 20:15 Immature Gran % (Auto) 0.5 % 12/21/22 20:15 Neut % (Auto) 85.8 % 12/21/22 20:15 Lymph % (Auto) 8.5 % 12/21/22 20:15 Dickenson % (Auto) 4.7 % 12/21/22 20:15 Eos % (Auto) 0.1 % 12/21/22 20:15 Baso % (Auto) 0.4 % 12/21/22 20:15 Neut # (Auto) 6.94 K/uL (1.40-6.50) H 12/21/22 20:15 Lymph # (Auto) 0.69 K/uL (1.2-3.4) L 12/21/22 20:15 Dickenson # (Auto) 0.38 K/uL (0.11-0.59) 12/21/22 20:15 Eos # (Auto) 0.01 K/uL (0-0.50) 12/21/22 20:15 Baso # (Auto) 0.03 K/uL (0-0.2) 12/21/22 20:15 Immature Gran # (Auto) 0.04 K/uL (0.01-0.20) 12/21/22 20:15 PT 11.6 Seconds (9.0-12.0) 12/21/22 20:15 INR 1.1 (0.9-1.1) 12/21/22 20:15 APTT 28.2 Seconds (21.0-31.0) 12/21/22 20:15 PTT Ratio 1.0 12/21/22 20:15 Sodium 135 mmol/L (136-145) L 12/21/22 20:15 Potassium 4.9 mmol/L (3.5-5.1) 12/21/22 20:15 Chloride 104 mmol/L (98-107) 12/21/22 20:15 Carbon Dioxide 19 mmol/L (21-32) L 12/21/22 20:15 Anion Gap 12 (3-11) H 12/21/22 20:15 BUN 48 mg/dl (6-23) H 12/21/22 20:15 Creatinine 1.84 mg/dl (0.6-1.2) H 12/21/22 20:15 Est Cr Clr Drug Dosing Not Reportable 12/21/22 20:15 Est GFR ( Amer) 28.9 ml/min 12/21/22 20:15 Est GFR (Non-Af Amer) 24.9 ml/min 12/21/22 20:15 BUN/Creatinine Ratio 26.1 (10-20) H 12/21/22 20:15 Glucose 148 mg/dl (70-99(Fasting)) H 12/21/22 20:15 Calcium 10.4 mg/dl (8.6-10.3) H 12/21/22 20:15 Magnesium 1.8 mg/dl (1.7-2.4) 12/21/22 20:15 Total Bilirubin 0.5 mg/dl (0.2-1.0) 12/21/22 20:15 AST 35 U/L (13-39) 12/21/22 20:15 ALT 17 U/L (7-52) 12/21/22 20:15 Alkaline Phosphatase 91 U/L (34-104) 12/21/22 20:15 Troponin I High Sens 14.7 pg/ml (0-14) H 12/21/22 20:15 Total Protein 7.2 gm/dl (6.0-8.3) 12/21/22 20:15 Albumin 4.0 gm/dl (3.4-5.0) 12/21/22 20:15 Globulin 3.2 gm/dl (2.5-4.0) 12/21/22 20:15 Albumin/Globulin Ratio 1.3 (0.9-2) 12/21/22 20:15 TSH 1.734 uIu/ml (0.300-4.500) 12/21/22 20:15 Urine Color Dark Yellow 12/21/22 20:15 Urine Appearance Cloudy (Clear) A 12/21/22 20:15 Urine pH 5.0 (4.5-7.5) 12/21/22 20:15 Ur Specific [place] 1.015 (1.000-1.030) 12/21/22 20:15 Urine Protein Trace (Negative) H 12/21/22 20:15 Urine Glucose (UA) Negative (Negative) 12/21/22 20:15 Urine Ketones Trace (Negative) H 12/21/22 20:15 Urine Blood Negative (Negative) 12/21/22 20:15 Urine Nitrite Negative (Negative) 12/21/22 20:15 Urine Bilirubin Negative (Negative) 12/21/22 20:15 Urine Urobilinogen Negative (Negative) 12/21/22 20:15 Ur Leukocyte Esterase 2+ (Negative) H 12/21/22 20:15 Urine WBC (Auto) >30 /hpf (0-5) H 12/21/22 20:15 Urine RBC (Auto) 5-10 /hpf (0-4) H 12/21/22 20:15 U Hyaline Cast (Auto) 5-10 /lpf (0-5) H 12/21/22 20:15 U Epithel Cells (Auto) >30 /lpf (0-5) H 12/21/22 20:15 Urine Bacteria (Auto) Negative (Negative) 12/21/22 20:15 Urine Opiates Screen Neg (Neg) 12/21/22 20:15 Ur Methadone, Qual Neg (Neg) 12/21/22 20:15 Urine Barbiturates Neg (Neg) 12/21/22 20:15 Ur Phencyclidine (PCP) Neg (Neg) 12/21/22 20:15 U Amphetamin/Meth Scrn Neg (Neg) 12/21/22 20:15 MDMA (Ecstasy) Screen Neg (Neg) 12/21/22 20:15 U Benzodiazepines Scrn Pos (Neg) H 12/21/22 20:15 Ur Cocaine Metabolite Neg (Neg) 12/21/22 20:15 U Marijuana (THC) Screen Neg (Neg) 12/21/22 20:15 SARS-CoV-2, RNA, NAAT NEGATIVE (NEGATIVE) 12/21/22 22:[address] 12/21/22 19:58 CT SCAN OF THE BRAIN WITHOUT IV CONTRAST CLINICAL HISTORY: Change in mental status. COMPARISON STUDY: CT of the brain dated 11/21/2022. TECHNIQUE: Unenhanced axial CT scan of the brain is performed from the vertex to the skull base. A dose lowering technique was utilized adhering to the principles of ALARA. 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 There is no hemorrhage, mass effect, or evidence of acute territorial ischemia by CT criteri a. Bullock-white matter differentiation is preserved. No extra-axial fluid collection is seen. Ventricles, sulci, cisterns: Prominent secondary to involutional change. Intracranial vasculature: There is atherosclerotic calcification of the cavernous carotid and vertebral arteries. Calvarium: Unremarkable. Sinuses and mastoids: The visualized paranasal sinuses are clear. There is a left mastoid effusion. The right mastoid air cells are well pneumatized. Orbits: The bony orbits are grossly intact. IMPRESSION: There is no hemorrhage, mass effect, or evidence of acute territorial ischemia by CT criteria. ACT 112: Negative or not required by law. Electronically signed by: Franky Juares M.D. 12/21/2022 10:01 PM Chest X-Ray 12/21/22 19:59 SINGLE VIEW CHEST CLINICAL HISTORY: Generalized weakness. FINDINGS: 2 AP, portable, upright chest radiographs are compared to study dated 11/21/2022. Correlation is made with chest CT dated 06/25/2021. The examination is degraded by portable technique and apical lordotic positioning. The heart is enlarged noting atherosclerotic calcification of the thoracic aorta. The pulmonary vasculature is nondistended congested. Chronic interstitial thickening similar to previous. There is mild chronic elevation of the right hemidiaphragm. Mild scarring/atelectasis is seen at the lung bases. No airspace consolidation or large pleural effusion is identified. No pneumothorax is seen. The skeletal structures are osteopenic. The bony thorax is grossly intact. Surgical clips are noted in the right axilla. IMPRESSION: No acute cardiopulmonary abnormality. ACT 112: Negative or not required by law. Electronically signed by: Franky Juares M.D. 12/21/2022 10:31 PM ECG Additional Comments: EKG per my interpretation reveals ST at 104bpm, left axis deviation, NC prolonged at 228, QRS=82, AGs=578. Some ST-T wave abnormalities nonspecific. No STEMI PG Care Time/CCT Total # of Minutes Spent Total Time Spent with Patient: Total time spent is greater than 50% in coordination of care (as documented) at patient's floor/unit and/or counseling patient: Coding Level of Care Code 79306 INT INP/OBS CARE 3/75MIN Diagnoses Tardive dyskinesia G24.01 Elevated troponin R77.8 SAMY (acute kidney injury) N17.9 Depression F32.A Hyperlipidemia E78.5 GERD (gastroesophageal reflux disease) K21.9
[2022-12-22] MEDS ORDERED: LOPERAMIDE HCL 2 MG CAP PO PRN (02:46)
[2022-12-22] MEDS ORDERED: ACETAMINOPHEN 325 MG TAB PO PRN (02:46)
[2022-12-22] MEDS ORDERED: MAGNESIUM HYDROXIDE SUSP 30 ML UDC PO PRN (02:46)
[2022-12-22] MEDS ORDERED: POLYETHYLENE (MIRALAX) 17 GM PACK PO PRN (02:46)
[2022-12-22] MEDS ORDERED: bisacodyL 10 MG SUPP PR PRN (02:46)
[2022-12-22] MEDS ORDERED: DOCUSATE SODIUM/SENNA 50/8.6MG TAB PO PRN (02:46)
[2022-12-22] MEDS: SODIUM CHLORIDE 0.9% 1000ML 1,000 ML IV SCH ×2 (03:08→15:51)
[2022-12-22 04:01] LABS: Hematocrit (blood only) 33.6 % (37.0-47.0); Hemoglobin 11.4 g/dl (12.0-16.0); Mean Corpuscular Hemoglobin 31.4 pg (25.0-34.0); Mean Corpuscular Hgb Conc 33.9 g/dL (32.0-36.0); Mean Corpuscular Volume 92.6 fL (80.0-100.0); Mean Platelet Volume 9.6 fL (9.4-12.4); Platelet Count 225 K/uL (130-400); RDW Coefficient of Variation 13.5 % (11.5-14.5); RDW Standard Deviation 46.4 fL (36.4-46.3); Red Blood Count 3.63 M/uL (4.20-5.40); White Blood Count 6.46 K/ul (4.8-10.8)
[2022-12-22 04:16] LABS: Albumin Level 3.5 gm/dl (3.4-5.0); BUN Creatinine Ratio 32.1 (10-20); Bilirubin Direct 0.1 mg/dl (0-0.2); Bilirubin,Total 0.4 mg/dl (0.2-1.0); Calcium 9.6 mg/dl (8.6-10.3); Creatinine Clr Calc Pharmacy 25.2 ml/min; Est GFR (African American) 40.2 ml/min; Est GFR (Non-African American) 34.7 ml/min; Potassium 4.5 mmol/L (3.5-5.1); Total Protein 6.3 gm/dl (6.0-8.3)
[2022-12-22 04:22] LABS: Troponin I High Sensitivity 13.3 pg/ml (0-14)
[2022-12-22] MEDS: DULoxetine HCL 60 MG CAP PO SCH (09:42)
[2022-12-22] MEDS: PANTOprazole 40 MG TAB PO SCH (09:42)
--- NOTE | 2022-12-22 10:52 | Neurology Consultation ---
Date of Consultation December 22, 2022 Assessment & Plan (1) SAMY (acute kidney injury): No significant dyskinetic movements noted on my evaluation. Recommend she continue her outpatient deutetrabenazine without dose change. Suspect the SAMY caused a change in medication metabolism. Continue supportive care per medicine. She can follow-up with her outpatient neurology team after discharge. Please contact us with any further questions. Telehealth Consultation Telehealth Information Telehealth Information: I performed this visit using a real-time telehealth connection between my location and the patients location ([facility]). After connecting through interactive tele-video, patient was identified by name and date of and/or wristband check.Patient (or authorized healthcare represe ntative) was informed that this was a telemedicine visit and it was being conducted confidentially over secure lines. My office door was closed and no one else was present in the room with me.Patient (or authorized healthcare housing management representative) provided consent to proceed with the visit, expressed an understanding of privacy and security of the telemedicine visit, and gave permission to have a hospital housing management representative in the room in order to assist with the visit and to conduct portions of the visit, as needed. I informed the patient (or authorized healthcare housing management representative) that I reviewed their record and presented the opportunity for them to ask any questions regarding the visit today. The patient agreed to participate. History of Present Illness Reason for Consultation: Worsened dyskinesias Requesting Physician: Dr. Gibson Attending Physician: Cesar Gibson DO History of Present Illness Sharron Emery is an 82 yo F with a history of tardive dyskinesias with systemic involvement on Deutetrabenazine per her outpatient movement disorders team. She was brought back to [facility] from her facility due to worsening of her movements interfering with rehab. Per nursing, the patient has not been able to get out of bed due to leg weakness but no significant movements noted. The patient also reports that she has no difficulty feeding herself or manipulating objects in her hands. Of note, had an SAMY identified on admission. Allergies Allergy/AdvReac Type Severity Reaction Status Date / Time acetaminophen Allergy Intermediate RASH Verified 12/21/22 20:43 adhesive Allergy Intermediate RASH Verified 12/21/22 20:43 Penicillins Allergy Intermediate RASH Verified 12/21/22 20:43 codeine AdvReac Intermediate GI SYMPTOMS Verified 12/21/22 20:43 hydrocodone AdvReac Intermediate GI SYMPTOMS Verified 12/21/22 20:43 Home Medications Medication Instructions Recorded Confirmed Type L'Osei Phan Gummy Bear Viy 2 ea PO DAILY 06/14/21 12/21/22 History duloxetine 60 mg capsule,delayed 60 mg PO DAILY 06/14/21 12/21/22 History release loperamide 2 mg capsule (Imodium 2 mg PO Q4H PRN loose stools 06/14/21 12/21/22 History A-D) omeprazole 20 mg capsule,delayed 20 mg PO DAILYBB 06/14/21 12/21/22 History release polyethylene glycol 3350 17 17 g PO DAILY PRN Constipation 06/14/21 12/21/22 History gram/dose oral powder (Miralax) bisacodyl 10 mg rectal suppository 10 mg DC DAILY PRN Constipation 11/19/22 12/21/22 History (Dulcolax (bisacodyl)) food supplemt, lactose-reduced 1 ea PO TID 11/19/22 12/21/22 History magnesium hydroxide 400 mg/5 mL 30 ml PO DAILY PRN Constipation 11/19/22 12/21/22 History oral suspension (Milk of Magnesia) multivitamin-iron 9 mg-folic acid 1 tab PO DAILY 11/19/22 12/21/22 History 400 mcg-calcium and minerals tablet (Therems-M) omega-3 fatty acids 1,000 mg 1,000 mg PO BID 11/19/22 12/21/22 History capsule pravastatin 40 mg tablet 40 mg PO QDD 11/19/22 12/21/22 History sennosides 8.6 mg-docusate sodium 1 tab-cap PO QDL PRN Constipation 11/19/22 12/21/22 History 50 mg tablet (Senna-Time S) valbenazine 40 mg capsule 40 mg PO QAM 11/19/22 12/21/22 History (Ingrezza) losartan 25 mg tablet 25 mg PO QAM #30 tabs 11/25/22 12/21/22 Rx deutetrabenazine 6 mg tablet 6 mg PO BID 12/21/22 12/21/22 History (Austedo) Patient History Medical History (Updated 12/22/22 @ 01:35 by Louann Lombardo DO) Depression GERD (gastroesophageal reflux disease) Hyperlipidemia Hypertension Tardive dyskinesia Surgical History (Updated 12/22/22 @ 01:15 by Louann Lombardo DO) History of mastectomy Family History Other Unknown family medical history Social History Smoking Status: Former smoker Tobacco Type: Cigarettes Second Hand Exposure: Yes; Hx Alcohol Use: No Hx Substance Use: No Preferred Language: Greenlandic Communication Ability: Impaired Communication Ability Comment: unknown Marketing Project Lead Required: No Beliefs That Will Affect Care: None marital status: / Current Living Situation: Legal Guardian Current Living Situation Comment: [facility] Feels Safe at Home: Yes Assistive Devices: Denture - Upper, Denture - Lower and Walker Review of Systems See HPI Physical Exam Neurological Examination: Mental Status: Awake and alert. Oriented to person, place. Fluent. Comprehension intact. Affect appropriate. Cranial Nerves: II: Reads NIHSS cards, dumas grossly intact. III/IV/: Versions intact without nystagmus, no gaze preference. V: Facial sensation symmetric to light touch VII: Facial expression symmetric VIII: Hearing intact to voice IX/X: Palate elevates symmetrically XI: Shoulder shrug symmetric XII: Tongue midline without dyskinesias Motor: Strength was antigravity throughout. There were mild dyskinesias in the arms and legs, with intermittent myoclonic movements. Coordination: Movements were non-ataxic Reflexes: Unable to assess over telemedicine Results & Data Vital Signs (Past 12 Hours) Vital Signs Temp Pulse Pulse Pulse Resp BP BP 12/22/22 10:03 12/22/22 07:58 36.7 C 80 21 150/82 H 12/22/22 02:50 82 12/22/22 02:46 36.8 C 92 H 14 146/109 H 12/22/22 00:30 82 24 12/22/22 00:30 135/92 12/22/22 00:00 85 25 H 12/22/22 00:00 134/83 12/21/22 23:30 89 26 H 12/21/22 23:30 128/77 12/21/22 23:00 81 22 131/73 12/21/22 22:56 122/83 12/21/22 23:37 88 12/21/22 22:55 87 16 122/83 Pulse Ox Pulse Ox O2 Del Method O2 Flow Rate 12/22/22 10:03 98 0 12/22/22 07:58 98 Room Air 12/22/22 02:50 12/22/22 02:46 94 Room Air 12/22/22 00:30 96 12/22/22 00:30 12/22/22 00:00 96 12/22/22 00:00 12/21/22 23:30 97 12/21/22 23:30 12/21/22 23:00 91 12/21/22 22:56 12/21/22 23:37 12/21/22 22:55 Laboratory Results Abnormal lab results 12/21/22 12/21/22 12/21/22 Range/Units 20:15 20:15 20:15 RBC 3.87 L (4.20-5.40) M/uL Hgb (12.0-16.0) g/dl Hct 36.5 L (37.0-47.0) % RDW Std Deviation (36.4-46.3) fL Neut # (Auto) 6.94 H (1.40-6.50) K/uL Lymph # (Auto) 0.69 L (1.2-3.4) K/uL Sodium 135 L (136-145) mmol/L Chloride (98-107) mmol/L Carbon Dioxide 19 L (21-32) mmol/L Anion Gap 12 H (3-11) BUN 48 H (6-23) mg/dl Creatinine 1.84 H (0.6-1.2) mg/dl BUN/Creatinine Ratio 26.1 H (10-20) Glucose 148 H (70-99(Fasting)) mg/dl Calcium 10.4 H (8.6-10.3) mg/dl Total Creatine Kinase (26-192) U/L Troponin I High Sens 14.7 H (0-14) pg/ml Urine Appearance Cloudy A (Clear) Urine Protein Trace H (Negative) Urine Ketones Trace H (Negative) Ur Leukocyte Esterase 2+ H (Negative) Urine WBC (Auto) >30 H (0-5) /hpf Urine RBC (Auto) 5-10 H (0-4) /hpf U Hyaline Cast (Auto) 5-10 H (0-5) /lpf U Epithel Cells (Auto) >30 H (0-5) /lpf U Benzodiazepines Scrn (Neg) 12/21/22 12/22/22 12/22/22 Range/Units 20:15 03:42 03:42 RBC 3.63 L (4.20-5.40) M/uL Hgb 11.4 L (12.0-16.0) g/dl Hct 33.6 L (37.0-47.0) % RDW Std Deviation 46.4 H (36.4-46.3) fL Neut # (Auto) (1.40-6.50) K/uL Lymph # (Auto) (1.2-3.4) K/uL Sodium (136-145) mmol/L Chloride 109 H (98-107) mmol/L Carbon Dioxide 19 L (21-32) mmol/L Anion Gap (3-11) BUN 45 H (6-23) mg/dl Creatinine 1.40 H D (0.6-1.2) mg/dl BUN/Creatinine Ratio 32.1 H (10-20) Glucose (70-99(Fasting)) mg/dl Calcium (8.6-10.3) mg/dl Total Creatine Kinase 305 H (26-192) U/L Troponin I High Sens (0-14) pg/ml Urine Appearance (Clear) Urine Protein (Negative) Urine Ketones (Negative) Ur Leukocyte Esterase (Negative) Urine WBC (Auto) (0-5) /hpf Urine RBC (Auto) (0-4) /hpf U Hyaline Cast (Auto) (0-5) /lpf U Epithel Cells (Auto) (0-5) /lpf U Benzodiazepines Scrn Pos H (Neg) 12/22/22 Range/Units 08:34 RBC (4.20-5.40) M/uL Hgb (12.0-16.0) g/dl Hct (37.0-47.0) % RDW Std Deviation (36.4-46.3) fL Neut # (Auto) (1.40-6.50) K/uL Lymph # (Auto) (1.2-3.4) K/uL Sodium (136-145) mmol/L Chloride (98-107) mmol/L Carbon Dioxide (21-32) mmol/L Anion Gap (3-11) BUN (6-23) mg/dl Creatinine (0.6-1.2) mg/dl BUN/Creatinine Ratio (10-20) Glucose (70-99(Fasting)) mg/dl Calcium (8.6-10.3) mg/dl Total Creatine Kinase (26-192) U/L Troponin I High Sens 14.3 H (0-14) pg/ml Urine Appearance (Clear) Urine Protein (Negative) Urine Ketones (Negative) Ur Leukocyte Esterase (Negative) Urine WBC (Auto) (0-5) /hpf Urine RBC (Auto) (0-4) /hpf U Hyaline Cast (Auto) (0-5) /lpf U Epithel Cells (Auto) (0-5) /lpf U Benzodiazepines Scrn (Neg) Diagnostic Findings CT head - Unremarkable
--- NOTE | 2022-12-22 13:19 | Electrocardiogram Report ---
Test Reason : Blood Pressure : / mmHG Vent. Rate : 104 BPM Atrial Rate : 104 BPM P-R Int : 228 ms QRS Dur : 082 ms QT Int : 340 ms P-R-T Axes : 066 -35 008 degrees QTc Int : 447 ms Sinus tachycardia with 1st degree A-V block Left axis deviation Nonspecific ST and T wave abnormality Abnormal ECG When compared with ECG of 21-NOV-2022 18:19, Premature supraventricular complexes are no longer Present TX interval has increased Nonspecific T wave abnormality, improved in Lateral leads Confirmed by Enrique Zhu ([id number]) on 12/22/2022 1:19:46 PM Referred By: REFERRED SELF Confirmed By:Enrique Zhu
[2022-12-22] MEDS: PRAVASTATIN SOD 40 MG TAB PO SCH (17:54)
--- NOTE | 2022-12-22 18:18 | Communication Note ---
Date of Service: December 22, 2022 seen in f/u from early AM admit. Feeling okay. No acute complaints. Has a hard time recalling much of anything previously. Corona Richmond MS2 called family for collateralsee his documentation in regards to that. Neurology input greatly appreciated. Suspect failure to thrive due to poor p.o. intake and SAMY from poor p.o. intake and dehydrationcontinue IV fluids, follow p.o. intake. PT/OT eval and treat. Resident physician coordinating with patient's [place] subspecialists given ease of communication having access to the same computer system.
[2022-12-23 06:14] LABS: Hematocrit (blood only) 33.5 % (37.0-47.0); Hemoglobin 11.3 g/dl (12.0-16.0); Mean Corpuscular Hemoglobin 31.6 pg (25.0-34.0); Mean Corpuscular Hgb Conc 33.7 g/dL (32.0-36.0); Mean Corpuscular Volume 93.6 fL (80.0-100.0); Mean Platelet Volume 9.9 fL (9.4-12.4); Platelet Count 214 K/uL (130-400); RDW Coefficient of Variation 13.6 % (11.5-14.5); RDW Standard Deviation 46.7 fL (36.4-46.3); Red Blood Count 3.58 M/uL (4.20-5.40); White Blood Count 5.37 K/ul (4.8-10.8)
[2022-12-23 06:31] LABS: Albumin Level 3.2 gm/dl (3.4-5.0); Bilirubin Direct 0.1 mg/dl (0-0.2); Bilirubin,Total 0.4 mg/dl (0.2-1.0); Calcium 9.7 mg/dl (8.6-10.3); Creatinine Clr Calc Pharmacy 27.5 ml/min; Est GFR (African American) 44.8 ml/min; Est GFR (Non-African American) 38.6 ml/min; Potassium 4.3 mmol/L (3.5-5.1); Total Protein 5.9 gm/dl (6.0-8.3)
--- NOTE | 2022-12-23 07:50 | Hospitalist Progress Note ---
Date of Service December 23, 2022 Assessment & Plan (1) Tardive dyskinesia: Plan: 82 y/o female with history of tardive dyskinesia presenting with abnormal movements and overall failure to thrive. #Paranoid Delusions #Tardive Dyskinesia Patient was started on risperidone in 2013 for paranoid delusions. Developed tardive's dyskinesia around [id number] thus this medicine with discontinued. She was started on valbenazine (Ingrezza) for treatment of TD, but developed parkinsonian symptoms of bradykinesia, postural instability, and shuffling gait. This was discontinued at the end of November. She was prescribed deutetrabenazine (Austedo) in the beginning of December. Patient did not start receiving this medication until 12/20. In the interim she had worsening of her TD symptoms with multiple falls which lead to this admission. Likely this acute worsening is in the setting of lapse in treatment for TD. There may also be a pharmacokinetic component as patient presented with SAMY in the setting of dehydration and overall poor PO intake. Patient previously trialed Sinemet. This was discontinued 2/2 hallucinations. [] no medication changes at present, continue with Austedo [] CK elevated 331 [] neuro on board - appreciate recs [] updated Dr. Tipton 12/23, inquired about inpatient MRI #SAMY SAMY likely in the setting of dehydration. Likely prerenal in nature as patient dry on initial assessment. Fluid resuscitated with 1 L NSS bolus in addition to mIVF at 80 ml/hr x2L. SAMY improving at this point. Continue IVF until adequate PO. [] AM BMP [] encourage PO [] mIVF for now [] avoid nephrotoxics #Elevated troponin Patient with mild elevation of troponin = 14.7. Has peaked. EKG with non- specific changes. No complaint of chest pain [] tele #Depression Chronic. Continue Duloxetine 60mg po daily #HLD Chronic. Continue Pravastatin 40mg po daily #GERD Chronic. Protonix 40mg po daily F/E/N - mIVF NS 80 mL/hr, AHA diet as tolerated/easy to chew consistency with aspiration precautions. Continue home bowel regimen - Miralax, Dulcolax, MOM and Senokot Ppx - Low risk for DVT Code - Full per discussion with daughters at bedside Dispo - Admit to medical with telemetry (2) Elevated troponin: (3) SAMY (acute kidney injury): (4) Depression: (5) Hyperlipidemia: (6) GERD (gastroesophageal reflux disease): Admission and Anticipated Discharge Date Admission Date: December 22, 2022 Supervising Physician Co-Signing Physician Notes I personally examined the patient and verified all ibrahim points of history and exam, discussed case, and agree with decision making with Dr Mary Beth Vaughn. No HPI review of systems obtained today. Awaiting placement. Vitals noted. Breathing unlabored at rest. CBC, BMP noted. Failure to thrivelikely poor p.o. intake resulting in what seems to be moderate to severe protein calorie malnutrition and SAMY is likely from poor p.o. intake leading to dehydrationcontinue IV fluids, continue to encourage p.o. intake. PT/OT eval and treatanticipate rehab. Resident physician coordinating with patient's [place] subspecialists. Otherwise as above. Subjective Seen at bedside this AM. No complaints. No SOB or CP. Review of Systems Review of Systems: See HPI Physical Exam Physical Exam: General: patient laying comfortably in bed, frail appearing Skin: warm, dry, intact, no rashes or lesions HEENT: NC/AT, PERRL, anicteric sclera, conjunctiva without injection, external ear normal to inspection, nares patent, neck supple, trachea midline Heart: +S1/S2, regular, no m/r/g Lungs: equal air entry bilaterally, no rales/rhonchi/wheezes Abd: soft, NT/ND, no masses/organomegaly/ascites Ext: warm, no clubbing/cyanosis or edema Neuro: awake and alert - oriented to person and place Results & Data Results & Data Vital Signs (Past 12 Hours) Vital Signs Temp Pulse Pulse Resp BP Pulse Ox O2 Del Method 12/23/22 07:02 36.5 C 77 18 151/86 H 94 Room Air 12/22/22 23:00 76 12/23/22 03:00 37 C 74 18 150/93 H 96 Room Air 12/22/22 22:55 37 C 79 18 143/78 H 96 Room Air Laboratory Results 12/23/22 05:43 12/23/22 05:43 Resident Activity Tracking Resident Involvement: Resident Care Provided Care Provided: Adult Hospital Medicine
[2022-12-23] MEDS: DULoxetine HCL 60 MG CAP PO SCH (09:19)
[2022-12-23] MEDS: PANTOprazole 40 MG TAB PO SCH (09:19)
[2022-12-23] MEDS: HEPARIN SOD 5,000 UNIT/0.5 ML VIAL SQ SCH ×2 (09:19→20:11)
[2022-12-23] MEDS: PRAVASTATIN SOD 40 MG TAB PO SCH (16:41)
[2022-12-23] MEDS: SODIUM CHLORIDE 0.9% 1000ML 1,000 ML IV SCH (16:43)
--- NOTE | 2022-12-23 17:59 | Billing Data ---
Date of Service December 23, 2022 Coding Level of Care Code 53545 SUB INP/OBS CARE
[2022-12-24 04:12] LABS: 7-Aminoclonaz, Confirm NEGATIVE ng/mL (<25); Hydro-Alp Ur, GC/MS NEGATIVE ng/mL (<25); Hydroxyethylflurazepam, Conf NEGATIVE ng/mL (<50); Hydroxymidazolam Ur, GC/MS NEGATIVE ng/mL (<50); Hydroxytriazolam NEGATIVE ng/mL (<50); Lorazepam, Ur GC/MS NEGATIVE ng/mL (<50); Nordiazepam, Confirm NEGATIVE ng/mL (<50); Oxazepam Ur, GC/MS 191 ng/mL (<50); Temazepam, Confirm 72 ng/mL (<50)
[2022-12-24] MEDS: SODIUM CHLORIDE 0.9% 1000ML 1,000 ML IV SCH ×2 (05:04→19:38)
[2022-12-24 06:39] LABS: Hematocrit (blood only) 35.5 % (37.0-47.0); Hemoglobin 12.1 g/dl (12.0-16.0); Mean Corpuscular Hemoglobin 31.3 pg (25.0-34.0); Mean Corpuscular Hgb Conc 34.1 g/dL (32.0-36.0); Mean Corpuscular Volume 91.7 fL (80.0-100.0); Mean Platelet Volume 9.9 fL (9.4-12.4); Platelet Count 231 K/uL (130-400); RDW Coefficient of Variation 13.5 % (11.5-14.5); RDW Standard Deviation 45.6 fL (36.4-46.3); Red Blood Count 3.87 M/uL (4.20-5.40); White Blood Count 5.97 K/ul (4.8-10.8)
[2022-12-24 06:49] LABS: BUN Creatinine Ratio 20.7 (10-20); Calcium 9.8 mg/dl (8.6-10.3); Creatinine Clr Calc Pharmacy 30.4 ml/min; Est GFR (African American) 50.4 ml/min; Est GFR (Non-African American) 43.5 ml/min
[2022-12-24] MEDS ORDERED: LORazepam 1 MG TAB PO STA (07:07)
--- NOTE | 2022-12-24 07:13 | Hospitalist Progress Note ---
Date of Service December 24, 2022 Assessment & Plan (1) Tardive dyskinesia: Plan: 82 y/o female with history of tardive dyskinesia presented with abnormal movements and overall failure to thrive found to be dehydrated in addition to having a lapse in medications for tardive' dyskinesia. #Paranoid Delusions #Tardive Dyskinesia Patient was started on risperidone in 2013 for paranoid delusions. Developed tardive's dyskinesia around 0230-5048 thus this medicine with discontinued. Patient previously trialed Sinemet. This was discontinued 2/2 hallucinations. She was started on valbenazine (Ingrezza) for treatment of TD, but developed parkinsonian symptoms of bradykinesia, postural instability, and shuffling gait. This was discontinued at the end of November. She was prescribed deutetrabenazine (Austedo) in the beginning of December. Patient did not start receiving this medication until 12/20. In the interim she had worsening of her TD symptoms with multiple falls which lead to this admission. Likely this acute worsening is in the setting of lapse in treatment for TD. There may also be a pharmacokinetic component as patient presented with SAMY in the setting of dehydration and overall poor PO intake. Dr. Tipton, neurology, had discussed the possibility of getting an MRI outpatient. Discussed with him and we will order while inpatient to r/o new stroke. MRI without signs of new stroke. [] no medication changes at present, continue with Austedo [] CK elevated 331 [] neuro on board - appreciate recs #Dehydration Patient has difficulty maintaining adequate hydration. Significantly improved with IV hydration. Patient drinks very little on an outpatient basis maybe 20 or so ounces at most. Patient may benefit from intermittent fluid bolus outpatient to help maintain hydration. Would discuss with PCP. #SAMY SAMY likely in the setting of dehydration. Likely prerenal in nature as patient dry on initial assessment. Fluid resuscitated with 1 L NSS bolus in addition to mIVF at 80 ml/hr x2L. SAMY improving at this point. Continue IVF until adequate PO. [] AM BMP [] encourage PO [] mIVF for now [] avoid nephrotoxics #Elevated troponin Patient with mild elevation of troponin = 14.7. Has peaked. EKG with non- specific changes. No complaint of chest pain [] tele #Depression Chronic. Continue Duloxetine 60mg po daily #HLD Chronic. Continue Pravastatin 40mg po daily #GERD Chronic. Protonix 40mg po daily F/E/N - mIVF NS 80 mL/hr, AHA diet as tolerated/easy to chew consistency with aspiration precautions. Continue home bowel regimen - Miralax, Dulcolax, MOM and Senokot Ppx - Low risk for DVT Code - Full per discussion with daughters at bedside Dispo - Admit to medical with telemetry (2) Elevated troponin: (3) SAMY (acute kidney injury): (4) Depression: (5) Hyperlipidemia: (6) GERD (gastroesophageal reflux disease): Admission and Anticipated Discharge Date Admission Date: December 22, 2022 Supervising Physician Co-Signing Physician Notes I personally examined the patient and verified all ibrahim points of history and exam, discussed case, and agree with decision making with Dr Clinton Once again sleeping comfortably. No HPI review of systems obtained today. Awaiting placement. Vitals noted. Breathing unlabored at rest. MRI brain noted. CBC, BMP noted Failure to thrivelikely poor p.o. intake resulting in what seems to be moderate to severe protein calorie malnutrition and SAMY is likely from poor p.o. intake leading to dehydrationcontinue IV fluids, continue to encourage p.o. intake. PT/OT eval and treatanticipate rehab. Resident physician coordinating with patient's [place] subspecialists and updated on MRI. Otherwise as above. Subjective Seen at bedside this AM. No complaints. No SOB or CP. Review of Systems Review of Systems: See HPI Physical Exam Physical Exam: General: patient laying comfortably in bed, frail appearing Skin: warm, dry, intact, no rashes or lesions HEENT: NC/AT, PERRL, anicteric sclera, conjunctiva without injection, external ear normal to inspection, nares patent, neck supple, trachea midline Heart: +S1/S2, regular, no m/r/g Lungs: equal air entry bilaterally, no rales/rhonchi/wheezes Abd: soft, NT/ND, no masses/organomegaly/ascites Ext: warm, no clubbing/cyanosis or edema Neuro: awake and alert - oriented to person and place Results & Data Results & Data Vital Signs (Past 12 Hours) Vital Signs Temp Pulse Pulse Resp BP Pulse Ox O2 Del Method 12/24/22 02:35 36.5 C 84 20 155/94 H 95 Room Air 06/20/23 23:00 85 12/23/22 22:00 36.5 C 95 H 20 98 Room Air 12/23/22 19:34 36.5 C 90 20 157/100 H 95 Room Air Laboratory Results 12/24/22 05:55 12/24/22 05:55 Diagnostic Findings Brain MRI 12/24/22 06:52 MR brain wo con HISTORY: 82 years-old Female r/o stroke acute stroke like symptoms COMPARISON: 06/23/2021 TECHNIQUE: Multiplanar multisequence MRI of the brain was obtained without the use of IV contrast FINDINGS: No restricted diffusion. Involutional changes with extensive chronic microvascular ischemic disease. No acute intracranial hemorrhage, midline shift, abnormal extra axial collection, hydrocephalus or intracranial mass. Unchanged appearance of the left temporal bone and mastoid air cells. Cerebral venous sinuses and major arterial flow voids are patent. Unremarkable orbits and soft tissues. Paranasal sinuses are clear. IMPRESSION: 1. No acute intracranial abnormality. No acute or subacute infarct. 2. Involutional changes with chronic microvascular ischemic disease. Resident Activity Tracking Resident Involvement: Resident Care Provided Care Provided: Adult Hospital Medicine
[2022-12-24] MEDS: HEPARIN SOD 5,000 UNIT/0.5 ML VIAL SQ SCH ×2 (08:44→19:50)
[2022-12-24] MEDS: DULoxetine HCL 60 MG CAP PO SCH (08:44)
[2022-12-24] MEDS: PANTOprazole 40 MG TAB PO SCH (08:44)
--- NOTE | 2022-12-24 09:28 | Magnetic Resonance Report ---
MR brain wo con HISTORY: 82 years-old Female r/o stroke acute stroke like symptoms COMPARISON: 06/23/2021 TECHNIQUE: Multiplanar multisequence MRI of the brain was obtained without the use of IV contrast FINDINGS: No restricted diffusion. Involutional changes with extensive chronic microvascular ischemic disease. No acute intracranial hemorrhage, midline shift, abnormal extra axial collection, hydrocephalus or in tracranial mass. Unchanged appearance of the left temporal bone and mastoid air cells. Cerebral venou s sinuses and major arterial flow voids are patent. Unremarkable orbits and soft tissues. Paranasal s inuses are clear. IMPRESSION: 1. No acute intracranial abnormality. No acute or subacute infarct. 2. Involutional changes with chronic microvascular ischemic disease. ACT 112: Negative or not required by law. The above report was generated using voice recognition software. It may contain grammatical, syntax o r spelling errors. Electronically signed by: Cullen Francisco M.D. 12/24/2022 9:27 AM
[2022-12-24] MEDS: PRAVASTATIN SOD 40 MG TAB PO SCH (16:32)
--- NOTE | 2022-12-24 16:40 | Billing Data ---
Date of Service December 24, 2022 Coding Level of Care Code 24015 SUB INP/OBS CARE
[2022-12-25] MEDS: SODIUM CHLORIDE 0.9% 1000ML 1,000 ML IV SCH ×2 (05:39→19:47)
[2022-12-25 06:13] LABS: Hematocrit (blood only) 36.5 % (37.0-47.0); Hemoglobin 12.5 g/dl (12.0-16.0); Mean Corpuscular Hgb Conc 34.2 g/dL (32.0-36.0); Mean Corpuscular Volume 90.6 fL (80.0-100.0); Mean Platelet Volume 9.7 fL (9.4-12.4); Platelet Count 224 K/uL (130-400); RDW Coefficient of Variation 13.4 % (11.5-14.5); RDW Standard Deviation 44.4 fL (36.4-46.3); Red Blood Count 4.03 M/uL (4.20-5.40); White Blood Count 5.02 K/ul (4.8-10.8)
[2022-12-25 06:23] LABS: BUN Creatinine Ratio 16.2 (10-20); Calcium 9.5 mg/dl (8.6-10.3); Creatinine Clr Calc Pharmacy 33.6 ml/min; Est GFR (African American) 56.9 ml/min; Est GFR (Non-African American) 49.1 ml/min; Potassium 3.8 mmol/L (3.5-5.1)
[2022-12-25] MEDS: DULoxetine HCL 60 MG CAP PO SCH (08:26)
[2022-12-25] MEDS: PANTOprazole 40 MG TAB PO SCH (08:26)
[2022-12-25] MEDS: HEPARIN SOD 5,000 UNIT/0.5 ML VIAL SQ SCH ×2 (08:26→19:46)
--- NOTE | 2022-12-25 10:31 | Hospitalist Progress Note ---
Date of Service December 25, 2022 Assessment & Plan (1) Tardive dyskinesia: Plan: 82 y/o female with history of tardive dyskinesia presented with abnormal movements and overall failure to thrive found to be dehydrated in addition to having a lapse in medications for tardive's dyskinesia now stable and awaiting placement at [facility]. #Paranoid Delusions #Tardive Dyskinesia Patient was started on risperidone in 2013 for paranoid delusions. Developed tardive's dyskinesia around [id number] thus this medicine with discontinued. Patient previously trialed Sinemet. This was discontinued 2/2 hallucinations. She was started on valbenazine (Ingrezza) for treatment of TD, but developed parkinsonian symptoms of bradykinesia, postural instability, and shuffling gait. This was discontinued at the end of November. She was prescribed deutetrabenazine (Austedo) in the beginning of December. Patient did not start receiving this medication until 12/20. In the interim she had worsening of her TD symptoms with multiple falls which lead to this admission. Likely this acute worsening is in the setting of lapse in treatment for TD. There may also be a pharmacokinetic component as patient presented with SAMY in the setting of dehydration and overall poor PO intake. CK [address] Tipton, neurology, had discussed the possibility of getting an MRI outpatient. Discussed with him and we will order while inpatient to r/o new stroke. MRI without signs of new stroke. Will continue with Austedo at this time. #Dehydration Patient has difficulty maintaining adequate hydration. Significantly improved with IV hydration. Patient drinks very little on an outpatient basis maybe 20 or so ounces at most. Patient may benefit from intermittent fluid bolus outpatient to help maintain hydration. Would discuss with PCP. #SAMY SAMY likely in the setting of dehydration. Likely prerenal in nature as patient dry on initial assessment. Fluid resuscitated with 1 L NSS bolus in addition to mIVF at 80 ml/hr x2L. SAMY improving at this point. Continue IVF until adequate PO. [] AM BMP [] encourage PO [] mIVF for now [] avoid nephrotoxics #Elevated troponin Patient with mild elevation of troponin = 14.7. Has peaked. EKG with non- specific changes. No complaint of chest pain [] tele #Depression Chronic. Continue Duloxetine 60mg po daily #HLD Chronic. Continue Pravastatin 40mg po daily #GERD Chronic. Protonix 40mg po daily F/E/N - mIVF NS 80 mL/hr, AHA diet as tolerated/easy to chew consistency with aspiration precautions. Continue home bowel regimen - Miralax, Dulcolax, MOM and Senokot Ppx - Low risk for DVT Code - Full per discussion with daughters at bedside Dispo - Admit to medical with telemetry Family - updated 12/24 (2) Elevated troponin: (3) SAMY (acute kidney injury): (4) Depression: (5) Hyperlipidemia: (6) GERD (gastroesophageal reflux disease): Admission and Anticipated Discharge Date Admission Date: December 22, 2022 Supervising Physician Co-Signing Physician Notes I personally examined the patient and verified all ibrahim points of history and exam, discussed case, and agree with decision making with Dr Clinton Sleeping comfortably. Does not awaken to voice. No new issues identified on chart review, or discussion with resident physician. Vitals noted, in general she is resting comfortably no distress. Breathing unlabored no accessory muscle use, no focal neurodeficits at rest, interestingly no lipsmacking at rest either. Skin without rashes pallor or icterus. Failure to thrivelikely poor p.o. intake resulting in what seems to be moderate to severe protein calorie malnutrition and SAMY is likely from poor p.o. intake leading to dehydrationcontinue IV fluids, continue to encourage p.o. intake. PT/OT eval and treatstable for rehab once approved/available. Resident physician coordinating with patient's [facility] subspecialists and updated on MRI yesterday. Otherwise as above. Subjective Patient seen at bedside this AM. Doing well. No complaints. No CP or SOB. No abdominal pain or calf pain. Review of Systems Review of Systems: See HPI Physical Exam Physical Exam: General: patient laying comfortably in bed, frail appearing Skin: warm, dry, intact, no rashes or lesions HEENT: NC/AT, PERRL, anicteric sclera, conjunctiva without injection, external ear normal to inspection, nares patent, neck supple, trachea midline Heart: +S1/S2, regular, no m/r/g Lungs: equal air entry bilaterally, no rales/rhonchi/wheezes Abd: soft, NT/ND, no masses/organomegaly/ascites Ext: warm, no clubbing/cyanosis or edema Neuro: awake and alert - oriented to person and place Results & Data Results & Data Vital Signs (Past 12 Hours) Vital Signs Temp Pulse Pulse Resp BP Pulse Ox O2 Del Method 12/25/22 08:09 36.9 C 70 20 162/108 H 98 Room Air 12/25/22 02:54 37.3 C 79 22 168/107 H 96 Room Air 12/24/22 23:26 77 12/24/22 22:45 37.0 C 81 21 173/103 H 98 Room Air Resident Activity Tracking Resident Involvement: Resident Care Provided Care Provided: Adult Hospital Medicine
[2022-12-25] MEDS: PRAVASTATIN SOD 40 MG TAB PO SCH (16:35)
--- NOTE | 2022-12-25 16:46 | Billing Data ---
Date of Service December 25, 2022 Coding Level of Care Code 99685 SUB INP/OBS CARE
[2022-12-26 08:05] LABS: Hematocrit (blood only) 39.7 % (37.0-47.0); Hemoglobin 13.4 g/dl (12.0-16.0); Mean Corpuscular Hemoglobin 31.4 pg (25.0-34.0); Mean Corpuscular Hgb Conc 33.8 g/dL (32.0-36.0); Mean Platelet Volume 9.8 fL (9.4-12.4); Platelet Count 236 K/uL (130-400); RDW Coefficient of Variation 13.4 % (11.5-14.5); RDW Standard Deviation 45.2 fL (36.4-46.3); Red Blood Count 4.27 M/uL (4.20-5.40); White Blood Count 5.77 K/ul (4.8-10.8)
[2022-12-26 08:25] LABS: BUN Creatinine Ratio 15.9 (10-20); Calcium 9.7 mg/dl (8.6-10.3); Est GFR (African American) 45.6 ml/min; Est GFR (Non-African American) 39.4 ml/min
[2022-12-26] MEDS: SODIUM CHLORIDE 0.9% 1000ML 1,000 ML IV SCH ×2 (08:39→21:55)
[2022-12-26] MEDS: PANTOprazole 40 MG TAB PO SCH (08:41)
[2022-12-26] MEDS: HEPARIN SOD 5,000 UNIT/0.5 ML VIAL SQ SCH ×2 (08:41→20:22)
[2022-12-26] MEDS: DULoxetine HCL 60 MG CAP PO SCH (08:41)
[2022-12-26] MEDS: PRAVASTATIN SOD 40 MG TAB PO SCH (16:10)
--- NOTE | 2022-12-26 16:34 | Billing Data ---
Date of Service December 26, 2022 Coding Level of Care Code 11783 SUB INP/OBS CARE
[2022-12-26] MEDS ORDERED: MELATONIN 3 MG TAB PO SCH (21:00)
[2022-12-27 07:41] LABS: Hematocrit (blood only) 34.8 % (37.0-47.0); Hemoglobin 11.5 g/dl (12.0-16.0); Mean Corpuscular Hemoglobin 30.7 pg (25.0-34.0); Mean Corpuscular Volume 92.8 fL (80.0-100.0); Mean Platelet Volume 9.8 fL (9.4-12.4); Platelet Count 240 K/uL (130-400); RDW Coefficient of Variation 13.7 % (11.5-14.5); RDW Standard Deviation 46.6 fL (36.4-46.3); Red Blood Count 3.75 M/uL (4.20-5.40); White Blood Count 5.17 K/ul (4.8-10.8)
[2022-12-27 07:58] LABS: BUN Creatinine Ratio 15.7 (10-20); Calcium 9.3 mg/dl (8.6-10.3); Creatinine Clr Calc Pharmacy 27.8 ml/min; Est GFR (African American) 45.2 ml/min; Potassium 3.9 mmol/L (3.5-5.1)
[2022-12-27] MEDS: DULoxetine HCL 60 MG CAP PO SCH (08:47)
[2022-12-27] MEDS: PANTOprazole 40 MG TAB PO SCH (08:47)
[2022-12-27] MEDS: HEPARIN SOD 5,000 UNIT/0.5 ML VIAL SQ SCH (08:48)
[2022-12-27] MEDS: SODIUM CHLORIDE 0.9% 1000ML 1,000 ML IV SCH (09:41)
--- NOTE | 2022-12-27 16:00 | Discharge Summary ---
Date of Service December 27, 2022 Admission HPI Per Admitting Provider Sharron Emery is an 82yo female with history of HTN, HLP, GERD, Depression and Tardive dyskinesia presenting with abnormal movement and failure to thrive. Patient follows with Dr. Tipton in [facility]. She was previously being treated with Ingrezza (Valbenazine) for her tardive dyskinesia. While she was on Ingrezza she developed shuffling gait, bradykinesia and postural instability. She fell twice in November 2022 which required hospitalization and inpatient rehabilitation at [facility] (11/25/22 - 12/05/22). Her Neurologist discontinued her Ingrezza due to concern that the medication was contributing to Parkinsonian symptoms. Patient was seen by Neurology on December 05, 2022 and was started on Austedo for her tardive dyskinesia. There was some delay in obtaining the medication and she ultimately started it on 12/20/22 at 6mg po BID. She has had 3 doses of this medication so far. She was not on any medication for her tardive dyskinesia in the interim. She was discharged from [facility] on 12/05/2022 Patient's daughter visited her at [facility] this evening and was very concerned about how her mother looked. She reports that she was much thinner than when she saw her last (appx 2 weeks prior). She was also very restless, pacing around and marching in place at times (daughter has video of this on her phone which she shared with me). She also reports delayed verbal response and slurred speech at times. They have also noted increased movements of her mouth and twisting her head to the left as well as rolling her eyes to the left. Patient has not been eating well for the last several days and has not slept for 2 days. She also had two unwitnessed falls at [facility] on 12/18/22. Additional complaints include clamminess, nausea, dizziness and "stomach business" leading to poor appetite and decreased oral intake. Also with loose stools. In the ER patient is afebrile, HD stable. ER Course: Benadryl 25mg IV Lorazepam 0.5mg IV NSS x 1L Admission Exam Per Admitting Provider General: patient sleeping, NAD, opens eyes slightly to verbal stimuli Skin: warm, dry, intact, no rashes or lesions HEENT: NC/AT, PERRL, anicteric sclera, conjunctiva without injection, external ear normal to inspection and nontender, nares patent,slightly dry lips and mucus membranes, no oropharyngeal lesions, neck supple, trachea midline, no LAD, no thyromegaly, no JVD Heart: +S1/S2, regular, no m/r/g Lungs: equal air entry bilaterally, no rales/rhonchi/wheezes Abd: +BS, soft, NT/ND, no masses/organomegaly/ascites Ext: warm, 2+ pulses in UE/LE bilaterally, no clubbing/cyanosis or edema Neuro: patient sleeping after receiving medication, withdraws all 4 extremities to stimuli Principal Diagnosis Tardive dyskinesia, dehydration Discharge Exam General: patient asleep in bed, easily roused by voice. In no acute distress. Skin: warm, dry, intact, no rashes or lesions HEENT: NC/AT, PERRL, anicteric sclera, conjunctiva without injection, external ear normal to inspection, nares patent, neck supple, trachea midline Heart: +S1/S2, regular, no m/r/g Lungs: equal air entry bilaterally, no rales/rhonchi/wheezes Abd: soft, NT/ND, no masses/organomegaly/ascites Ext: warm, no clubbing/cyanosis or edema Neuro: awake and alert - oriented to person and place Discharge Data Allergies Allergy/AdvReac Type Severity Reaction Status Date / Time acetaminophen Allergy Intermediate RASH Verified 12/21/22 20:43 adhesive Allergy Intermediate RASH Verified 12/21/22 20:43 Penicillins Allergy Intermediate RASH Verified 12/21/22 20:43 codeine AdvReac Intermediate GI SYMPTOMS Verified 12/21/22 20:43 hydrocodone AdvReac Intermediate GI SYMPTOMS Verified 12/21/22 20:43 Consultations 12/21/22 22:05 ED Decision to Admit Stat 12/22/22 02:46 Consult Neurology Routine Ordered Studies 12/21/22 19:58 CT head/brain wo con Stat 12/24/22 06:52 MRI Brain [MR brain wo con] Urgent Hospital Course (1) Tardive dyskinesia: 82 y/o female with history of tardive dyskinesia presented with abnormal movements and overall failure to thrive found to be dehydrated in addition to having a lapse in medications for tardive's dyskinesia now stable and awaiting placement at [facility]. #Paranoid Delusions #Tardive Dyskinesia Patient was started on risperidone in 2013 for paranoid delusions. Developed tardive's dyskinesia around [id number] thus this medicine with discontinued. Patient previously trialed Sinemet. This was discontinued 2/2 hallucinations. She was started on valbenazine (Ingrezza) for treatment of TD, but developed parkinsonian symptoms of bradykinesia, postural instability, and shuffling gait. This was discontinued at the end of November. She was prescribed deutetrabenazine (Austedo) in the beginning of December. Patient did not start receiving this medication until 12/20. In the interim she had worsening of her TD symptoms with multiple falls which lead to this admission. Likely this acute worsening is in the setting of lapse in treatment for TD. There may also be a pharmacokinetic component as patient presented with SAMY in the setting of dehydration and overall poor PO intake. CK [address] Tipton, neurology, had discussed the possibility of getting an MRI outpatient. Discussed with him and we will order while inpatient to r/o new stroke. MRI without signs of new stroke. Will continue with Austedo at this time. #Dehydration Patient has difficulty maintaining adequate hydration. Significantly improved with IV hydration. Patient drinks very little on an outpatient basis maybe 20 or so ounces at most. Patient may benefit from intermittent fluid bolus outpatient to help maintain hydration. Would discuss with PCP. #SAMY SAMY likely in the setting of dehydration. Likely prerenal in nature as patient dry on initial assessment. Fluid resuscitated with 1 L NSS bolus in addition to mIVF at 80 ml/hr x2L. SAMY improving at this point. Continue IVF until adequate PO. [] AM BMP [] encourage PO [] mIVF for now [] avoid nephrotoxics #Elevated troponin Patient with mild elevation of troponin = 14.7. Has peaked. EKG with non- specific changes. No complaint of chest pain [] tele #Depression Chronic. Continue Duloxetine 60mg po daily #HLD Chronic. Continue Pravastatin 40mg po daily #GERD Chronic. Protonix 40mg po daily (2) Elevated troponin: (3) SAMY (acute kidney injury): (4) Depression: (5) Hyperlipidemia: (6) GERD (gastroesophageal reflux disease): Total Time Total Time Spent Total Time Spent (In Minutes): <30 Discharge Plan Discharge Items Patient Disposition: Transfer Inpatient Rehab Fac Reason For Visit: ABNORMAL MOVEMENT Discharge Diagnosis: dehydration Activity: Per Instructions section Non-emergency contact: Primary Care Provider and Neurologist Call non-emergency contact if: your symptoms worsen and your temperature is above 101.5 Follow-up/Referrals: Julio Jones [Primary Care Provider] - Diet: Heart Healthy Diet Texture: Easy to Chew Addtl Attending Provider Instructions: 82 y/o female with history of tardive dyskinesia presented with abnormal movements and overall failure to thrive found to be dehydrated in addition to having a lapse in medications for tardive's dyskinesia now stable and awaiting placement at [facility]. #Paranoid Delusions #Tardive Dyskinesia Patient was started on risperidone in 2013 for paranoid delusions. Developed tardive's dyskinesia around [id number] thus this medicine with discontinued. Patient previously trialed Sinemet. This was discontinued 2/2 hallucinations. She was started on valbenazine (Ingrezza) for treatment of TD, but developed parkinsonian symptoms of bradykinesia, postural instability, and shuffling gait. This was discontinued at the end of November. She was prescribed deutetrabenazine (Austedo) in the beginning of December. Patient did not start receiving this medication until 12/20. In the interim she had worsening of her TD symptoms with multiple falls which lead to this admission. Likely this acute worsening is in the setting of lapse in treatment for TD. There may also be a pharmacokinetic component as patient presented with SAMY in the setting of dehydration and overall poor PO intake. CK [address] Tipton, neurology, had discussed the possibility of getting an MRI outpatient. Discussed with him and we will order while inpatient to r/o new stroke. MRI without signs of new stroke. Will continue with Austedo at this time. #Dehydration #Failure to Thrive Patient has difficulty maintaining adequate hydration. Significantly improved with IV hydration. Patient drinks very little on an outpatient basis maybe 20 or so ounces at most. Patient may benefit from intermittent fluid bolus outpatient to help maintain hydration vs mIVF while at skilled. Would discuss with PCP. #SAMY - resolved SAMY likely in the setting of dehydration. Likely prerenal in nature as patient dry on initial assessment. Adequately fluid resuscitated. #Elevated troponin Patient with mild elevation of troponin = 14.7. Has peaked. EKG with non- specific changes. No complaint of chest pain #Depression Chronic. Continue Duloxetine 60mg po daily #HLD Chronic. Continue Pravastatin 40mg po daily #GERD Chronic. Protonix 40mg po daily F/E/N - mIVF NS 80 mL/hr, AHA diet as tolerated/easy to chew consistency with aspiration precautions. Continue home bowel regimen - Miralax, Dulcolax, MOM and Senokot Ppx - Low risk for DVT Code - Full per discussion with daughters at bedside Dispo - Admit to medical with telemetry Family - updated 12/24 Pending Studies at Discharge: No Stand-Alone Forms: My [facility] Skilled Items Patient informed of condition?: Yes DNR: No Discharge Level of Care: Skilled Communicable Disease: No Discharge Prognosis: Stable Lines: None Urinary Catheter: No Medications and DC Order Prescriptions: Continued omeprazole 20 mg capsule,delayed release(DR/EC) 20 mg PO DAILYBB polyethylene glycol 3350 [Miralax] 17 gram/dose Powder 17 g PO DAILY PRN (Reason: Constipation) duloxetine 60 mg Capsule,Delayed Release(Dr/Ec) 60 mg PO DAILY loperamide [Imodium A-D] 2 mg Capsule 2 mg PO Q4H PRN (Reason: loose stools) L'Osei Jimenezers Gummy Bear Viy 2 ea PO DAILY Rx Instructions: 2 gummies daily Ingrezza 40 mg capsule 40 mg PO QAM Hold Instructions: Resume on 01/02/23. Hold until follow up with your Neurologist for further recommendations. omega-3 fatty acids 1,000 mg Capsule 1,000 mg PO BID pravastatin 40 mg tablet 40 mg PO QDD Therems-M 9 mg iron-400 mcg Tablet 1 tab PO DAILY sennosides-docusate sodium [Senna-Time S] 8.6-50 mg Tablet 1 tab-cap PO QDL PRN (Reason: Constipation) food supplemt, lactose-reduced Liquid 1 ea PO TID Rx Instructions: drink can of BOOST VERY VANILLA three times a day magnesium hydroxide [Milk of Magnesia] 400 mg/5 mL Suspension 30 ml PO DAILY PRN (Reason: Constipation) bisacodyl [Dulcolax (bisacodyl)] 10 mg Suppository 10 mg AR DAILY PRN (Reason: Constipation) Austedo 6 mg tablet 6 mg PO BID losartan 25 mg Tablet 25 mg PO QAM Qty: 30 0RF Discharge Orders: Discharge Order (Routine); Ordered 12/27/22 Ordered By: Clinton Barajas Admission Data Admit Date/Time: 12/22/22 00:53 Attending Provider: Cesar Gibson Admit Provider: Louann Lombardo [facility] Other Providers: Marisa Bah ; [facility] ; Louann Lombardo Other Interventions: Discharge Summary Assessment (RN) Last Done: 12/27/22 13:10 Supervising Physician Co-Signing Physician Notes I personally examined the patient and verified all ibrahim points of history and exam, discussed case, and agree with decision making with Dr Jenn peña, opens eyes. No new issues identified on chart review, or discussion with resident physician. Vitals noted, in general she is resting comfortably no distress awakens and makes eye contact. Breathing unlabored no accessory muscle use, no focal neurodeficits at rest. Skin without rashes pallor or icterus. Failure to thrivelikely poor p.o. intake resulting in what seems to be moderate to severe protein calorie malnutrition and SAMY is likely from poor p.o. intake leading to dehydrationcontinue IV fluids, continue to encourage p.o. intake. PT/OT eval and treatstable for rehab once approved/available. Resident physician coordinating with patient's [facility] subspecialists and updated on MRI. Otherwise as above. Stable for rehab Resident Activity Tracking Resident Involvement: Resident Care Provided Care Provided: Adult Hospital Medicine
--- NOTE | 2022-12-27 19:14 | Billing Data ---
Date of Service December 27, 2022 Coding Level of Care Code 27193 IN/OBS DISCH 30 MIN/LESS
--- NOTE | 2022-12-27 19:17 | Communication Note ---
Date of Service: December 26, 2022 late addendum - date of service 12/26 -getting up with therapybright and alert. No issues identified. Vitals noted, in general she is awake and alert pleasant no distress. HEENT normocephalic atraumatic mucous membranes moist. Breathing unlabored no accessory muscle use good effort. Skin shows no rashes no pallor or icterus. Neuro without focal deficits. Weakness/deconditioningPT/OT eval and treatfor rehabstable once bed available.
== END 2022-12-27 15:42 | DRG 682 ==
LOC: ED 19:34 → SUATTDRO 12-22 00:53 → 2E 12-22 00:53 → 3W 12-25 21:24

== ENCOUNTER 2023-10-28 13:08 | Inpatient (IN) ==
--- NOTE | 2023-10-28 13:43 | Emergency Department Note ---
Impression & Plan Acute alteration in mental status, Encephalopathy acute, Acute dehydration ED Provider Note NAME: TAMARA ROBLES AGE: 83 SEX: F : 1940 ARRIVES VIA: Ambulance INFORMANT: Patient, ED PROVIDER(S): Enrique Marmolejo DO CHIEF COMPLAINT: Possible seizure HPI: The patient is an 80-year-old female who presented to the emergency department by ambulance for an evaluation of possible seizure. The patient has her daughter with her today. She was brought to the emergency department at the daughter's request when the daughter was notified and told that patient had a seizure which was described as generalized tonic-clonic. The patient offers no complaints. She is very listless and falls asleep easily but her daughter states this is not new and has been ongoing for many months. There is been no changes to the medications according to the patient's daughter. The patient was not seen by the primary care physician but sent to the emergency department. ROS: See above HPI for pertinent positives & negatives. A total of 10 systems reviewed and were otherwise negative. PAST MEDICAL HISTORY: See Below PAST SURGICAL HISTORY: See Below FAMILY HISTORY: See Below SOCIAL HISTORY: See Below HOME MEDICATIONS: See Below ALLERGIES: See Below VITALS: See Below PHYSICAL EXAMINATION: GENERAL: The patient is listless but awakens to verbal commands. She falls asleep easily when not stimulated. EARS, NOSE, MOUTH AND THROAT: The nose is without any evidence of any deformity. NECK: The neck is nontender and supple. RESPIRATORY: Normal respiratory effort is noted there is no evidence of wheezing rhonchi or rales CARDIOVASCULAR: Regular rate and rhythm noted there no murmurs rubs or gallops normal S1 normal S2. GASTROINTESTINAL: The abdomen is soft. Abdomen is nontender. MUSCULOSKELETAL/EXTREMITIES: There is no evidence of gross deformity full range of motion is noted in the hips and shoulders. SKIN: There is no obvious evidence of any rash. There are no petechiae, pallor or cyanosis noted. NEUROLOGIC: Patient is awake to verbal commands. The patient falls asleep quickly. She does recognize her daughter. She is oriented to person and place. Strength was symmetric. Professor Of English strength was symmetric. There was no drift. MEDICAL DECISION MAKING: The patient is an 83-year-old female who presented to the emergency department for possible seizure-like activity. The patient was awake to verbal commands but tries to fall asleep very easily. The patient appeared to be dehydrated and was treated with IV fluids. I discussed the patient's laboratory and radiographic studies with her and her daughter. The patient's daughter is not comfortable the patient being discharged back to personal intermediate and she is not at her baseline. I discussed this case with the [facility] hospitalist group. Triage Nursing notes reviewed. Prior medical records reviewed Vital Signs: reviewed and remarkable for no significant abnormalities Differential diagnosis: Epilepsy, infection, hypoglycemia, electrolyte abnormalities, cardiac sources, intracerebral event, trauma, toxicologic, neurologic, syncope, as well as other pathologies. ER treatment provided: See below Diagnostics interpreted by me: ECG: EKG was obtained in the emergency department. My interpretation is sinus rhythm at 81 bpm. First-degree AV block was noted. There is no ectopy. There was no acute ST segment abnormalities noted. This was compared to a tracing from December 21, 2022. No changes were noted. Cardiac Monitoring: An order was placed for continuous cardiac monitoring. The monitor shows a rate of 77 bpm with sinus rhythm. Laboratory studies: As stated above and show below. Imaging studies: See below. Radiographic imaging was reviewed by myself Consultation(s): Dr. Peterson was noted about the patient. 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 Beliefs That Will Affect Care: None marital status: / Current Living Situation: Legal Guardian Current Living Situation Comment: [place] Feels Safe at Home: Yes Assistive Devices: Walker Allergies Allergies Allergy/AdvReac Type Severity Reaction Status Date / Time acetaminophen Allergy Intermediate RASH Verified 12/21/22 20:43 adhesive Allergy Intermediate RASH Verified 12/21/22 20:43 Penicillins Allergy Intermediate RASH Verified 12/21/22 20:43 codeine AdvReac Intermediate GI SYMPTOMS Verified 12/21/22 20:43 hydrocodone AdvReac Intermediate GI SYMPTOMS Verified 12/21/22 20:43 Home Meds Home Medications Medication Instructions Recorded Confirmed Enrico'Osei Smith Viy 2 ea PO DAILY 06/14/21 12/21/22 duloxetine 60 mg capsule,delayed 60 mg PO DAILY 06/14/21 12/21/22 release loperamide 2 mg capsule (Imodium 2 mg PO Q4H PRN loose stools 06/14/21 12/21/22 A-D) omeprazole 20 mg capsule,delayed 20 mg PO DAILYBB 06/14/21 12/21/22 release polyethylene glycol 3350 17 17 g PO DAILY PRN Constipation 06/14/21 12/21/22 gram/dose oral powder (Miralax) bisacodyl 10 mg rectal suppository 10 mg AL DAILY PRN Constipation 11/19/22 12/21/22 (Dulcolax (bisacodyl)) food supplemt, lactose-reduced 1 ea PO TID 11/19/22 12/21/22 magnesium hydroxide 400 mg/5 mL 30 ml PO DAILY PRN Constipation 11/19/22 12/21/22 oral suspension (Milk of Magnesia) multivitamin-iron 9 mg-folic acid 1 tab PO DAILY 11/19/22 12/21/22 400 mcg-calcium and minerals tablet (Therems-M) omega-3 fatty acids 1,000 mg 1,000 mg PO BID 11/19/22 12/21/22 capsule pravastatin 40 mg tablet 40 mg PO QDD 11/19/22 12/21/22 sennosides 8.6 mg-docusate sodium 1 tab-cap PO QDL PRN Constipation 11/19/22 12/21/22 50 mg tablet (Senna-Time S) valbenazine 40 mg capsule 40 mg PO QAM 11/19/22 12/21/22 (Ingrezza) deutetrabenazine 6 mg tablet 6 mg PO BID 12/21/22 12/21/22 (Austedo) Previous Rx's Medication Instructions Recorded losartan 25 mg tablet 25 mg PO QAM #30 tabs 11/25/22 Results & Data (ED) Vital Signs Vital Signs - 24 hr 04/24/24 13:19 10/28/23 13:31 10/28/23 14:02 Temperature 36.7 C Temperature Source Oral Pulse Rate 78 83 83 Pulse Rate [Right Finger] Respiratory Rate 18 16 20 Respiratory Effort / Characteristics Non-Labored Spontaneous Respiratory Depth Normal Blood Pressure 158/95 H 164/94 H 129/84 Blood Pressure [Right Arm] Blood Pressure Mean 116 117 99 Blood Pressure Mean [Right Arm] Pulse Oximetry 95 92 93 Oxygen Delivery Method Room Air Room Air Room Air Sepsis Recent Fever Within 48 Hours No Sepsis New/Unexplained Change in Mental Status N/A Sepsis Action Taken by Nursing No Action Required 10/28/23 14:29 10/28/23 14:30 10/28/23 15:00 Temperature Temperature Source Pulse Rate 81 75 75 Pulse Rate [Right Finger] Respiratory Rate 18 22 Respiratory Effort / Characteristics Respiratory Depth Blood Pressure 135/89 141/86 H Blood Pressure [Right Arm] Blood Pressure Mean 104 104 Blood Pressure Mean [Right Arm] Pulse Oximetry 95 93 Oxygen Delivery Method Room Air Room Air Sepsis Recent Fever Within 48 Hours Sepsis New/Unexplained Change in Mental Status Sepsis Action Taken by Nursing 10/28/23 16:36 10/28/23 16:36 Temperature Temperature Source Pulse Rate 87 Pulse Rate [Right Finger] 77 Respiratory Rate 18 18 Respiratory Effort / Characteristics Respiratory Depth Blood Pressure Blood Pressure [Right Arm] 128/82 Blood Pressure Mean Blood Pressure Mean [Right Arm] 97 Pulse Oximetry 96 96 Oxygen Delivery Method Room Air Room Air Sepsis Recent Fever Within 48 Hours Sepsis New/Unexplained Change in Mental Status Sepsis Action Taken by Usp Medications Current Medication List: was personally reviewed by me Laboratory Data Attestation: I reviewed the patient's lab results. 10/28/23 13:31 10/28/23 13:31 Lab Results 10/28/23 10/28/23 Range/Units 13:31 14:38 WBC 6.63 (4.8-10.8) K/ul RBC 4.42 (4.20-5.40) M/uL Hgb 13.1 (12.0-16.0) g/dl Hct 41.3 (37.0-47.0) % MCV 93.4 (80.0-100.0) fL MCH 29.6 (25.0-34.0) pg MCHC 31.7 L (32.0-36.0) g/dL RDW Std Deviation 45.3 (36.4-46.3) fL RDW Coeff of Miguel A 13.3 (11.5-14.5) % Plt Count 279 (130-400) K/uL MPV 9.4 (9.4-12.4) fL Immature Gran % (Auto) 0.3 % Neut % (Auto) 56.0 % Lymph % (Auto) 29.0 % Drew % (Auto) 10.3 % Eos % (Auto) 3.6 % Baso % (Auto) 0.8 % Neut # (Auto) 3.72 (1.40-6.50) K/uL Lymph # (Auto) 1.92 (1.20-3.40) K/uL Drew # (Auto) 0.68 H (0.11-0.59) K/uL Eos # (Auto) 0.24 (0.00-0.50) K/uL Baso # (Auto) 0.05 (0.00-0.20) K/uL Immature Gran # (Auto) 0.02 (0.01-0.20) K/uL PT 10.9 (9.0-12.0) Seconds INR 1.0 (0.9-1.1) APTT 29 (21-31) Seconds PTT Ratio 1.0 VBG pH 7.32 L (7.36-7.41) VBG pCO2 48 (38-50) mmHg VBG pO2 24 mmHg VBG HCO3 25 mmol/L VBG O2 Saturation < 60.0 % VBG Base Excess -1.8 mEq/L Sodium 138 (136-145) mmol/L Potassium 4.8 (3.5-5.1) mmol/L Chloride 109 H (98-107) mmol/L Carbon Dioxide 25 (21-32) mmol/L Anion Gap 4 (3-11) BUN 33 H (6-23) mg/dl Creatinine 1.54 H (0.6-1.2) mg/dl Est Cr Clr Drug Dosing 24.4 ml/min Est GFR ( Amer) 35.5 ml/min Est GFR (Non-Af Amer) 30.7 ml/min BUN/Creatinine Ratio 21.4 H (10-20) Glucose 89 (70-99(Fasting)) mg/dl Calcium 9.9 (8.6-10.3) mg/dl Magnesium 1.9 (1.7-2.4) mg/dl Total Bilirubin 0.3 (0.2-1.0) mg/dl AST 18 (13-39) U/L ALT 8 (7-52) U/L Alkaline Phosphatase 81 (34-104) U/L Ammonia 14.0 L (18-72) umol/L Troponin I High Sens 6.1 (0-14) pg/ml Total Protein 7.3 (6.0-8.3) gm/dl Albumin 3.8 (3.4-5.0) gm/dl Globulin 3.5 (2.5-4.0) gm/dl Albumin/Globulin Ratio 1.1 (0.9-2) TSH 0.894 (0.300-4.500) uIu/ml Administered Medications Discontinued Medications Sodium Chloride (Nss) 500 mls @ 999 mls/hr IV .Q31M JENELLE Stop: 10/28/23 14:15 Last Admin: 10/28/23 13:47 Dose: Not Given Documented By: FLAQUITO Sodium Chloride (Nss) 500 mls @ 999 mls/hr IV .Q31M ONE Stop: 10/28/23 14:09 Last Infusion: 10/28/23 14:38 Dose: Infused Documented By: Admin: 10/28/23 13:47 Dose: 999 mls/hr Documented By: FLAQUITO Imaging Data Attestation: I personally reviewed and interpreted this imaging study as follows: My Impression: 1 view chest x-ray was obtained in the emergency department. My interpretation is no free air or definite full tray, final report below. CT of the brain was obtained in the emergency department. My interpretation is no intracranial hemorrhage or mass effect, final report below for Radiologist's Impression: Chest X-Ray 10/28/23 13:33 XR chest 1V portable CLINICAL HISTORY: possible seizure COMPARISON STUDY: Chest radiograph December 21, 2022. FINDINGS: Lung volumes are normal. Lungs are clear. There is no pneumothorax or pleural effusion. Cardiac size is stable. Mediastinal contours are normal. There is no evidence for pulmonary edema. IMPRESSION: No acute cardiopulmonary findings. No change in appearance of the chest. ACT 112: Negative or not required by law. Electronically signed by: Sampson Baker M.D. 10/28/2023 1:[address] 10/28/23 13:[address] DOSE: 625.8 mGy.cm HISTORY: Confusion. syncope TECHNIQUE: Multiaxial CT images of the head were performed without the use of intravenous contrast. Automated exposure control was utilized for this study. A dose lowering technique was utilized adhering to the principles of ALARA. Comparison: Head CT 12/21/2022. Findings: The paranasal sinuses and mastoid air cells are clear. The calvarium and skull base are intact. There is no mass, hematoma, midline shift, acute infarct. White matter hypodensity is nonspecific but suggestive of microvascular ischemic change. The ventricles and sulci demonstrate moderate age-related involutional changes. 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 Impression: No acute intracranial abnormality. Atrophy and microvascular ischemic changes. ACT 112: Negative or not required by law. Electronically signed by: Aaron Dobson M.D. 10/28/2023 3:18 PM Discharge Plan Visit Data Chief Complaint: Seizure ED Provider: Enrique Marmolejo Discharge Problem: Acute alteration in mental status, Encephalopathy acute, Acute dehydration Patient Disposition: Being Evaluated by Hospitalist Forms Stand Alone Forms: My [facility] Prescriptions Prescriptions: No Action omeprazole 20 mg capsule,delayed release(DR/EC) 20 mg PO DAILYBB polyethylene glycol 3350 [Miralax] 17 gram/dose Powder 17 g PO DAILY PRN (Reason: Constipation) duloxetine 60 mg Capsule,Delayed Release(Dr/Ec) 60 mg PO DAILY loperamide [Imodium A-D] 2 mg Capsule 2 mg PO Q4H PRN (Reason: loose stools) L'Il Critters Gummy Bear Viy 2 ea PO DAILY Rx Instructions: 2 gummies daily Ingrezza 40 mg capsule 40 mg PO QAM Hold Instructions: Resume on 01/02/23. Hold until follow up with your Neurologist for further recommendations. omega-3 fatty acids 1,000 mg Capsule 1,000 mg PO BID pravastatin 40 mg tablet 40 mg PO QDD Therems-M 9 mg iron-400 mcg Tablet 1 tab PO DAILY sennosides-docusate sodium [Senna-Time S] 8.6-50 mg Tablet 1 tab-cap PO QDL PRN (Reason: Constipation) food supplemt, lactose-reduced Liquid 1 ea PO TID Rx Instructions: drink can of BOOST VERY VANILLA three times a day magnesium hydroxide [Milk of Magnesia] 400 mg/5 mL Suspension 30 ml PO DAILY PRN (Reason: Constipation) bisacodyl [Dulcolax (bisacodyl)] 10 mg Suppository 10 mg AL DAILY PRN (Reason: Constipation) Austedo 6 mg tablet 6 mg PO BID losartan 25 mg Tablet 25 mg PO QAM Qty: 30 0RF Referrals Referrals: Julio Jones [Primary Care Provider] -
[2023-10-28] MEDS: SODIUM CHLORIDE 0.9% 500 ML IV ONE (13:47)
[2023-10-28] MEDS: SODIUM CHLORIDE 0.9% 500 ML IV SCH (13:47)
--- NOTE | 2023-10-28 13:56 | XRay Report ---
XR chest 1V portable CLINICAL HISTORY: possible seizure COMPARISON STUDY: Chest radiograph December 21, 2022. FINDINGS: Lung volumes are normal. Lungs are clear. There is no pneumothorax or pleural effusion. Car diac size is stable. Mediastinal contours are normal. There is no evidence for pulmonary edema. IMPRESSION: No acute cardiopulmonary findings. No change in appearance of the chest. ACT 112: Negative or not required by law. Electronically signed by: Sampson Baker M.D. 10/28/2023 1:54 PM
[2023-10-28 14:00] LABS: Basophils # (auto) 0.05 K/uL (0.00-0.20); Basophils % (auto) 0.8 %; Eosinophils # (auto) 0.24 K/uL (0.00-0.50); Eosinophils % (auto) 3.6 %; Hematocrit (blood only) 41.3 % (37.0-47.0); Hemoglobin 13.1 g/dl (12.0-16.0); Immature Granulocytes # (auto) 0.02 K/uL (0.01-0.20); Immature Granulocytes % (auto) 0.3 %; Lymphocytes # (auto) 1.92 K/uL (1.20-3.40); Mean Corpuscular Hemoglobin 29.6 pg (25.0-34.0); Mean Corpuscular Hgb Conc 31.7 g/dL (32.0-36.0); Mean Corpuscular Volume 93.4 fL (80.0-100.0); Mean Platelet Volume 9.4 fL (9.4-12.4); Monocytes # (auto) 0.68 K/uL (0.11-0.59); Monocytes % (auto) 10.3 %; Neutrophils # (auto) 3.72 K/uL (1.40-6.50); Platelet Count 279 K/uL (130-400); RDW Coefficient of Variation 13.3 % (11.5-14.5); RDW Standard Deviation 45.3 fL (36.4-46.3); Red Blood Count 4.42 M/uL (4.20-5.40); White Blood Count 6.63 K/ul (4.8-10.8)
[2023-10-28 14:19] LABS: Albumin Globulin Ratio 1.1 (0.9-2); Albumin Level 3.8 gm/dl (3.4-5.0); BUN Creatinine Ratio 21.4 (10-20); Bilirubin,Total 0.3 mg/dl (0.2-1.0); Calcium 9.9 mg/dl (8.6-10.3); Creatinine Clr Calc Pharmacy 24.4 ml/min; Est GFR (African American) 35.5 ml/min; Est GFR (Non-African American) 30.7 ml/min; Globulin 3.5 gm/dl (2.5-4.0); Magnesium 1.9 mg/dl (1.7-2.4); Potassium 4.8 mmol/L (3.5-5.1); Total Protein 7.3 gm/dl (6.0-8.3)
[2023-10-28 14:23] LABS: Troponin I High Sensitivity 6.1 pg/ml (0-14)
[2023-10-28 14:26] LABS: Partial Thromboplastin Time 29 Seconds (21-31); Prothrombin Time 10.9 Seconds (9.0-12.0)
[2023-10-28 14:32] LABS: Thyroid Stimulating Hormone 0.894 uIu/ml (0.300-4.500)
[2023-10-28 14:46] LABS: Base Excess VBG -1.8 mEq/L; HCO3 VBG 25 mmol/L; Oxygen Saturation VBG < 60.0 %; PCO2 VBG 48 mmHg (38-50); PO2 VBG 24 mmHg; pH VBG 7.32 (7.36-7.41)
--- NOTE | 2023-10-28 15:20 | CT Scan Report ---
HEAD CT NONCONTRAST CT DOSE: 625.8 mGy.cm HISTORY: Confusion. syncope TECHNIQUE: Multiaxial CT images of the head were performed without the use of intravenous contrast. A utomated exposure control was utilized for this study. A dose lowering technique was utilized adheri ng to the principles of ALARA. Comparison: Head CT 12/21/2022. Findings: The paranasal sinuses and mastoid air cells are clear. The calvarium and skull base are int act. There is no mass, hematoma, midline shift, acute infarct. White matter hypodensity is nonspecifi c but suggestive of microvascular ischemic change. The ventricles and sulci demonstrate moderate age- related involutional changes. 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 Impression: No acute intracranial abnormality. Atrophy and microvascular ischemic changes. ACT 112: Negative or not required by law. Electronically signed by: Aaron Dobson M.D. 10/28/2023 3:18 PM
--- NOTE | 2023-10-28 16:34 | Electrocardiogram Report ---
Test Reason : Blood Pressure : / mmHG Vent. Rate : 081 BPM Atrial Rate : 081 BPM P-R Int : 240 ms QRS Dur : 090 ms QT Int : 380 ms P-R-T Axes : 057 -23 051 degrees QTc Int : 441 ms Sinus rhythm with 1st degree A-V block with Premature atrial complexes Otherwise normal ECG When compared with ECG of 21-DEC-2022 19:40, Premature atrial complexes are now Present Nonspecific T wave abnormality no longer evident in Inferior leads Confirmed by Enrique Zhu ([id number]) on 10/28/2023 4:34:03 PM Referred By: Confirmed By:Enrique Zhu
[2023-10-28 16:58] LABS: Appearance Urine Clear (Clear); Bacteria Urine Automated None Seen (None Seen); Bilirubin Urine Negative (Negative); Blood Urine Negative (Negative); Cast Urine Automated 0-2 /lpf (0-2); Color Urine Yellow; Epithelial Cell Urine Auto 0-2 /hpf (0-2); Glucose Urine UA Negative (Negative); Ketones Urine Negative (Negative); Leukocyte Esterase Urine 2+ (Negative); Nitrite Urine Negative (Negative); Protein Urine Negative (Negative); RBC Urine Automated 0-2 /hpf (0-2); Specific Gravity Urine 1.017 (1.000-1.030); Urobilinogen Urine Negative (Negative); WBC Urine Automated 21-50 /hpf (0-5)
--- NOTE | 2023-10-28 17:40 | History & Physical Report ---
Date of Service October 28, 2023 Assessment & Plan (1) Seizure-like activity: Plan: Seizure-like activity Reportedly with shaking movements and extremities bilaterally, this was not witnessed by daughter. Discussed with nursing keypunch operators supervisor just available at [phone] from facility. Per her report patient was unresponsive with a tense flexed back, right fixed gaze and incontinence. To be having seizure activity which was new and has never been witnessed for her before, patient was known to the nurse for several months. Lasted about 10 seconds while she was there, total episode maybe 30 seconds to a minute. Appeared somnolent/sedated after, no focal neurologic symptoms or weakness after this. Was transferred to the ER for further evaluation and care. Patient was about to be toileted at the time of her symptom onset. History is limited from the patient due to dementia On ER assessment patient is somnolent however does not appear postictal and has no focal neurologic deficits. Lactate/prolactin ordered on consultation. DDx includes seizure, exacerbation of underlying tar dive dyskinesia, and vasovagal syncope around toileting. Last brain MRI 12/2022 with no acute findings, no acute/subacute infarcts, involutional changes with chronic microvascular ischemic disease Discussed with neurology. Given episode described by staff as above reasonable to get an EEG and MRI seizure protocol. Would hold off on any type of antiepileptic seizure load at this time given comorbidities and that patient is reasonably black to baseline. Admitted to PCU on seizure precautions with Ativan on-call if needed. Future recommendations, consulted. CThead normal (2) Tardive dyskinesia: Plan: History of tardive dyskinesia - Continue Austedo If patient has behavioral agitation overnight she may not receive typical or atypical antipsychotics of any kind due to severe reactions and tardive dyskinesia. Listed as an allergy. Daughter is available by phone, please contact Sue at [phone] if any new medications are added to her regimen per family request. They are aware if she were to have a seizure she may receive Ativan plus/minor antiepileptics overnight and are okay with this. (3) GERD (gastroesophageal reflux disease): Plan: Continue PPI convert to Protonix while inpatient (4) SAMY (acute kidney injury): Plan: Received 1 L fluids, 1 additional let supplement. Trend daily. Clinically slightly volume contracted on admission (5) Paranoid delusion: Plan: Paranoid hallucinations, dementia Not oriented to year, place at baseline. Oriented to name only. Appears nearly back to baseline at time of hospitalist assessment No longer on antipsychotics due to tardive dyskinesia Follow clinically (6) Subarachnoid hemorrhage: Plan: History of from traumatic fall. Patient with multiple falls and high fall risk. SCDs for DVT prophylaxis. No acute findings on CThead on admission Plan DVT prophylaxis: Pharmacoprophylaxis deferred due to history of recurrent falls, confusion, and subarachnoid hemorrhage. SCDs Diet: Soft bite-size, aspiration precautions CODE STATUS: Initially full code, subsequently was able discussed with patient and her surrogate decision maker her daughter and confirmed DNR/DNI. Disposition: PCU History of Present Illness Primary Care Provider: [facility] Sharron is an 83-year-old female with history of tar dive dyskinesia, depression, GERD, hypertension who developed tardive dyskinesia after being on risperidone in 2013 for paranoid delusions, developed tar dive around . Subsequently did not tolerate Sinemet. Had parkinsonian symptoms on Ingrezza which was then discontinued and patient was started on Austedo. TDD symptoms did worsen with multiple falls. Patient was seen 12/2022 for worsening tardive symptoms, ultimately was discharged to [facility] and was doing okay with clinical improvement on Austedo 12 mg twice daily. Was transition to [place]. Patient is previously noted to have cerebral atrophy with extensive microvascular disease and dementia. She presents to the ER by ambulance 10/27 for concern of seizure. Seizure was not witnessed by daughter. Reportedly ?tonic-clonic activity at [facility]. Pt very somnolent and falling asleep and much more sedated than baseline. Per Obey pt had bilateral shaking. No focal deficits. Somnolent, but answers some question sappropriately. Does not appear post ictal in the ER. "acted like she had a seizure." Per discussion with environmental quality analyst nurse Елена 'patient was very stiff with an arched top of her back. Not responsive at all and eyes were focused to the R. Pt did not respond to sternal rub. Came out of it after about 10 seconds. No focal deficits, although pt appeared very sleepy. Pt slowly was speaking again and was able to smile but appeared a little confused. New to the staff, has not seen her do that in the last 6 months. +incontinence at baseline. Was n ormal at breakfast prior. CThead without acute findings. Atrophy and microvascular ischemic change History limited from patient at times of HPI. No acute distress, awakens easily. Oriented to name only Allergies Allergy/AdvReac Type Severity Reaction Status Date / Time acetaminophen Allergy Intermediate RASH Verified 10/28/23 17:24 adhesive Allergy Intermediate RASH Verified 10/28/23 17:24 Penicillins Allergy Intermediate RASH Verified 10/28/23 17:24 risperidone AdvReac Severe tardive Verified 10/28/23 18:26 diskinesia codeine AdvReac Intermediate GI SYMPTOMS Verified 10/28/23 17:24 hydrocodone AdvReac Intermediate GI SYMPTOMS Verified 10/28/23 17:24 Home Medications Medication Instructions Recorded Confirmed Type L'Osei Phan Gummy Bear Viy 2 ea PO QAM 06/14/21 10/28/23 History duloxetine 60 mg capsule,delayed 60 mg PO QAM 06/14/21 10/28/23 History release loperamide 2 mg capsule (Imodium 2 mg PO Q4H PRN loose stools 06/14/21 10/28/23 History A-D) omeprazole 20 mg capsule,delayed 20 mg PO DAILYBB 06/14/21 10/28/23 History release polyethylene glycol 3350 17 17 g PO DAILY PRN Constipation 06/14/21 10/28/23 History gram/dose oral powder (Miralax) food supplemt, lactose-reduced 1 ea PO TIDM 11/19/22 10/28/23 History magnesium hydroxide 400 mg/5 mL 30 ml PO DAILY PRN Constipation 11/19/22 10/28/23 History oral suspension (Milk of Magnesia) omega-3 fatty acids 1,000 mg 1,000 mg PO BID17 11/19/22 10/28/23 History capsule pravastatin 40 mg tablet 40 mg PO QDD 11/19/22 10/28/23 History sennosides 8.6 mg-docusate sodium 1 tab-cap PO QDL PRN Constipation 11/19/22 10/28/23 History 50 mg tablet (Senna-Time S) losartan 25 mg tablet 25 mg PO QAM #30 tabs 11/25/22 10/28/23 Rx amlodipine 5 mg tablet 5 mg PO QAM 10/28/23 10/28/23 History deutetrabenazine 12 mg tablet 12 mg PO BID17 10/28/23 10/28/23 History (Austedo) guaifenesin 600 mg tablet, 600 mg PO BID PRN COUGH/CONGESTION 10/28/23 10/28/23 History extended release 12 hr (Mucus Relief ER) melatonin 3 mg disintegrating 3 mg PO HS 10/28/23 10/28/23 History tablet multivitamin,tx-minerals 1 tab PO QAM 10/28/23 10/28/23 History nystatin 100,000 unit/gram topical 1 applic topical BID PRN RASH 10/28/23 10/28/23 History cream NEEDED Past Med/Surg History Medical History Tardive dyskinesia Depression Hyperlipidemia GERD (gastroesophageal reflux disease) Hypertension Surgical History History of mastectomy Family History Other Unknown family medical history Social History Smoking Status: Never smoker Tobacco Type: Cigarettes Second Hand Exposure: Yes; Hx Alcohol Use: No Hx Substance Use: No Preferred Language: Arabic Communication Ability: Effective Communication Ability Comment: unknown Boathouse Keeper Required: No Beliefs That Will Affect Care: None marital status: / Current Living Situation: Legal Guardian Current Living Situation Comment: [facility] Feels Safe at Home: Yes Assistive Devices: Walker Physical Exam Physical Exam: General: Oriented to name only HEENT: Atraumatic, normocephalic. Pupils equal and reactive to light. EOM intact without nystagmus. Pulm: CTAB A&P. -wheezes, -rales, -rhonchi. Symmetrical chest rise. No increased work of breathing. No respiratory distress. Cardiac: Regular, slightly tachycardic. Radial pulses intact and symmetrical. Abdominal: Nontender, nondistended, soft. BS present. Extremities: Tremulous. Scientific Advisor strength, elbow flexion, shoulder flexion hip flexion, ankle dorsiflexion/plantarflexion intact and symmetrical bilaterally without focal deficit, patient fatigues easily globally. Results & Data Results & Data Vital Signs (Past 12 Hours) Vital Signs Temp Pulse Pulse Resp BP BP Pulse Ox 10/28/23 17:32 96 H 10/28/23 17:10 94 H 24 95 10/28/23 17:00 89 23 96 10/28/23 17:00 120/76 10/28/23 16:50 89 19 97 10/28/23 16:43 99 H 10/28/23 16:36 77 18 128/82 96 10/28/23 16:36 87 18 96 10/28/23 16:30 128/82 10/28/23 16:30 82 21 10/28/23 16:20 79 10/28/23 16:10 78 23 10/28/23 16:00 128/89 10/28/23 16:00 79 22 10/28/23 15:50 67 21 10/28/23 15:40 79 24 10/28/23 15:30 125/88 10/28/23 15:30 79 20 10/28/23 15:20 77 23 10/28/23 15:10 77 22 97 10/28/23 15:00 75 22 141/86 H 93 10/28/23 14:30 75 18 135/89 95 10/28/23 14:29 81 10/28/23 14:02 83 20 129/84 93 10/28/23 13:31 83 16 164/94 H 92 10/28/23 13:19 36.7 C 78 18 158/95 H 95 O2 Del Method 10/28/23 17:32 10/28/23 17:10 10/28/23 17:00 10/28/23 17:00 10/28/23 16:50 10/28/23 16:43 10/28/23 16:36 Room Air 10/28/23 16:36 Room Air 10/28/23 16:30 10/28/23 16:30 10/28/23 16:20 10/28/23 16:10 10/28/23 16:00 10/28/23 16:00 10/28/23 15:50 10/28/23 15:40 10/28/23 15:30 10/28/23 15:30 10/28/23 15:20 10/28/23 15:10 10/28/23 15:00 Room Air 10/28/23 14:30 Room Air 10/28/23 14:29 10/28/23 14:02 Room Air 10/28/23 13:31 Room Air 10/28/23 13:19 Room Air PG Care Time/CCT Total # of Minutes Spent Total Time Spent with Patient: Total time spent is greater than 50% in coordination of care (as documented) at patient's floor/unit and/or counseling patient: Coding Level of Care Code 87337 INT INP/OBS CARE 3/75MIN Diagnoses Seizure-like activity R56.9 Tardive dyskinesia G24.01 GERD (gastroesophageal reflux disease) K21.9 SAMY (acute kidney injury) N17.9 Paranoid delusion F22 Subarachnoid hemorrhage I60.9
[2023-10-28 18:03] LABS: Influenza A virus by PCR Negative (Neg); Influenza B virus by PCR Negative (Neg); RSV by PCR Negative (Neg); SARS CoV2 RNA(COVID-19) Ceph NEGATIVE (Negative)
[2023-10-28] MEDS: LACTATED RINGER'S 1,000 ML IV SCH (18:45)
[2023-10-28] MEDS ORDERED: MAGNESIUM HYDROXIDE SUSP 30 ML UDC PO PRN (20:14)
[2023-10-28] MEDS ORDERED: LORazepam 2 MG in SYRINGE 1 ML IV PRN (20:14)
[2023-10-28] MEDS ORDERED: DOCUSATE SODIUM/SENNA 50/8.6MG TAB PO PRN (20:14)
[2023-10-28] MEDS ORDERED: POLYETHYLENE (MIRALAX) 17 GM PACK PO PRN (20:14)
[2023-10-28] MEDS: AUSTEDO~ORDER AWAITING ACTION SCH (21:36)
--- NOTE | 2023-10-29 00:05 | Magnetic Resonance Report ---
Exam(s): MRI HEAD Without Contrast EXAM: MR Head Without Intravenous Contrast CLINICAL HISTORY: Reason for exam: seizure. TECHNIQUE: Magnetic resonance images of the head/brain without intravenous contrast in multiple planes. COMPARISON: CT head 10/28/23; MRI brain 12/24/22 FINDINGS: Brain: No diffusion restriction to suggest acute cerebral ischemia. No acute intracranial hemorrhage. No intracranial mass or mass-effect. No mata matter heterotopia. Generalized parenchymal volume loss. Chronic small vessel ischemic changes in the cerebral and pontine white matter. Proximal intracranial flow voids appear normal. Chronic lacunar infarcts bilateral basal ganglia. Ventricles: No hydrocephalus. Enlarged ventricles due to central volume loss. Bones/joints: Unremarkable. No acute fracture. Sinuses: Unremarkable as visualized. No acute sinusitis. Mastoid air cells: Left mastoid effusion. Right mastoid air cells are clear. Orbits: Unremarkable as visualized. IMPRESSION: No acute findings in the head/brain. Involutional and chronic small vessel ischemic changes. Electronically signed by: Radha Mann M.D. 10/29/23 00:03 AM
[2023-10-29 04:25] LABS: Basophils # (auto) 0.05 K/uL (0.00-0.20); Basophils % (auto) 0.8 %; Eosinophils # (auto) 0.32 K/uL (0.00-0.50); Eosinophils % (auto) 5.1 %; Hematocrit (blood only) 34.3 % (37.0-47.0); Immature Granulocytes # (auto) 0.01 K/uL (0.01-0.20); Immature Granulocytes % (auto) 0.2 %; Lymphocytes # (auto) 2.23 K/uL (1.20-3.40); Lymphocytes % (auto) 35.5 %; Mean Corpuscular Hemoglobin 29.6 pg (25.0-34.0); Mean Corpuscular Hgb Conc 32.1 g/dL (32.0-36.0); Mean Corpuscular Volume 92.5 fL (80.0-100.0); Mean Platelet Volume 9.4 fL (9.4-12.4); Monocytes # (auto) 0.74 K/uL (0.11-0.59); Monocytes % (auto) 11.8 %; Neutrophils # (auto) 2.94 K/uL (1.40-6.50); Neutrophils % (auto) 46.6 %; Platelet Count 226 K/uL (130-400); RDW Coefficient of Variation 13.2 % (11.5-14.5); RDW Standard Deviation 45.1 fL (36.4-46.3); Red Blood Count 3.71 M/uL (4.20-5.40); White Blood Count 6.29 K/ul (4.8-10.8)
[2023-10-29 04:38] LABS: BUN Creatinine Ratio 20.1 (10-20); Calcium 9.6 mg/dl (8.6-10.3); Creatinine Clr Calc Pharmacy 25.2 ml/min; Est GFR (Non-African American) 31.9 ml/min
[2023-10-29] MEDS: PANTOprazole 40 MG TAB PO SCH (06:19)
--- OUTSIDE RECORDS SUMMARY | 2023-10-29 07:43 | External Medical Summary | Continuity of Care Document ---
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 Breast cancer(Discharge Diagnosis) - 07/28/23 Body mass index [BMI] 23.0-23.9, adult(Discharge Diagnosis) - 07/29/23 Physical deconditioning(Discharge Diagnosis) - 07/29/23 Discharge Disposition: Home or Self Care Attending Physician: MD Moffett [place] Referring Physician: MD Moffett [place] Allergies, Adverse Reactions, Alerts Substance Reaction Severity Status codeine gi upset Active Tylenol gi upset Active PCN (penicillin) rash Active Vicodin gi upset Active Adhesive bandage rash Active Immunizations Given and Recorded Vaccine Date Status Refusal Reason influenza virus vaccine, inactivated 05/06/20 Danny rded pneumococcal 13-valent vaccine 07/04/15 Recorded zoster vaccine live 06/05/11 Recorded pneumococcal 23-valent vaccine 03/31/08 Recorded tetanus toxoids-diphtheria, Td (Adult) 07/06/00 Re corded Medications amLODIPine 5 mg oral tablet Start: 05/04/23 21:11:00 EDT, See Instructions, Disp# 30 tab, Refills: 4, TAKE ONE TABLET BY MOUTH DAILY *HTN*, Pharmacy: [facility] Start Date: 05/04/23 Status: Ordered Austedo 12 mg oral tablet Start: 06/16/23 12:16:00 EST, 1 tab, PO, bid, Disp# 60 tab, Refills: 7, Pharmacy: [facility] Start Date: 06/16/23 Stop Date: 02/11/24 Status: Ordered DULoxetine 60 mg oral delayed release capsule Start: 06/01/23 8:49:00 EST, 1 cap, PO, Daily, Disp# 28 cap, Refills: 10, *DEPRESSION*., Pharmacy: [facility] Start Date: 06/01/23 Status: Ordered Fish Oil 1000 mg oral capsule Start: 12/31/16 15:55:00, 2 cap, PO, Daily Start Date: 12/31/16 Status: Ordered L'mimi Phan Gummy Vites oral tablet, chewable Start: 07/13/20 15:47:00 EST, 2 tab, PO, Daily, Disp# 60 tab Start Date: 07/13/20 Status: Ordered loperamide 2 mg oral capsule Start: 03/31/23 16:33:00 EDT, 1 cap, PO, q4h Start Date: 03/31/23 Status: Ordered losartan 25 mg oral tablet Start: 04/21/23 11:08:00 EDT, 1 tab, PO, Daily, Disp# 30 tab, Refills: 11, Pharmacy: [facility] Start Date: 04/21/23 Status: Ordered Melatonin 3 mg oral tablet Start: 03/31/23 16:32:00 EDT, 1 tab, PO, qhs, PRN: Insomnia Start Date: 03/31/23 Status: Ordered Milk of Magnesia Start: 03/31/23 16:34:00 EDT Start Date: 03/31/23 Status: Ordered MiraLax oral powder for reconstitution Start: 07/10/20 16:21:00 EST, 17 g =, PO, Daily, Disp# 255 g, Refills: 1, dissolve in water or juice hold if diarrhea or loose stools, Pharmacy: [facility] Start Date: 07/10/20 Status: Ordered omeprazole 20 mg oral delayed release capsule Start: 06/09/23 11:59:00 EST, 1 cap, PO, Daily, Disp# 30 cap, Refills: 3, Pharmacy: [facility] Start Date: 06/09/23 Status: Ordered pravastatin 40 mg oral tablet Start: 06/22/23 11:18:00 EST, See Instructions, Disp# 28 tab, Refills: 2, TAKE 1 TABLET BY MOUTH ONCE DAILY WITH DINNER FOR CHOLESTEROL, Pharmacy: [facility] Start Date: 06/22/23 Status: Ordered senna 8.6 mg oral tablet Start: 03/31/23 16:34:00 EDT, 1 tab, PO, Daily, PRN: as needed for constipation Start Date: 03/31/23 Status: Ordered Therems M oral tablet Start: 03/31/23 16:33:00 EDT, 1 tab, PO, Daily Start Date: 03/31/23 Status: Ordered Mental Status 07/29/23 Barriers to Learning one year None evide nt Mandatory Health Literacy Documentation Yes Health Literacy Communication Barriers N ever Primary Language [place] Citizen Problem List Condition Confirmation Course Effective Dates Status H ealth Status Informant Tardive akathisia Confirmed Active Body mass index [BMI] 22.0-22.9, adult Confirmed Active Constipation Confirmed Active Depression Confirmed Active FH: osteopenia Confirmed Active GERD (gastroesophageal reflux disease) Confirmed Active Hyperlipidemia Confirmed Active HTN (hypertension) Confirmed Active Lightheadedness Confirmed Active Breast cancer Confirmed Active Drug-induced parkinsonism Confirmed Active Tardive dyskinesia Confirmed Active Vascular dementia Confirmed Active Vascular parkinsonism Confirmed Active Diagnosis Diagnosis Type Effective Dates Health Status Clinical Service Informant Hyperlipidemia Discharge Diagnosis 07/28/23 GERD (gastroesophageal reflux disease) Discharge Diagnosis 07/28/23 HTN (hypertension) Discharge Diagnosis 07/28/23 Vascular dementia Discharge Diagnosis 07/28/23 Vascular parkinsonism Discharge Diagnosis 07/28/23 Tardive dyskinesia Discharge Diagnosis 07/28/23 Breast cancer Discharge Diagnosis 07/28/23 Body mass index [BMI] 23.0-23.9, adult Discharge Diagnosis 07/29/23 Non-Specified Physical deconditioning Discharge Diagnosis 07/29/23 Non-Specified Procedures Procedure Date Related Diagnosis Body Site Status CT of extracranial soft tiss ues of the head 1 01/11/22 Completed Plain chest X-ray 2 01/11/22 Compl eted Plain x-ray of pelvis 3 01/11/22 C ompleted Plain X-ray of right forearm 4 01/11/22 Completed MRI of head 5 06/23/[address] of head 6 06/22/[address] of brain wo/w contrast 7 05/14/21 Completed Chest X-ray 8 05/14/20 Completed Hip X-ray Right 9 10/11/19 Complet ed Echocardiogram 10 07/07/14 Complet ed Colectomy 11 02/19/09 Completed Bilateral mastectomy Comp leted Cholecystectomy Completed Hx of umbilical hernia repair Completed Laminectomy Completed Tonsillectomy Completed 1IMPRESSION: 1.No acute intracranial pathiology. 2.Cerebral cortical atrophy and extensive remote small vessel disease. 2IMPRESSION: 1.No acute cardiopulmonary disease. 3IMPRESSION: 1.No acute abnormality 4IMPRESSION: 1.No acute osseous pathology. 5Impression: trace subarachnoid hemorrhage superior right parietal lobe without acute or subacute infarction. Age-related microvascular changes. 6Impression: Non-traumatic small right parietal subarachnoid hemorrhage. 71. no acute intracranial findings 2. no intracranial mass or pathologic enhancement 3. moderate atrophy and small vessel disease 8chest 2v pa / lateral impression trace right pleural effusion , no evidence of failure , no evidence of focal pulmonary consolidaiton. 9Impression: Moderate bony degenerative changes throughout for age group without fracture nor dislocation. However, if symptomatology does persist, a short term follow-up series for comparison is recommended. 10mild diffuse mitral valve thickening present mild mitral annular calcificaiton is present trivial mitral regurgitation is present by color doppler mild diffuse leaflet thickening and clacificaintion no evidenc of aortic stenosis or insuffienciecy the left ventricular ejection fraction is 55% per visual estimation normla left ventricular wall motion Probable normal diastolic function Grossly normla right ventifular size and function 11s/p colon adenoma Vital Signs Most recent to oldest [Reference Range]: 1 Height 160.02 cm (07/29/23 3:54 PM) Patient Weight 59.1 kg (07/29/23 3:54 PM) Body Mass Index 23.08 kg/m2 (07/29/23 3:54 PM) Heart Rate 76 bpm (07/29/23 3:54 PM) Respiratory Rate 28 br/min (07/29/23 3:54 PM) Blood Pressure 100/68mmHg (07/29/23 3:54 PM) Cuff Pulse Pressure 32 mmHg (07/29/23 3:54 PM) Social History Social History Type Response Smoking Status Former Smoker, quit > 1 yr Sex Female Patient Care team information Care Team Personnel Name: DEBORAH Duran Tara Position: Nurse Pract - Family Med Member Role: Lifetime Relationship Address: Address: [address] [place] [address] Name: MD Moffett [place] Position: Physician - Family Med Member Role: Primary Care Provider Address: Address: [address] [place] [address] Care Team Related Persons Name: PARISH ROBLES Address: home [address] [address]
[2023-10-29] MEDS: CEROVITE ADV FORMULA TAB PO SCH (08:24)
[2023-10-29] MEDS: amLODIPine BESYLATE 5 MG TAB PO SCH (08:24)
--- NOTE | 2023-10-29 08:28 | Electroencephalogram ---
EEG Procedure Note Date of Service October 29, 2023 Start / End Times Start Time: 633 End Time: 06 Referring Physician xiao brooks History confused Home Medication List Medication Instructions Recorded Confirmed Type L'Osei Phan Gummy Bear Viy 2 ea PO QAM 06/14/21 10/28/23 History duloxetine 60 mg capsule,delayed 60 mg PO QAM 06/14/21 10/28/23 History release loperamide 2 mg capsule (Imodium 2 mg PO Q4H PRN loose stools 06/14/21 10/28/23 History A-D) omeprazole 20 mg capsule,delayed 20 mg PO DAILYBB 06/14/21 10/28/23 History release polyethylene glycol 3350 17 17 g PO DAILY PRN Constipation 06/14/21 10/28/23 History gram/dose oral powder (Miralax) food supplemt, lactose-reduced 1 ea PO TIDM 11/19/22 10/28/23 History magnesium hydroxide 400 mg/5 mL 30 ml PO DAILY PRN Constipation 11/19/22 10/28/23 History oral suspension (Milk of Magnesia) omega-3 fatty acids 1,000 mg 1,000 mg PO BID17 11/19/22 10/28/23 History capsule pravastatin 40 mg tablet 40 mg PO QDD 11/19/22 10/28/23 History sennosides 8.6 mg-docusate sodium 1 tab-cap PO QDL PRN Constipation 11/19/22 10/28/23 History 50 mg tablet (Senna-Time S) losartan 25 mg tablet 25 mg PO QAM #30 tabs 11/25/22 10/28/23 Rx amlodipine 5 mg tablet 5 mg PO QAM 10/28/23 10/28/23 History deutetrabenazine 12 mg tablet 12 mg PO BID17 10/28/23 10/28/23 History (Austedo) guaifenesin 600 mg tablet, 600 mg PO BID PRN COUGH/CONGESTION 10/28/23 10/28/23 History extended release 12 hr (Mucus Relief ER) melatonin 3 mg disintegrating 3 mg PO HS 10/28/23 10/28/23 History tablet multivitamin,tx-minerals 1 tab PO QAM 10/28/23 10/28/23 History nystatin 100,000 unit/gram topical 1 applic topical BID PRN RASH 10/28/23 10/28/23 History cream NEEDED Inpatient Medication List Miscellaneous (Austedo~Order Awaiting Action) 1 each N/A QS [facility] Stop: 11/27/23 20:29 Last Admin: 10/29/23 08:23 Dose: Not Given Documented By: Admin: 10/28/23 21:36 Dose: Not Given Documented By: GAVIN Pantoprazole Sodium (Pantoprazole 40 Mg Tab) 40 mg PO DAILYBB [facility] Stop: 11/28/23 06:29 Last Admin: 10/29/23 06:19 Dose: 40 mg Documented By: CRISTINA Discontinued Medications Sodium Chloride (Nss) 500 mls @ 999 mls/hr IV .Q31M [facility] Stop: 10/28/23 14:15 Last Admin: 10/28/23 13:47 Dose: Not Given Documented By: FLAQUITO Sodium Chloride (Nss) 500 mls @ 999 mls/hr IV .Q31M [facility] Stop: 10/28/23 14:09 Last Infusion: 10/28/23 14:38 Dose: Infused Documented By: Admin: 10/28/23 13:47 Dose: 999 mls/hr Documented By: FLAQUITO Lactated Ringer's (Lr) 1,000 mls @ 125 mls/hr IV .Q8H [facility] Stop: 10/29/23 02:29 Last Infusion: 10/29/23 04:27 Dose: Infused Documented By: Admin: 10/28/23 18:45 Dose: 125 mls/hr Documented By: GAVIN Description This is a 21 electrode EEG with a single channel dedicated to limited EKG. The electrodes were placed in accordance with the International 10-20 system. Interpretation This is a 21 electrode EEG with a single channel dedicated to limited EKG. The electrodes were placed in accordance with the International 10-20 system. There is a posterior dominant rhythm of 6-8 Hz which is symmetrically distributed and attenuates with eye opening. There is a normal anterior to posterior organization. Photic stimulation: unremarkable Hyperventilation performed: ___ unremarkable; _x_ not performed. There is diffuse slowing. No epileptiform abnormalities. Sleep stage: _x_ not achieved, ___drowsy state, ___ Stage II, ___ REM stage achieved. Interpretation Mildly abnormal study due to diffuse slowing consistent with cortical dysfunction or encephalopathy. No seizure activity noted. [facility] EEG Procedure Codes Indication for Procedure (1) Paranoid delusion: Neurology Neurology: 79659 EEG include record awake & drowsy
[2023-10-29] MEDS: DULoxetine HCL 60 MG CAP PO SCH (09:18)
[2023-10-29] MEDS: OMEGA-3 (PURIFIED FISH OIL) 1 GM CAP PO SCH (09:18)
--- NOTE | 2023-10-29 09:35 | Neurology Consultation ---
Date of Consultation October 29, 2023 Assessment & Plan (1) Seizure-like activity: History of Present Illness Attending Physician: Tana Back MD History of Present Illness 83 yo female with dementia and seizure like event. pt doing well this morning. EEG negative. pt with dehydration/SAMY and UTI currently. pt having good interaction with me today. admission HPI: Sharron is an 83-year-old female with history of tar dive dyskinesia, depression, GERD, hypertension who developed tardive dyskinesia after being on risperidone in 2013 for paranoid delusions, developed tar dive around . Subsequently did not tolerate Sinemet. Had parkinsonian symptoms on Ingrezza which was then discontinued and patient was started on Austedo. TDD symptoms did worsen with multiple falls. Patient was seen 12/2022 for worsening tardive symptoms, [facility] and was doing okay with clinical improvement on Austedo 12 mg twice daily. Was transition to [place]. Patient is previously noted to have cerebral atrophy with extensive microvascular disease and dementia. She presents to the ER by ambulance 10/27 for concern of seizure. Seizure was not witnessed by daughter. Reportedly ?tonic-clonic activity at [facility]. Pt very somnolent and falling asleep and much more sedated than baseline. Per Obey pt had bilateral shaking. No focal deficits. Somnolent, but answers some question sappropriately. Does not appear post ictal in the ER. "acted like she had a seizure." Per discussion with television anchor nurse Елена 'patient was very stiff with an arched top of her back. Not responsive at all and eyes were focused to the R. Pt did not respond to sternal rub. Came out of it after about 10 seconds. No focal deficits, although pt appeared very sleepy. Pt slowly was speaking again and was able to smile but appeared a little confused. New to the staff, has not seen her do that in the last 6 months. +incontinence at baseline. Was n ormal at breakfast prior. CThead without acute findings. Atrophy and microvascular ischemic change History limited from patient at times of HPI. No acute distress, awakens easily. Oriented to name only Allergies Allergy/AdvReac Type Severity Reaction Status Date / Time acetaminophen Allergy Intermediate RASH Verified 10/28/23 17:24 adhesive Allergy Intermediate RASH Verified 04/24/24 17:24 Penicillins Allergy Intermediate RASH Verified 10/28/23 17:24 risperidone AdvReac Severe tardive Verified 10/28/23 18:26 diskinesia codeine AdvReac Intermediate GI SYMPTOMS Verified 10/28/23 17:24 hydrocodone AdvReac Intermediate GI SYMPTOMS Verified 10/28/23 17:24 Home Medications Medication Instructions Recorded Confirmed Type L'Il Cricarroll Gummy Bear Viy 2 ea PO QAM 06/14/21 10/28/23 History duloxetine 60 mg capsule,delayed 60 mg PO QAM 06/14/21 10/28/23 History release loperamide 2 mg capsule (Imodium 2 mg PO Q4H PRN loose stools 06/14/21 10/28/23 History A-D) omeprazole 20 mg capsule,delayed 20 mg PO DAILYBB 06/14/21 10/28/23 History release polyethylene glycol 3350 17 17 g PO DAILY PRN Constipation 06/14/21 10/28/23 History gram/dose oral powder (Miralax) food supplemt, lactose-reduced 1 ea PO TIDM 11/19/22 10/28/23 History magnesium hydroxide 400 mg/5 mL 30 ml PO DAILY PRN Constipation 11/19/22 10/28/23 History oral suspension (Milk of Magnesia) omega-3 fatty acids 1,000 mg 1,000 mg PO BID17 11/19/22 10/28/23 History capsule pravastatin 40 mg tablet 40 mg PO QDD 11/19/22 10/28/23 History sennosides 8.6 mg-docusate sodium 1 tab-cap PO QDL PRN Constipation 11/19/22 10/28/23 History 50 mg tablet (Senna-Time S) losartan 25 mg tablet 25 mg PO QAM #30 tabs 11/25/22 10/28/23 Rx amlodipine 5 mg tablet 5 mg PO QAM 10/28/23 10/28/23 History deutetrabenazine 12 mg tablet 12 mg PO BID17 10/28/23 10/28/23 History (Austedo) guaifenesin 600 mg tablet, 600 mg PO BID PRN COUGH/CONGESTION 10/28/23 10/28/23 History extended release 12 hr (Mucus Relief ER) melatonin 3 mg disintegrating 3 mg PO HS 10/28/23 10/28/23 History tablet multivitamin,tx-minerals 1 tab PO QAM 10/28/23 10/28/23 History nystatin 100,000 unit/gram topical 1 applic topical BID PRN RASH 10/28/23 10/28/23 History cream NEEDED Patient History Medical History Tardive dyskinesia Depression Hyperlipidemia GERD (gastroesophageal reflux disease) Hypertension Surgical History History of mastectomy Family History Other Unknown family medical history Social History Smoking Status: Never smoker Tobacco Type: Cigarettes Second Hand Exposure: Yes; Hx Alcohol Use: No Hx Substance Use: No Preferred Language: Georgian Communication Ability: Effective Communication Ability Comment: unknown Tube Knitter Required: No Beliefs That Will Affect Care: None marital status: / Current Living Situation: Care Home Current Living Situation Comment: [facility] Feels Safe at Home: Yes Safety Concerns: Feels Safe At This Time Assistive Devices: Walker Exam (Neuro) Physical Exam: HEENT: normocephalic Neuro: Mental: Alert, not sure of name of the hospital but she knew she was in hospital. not sure of year or month, fluent speech, normal comprehension, no apraxia, no L/R confusion, no neglect CN: PERRL, Full EOM, symmetric face, intact sensation t/o face, midline T/U/P, Motor: No abnormal movements, normal tone and bulk Coord: intact grossly. DTR: 1+ sym b/l Impression: 83 yo female with seizure like event in setting of bowel movement. Pt now back to baseline and noted to have UTI and SAMY/dehydration. EEG negative. Recommendations: no need for AED tx UTI and dehydration/SAMY pt without much TD symptoms at this point. continue supportive care call again if new question. not much to add at this point from neurology. Chart reviewed I have spent more than 50% educating patient about potential diagnosis and neurological evaluation and coordinating care with patient's treatment team. Total time spent (including chart review and coordination of care): 60 min (this includes chart review). Results & Data Vital Signs (Past 12 Hours) Vital Signs Temp Pulse Pulse Resp BP BP Pulse Ox 10/29/23 08:00 37.0 C 72 18 135/82 97 10/29/23 07:39 71 10/29/23 03:17 78 16 149/75 H 96 10/29/23 01:28 73 20 156/95 H 97 10/29/23 01:00 70 20 111/64 96 10/29/23 00:00 73 24 124/71 10/28/23 22:30 68 17 131/87 10/28/23 22:01 67 25 H 127/68 10/28/23 22:00 71 21 10/28/23 21:50 70 10/28/23 21:40 71 21 O2 Del Method 10/29/23 08:00 Room Air 10/29/23 07:39 10/29/23 03:17 10/29/23 01:28 Room Air 10/29/23 01:00 Room Air 10/29/23 00:00 10/28/23 22:30 10/28/23 22:01 10/28/23 22:00 10/28/23 21:50 10/28/23 21:40 PG Care Time/CCT Total # of Minutes Spent Total Time Spent with Patient: Total time spent is greater than 50% in coordination of care (as documented) at patient's floor/unit and/or counseling patient: Coding Level of Care Code 28744 IN/OBS CONSULT LVL 4,60M Diagnoses Seizure-like activity R56.9
[2023-10-29] MEDS: SODIUM CHLORIDE 0.9% 1,000 ML IV SCH (13:14)
[2023-10-29] MEDS: PRAVASTATIN SOD 40 MG TAB PO SCH (17:09)
--- NOTE | 2023-10-29 18:11 | Hospitalist Progress Note ---
Date of Service October 29, 2023 Assessment & Plan (1) Seizure-like activity: Plan: EEG did not show any seizure activity MRI negative Per neurology this is most likely seizure like event in the setting of bowel movement. No antiepileptic drug recommended Patient is back to her baseline There was a question of UTI with urinalysis showing WBCs and leuk esterase however urine culture result is negative. Will not treat for UTI (2) Tardive dyskinesia: Plan: History of tardive dyskinesia - Continue Austedo If patient has behavioral agitation overnight she may not receive typical or atypical antipsychotics of any kind due to severe reactions and tardive dyskinesia. Listed as an allergy. Daughter is available by phone, please contact Sue at [phone] if any new medications are added to her regimen per family request. They are aware if she were to have a seizure she may receive Ativan plus/minor antiepileptics overnight and are okay with this. (3) GERD (gastroesophageal reflux disease): Plan: Continue PPI convert to Protonix while inpatient (4) SAMY (acute kidney injury): Plan: Received 1 L fluids, 1 additional let supplement. Trend daily. Clinically slightly volume contracted on admission Improving but still elevated creatinine (5) Paranoid delusion: Plan: Paranoid hallucinations, dementia Not oriented to year, place at baseline. Oriented to name only. Appears nearly back to baseline at time of hospitalist assessment No longer on antipsychotics due to tardive dyskinesia Follow clinically (6) Subarachnoid hemorrhage: Plan: History of from traumatic fall. Patient with multiple falls and high fall risk. SCDs for DVT prophylaxis. No acute findings on CThead on admission Plan DVT prophylaxis: Pharmacoprophylaxis deferred due to history of recurrent falls, confusion, and subarachnoid hemorrhage. SCDs Diet: Soft bite-size, aspiration precautions CODE STATUS: Initially full code, subsequently was able discussed with patient and her surrogate decision maker her daughter and confirmed DNR/DNI. Disposition: PCU Admission and Anticipated Discharge Date Admission Date: October 28, 2023 Subjective Patient feels well. Denies chest pain or shortness of breath. Review of Systems Review of Systems: All systems reviewed & are unremarkable except as noted in Subjective Physical Exam Physical Exam: General: Awake, conversant Heart: S1, S2/regular rate and rhythm, no murmur rubs or gallops Lungs: Clear to auscultation bilaterally. Normal effort Abdomen: Soft/nontender/nondistended. No hepatosplenomegaly Extremities: No clubbing/cyanosis. No edema Behavior: Appropriate, cooperative Results & Data Results & Data Vital Signs (Past 12 Hours) Vital Signs Temp Pulse Pulse Resp BP BP Pulse Ox 10/29/23 16:55 37.1 C 74 14 155/93 H 96 10/29/23 14:50 75 18 140/82 95 10/29/23 13:18 74 18 140/82 96 10/29/23 12:51 36.9 C 74 21 140/82 97 10/29/23 12:51 10/29/23 08:00 37.0 C 72 18 135/82 97 10/29/23 07:39 71 Pulse Ox O2 Del Method O2 Del Method 10/29/23 16:55 Room Air 10/29/23 14:50 Room Air 10/29/23 13:18 Room Air 10/29/23 12:51 Room Air 10/29/23 12:51 97 Room Air 10/29/23 08:00 Room Air 10/29/23 07:39 Laboratory Results Abnormal lab results 10/29/23 Range/Units 03:46 RBC 3.71 L (4.20-5.40) M/uL Hgb 11.0 L (12.0-16.0) g/dl Hct 34.3 L (37.0-47.0) % Pope # (Auto) 0.74 H (0.11-0.59) K/uL Chloride 112 H (98-107) mmol/L BUN 30 H (6-23) mg/dl Creatinine 1.49 H (0.6-1.2) mg/dl BUN/Creatinine Ratio 20.1 H (10-20) PG Care Time/CCT Total # of Minutes Spent Total Time Spent with Patient: Total time spent is greater than 50% in coordination of care (as documented) at patient's floor/unit and/or counseling patient: Coding Level of Care Code 19759 SUB INP/OBS CARE 2/35MIN Diagnoses Seizure-like activity R56.9 Tardive dyskinesia G24.01 GERD (gastroesophageal reflux disease) K21.9 SAMY (acute kidney injury) N17.9 Paranoid delusion F22 Subarachnoid hemorrhage I60.9
--- NOTE | 2023-10-29 18:11 | Communication Note ---
Date of Service: October 29, 2023 Patient was noted to have low blood pressure when standing with occupational therapy. Orthostatic hypotension possibly related to dehydration. Will nilam nue IV fluids.
[2023-10-29] MEDS: MELATONIN 3 MG TAB PO PRN (21:59)
[2023-10-29] MEDS ORDERED: Nursing to Pharmacy Communication SCH (22:15)
[2023-10-29] MEDS: AUSTEDO 12 MG PO SCH (22:36)
[2023-10-30 06:20] LABS: Basophils # (auto) 0.04 K/uL (0.00-0.20); Basophils % (auto) 0.7 %; Eosinophils # (auto) 0.26 K/uL (0.00-0.50); Eosinophils % (auto) 4.7 %; Hematocrit (blood only) 36.7 % (37.0-47.0); Hemoglobin 11.7 g/dl (12.0-16.0); Immature Granulocytes # (auto) 0.07 K/uL (0.01-0.20); Immature Granulocytes % (auto) 1.3 %; Lymphocytes # (auto) 1.58 K/uL (1.20-3.40); Lymphocytes % (auto) 28.7 %; Mean Corpuscular Hemoglobin 29.6 pg (25.0-34.0); Mean Corpuscular Hgb Conc 31.9 g/dL (32.0-36.0); Mean Corpuscular Volume 92.9 fL (80.0-100.0); Mean Platelet Volume 9.8 fL (9.4-12.4); Monocytes # (auto) 0.56 K/uL (0.11-0.59); Monocytes % (auto) 10.2 %; Neutrophils # (auto) 2.99 K/uL (1.40-6.50); Neutrophils % (auto) 54.4 %; Platelet Count 217 K/uL (130-400); RDW Coefficient of Variation 12.9 % (11.5-14.5); RDW Standard Deviation 43.9 fL (36.4-46.3); Red Blood Count 3.95 M/uL (4.20-5.40)
[2023-10-30 06:31] LABS: Calcium 9.2 mg/dl (8.6-10.3); Potassium 4.8 mmol/L (3.5-5.1)
[2023-10-30 06:37] LABS: BUN Creatinine Ratio 19.7 (10-20); Creatinine Clr Calc Pharmacy 23.3 ml/min; Est GFR (African American) 39.2 ml/min; Est GFR (Non-African American) 33.8 ml/min
--- NOTE | 2023-10-30 14:38 | Hospitalist Progress Note ---
Date of Service October 30, 2023 Assessment & Plan (1) Orthostatic hypotension: Plan: Noted the patient is dropping her blood pressure with position changes Suspect that her initial episode of seizure-like activity was in fact a syncopal episode due to orthostatic hypotension She was hydrated in response to the orthostatic hypotension This morning she still was positive for orthostatic hypotension however her blood pressure did not drop below 100 Will discontinue IV fluids now and recheck orthostatic vital signs in the morning (2) Seizure-like activity: Plan: EEG did not show any seizure activity MRI negative Per neurology this is most likely seizure like event in the setting of bowel movement. No antiepileptic drug recommended Patient is back to her baseline This was most likely a syncopal episode due to orthostatic hypotension There was a question of UTI with urinalysis showing WBCs and leuk esterase however urine culture result is negative. Will not treat for UTI (3) Tardive dyskinesia: Plan: History of tardive dyskinesia - Continue Austedo If patient has behavioral agitation overnight she may not receive typical or atypical antipsychotics of any kind due to severe reactions and tardive dyskinesia. Listed as an allergy. Daughter is available by phone, please contact Sue at [phone] if any new medications are added to her regimen per family request. They are aware if she were to have a seizure she may receive Ativan plus/minor antiepileptics overnight and are okay with this. (4) GERD (gastroesophageal reflux disease): Plan: Continue PPI convert to Protonix while inpatient (5) SAMY (acute kidney injury): Plan: Received 1 L fluids, 1 additional let supplement. Trend daily. Clinically slightly volume contracted on admission Improving but still slightly elevated creatinine at 1.42 today Monitor BMP closely (6) Paranoid delusion: Plan: Paranoid hallucinations, dementia Not oriented to year, place at baseline. Oriented to name only. Appears nearly back to baseline at time of hospitalist assessment No longer on antipsychotics due to tardive dyskinesia Follow clinically (7) Subarachnoid hemorrhage: Plan: History of from traumatic fall. Patient with multiple falls and high fall risk. SCDs for DVT prophylaxis. No acute findings on CThead on admission Plan DVT prophylaxis: Pharmacoprophylaxis deferred due to history of recurrent falls, confusion, and subarachnoid hemorrhage. SCDs Diet: Soft bite-size, aspiration precautions CODE STATUS: Initially full code, subsequently was able discussed with patient and her surrogate decision maker her daughter and confirmed DNR/DNI. CODE STATUS changed to DNR/DNI per documentation Disposition: PCU Admission and Anticipated Discharge Date Admission Date: October 28, 2023 Subjective Patient feels well. Denies chest pain or shortness of breath. Noted that she is still orthostatic today with a 20 point drop in blood pressure Review of Systems Review of Systems: All systems reviewed & are unremarkable except as noted in Subjective Physical Exam Physical Exam: General: Awake, conversant Heart: S1, S2/regular rate and rhythm, no murmur rubs or gallops Lungs: Clear to auscultation bilaterally. Normal effort Abdomen: Soft/nontender/nondistended. No hepatosplenomegaly Extremities: No clubbing/cyanosis. No edema Behavior: Appropriate, cooperative Results & Data Results & Data Vital Signs (Past 12 Hours) Vital Signs Temp Pulse Resp BP Pulse Ox O2 Del Method 10/30/23 11:01 36.6 C 51 L 18 144/61 H 96 Room Air 10/30/23 08:00 36.6 C 80 18 160/89 H 97 Room Air 10/30/23 03:00 36.8 C 61 18 147/82 H 98 Room Air PG Care Time/CCT Total # of Minutes Spent Total Time Spent with Patient: Total time spent is greater than 50% in coordination of care (as documented) at patient's floor/unit and/or counseling patient: Coding Level of Care Code 02367 SUB INP/OBS CARE 2/35MIN Diagnoses Orthostatic hypotension I95.1 Seizure-like activity R56.9 Tardive dyskinesia G24.01 GERD (gastroesophageal reflux disease) K21.9 SAMY (acute kidney injury) N17.9 Paranoid delusion F22 Subarachnoid hemorrhage I60.9
[2023-10-31 07:16] LABS: Basophils # (auto) 0.05 K/uL (0.00-0.20); Eosinophils # (auto) 0.29 K/uL (0.00-0.50); Eosinophils % (auto) 5.6 %; Hematocrit (blood only) 35.5 % (37.0-47.0); Hemoglobin 11.6 g/dl (12.0-16.0); Immature Granulocytes # (auto) 0.01 K/uL (0.01-0.20); Immature Granulocytes % (auto) 0.2 %; Lymphocytes # (auto) 1.87 K/uL (1.20-3.40); Mean Corpuscular Hemoglobin 29.7 pg (25.0-34.0); Mean Corpuscular Hgb Conc 32.7 g/dL (32.0-36.0); Mean Corpuscular Volume 90.8 fL (80.0-100.0); Mean Platelet Volume 9.3 fL (9.4-12.4); Monocytes # (auto) 0.57 K/uL (0.11-0.59); Neutrophils % (auto) 46.2 %; Platelet Count 235 K/uL (130-400); RDW Coefficient of Variation 12.7 % (11.5-14.5); RDW Standard Deviation 42.4 fL (36.4-46.3); Red Blood Count 3.91 M/uL (4.20-5.40); White Blood Count 5.19 K/ul (4.8-10.8)
[2023-10-31 07:45] LABS: BUN Creatinine Ratio 17.4 (10-20); Calcium 9.5 mg/dl (8.6-10.3); Est GFR (African American) 40.6 ml/min; Potassium 4.3 mmol/L (3.5-5.1)
--- NOTE | 2023-10-31 12:14 | Hospitalist Progress Note ---
Date of Service October 31, 2023 Assessment & Plan (1) Orthostatic hypotension: Plan: Noted the patient is dropping her blood pressure with position changes Suspect that her initial episode of seizure-like activity was in fact a syncopal episode due to orthostatic hypotension She was hydrated in response to the orthostatic hypotension This morning she still was positive for orthostatic hypotension however her blood pressure did not drop below 100 Discontinued IV fluids Recheck orthostatic vital signs could not be obtained this morning as the patient was not able to sit up or stand up due to shakiness. (2) Seizure-like activity: Plan: EEG did not show any seizure activity MRI negative Per neurology this is most likely seizure like event in the setting of bowel movement. No antiepileptic drug recommended Patient is back to her baseline This was most likely a syncopal episode due to orthostatic hypotension There was a question of UTI with urinalysis showing WBCs and leuk esterase however urine culture result is negative. Will not treat for UTI (3) Tardive dyskinesia: Plan: History of tardive dyskinesia - Continue Austedo If patient has behavioral agitation overnight she may not receive typical or atypical antipsychotics of any kind due to severe reactions and tardive dyskinesia. Listed as an allergy. Daughter is available by phone, please contact Sue at [phone] if any new medications are added to her regimen per family request. They are aware if she were to have a seizure she may receive Ativan plus/minor antiepileptics overnight and are okay with this. (4) GERD (gastroesophageal reflux disease): Plan: Continue PPI convert to Protonix while inpatient (5) SAMY (acute kidney injury): Plan: Received 1 L fluids, 1 additional let supplement. Trend daily. Clinically slightly volume contracted on admission Improving but still slightly elevated creatinine at 1.38 today Monitor BMP closely (6) Paranoid delusion: Plan: Paranoid hallucinations, dementia Not oriented to year, place at baseline. Oriented to name only. Appears nearly back to baseline at time of hospitalist assessment No longer on antipsychotics due to tardive dyskinesia Follow clinically (7) Subarachnoid hemorrhage: Plan: History of from traumatic fall. Patient with multiple falls and high fall risk. SCDs for DVT prophylaxis. No acute findings on CThead on admission Plan DVT prophylaxis: Pharmacoprophylaxis deferred due to history of recurrent falls, confusion, and subarachnoid hemorrhage. SCDs Diet: Soft bite-size, aspiration precautions CODE STATUS: Initially full code, subsequently was able discussed with patient and her surrogate decision maker her daughter and confirmed DNR/DNI. CODE STATUS changed to DNR/DNI per documentation Disposition: PCU Admission and Anticipated Discharge Date Admission Date: October 30, 2023 Subjective Patient does not have any major complaints today. Per nurse, she was very shaky this morning and was not able to stand up or sit up for orthostatic vital signs. Review of Systems Review of Systems: All systems reviewed & are unremarkable except as noted in Subjective Physical Exam Physical Exam: General: Awake, conversant Heart: S1, S2/regular rate and rhythm, no murmur rubs or gallops Lungs: Clear to auscultation bilaterally. Normal effort Abdomen: Soft/nontender/nondistended. No hepatosplenomegaly Extremities: No clubbing/cyanosis. No edema Behavior: Appropriate, cooperative Results & Data Results & Data Vital Signs (Past 12 Hours) Vital Signs Temp Pulse Pulse Pulse Resp BP Pulse Ox 10/31/23 11:44 36.6 C 66 18 138/78 94 10/31/23 10:26 64 10/31/23 07:44 36.5 C 66 18 137/84 97 10/31/23 03:55 36.6 C 62 16 133/80 94 O2 Del Method 10/31/23 11:44 Room Air 10/31/23 10:26 10/31/23 07:44 Room Air 10/31/23 03:55 Room Air Laboratory Results Abnormal lab results 10/31/23 Range/Units 06:41 RBC 3.91 L (4.20-5.40) M/uL Hgb 11.6 L (12.0-16.0) g/dl Hct 35.5 L (37.0-47.0) % MPV 9.3 L (9.4-12.4) fL Chloride 109 H (98-107) mmol/L BUN 24 H (6-23) mg/dl Creatinine 1.38 H (0.6-1.2) mg/dl PG Care Time/CCT Total # of Minutes Spent Total Time Spent with Patient: Total time spent is greater than 50% in coordination of care (as documented) at patient's floor/unit and/or counseling patient: Coding Level of Care Code 87461 SUB INP/OBS CARE 2/35MIN Diagnoses Orthostatic hypotension I95.1 Seizure-like activity R56.9 Tardive dyskinesia G24.01 GERD (gastroesophageal reflux disease) K21.9 SAMY (acute kidney injury) N17.9 Paranoid delusion F22 Subarachnoid hemorrhage I60.9
[2023-10-31] MEDS: SODIUM CHLORIDE 0.9% 1,000 ML IV SCH (17:34)
--- NOTE | 2023-11-01 13:21 | Hospitalist Progress Note ---
Date of Service November 01, 2023 Assessment & Plan (1) Orthostatic hypotension: Plan: Noted the patient is dropping her blood pressure with position changes Suspect that her initial episode of seizure-like activity was in fact a syncopal episode due to orthostatic hypotension She was hydrated in response to the orthostatic hypotension She is still positive for orthostatic hypotension however her blood pressure did not drop below 100 Was treated with IV fluids Recheck orthostatic vital signs tomorrow. If still positive, will need to start on midodrine or Florinef (2) Seizure-like activity: Plan: EEG did not show any seizure activity MRI negative Per neurology this is most likely seizure like event in the setting of bowel movement. No antiepileptic drug recommended Patient is back to her baseline This was most likely a syncopal episode due to orthostatic hypotension There was a question of UTI with urinalysis showing WBCs and leuk esterase however urine culture result is negative. Patient has no symptoms of UTI. Will not treat for UTI (3) Tardive dyskinesia: Plan: History of tardive dyskinesia - Continue Austedo If patient has behavioral agitation overnight she may not receive typical or atypical antipsychotics of any kind due to severe reactions and tardive dyskinesia. Listed as an allergy. Daughter is available by phone, please contact Sue at [phone] if any new medications are added to her regimen per family request. They are aware if she were to have a seizure she may receive Ativan plus/minor antiepileptics overnight and are okay with this. (4) GERD (gastroesophageal reflux disease): Plan: Continue PPI convert to Protonix while inpatient (5) SAMY (acute kidney injury): Plan: Received 1 L fluids, 1 additional let supplement. Trend daily. Clinically slightly volume contracted on admission Improving but still slightly elevated creatinine at 1.38 today Monitor BMP closely (6) Paranoid delusion: Plan: Paranoid hallucinations, dementia Not oriented to year, place at baseline. Oriented to name only. Appears nearly back to baseline at time of hospitalist assessment No longer on antipsychotics due to tardive dyskinesia Follow clinically (7) Subarachnoid hemorrhage: Plan: History of from traumatic fall. Patient with multiple falls and high fall risk. SCDs for DVT prophylaxis. No acute findings on CThead on admission Plan DVT prophylaxis: Pharmacoprophylaxis deferred due to history of recurrent falls, confusion, and subarachnoid hemorrhage. SCDs Diet: Soft bite-size, aspiration precautions CODE STATUS: Initially full code, subsequently was able discussed with patient and her surrogate decision maker her daughter and confirmed DNR/DNI. CODE STATUS changed to DNR/DNI per documentation Disposition: PCU Admission and Anticipated Discharge Date Admission Date: October 30, 2023 Subjective Patient reports no complaints. Nurse has difficulty getting orthostatic vital signs because it is very hard for her to sit up or stand up. Patient does not report any burning urination. Review of Systems Review of Systems: All systems reviewed & are unremarkable except as noted in Subjective Physical Exam Physical Exam: General: Awake, conversant Heart: S1, S2/regular rate and rhythm, no murmur rubs or gallops Lungs: Clear to auscultation bilaterally. Normal effort Abdomen: Soft/nontender/nondistended. No hepatosplenomegaly Extremities: No clubbing/cyanosis. No edema Behavior: Appropriate, cooperative Results & Data Results & Data Vital Signs (Past 12 Hours) Vital Signs Temp Pulse Pulse Resp BP Pulse Ox O2 Del Method 11/01/23 12:00 36.8 C 94 H 18 111/71 93 Room Air 11/01/23 09:49 76 11/01/23 07:30 37.0 C 59 L 18 159/93 H 95 Room Air 11/01/23 03:45 36.7 C 60 16 124/73 95 Room Air PG Care Time/CCT Total # of Minutes Spent Total Time Spent with Patient: Total time spent is greater than 50% in coordination of care (as documented) at patient's floor/unit and/or counseling patient: Coding Level of Care Code 07576 SUB INP/OBS CARE 2/35MIN Diagnoses Orthostatic hypotension I95.1 Seizure-like activity R56.9 Tardive dyskinesia G24.01 GERD (gastroesophageal reflux disease) K21.9 SAMY (acute kidney injury) N17.9 Paranoid delusion F22 Subarachnoid hemorrhage I60.9
--- NOTE | 2023-11-02 16:13 | Discharge Summary ---
Date of Service November 02, 2023 Admission HPI Per Admitting Provider Sharron is an 83-year-old female with history of tar dive dyskinesia, depression, GERD, hypertension who developed tardive dyskinesia after being on risperidone in 2013 for paranoid delusions, developed tar dive around . Subsequently did not tolerate Sinemet. Had parkinsonian symptoms on Ingrezza which was then discontinued and patient was started on Austedo. TDD symptoms did worsen with multiple falls. Patient was seen 12/2022 for worsening tardive symptoms, ultimately was discharged to [facility] and was doing okay with clinical improvement on Austedo 12 mg twice daily. Was transition to [place]. Patient is previously noted to have cerebral atrophy with extensive microvascular disease and dementia. She presents to the ER by ambulance 10/27 for concern of seizure. Seizure was not witnessed by daughter. Reportedly ?tonic-clonic activity at [facility]. Pt very somnolent and falling asleep and much more sedated than baseline. Per Obey pt had bilateral shaking. No focal deficits. Somnolent, but answers some question sappropriately. Does not appear post ictal in the ER. "acted like she had a seizure." Per discussion with talent acquisition manager nurse Елена 'patient was very stiff with an arched top of her back. Not responsive at all and eyes were focused to the R. Pt did not respond to sternal rub. Came out of it after about 10 seconds. No focal deficits, although pt appeared very sleepy. Pt slowly was speaking again and was able to smile but appeared a little confused. New to the staff, has not seen her do that in the last 6 months. +incontinence at baseline. Was n ormal at breakfast prior. CThead without acute findings. Atrophy and microvascular ischemic change History limited from patient at times of HPI. No acute distress, awakens easily. Oriented to name only Admission Exam Per Admitting Provider General: Oriented to name only HEENT: Atraumatic, normocephalic. Pupils equal and reactive to light. EOM intact without nystagmus. Pulm: CTAB A&P. -wheezes, -rales, -rhonchi. Symmetrical chest rise. No increased work of breathing. No respiratory distress. Cardiac: Regular, slightly tachycardic. Radial pulses intact and symmetrical. Abdominal: Nontender, nondistended, soft. BS present. Extremities: Tremulous. Cable Armorer strength, elbow flexion, shoulder flexion hip flexion, ankle dorsiflexion/plantarflexion intact and symmetrical bilaterally without focal deficit, patient fatigues easily globally. Principal Diagnosis Orthostatic hypotension leading to syncope Discharge Exam General: Awake, conversant Heart: S1, S2/regular rate and rhythm, no murmur rubs or gallops Lungs: Clear to auscultation bilaterally. Normal effort Abdomen: Soft/nontender/nondistended. No hepatosplenomegaly Extremities: No clubbing/cyanosis. No edema Behavior: Appropriate, cooperative Discharge Data Allergies Allergy/AdvReac Type Severity Reaction Status Date / Time acetaminophen Allergy Intermediate RASH Verified 10/28/23 17:24 adhesive Allergy Intermediate RASH Verified 10/28/23 17:24 Penicillins Allergy Intermediate RASH Verified 10/28/23 17:24 risperidone AdvReac Severe tardive Verified 10/28/23 18:26 diskinesia codeine AdvReac Intermediate GI SYMPTOMS Verified 10/28/23 17:24 hydrocodone AdvReac Intermediate GI SYMPTOMS Verified 10/28/23 17:24 Consultations 10/28/23 16:55 ED Decision to Admit Stat 10/28/23 20:14 Consult Neurology Routine Ordered Studies 10/28/23 13:33 CT head/brain wo con Stat 10/28/23 20:14 MR brain seizure wo con Routine Hospital Course (1) Orthostatic hypotension: Noted the patient is dropping her blood pressure with position changes Suspect that her initial episode of seizure-like activity was in fact a syncopal episode due to orthostatic hypotension She was hydrated in response to the orthostatic hypotension She is still positive for orthostatic hypotension however her blood pressure did not drop below 100 Was treated with IV fluids Orthostatic vital signs are difficult to obtain since the patient is having hard time sitting up and standing because of her weakness. Per daughter, the patient is always dehydrated as she sleeps all day at the personal-snf and does not reach out for water. She will need to be encouraged to drink fluids Continuing amlodipine but discontinued losartan as her blood pressure is doing fairly well without it. (2) Seizure-like activity: EEG did not show any seizure activity MRI negative Per neurology this is most likely seizure like event in the setting of bowel movement. No antiepileptic drug recommended Patient is back to her baseline This was most likely a syncopal episode due to orthostatic hypotension There was a question of UTI with urinalysis showing WBCs and leuk esterase h owever urine culture result is negative. Patient has no symptoms of UTI. Will not treat for UTI (3) Tardive dyskinesia: History of tardive dyskinesia - Continue Austedo If patient has behavioral agitation overnight she may not receive typical or atypical antipsychotics of any kind due to severe reactions and tardive dyskinesia. Listed as an allergy. Daughter is available by phone, please contact Sue at [phone] if any new medications are added to her regimen per family request. They are aware if she were to have a seizure she may receive Ativan plus/minor antiepileptics overnight and are okay with this. (4) GERD (gastroesophageal reflux disease): Continue PPI convert to Protonix while inpatient (5) SAMY (acute kidney injury): Received 1 L fluids, 1 additional let supplement. Clinically slightly volume contracted on admission Improving (6) Paranoid delusion: Paranoid hallucinations, dementia Not oriented to year, place at baseline. Oriented to name only. Appears nearly back to baseline at time of hospitalist assessment No longer on antipsychotics due to tardive dyskinesia Follow clinically (7) Subarachnoid hemorrhage: History of from traumatic fall. Patient with multiple falls and high fall risk. SCDs for DVT prophylaxis. No acute findings on CThead on admission Plan DVT prophylaxis: Pharmacoprophylaxis deferred due to history of recurrent falls, confusion, and subarachnoid hemorrhage. SCDs Diet: Soft bite-size, aspiration precautions CODE STATUS: Initially full code, subsequently was able discussed with patient and her surrogate decision maker her daughter and confirmed DNR/DNI. CODE STATUS changed to DNR/DNI per documentation Discharge to rehab today Total Time Total Time Spent Total Time Spent (In Minutes): 35 Discharge Plan Discharge Items Patient Disposition: Transfer Inpatient Rehab Fac Reason For Visit: ?SEIZURE Discharge Diagnosis: Orthostatic hypotension leading to syncope Activity: Resume your previous activity Non-emergency contact: Primary Care Provider Call non-emergency contact if: you have any medication questions and your symptoms worsen Follow-up/Referrals: Julio Jones [Primary Care Provider] - Diet: Regular Diet Texture: Dental soft (bite-sized) Addtl Attending Provider Instructions: You were noted to have orthostatic hypotension during this hospital stay. This means that your blood pressure drops when you sit up from a lying position and/or when you stand up from a sitting position. There are some lifestyle modifications that will help with your condition: * Wearing waist high compression stockings. * Staying hydrated * Avoiding alcohol * Increasing salt in diet * Eating small meals if blood pressure drops after eating meals * Exercising * Getting up slowly. Moving slowly from a lying to standing position. Also when getting out of bed, sit on the edge of the bed for a minute before standing * Raising the head end of the bed during sleeping Pending Studies at Discharge: No Stand-Alone Forms: My [facility] Skilled Items Patient informed of condition?: Yes DNR: Yes Discharge Level of Care: Other Communicable Disease: No Discharge Prognosis: Stable Lines: None Urinary Catheter: No Medications and DC Order Prescriptions: Continued omeprazole 20 mg capsule,delayed release(DR/EC) 20 mg PO DAILYBB polyethylene glycol 3350 [Miralax] 17 gram/dose Powder 17 g PO DAILY PRN (Reason: Constipation) duloxetine 60 mg Capsule,Delayed Release(Dr/Ec) 60 mg PO QAM loperamide [Imodium A-D] 2 mg Capsule 2 mg PO Q4H PRN (Reason: loose stools) Enrico'Osei Cribasilers Gummy Bear Viy 2 ea PO QAM Rx Instructions: 2 gummies daily omega-3 fatty acids 1,000 mg Capsule 1,000 mg PO BID17 pravastatin 40 mg tablet 40 mg PO QDD sennosides-docusate sodium [Senna-Time S] 8.6-50 mg Tablet 1 tab-cap PO QDL PRN (Reason: Constipation) food supplemt, lactose-reduced Liquid 1 ea PO TIDM Rx Instructions: drink can of BOOST VERY VANILLA three times a day magnesium hydroxide [Milk of Magnesia] 400 mg/5 mL Suspension 30 ml PO DAILY PRN (Reason: Constipation) amlodipine 5 mg tablet 5 mg PO QAM nystatin 100,000 unit/gram Cream 1 applic TOPICAL BID PRN (Reason: RASH NEEDED) multivitamin,tx-minerals Tablet 1 tab PO QAM melatonin 3 mg Tablet,Disintegrating 3 mg PO HS guaifenesin [Mucus Relief ER] 600 mg Tablet Extended Release 12hr 600 mg PO BID PRN (Reason: COUGH/CONGESTION) Austedo 12 mg tablet 12 mg PO BID17 Discontinued losartan 25 mg Tablet 25 mg PO QAM Qty: 30 0RF Discharge Orders: Discharge Order (Routine); Ordered 11/02/23 Ordered By: Tana Back Admission Data Admit Date/Time: 10/30/23 10:13 Attending Provider: Tana Back Admit Provider: Wale Ugarte Primary Care Provider: Julio Jones Other Providers: Wale Ugarte; Trae Silveira; [facility] Coding Level of Care Code 54322 INP/OBS DISCH >30 MIN Diagnoses Orthostatic hypotension I95.1 Seizure-like activity R56.9 Tardive dyskinesia G24.01 GERD (gastroesophageal reflux disease) K21.9 SAMY (acute kidney injury) N17.9 Paranoid delusion F22 Subarachnoid hemorrhage I60.9
== END 2023-11-02 17:05 | DRG 312 ==
LOC: EDSEX → EDINP 13:08 → ED 13:08 → SUATTDRO 18:00 → 2S 10-29 14:50

== ENCOUNTER 2024-03-25 07:10 | Inpatient (IN) ==
--- NOTE | 2024-03-25 07:24 | Emergency Department Note ---
Impression & Plan Acute pain of left hip, Fall, Closed fracture of left hip ED Provider Note ED Provider Note NAME: TAMARA ROBLES AGE:84 SEX: Female : 1940 ARRIVES VIA: EMS INFORMANT: Patient, EMS ED PROVIDER(s): Bria Boyce DO CHIEF COMPLAINT: Fall, left hip pain HPI: This is an 84-year-old female presents emerged part via EMS from [facility] following a witnessed fall where she landed on her left side and hip. Staff reported to EMS no head trauma or loss of consciousness. They state patient was unable to get back up with assistance and complained of pain at the left hip son-in-law and was contacted. No use of antiplatelet or anticoagulation medications. EMS reports patient has a difficult time getting history and does seem intermittently confused. PAST MEDICAL HISTORY:See Below PAST SURGICAL HISTORY:See Below FAMILY HISTORY:See Below SOCIAL HISTORY:See Below HOME MEDICATIONS:See Below ALLERGIES:See Below VITALS:See Below PHYSICAL EXAMINATION: GENERAL: alert, unwell appearing, well nourished, no distress, non-toxic EYE EXAM: normal conjunctiva, PERRL and EOM's grossly intact OROPHARYNX: no exudate, no erythema, lips, buccal mucosa, and tongue normal and mucous membranes are dry NECK: supple, no nuchal rigidity, no adenopathy, non-tender LUNGS: Clear to auscultation. Normal chest wall mechanics, no w/r/r HEART: no murmurs, S1 normal and S2 normal ABDOMEN: abdomen soft, non-tender, normo-active bowel sounds, no masses, no rebound or guarding. BACK: Back is symmetrical on inspection and there is no deformity, no midline tenderness, no CVA tenderness. SKIN: no rashes, petechiae, orbruising UPPER EXTREMITIES: upper extremities are grossly normal. FROM, nml pulses b/l. LOWER EXTREMITIES: No pitting edema. FROM RLE, nml pulses b/l. Left lower extremity slightly shortened and externally rotated, pain with palpation at the left hip, patient unable to move or flex the hip secondary to pain NEURO EXAM: Confused, cranial nerves II-XII grossly intact, normal speech, no facial droop,nogross weakness of arms, no gross weakness of legs. Gross sensation intact. No ataxia. Vital Signs: reviewed and remarkable Differential Diagnosis: Fracture, dislocation, contusion, sprain/strain, intra-abdominal hemorrhage, lumbar radiculopathy, UTI, syncope, dehydration, SAMY, as well as others were considered MEDICAL DECISION MAKING: This is an 84 yo female brought in by EMS following a fall due to concern for left hip pain. Patient afebrile and VS stable. Labs drawn and sent, IV established, EKG and xrays performed and interpreted at bedside, and patient placed on telemetry. Xrays reveal left hip fracture. No other evidence of trauma on exam. Patient's daughter updated at bedside upon arrival. Case discussed with hospitalist for additional evaluation and mgmt. Consultation(s): 1008: Discussed with Dr. Bethea, [facility] hospitalist team, for additional evaluation. ER Treatment Provided: See below 0995: Updated daughter, Sue, who is now at bedside. Her cell is [phone] if anyone needs to contact her. She states she will return briefly if she needs to step out for doctors appointment. She is aware that her mother is being admitted and has a broken left hip. She does clarify patient does have a history of tardive dyskinesia and was following with neurology through [place]. She does not have Parkinson's disease as initially reported by [facility] staff. Diagnostics Interpreted By Me: -ECG: Normal sinus at 90, first-degree AV block, normal axis, normal intervals, PVCs noted, nonspecific ST/T wave changes -Cardiac Monitoring: An order was placed for continuous cardiac monitoring. The monitor shows a rate of 98 with rhythm. -Laboratory studies: As stated above and show below. -Imaging studies: X-ray left hip/pelvis: Left intertrochanteric hip fracture noted, no dislocation Chest x-ray: No fracture, no pneumothorax, pulmonary edema, no wide mediastinum, no focal consolidation Triage Nursing Note Reviewed Prior/Outside Records Reviewed Past Med/Surg History Problem List (Updated 03/26/24 @ 15:56 by Nora Tian PA-C) Difficult Barba catheter placement Leukocytosis Closed fracture of left hip (Acute) Fall (Acute) Acute pain of left hip (Acute) Orthostatic hypotension Paranoid delusion Seizure-like activity Acute dehydration (Acute) Encephalopathy acute (Acute) Acute alteration in mental status (Acute) SAMY (acute kidney injury) (Acute) Acute dehydration (Acute) Fall from standing (Acute) Ambulatory dysfunction (Acute) Dehydration (Acute) Ambulatory dysfunction (Acute) Fall (Acute) Abrasion of right arm (Acute) Severe protein-calorie malnutrition Tardive dyskinesia Encephalopathy acute Depression DVT prophylaxis Stroke-like symptoms Hypertension COVID-19 (Acute) Subarachnoid hemorrhage (Acute) Generalized weakness (Acute) SARS-CoV-2 positive (Acute) Hyperlipidemia GERD (gastroesophageal reflux disease) Surgical History History of mastectomy Family History Other Unknown family medical history Social History Smoking Status: Former smoker Tobacco Type: Cigarettes Second Hand Exposure: No; Do You Dip or Chew Tobacco: No; Hx Alcohol Use: No Hx Substance Use: No Preferred Language: Serbian Communication Ability: Effective Communication Ability Comment: unknown Hide Inspector Required: No Beliefs That Will Affect Care: None marital status: / Current Living Situation: [facility] Current Living Situation Comment: [facility] Other Information That Helps Us Care for You: No Feels Safe at Home: Yes Safety Concerns: Feels Safe At This Time Assistive Devices: Walker Allergies Allergies Allergy/AdvReac Type Severity Reaction Status Date / Time acetaminophen Allergy Intermediate RASH Verified 03/25/24 11:32 adhesive Allergy Intermediate RASH Verified 03/25/24 11:32 Penicillins Allergy Intermediate RASH Verified 03/25/24 11:32 latex Allergy Unknown Verified 03/26/24 04:06 risperidone AdvReac Severe tardive Verified 03/25/24 11:32 diskinesia codeine AdvReac Intermediate GI SYMPTOMS Verified 03/25/24 11:32 hydrocodone AdvReac Intermediate GI SYMPTOMS Verified 03/25/24 11:32 Home Meds Home Medications Medication Instructions Recorded Confirmed duloxetine 60 mg capsule,delayed 60 mg PO QAM 06/14/21 03/25/24 release omeprazole 20 mg capsule,delayed 20 mg PO DAILYBB 06/14/21 03/25/24 release food supplemt, lactose-reduced 1 ea PO TIDM 11/19/22 03/25/24 pravastatin 40 mg tablet 40 mg PO QDD 11/19/22 03/25/24 sennosides 8.6 mg-docusate sodium 1 tab-cap PO QDL PRN Constipation 11/19/22 03/25/24 50 mg tablet (Senna-Time S) amlodipine 5 mg tablet 5 mg PO QAM 10/28/23 03/25/24 deutetrabenazine 12 mg tablet 12 mg PO BID 10/28/23 03/25/24 (Austedo) melatonin 3 mg disintegrating 3 mg PO HS 10/28/23 03/25/24 tablet therapeutic multivitamin 1 tab PO QAM 03/25/24 03/25/24 (Thera-Tabs tablet) Results & Data (ED) Vital Signs Vital Signs - 24 hr 03/25/24 07:00 03/25/24 07:51 03/25/24 07:54 Temperature 36.8 C Temperature Source Oral Pulse Rate 112 H 90 90 Pulse Rate [Right Finger] Pulse Rate from SpO2 Sensor 90 85 Pulse Rhythm Regular Pulse Rhythm [Right Finger] Pulse Strength Normal Pulse Strength [Right Finger] Respiratory Rate 22 20 21 Respiratory Effort / Characteristics Non-Labored Spontaneous Respiratory Depth Normal Respiratory Pattern Regular Blood Pressure 158/76 H Blood Pressure [Left Arm] Blood Pressure Mean 103 Blood Pressure Mean [Left Arm] Blood Pressure Position Lying Blood Pressure Position [Left Arm] Pulse Oximetry 94 100 99 Oxygen Delivery Method Room Air Oxygen Flow Rate Sepsis Recent Fever Within 48 Hours No Sepsis New/Unexplained Change in Mental Status No Sepsis Action Taken by Nursing Physician Notified 03/25/24 07:56 03/25/24 08:00 03/25/24 08:00 Temperature Temperature Source Pulse Rate 87 Pulse Rate [Right Finger] Pulse Rate from SpO2 Sensor 88 Pulse Rhythm Pulse Rhythm [Right Finger] Pulse Strength Pulse Strength [Right Finger] Respiratory Rate 20 Respiratory Effort / Characteristics Respiratory Depth Respiratory Pattern Blood Pressure 156/116 H 154/105 H Blood Pressure [Left Arm] Blood Pressure Mean 124 129 Blood Pressure Mean [Left Arm] Blood Pressure Position Blood Pressure Position [Left Arm] Pulse Oximetry 100 Oxygen Delivery Method Oxygen Flow Rate Sepsis Recent Fever Within 48 Hours Sepsis New/Unexplained Change in Mental Status Sepsis Action Taken by Nursing 03/25/24 08:15 03/25/24 08:31 03/25/24 08:45 Temperature Temperature Source Pulse Rate 87 94 H Pulse Rate [Right Finger] Pulse Rate from SpO2 Sensor 84 85 Pulse Rhythm Pulse Rhythm [Right Finger] Pulse Strength Pulse Strength [Right Finger] Respiratory Rate 27 H 24 Respiratory Effort / Characteristics Respiratory Depth Respiratory Pattern Blood Pressure 154/96 H Blood Pressure [Left Arm] Blood Pressure Mean 109 Blood Pressure Mean [Left Arm] Blood Pressure Position Blood Pressure Position [Left Arm] Pulse Oximetry 99 100 Oxygen Delivery Method Oxygen Flow Rate Sepsis Recent Fever Within 48 Hours Sepsis New/Unexplained Change in Mental Status Sepsis Action Taken by Nursing 03/25/24 08:46 03/25/24 09:00 03/25/24 09:02 Temperature Temperature Source Pulse Rate 94 H 95 H Pulse Rate [Right Finger] Pulse Rate from SpO2 Sensor 90 Pulse Rhythm Pulse Rhythm [Right Finger] Pulse Strength Pulse Strength [Right Finger] Respiratory Rate 26 H Respiratory Effort / Characteristics Respiratory Depth Respiratory Pattern Blood Pressure 152/103 H Blood Pressure [Left Arm] Blood Pressure Mean 120 Blood Pressure Mean [Left Arm] Blood Pressure Position Blood Pressure Position [Left Arm] Pulse Oximetry 99 Oxygen Delivery Method Oxygen Flow Rate Sepsis Recent Fever Within 48 Hours Sepsis New/Unexplained Change in Mental Status Sepsis Action Taken by Nursing 03/25/24 09:12 03/25/24 09:31 03/25/24 09:36 Temperature Temperature Source Pulse Rate 96 H 98 H Pulse Rate [Right Finger] Pulse Rate from SpO2 Sensor 93 H Pulse Rhythm Pulse Rhythm [Right Finger] Pulse Strength Pulse Strength [Right Finger] Respiratory Rate 21 24 Respiratory Effort / Characteristics Respiratory Depth Respiratory Pattern Blood Pressure 139/99 Blood Pressure [Left Arm] Blood Pressure Mean 105 Blood Pressure Mean [Left Arm] Blood Pressure Position Blood Pressure Position [Left Arm] Pulse Oximetry 99 Oxygen Delivery Method Oxygen Flow Rate Sepsis Recent Fever Within 48 Hours Sepsis New/Unexplained Change in Mental Status Sepsis Action Taken by Nursing 03/25/24 09:45 03/25/24 10:00 03/25/24 10:10 Temperature Temperature Source Pulse Rate 105 H 79 Pulse Rate [Right Finger] Pulse Rate from SpO2 Sensor Pulse Rhythm Regular Pulse Rhythm [Right Finger] Pulse Strength Pulse Strength [Right Finger] Respiratory Rate 20 20 Respiratory Effort / Characteristics Respiratory Depth Respiratory Pattern Blood Pressure 173/108 H Blood Pressure [Left Arm] Blood Pressure Mean 136 Blood Pressure Mean [Left Arm] Blood Pressure Position Blood Pressure Position [Left Arm] Pulse Oximetry 96 97 Oxygen Delivery Method Room Air Oxygen Flow Rate Sepsis Recent Fever Within 48 Hours Sepsis New/Unexplained Change in Mental Status Sepsis Action Taken by Nursing 03/25/24 10:27 03/25/24 11:06 03/25/24 11:31 Temperature Temperature Source Pulse Rate 102 H 106 H Pulse Rate [Right Finger] Pulse Rate from SpO2 Sensor 100 H Pulse Rhythm Pulse Rhythm [Right Finger] Pulse Strength Pulse Strength [Right Finger] Respiratory Rate 25 H 26 H Respiratory Effort / Characteristics Respiratory Depth Respiratory Pattern Blood Pressure 159/116 H Blood Pressure [Left Arm] Blood Pressure Mean 124 Blood Pressure Mean [Left Arm] Blood Pressure Position Blood Pressure Position [Left Arm] Pulse Oximetry 99 Oxygen Delivery Method Oxygen Flow Rate Sepsis Recent Fever Within 48 Hours Sepsis New/Unexplained Change in Mental Status Sepsis Action Taken by Nursing 03/25/24 11:36 03/25/24 11:45 03/25/24 12:03 Temperature Temperature Source Pulse Rate 124 H 109 H 105 H Pulse Rate [Right Finger] Pulse Rate from SpO2 Sensor 109 H 113 H 107 H Pulse Rhythm Pulse Rhythm [Right Finger] Pulse Strength Pulse Strength [Right Finger] Respiratory Rate 21 20 22 Respiratory Effort / Characteristics Respiratory Depth Respiratory Pattern Blood Pressure Blood Pressure [Left Arm] Blood Pressure Mean Blood Pressure Mean [Left Arm] Blood Pressure Position Blood Pressure Position [Left Arm] Pulse Oximetry 100 98 97 Oxygen Delivery Method Oxygen Flow Rate Sepsis Recent Fever Within 48 Hours Sepsis New/Unexplained Change in Mental Status Sepsis Action Taken by Nursing 03/25/24 12:15 03/25/24 12:24 03/25/24 12:30 Temperature Temperature Source Pulse Rate 106 H Pulse Rate [Right Finger] Pulse Rate from SpO2 Sensor 104 H 122 H Pulse Rhythm Pulse Rhythm [Right Finger] Pulse Strength Pulse Strength [Right Finger] Respiratory Rate 23 29 H Respiratory Effort / Characteristics Respiratory Depth Respiratory Pattern Blood Pressure 149/102 H Blood Pressure [Left Arm] Blood Pressure Mean 117 Blood Pressure Mean [Left Arm] Blood Pressure Position Blood Pressure Position [Left Arm] Pulse Oximetry 98 95 Oxygen Delivery Method Oxygen Flow Rate Sepsis Recent Fever Within 48 Hours Sepsis New/Unexplained Change in Mental Status Sepsis Action Taken by Nursing 03/25/24 12:45 03/25/24 12:49 03/25/24 13:03 Temperature Temperature Source Pulse Rate 105 H 107 H 112 H Pulse Rate [Right Finger] Pulse Rate from SpO2 Sensor 125 H 113 H Pulse Rhythm Pulse Rhythm [Right Finger] Pulse Strength Pulse Strength [Right Finger] Respiratory Rate 26 H 20 Respiratory Effort / Characteristics Respiratory Depth Respiratory Pattern Blood Pressure Blood Pressure [Left Arm] Blood Pressure Mean Blood Pressure Mean [Left Arm] Blood Pressure Position Blood Pressure Position [Left Arm] Pulse Oximetry 96 99 Oxygen Delivery Method Oxygen Flow Rate Sepsis Recent Fever Within 48 Hours Sepsis New/Unexplained Change in Mental Status Sepsis Action Taken by Nursing 03/25/24 14:10 03/25/24 14:21 Temperature 37.2 C Temperature Source Oral Pulse Rate 106 H Pulse Rate [Right Finger] 108 H Pulse Rate from SpO2 Sensor Pulse Rhythm Regular Pulse Rhythm [Right Finger] Regular Pulse Strength Pulse Strength [Right Finger] Normal Respiratory Rate 20 22 Respiratory Effort / Characteristics Non-Labored Spontaneous Respiratory Depth Normal Respiratory Pattern Regular Blood Pressure Blood Pressure [Left Arm] 171/126 H Blood Pressure Mean Blood Pressure Mean [Left Arm] 141 Blood Pressure Position Blood Pressure Position [Left Arm] Lying Pulse Oximetry 96 100 Oxygen Delivery Method Room Air Nasal Cannula Oxygen Flow Rate 2 Sepsis Recent Fever Within 48 Hours Sepsis New/Unexplained Change in Mental Status Sepsis Action Taken by Nursing Laboratory Data 03/26/24 07:00 03/26/24 07:00 Lab Results 03/25/24 Range/Units 07:20 WBC 15.02 H (4.8-10.8) K/ul RBC 4.40 (4.20-5.40) M/uL Hgb 12.8 (12.0-16.0) g/dl Hct 39.0 (37.0-47.0) % MCV 88.6 (80.0-100.0) fL MCH 29.1 (25.0-34.0) pg MCHC 32.8 (32.0-36.0) g/dL RDW Std Deviation 41.8 (36.4-46.3) fL RDW Coeff of Miguel A 12.8 (11.5-14.5) % Plt Count 340 (130-400) K/uL MPV 9.1 L (9.4-12.4) fL Immature Gran % (Auto) 0.6 % Neut % (Auto) 78.6 % Lymph % (Auto) 12.9 % [place] % (Auto) 5.9 % Eos % (Auto) 1.5 % Baso % (Auto) 0.5 % Neut # (Auto) 11.81 H (1.40-6.50) K/uL Lymph # (Auto) 1.94 (1.20-3.40) K/uL [place] # (Auto) 0.89 H (0.11-0.59) K/uL Eos # (Auto) 0.22 (0.00-0.50) K/uL Baso # (Auto) 0.07 (0.00-0.20) K/uL Immature Gran # (Auto) 0.09 (0.01-0.20) K/uL PT 10.9 (9.0-12.0) Seconds INR 1.0 (0.9-1.1) Sodium 137 (136-145) mmol/L Potassium 4.3 (3.5-5.1) mmol/L Chloride 102 (98-107) mmol/L Carbon Dioxide 25 (21-32) mmol/L Anion Gap 10 (3-11) BUN 22 (6-23) mg/dl Creatinine 1.44 H (0.6-1.2) mg/dl Est Cr Clr Drug Dosing 24.7 ml/min Est GFR ( Amer) 38.3 ml/min Est GFR (Non-Af Amer) 33.0 ml/min BUN/Creatinine Ratio 15.3 (10-20) Glucose 133 H (70-99(Fasting)) mg/dl Calcium 10.4 H (8.6-10.3) mg/dl Magnesium 2.0 (1.7-2.4) mg/dl Total Bilirubin 0.5 (0.2-1.0) mg/dl AST 19 (13-39) U/L ALT 13 (7-52) U/L Alkaline Phosphatase 100 (34-104) U/L Troponin I High Sens 6.8 (0-14) pg/ml Total Protein 7.7 (6.0-8.3) gm/dl Albumin 3.9 (3.4-5.0) gm/dl Globulin 3.8 (2.5-4.0) gm/dl Albumin/Globulin Ratio 1.0 (0.9-2) TSH 3.082 (0.300-4.500) uIu/ml Administered Medications Amlodipine Besylate (Amlodipine Besylate 5 Mg Tab) 5 mg PO QAM JENELLE Stop: 04/25/24 08:59 Last Admin: 03/26/24 08:13 Dose: 5 mg Documented By: SILVANA Apixaban (Apixaban 2.5 Mg Tab) 2.5 mg PO BID [facility]LY [facility], [facility]1983 Stop: 04/25/24 08:59 Last Admin: 03/26/24 20:03 Dose: 2.5 mg Documented By: Admin: 03/26/24 08:13 Dose: 2.5 mg Documented By: SILVANA Deutetrabenazine (Austedo 12mg) 1 each PO BID JENELLE Stop: 04/24/24 20:59 Last Admin: 03/26/24 20:03 Dose: 1 each Documented By: Admin: 03/26/24 08:14 Dose: 1 each Documented By: Admin: 03/25/24 21:10 Dose: 1 each Documented By: COLETTE Duloxetine HCl (Duloxetine Hcl 60 Mg Cap) 60 mg PO QAM JENELLE Stop: 04/25/24 08:59 Last Admin: 03/26/24 08:13 Dose: 60 mg Documented By: SILVANA Sodium Chloride (Nss) 1,000 mls @ 100 mls/hr IV .Q10H JENELLE Stop: 04/24/24 07:29 Last Admin: 03/26/24 15:12 Dose: 100 mls/hr Documented By: Infusion: 03/26/24 15:12 Dose: Infused Documented By: Admin: 03/26/24 06:08 Dose: 100 mls/hr Documented By: Infusion: 03/26/24 06:08 Dose: Infused Documented By: Admin: 03/25/24 20:19 Dose: 100 mls/hr Documented By: Infusion: 03/25/24 19:31 Dose: Infused Documented By: Admin: 03/25/24 08:12 Dose: 125 mls/hr Documented By: MAYO Melatonin (Melatonin 3 Mg Tab) 3 mg PO HS [facility], [facility]1983 Stop: 04/24/24 20:59 Last Admin: 03/26/24 20:02 Dose: 3 mg Documented By: Admin: 03/25/24 21:14 Dose: 3 mg Documented By: COLETTE Morphine Sulfate (Morphine Sulfate 4 Mg/Ml 1 Ml Carp\Vial) 2 mg IV Q3H PRN PRN Reason: Pain (6,7,8,9,10) Stop: 04/08/24 10:09 Last Admin: 03/26/24 20:02 Dose: 2 mg Documented By: Admin: 03/26/24 10:34 Dose: 2 mg Documented By: SILVANA Pantoprazole Sodium (Pantoprazole 40 Mg Tab) 40 mg PO DAILYBB FOR[facility], 1928–1983 Stop: 04/25/24 06:29 Last Admin: 03/26/24 06:23 Dose: 40 mg Documented By: COLETTE Pravastatin Sodium (Pravastatin Sod 40 Mg Tab) 40 mg PO QDD JENELLE Stop: 04/24/24 16:29 Last Admin: 03/26/24 15:13 Dose: 40 mg Documented By: Admin: 03/25/24 21:10 Dose: Not Given Documented By: COLETTE Vitamin D (Cholecalciferol 125 Mcg (5,000 Units) Tab) 125 mcg PO QAM JENELLE Stop: 04/25/24 09:59 Last Admin: 03/26/24 11:39 Dose: 125 mcg Documented By: SILVANA Discontinued Medications Bupivacaine HCl (Bupivacaine 0.5 % 5 Mg/1 Ml Mpf 30ml Vial) Confirm Administered Dose 30 ml .ROUTE .STK-MED ONE Stop: 03/25/24 14:39 Last Admin: 03/25/24 19:30 Dose: Not Given Documented By: COLETTE Fentanyl Citrate (Fentanyl Citrate Pf 100 Mcg/2 Ml Vial) 50 mcg IV Q15M PRN PRN Reason: Pain Stop: 04/08/24 09:42 Last Admin: 03/25/24 09:58 Dose: 50 mcg Documented By: MAYO Lactated Ringer's (Lr) 500 mls @ 999 mls/hr IV .Q31M ONE Stop: 03/25/24 11:38 Last Infusion: 03/25/24 19:33 Dose: Infused Documented By: Admin: 03/25/24 11:34 Dose: 999 mls/hr Documented By: MAYO Cefazolin Sodium (Ancef 2000mg) 2,000 mg in 15 mls @ 3.75 mls/min IV PREOP JENELLE; Protocol Stop: 03/25/24 16:00 Last Admin: 03/25/24 15:05 Dose: 3.75 mls/min Documented By: NAYANA Lactated Ringer's (Lr) 1,000 mls @ 15 mls/hr IV .Q24H JENELLE Stop: 04/24/24 05:59 Last Infusion: 03/25/24 14:45 Dose: Infused Documented By: Admin: 03/25/24 14:30 Dose: 15 mls/hr Documented By: JOHANA Cefazolin Sodium (Ancef 1000mg) 1,000 mg in 7.5 mls @ 2.5 mls/min IV Q8H FOR[facility], [facility]; Protocol Stop: 03/26/24 07:02 Last Admin: 03/26/24 06:07 Dose: 2.5 mls/min Documented By: Admin: 03/25/24 22:40 Dose: 2.5 mls/min Documented By: COLETTE Tranexamic Acid (Tranexamic Acid / 0.7% Nacl) 1,000 mg in 100 mls @ 600 mls/hr IV Q6H JENELLE Stop: 03/25/24 23:09 Last Infusion: 03/25/24 22:55 Dose: Infused Documented By: Admin: 03/25/24 22:40 Dose: 600 mls/hr Documented By: COLETTE Lidocaine/Epinephrine (Lidocaine 1%/Epinephrine 1:100,000 50 Ml Vial) Confirm Administered Dose 20 ml .ROUTE .STK-MED ONE Stop: 03/25/24 14:39 Last Admin: 03/25/24 19:30 Dose: Not Given Documented By: COLETTE Metoprolol Tartrate (Metoprolol Tartrate 1 Mg/Ml Vial) Confirm Administered Dose 5 mg IV .STK-MED ONE Stop: 03/25/24 17:09 Last Admin: 03/25/24 19:31 Dose: Not Given Documented By: COLETTE Metoprolol Tartrate (Metoprolol Tartrate 1 Mg/Ml Vial) 5 mg IV NOW STA Stop: 03/25/24 17:11 Last Admin: 03/25/24 17:11 Dose: 5 mg Documented By: SHAMIKA Tranexamic Acid (Tranexamic Acid / 0.7% Nacl 1000mg/100ml Bag) Confirm Administered Dose 1,000 mg IV .STK-MED ONE Stop: 03/25/24 15:11 Last Admin: 03/25/24 15:20 Dose: 1,000 mg Documented By: NAYANA Imaging Data Radiologist's Impression: Chest X-Ray 03/25/24 07:18 XR chest 1V portable HISTORY: 84 years-old Female trauma acute chest trauma COMPARISON: 10/28/2023 TECHNIQUE: AP view of the chest FINDINGS: Lung volumes are normal. Lungs are clear. There is no pneumothorax or pleural effusion. Cardiac size is stable. Mediastinal contours are normal. There is no evidence for pulmonary edema. IMPRESSION: No acute cardiopulmonary findings. No change in appearance of the chest. ACT 112: Negative or not required by law. The above report was generated using voice recognition software. It may contain grammatical, syntax or spelling errors. Electronically signed by: Cullen Francisco M.D. 03/25/2024 8:39 AM Hip/Pelvis X-Ray 03/25/24 07:18 XR hip LT 2V w pelvis CLINICAL HISTORY: trauma COMPARISON STUDY: Pelvis 11/19/2022. FINDINGS: Mildly displaced intertrochanteric fracture within the proximal left femur. No dislocation. The bones are osteopenic. Soft tissue swelling within the left lateral hip. No additional fractures identified within the pelvis or right hip. Vascular calcifications are noted. IMPRESSION: Mildly displaced intertrochanteric fracture within the proximal left femur. ACT 112: Negative or not required by law. Electronically signed by: Aaron Dobson M.D. 03/25/2024 9:10 AM Discharge Plan Visit Data Chief Complaint: Fall ED Provider: Bria Boyce Discharge Problem: Acute pain of left hip, Fall, Closed fracture of left hip Patient Disposition: Admitted As Inpatient Discharge Instructions Interventions: ED Discharge Assessment Last Done: 03/25/24 14:44 Discharge Problem: Fall Qualifiers: Encounter type: initial encounter Qualified Code(s): W19.XXXA - Unspecified fall, initial encounter Closed fracture of left hip Qualifiers: Encounter type: initial encounter Qualified Code(s): S72.002A - Fracture of unspecified part of neck of left femur, initial encounter for closed fracture
[2024-03-25 07:46] LABS: Basophils # (auto) 0.07 K/uL (0.00-0.20); Basophils % (auto) 0.5 %; Eosinophils # (auto) 0.22 K/uL (0.00-0.50); Eosinophils % (auto) 1.5 %; Hemoglobin 12.8 g/dl (12.0-16.0); Immature Granulocytes # (auto) 0.09 K/uL (0.01-0.20); Immature Granulocytes % (auto) 0.6 %; Lymphocytes # (auto) 1.94 K/uL (1.20-3.40); Lymphocytes % (auto) 12.9 %; Mean Corpuscular Hemoglobin 29.1 pg (25.0-34.0); Mean Corpuscular Hgb Conc 32.8 g/dL (32.0-36.0); Mean Corpuscular Volume 88.6 fL (80.0-100.0); Mean Platelet Volume 9.1 fL (9.4-12.4); Monocytes # (auto) 0.89 K/uL (0.11-0.59); Monocytes % (auto) 5.9 %; Neutrophils # (auto) 11.81 K/uL (1.40-6.50); Neutrophils % (auto) 78.6 %; Platelet Count 340 K/uL (130-400); RDW Coefficient of Variation 12.8 % (11.5-14.5); RDW Standard Deviation 41.8 fL (36.4-46.3); White Blood Count 15.02 K/ul (4.8-10.8)
[2024-03-25 07:55] LABS: Albumin Level 3.9 gm/dl (3.4-5.0); BUN Creatinine Ratio 15.3 (10-20); Bilirubin,Total 0.5 mg/dl (0.2-1.0); Calcium 10.4 mg/dl (8.6-10.3); Creatinine Clr Calc Pharmacy 24.7 ml/min; Est GFR (African American) 38.3 ml/min; Globulin 3.8 gm/dl (2.5-4.0); Potassium 4.3 mmol/L (3.5-5.1); Total Protein 7.7 gm/dl (6.0-8.3)
[2024-03-25 08:01] LABS: Troponin I High Sensitivity 6.8 pg/ml (0-14)
[2024-03-25 08:10] LABS: Thyroid Stimulating Hormone 3.082 uIu/ml (0.300-4.500)
[2024-03-25 08:11] LABS: Prothrombin Time 10.9 Seconds (9.0-12.0)
[2024-03-25] MEDS: SODIUM CHLORIDE 0.9% 1,000 ML IV SCH (08:12)
--- NOTE | 2024-03-25 08:40 | XRay Report ---
XR chest 1V portable HISTORY: 84 years-old Female trauma acute chest trauma COMPARISON: 10/28/2023 TECHNIQUE: AP view of the chest FINDINGS: Lung volumes are normal. Lungs are clear. There is no pneumothorax or pleural effusion. Cardiac size is stable. Mediastinal contours are normal. There is no evidence for pulmonary edema. IMPRESSION: No acute cardiopulmonary findings. No change in appearance of the chest. ACT 112: Negative or not required by law. The above report was generated using voice recognition software. It may contain grammatical, syntax o r spelling errors. Electronically signed by: Cullen Francisco M.D. 03/25/2024 8:39 AM
--- NOTE | 2024-03-25 09:11 | XRay Report ---
XR hip LT 2V w pelvis CLINICAL HISTORY: trauma COMPARISON STUDY: Pelvis 11/19/2022. FINDINGS: Mildly displaced intertrochanteric fracture within the proximal left femur. No dislocation. The bones are osteopenic. Soft tissue swelling within the left lateral hip. No additional fractures identified within the pelvis or right hip. Vascular calcifications are noted. IMPRESSION: Mildly displaced intertrochanteric fracture within the proximal left femur. ACT 112: Negative or not required by law. Electronically signed by: Aaron Dobson M.D. 03/25/2024 9:10 AM
--- OUTSIDE RECORDS SUMMARY | 2024-03-25 09:18 | External Medical Summary | Continuity of Care Document ---
Author Name Unknown Organization [address] [id number] Care Team Providers Care Enterprise Architect Manager Name Role Phone Nuha Moffett Primary Care Physician [phone] Encounter [id number] Date(s): 12/09/23 - 12/09/[address] [address] [phone] Encounter Diagnosis Orthostatic hypotension(Discharge Diagnosis) - 12/11/23 Tardive dyskinesia(Discharge Diagnosis) - 12/11/23 Fatigue(Discharge Diagnosis) - 12/11/23 Discharge Disposition: Home or Self Care Attending Physician: DEBORAH Rajan Danielle B Referring Physician: MD Betina, Nuha Allergies, Adverse Reactions, Alerts Substance Criticality Severity Reaction Reaction Severity Status codeine gi upset Active Tylenol gi upset Active PCN (penicillin) rash Act mabel Vicodin gi upset Active Adhesive bandage rash Act mabel Assessment and Plan Extracted from: Title:Acute Visit Note Author:DEBORAH Rajan Dani elle B Date:12/09/23 1.Orthostatic hypotension No notes available from [facility] admission. Will request records. Discussed with daughter that regular IV fluids may be a possibility at the infusion center, but someone with ordering privilegesat the infusion center would need to write the order. Another option may be local mobile infusion company or [facility] but that would more than likely require out of pocket payment. 2.Tardive dyskinesia Patient to currently have PT sessions with [facility] ordered by [facility], but daughter not aware if they're happening. Will enter referral. 3.Fatigue Will request lab results from [facility]. Plan dependent on results. Daughter aware that I'll be in contact once records received for plan. -Follow up in [address] Moffett. Sooner if questions or concerns. -Daughter verbalizes understanding regarding plan of care and all questions answered. Immunizations Given and Recorded Vaccine Date Status Refusal Reason influenza virus vaccine, inactivated 05/06/20 Danny rded pneumococcal 13-valent vaccine 07/04/15 Recorded zoster vaccine live 06/05/11 Recorded pneumococcal 23-valent vaccine 03/31/08 Recorded tetanus toxoids-diphtheria, Td (Adult) 07/06/00 Re corded Medications amLODIPine 5 mg oral tablet Start: 12/07/23 5:32:00 PM EDT, 1 tab, PO, Daily, Disp# 28 tab, Refills: 10, *HTN*., Pharmacy: [facility] Start Date: 12/07/23 Status: Ordered Austedo 12 mg oral tablet Start: 06/16/23 12:16:00 PM EST, 1 tab, PO, bid, Disp# 60 tab, Refills: 7, Pharmacy: [facility] Start Date: 06/16/23 Stop Date: 02/11/24 Status: Ordered DULoxetine 60 mg oral delayed release capsule Start: 12/07/23 5:32:00 PM EDT, 1 cap, PO, Daily, Disp# 28 cap, Refills: 10, *DEPRESSION*., Pharmacy:[facility] Start Date: 12/07/23 Status: Ordered Fish Oil 1000 mg oral capsule Start: 12/31/16 3:55:00 PM EDT, 2 cap, PO, Daily Start Date: 12/31/16 Status: Ordered Enrico'mimi Valente Vites oral tablet, chewable Start: 07/13/20 3:47:00 PM EST, 2 tab, PO, Daily, Disp# 60 tab Start Date: 07/13/20 Status: Ordered loperamide 2 mg oral capsule Start: 03/31/23 4:33:00 PM EDT, 1 cap, PO, q4h Start Date: 03/31/23 Status: Ordered Melatonin 3 mg oral tablet Start: 03/31/23 4:32:00 PM EDT, 1 tab, PO, qhs, PRN: Insomnia Start Date: 03/31/23 Status: Ordered Milk of Magnesia Start: 03/31/23 4:34:00 PM EDT Start Date: 03/31/23 Status: Ordered MiraLax oral powder for reconstitution Start: 07/10/20 4:21:00 PM EST, 17 g =, PO, Daily, Disp# 255 g, Refills: 1, dissolve in water or juice hold if diarrhea or loose stools, Pharmacy: [facility] Start Date: 07/10/20 Status: Ordered omeprazole 20 mg oral delayed release capsule Start: 12/07/23 5:31:00 PM EDT, 1 cap, PO, Before breakfast, Disp# 28 cap, Refills: 4, FOR GERD., Pharmacy: [facility] Start Date: 12/07/23 Status: Ordered pravastatin 40 mg oral tablet Start: 12/07/23 5:32:00 PM EDT, See Instructions, Disp# 28 tab, Refills: 4, TAKE 1 TABLET BY MOUTH ONCE DAILY WITH DINNER FOR CHOLESTEROL, Pharmacy: [facility] Start Date: 12/07/23 Status: Ordered senna 8.6 mg oral tablet Start: 03/31/23 4:34:00 PM EDT, 1 tab, PO, Daily, PRN: as needed for constipation Start Date: 03/31/23 Status: Ordered Therems M oral tablet Start: 03/31/23 4:33:00 PM EDT, 1 tab, PO, Daily Start Date: 03/31/23 Status: Ordered Mental Status 12/09/23 Barriers to Learning one year None evide nt Mandatory Health Literacy Documentation Yes Health Literacy Communication Barriers N ever Primary Language Gambian Problem List Condition Confirmation Course Effective Dates [...] Effective Dates Health Status Clinical Service Informant Tardive dyskinesia Discharge Diagnosis 12/11/23 Non-Specified Orthostatic hypotension Discharge Diagnosis 12/11/23 Non-Specified Fatigue Discharge Diagnosis 12/11/23 Non-Specified Procedures Procedure Date Related Diagnosis Body [...] Most recent to oldest [Reference Range]: 1 Patient Weight 57.6 kg (12/09/23 3:03 PM) Heart Rate 136 bpm (12/09/23 3:03 PM) Respiratory Rate 20 br/min (12/09/23 3:03 PM) Blood Pressure 120/62mmHg (12/09/23 3:03 PM) Cuff Pulse Pressure 58 mmHg (12/09/23 3:03 PM) Social History Social History Type Response Smoking Status Never smoked cigaret yamilex Sex Female FCM Outpt Note * DEBORAH Rajan Danielle B: PERFORM Event Display: [facility]CM Outpt Note Authored Date: [id number] Chief Complaint 3 month follow up, was in hospital and then [facility] Accompanied by:daughter History of Present Illness Patient is an 83 year old female here with daughter, Sue, for hospital follow up. Patient has some cognitive difficulty so daughter acts as historian. She states patient was admitted to [facility] from [facility] in October for suspected seizure. After workup, daughter states diagnosis was vasovagal episode. Since discharge, daughter states patient sleeps all the time and cannot seem to get enough sleep. Daughter questioning if a referral for IV fluids at set interval is a possibility. States patient does not drink fluids unless prompted to do so. When patient is hydrated, daughter feels she is much more talkative and lucid. Denies fever, chills, night sweats, nausea, vomiting, diarrhea, delirium. Upon discharge from [facility], patient was to have PT with [facility]; however, it's unknown whether PT sessions are actually happening. Review of Systems Negative unless stated in HPI. Physical Exam Vitals & Measurements HR:136(Monitored) RR:20 BP:120/62 SpO2:96% WT:57.600kg(Dosing) WT:57.6kg PHQ2 Data(Data Documented on:12/09/2023 15:03) Emotional health assessment NEGATIVE CONSTITUTIONAL: Well-developed, well nourished. No acute distress. NEUROLOGICAL: Patient alert.Gait steady. MUSCULOSKELETAL/EXTREMITIES: Extremities are intact, no redness or edema noted of upper or lower extremity. INTEGUMENTARY: Skindry, warm to touch. No rash, wounds, lesions noted on visible skin. PSYCHOSOCIAL: Calm and cooperative, interacts appropriately withstaff. Assessment/Plan 1.Orthostatic hypotension No notes available from [facility] admission. Will request records. Discussed with daughter that regular IV fluids may be a possibility at the infusion center, but someone with ordering privilegesat the infusion center would need to write the order. Another option may be local [employer] infusion company or [facility] but that would more than likely require out of pocket payment. 2.Tardive dyskinesia Patient to currently have PT sessions with [facility] ordered by [facility], butdaughter not aware if they're happening. Will enter referral. 3.Fatigue Will request lab results from [facility]. Plan dependent on results. Daughter aware that I'll be in contact once records received for plan. -Follow up in [address] Moffett. Sooner if questions or concerns. -Daughter verbalizes understanding regarding plan of care and all questions answered. Problem List/Past Medical History Ongoing Body mass index [BMI] 22.0-22.9, adult Breast cancer Constipation Depression Drug-induced parkinsonism FH: osteopenia GERD (gastroesophageal reflux disease) HTN (hypertension) Hyperlipidemia Lightheadedness Tardive akathisia Tardive dyskinesia Vascular dementia Vascular parkinsonism Resolved Acute pulmonary embolism Chronic leg pain Pressure ulcer Procedure/Surgical History CT of extracranial soft tissues of the head| Service Date: 01/11/2022[facility] chest X-ray| Service Date: 01/11/2022[facility] X-ray of right forearm| Service Date: 01/11/2022[facility] x-ray of pelvis| Service Date: 01/11/2022MRI of head| Service Date: 06/23/2021T of head| Service Date: 06/22/2021T of brain wo/w contrast| Service Date: 05/14/2021hest X-ray| Service Date: 05/14/2020Hip X-ray Right| Service Date: 10/11/2019Echocardiogram| Service Date: 07/07/2014Colectomy| Service Date: 02/19/2009Hx of umbilical hernia repairCholecystectomyTonsillectomyBilateral mastectomyLaminectomy Medications amLODIPine(amLODIPine 5 mg oral tablet), 1 tab, PO, Daily deutetrabenazine(Austedo 12 mg oral tablet), 12 mg= 1 tab, PO, bid, 7 refills DULoxetine(DULoxetine 60 mg oral delayed release capsule), 1 cap, PO, Daily loperamide(loperamide 2 mg oral capsule), 2 mg= 1 cap, PO, q4h magnesium hydroxide(Milk of Magnesia) melatonin(Melatonin 3 mg oral tablet), 3 mg= 1 tab, PO, qhs, PRN multivitamin with minerals(L'il Crittsneha Gummy Vites oral tablet, chewable), 2 tab, PO, Daily multivitamin with minerals(Therems M oral tablet), 1 tab, PO, Daily omega-3 polyunsaturated fatty acids(Fish Oil 1000 mg oral capsule), 2000 mg= 2 cap, PO, Daily omeprazole(omeprazole 20 mg oral delayed release capsule), 1 cap, PO, Before breakfast polyethylene glycol 3350(MiraLax oral powder for reconstitution), 17 g, PO, Daily, 1 refills pravastatin(pravastatin 40 mg oral tablet), See Instructions senna(senna 8.6 mg oral tablet), 8.6 mg= 1 tab, PO, Daily, PRN Allergies Adhesive bandagerash PCN (penicillin)rash Tylenolgi upset Vicodingi upset codeinegi upset Social History Smoking Status Never smoked cigarettes Family History Cancer of colon: Father. Cancer...: Father. Liver cancer: Father. Pancreatic cancer: Father. Stroke: Brother. Health Status Family Member(s) Immunizations Vaccine Date Status influenza virus vaccine, inactivated 05/2020 Recorded pneumococcal 13-valent vaccine 07/04/2015 Recorded zoster vaccine live 06/05/2011 Recorded pneumococcal 23-valent vaccine 03/31/2008 Recorded tetanus toxoids-diphtheria, Td (Adult) 07/06/2000 Recorded Recommendations Health Maintenance Pending(in the next year) OverDue Medicare Annual Wellness Visit due04/16/18and every 1year Adult Influenza Vaccine due01/02/23and every 1year Due Adult COVID-19 Vaccination due12/11/23Unknown Frequency Adult Social Determinants of Health Screening due12/11/23Unknown Frequency Adult Tdap/Td Vaccine due12/11/23Unknown Frequency Falls Plan of Care due12/11/23Unknown Frequency Osteoporosis Screening due12/11/23One-time only Shingles Vaccine due12/11/23One-time only Due In Future Body Mass Index not due until12/09/24and every Satisfied(in the past 1 year) Satisfied Body Mass Index on07/29/23.Satisfied by DEJON Mark Bobbi Electronic Signature on File Electronically Reviewed/Signed by: DEBORAH Oreilly Author Signature Dt/Tm:12/11/2023 05:47 PM Family Medicine DBN Patient Care team information Care Team Personnel Name: DEBORAH Duran Tara Position: Nurse Pract - Family Med Member Role: Lifetime Relationship Address: Address: [address] [place] [address] [place] Name: MD Betina, Nuha Position: Physician - Family Med Member Role: Primary Care Provider Address: Address: [address] [place] [address] Care Team Related Persons Name: SUE ROBLES Address: home [address] [place] [address]"
[2024-03-25] MEDS: fentaNYL citrate PF 100 MCG/2 ML VIAL IV PRN (09:58)
[2024-03-25] MEDS ORDERED: bisacodyL 10 MG SUPP PR PRN (10:10)
[2024-03-25] MEDS ORDERED: MoRPHine SULFATE 2 MG/ML CARP IV PRN ×2 (10:10→11:11)
[2024-03-25] MEDS ORDERED: NALOXONE HCL 0.4 MG/1 ML VIAL/CARP IV PRN ×2 (10:10→14:31)
[2024-03-25] MEDS ORDERED: MoRPHine SULFATE 4 MG/ML 1 ML CARP\\VIAL IV PRN (10:10)
[2024-03-25] MEDS ORDERED: MAGNESIUM HYDROXIDE SUSP 30 ML UDC PO PRN (10:10)
--- NOTE | 2024-03-25 10:10 | History & Physical Report ---
Date of Service March 25, 2024 Assessment & Plan (1) Closed fracture of left hip: Plan: Admit to med/telemetry Currently stable and nontoxic-appearing Presented to the ED via EMS this morning from [facility] after experiencing a fall [place] Patient's fall was witnessed by staff and they confirm she lost her balance falling to her left side, did not hit her head or lose consciousness X-ray of the left hip/pelvis shows a mildly displaced intertrochanteric fracture within the proximal left femur, otherwise patient is without other acute trauma Will keep patient n.p.o. at this time as I was able to confirm that she has not had anything to eat/drink prior to her fall in case orthopedics would like to take her to the OR later today Pain control with as needed morphine, as needed Zofran for nausea, as needed Narcan for oversedation/respiratory depression Orthopedic consult has been placed in sent message to orthopedics regarding the situation and possibility of being able to take her to the OR later today, they will evaluate her later Fall/aspiration precautions PT/OT consults Bilateral SCDs for DVT prophylaxis for now until OR schedules confirm AM CBC, CMP, mag, PT/INR (2) Leukocytosis: Plan: Patient noted to have a leukocytosis of 15 with neutrophil predominance of 11 on arrival Has been afebrile since arrival, nontoxic-appearing No signs of infection on chest x-ray or physical exam Will follow UA once Barba is placed by urology monitor for signs of UTI Could be combination of dehydration and reactivity from recent fall Will hold antibiotics for now monitor daily CBC (3) Difficult Barba catheter placement: Plan: Nursing staff attempted several times to place Barba catheter after patient arrival but were unsuccessful due to patient's anatomy Spoke to urology, appreciate their assistance, consult has been placed and th ey will evaluate her and place Barba catheter Will follow UA once urine is obtained (4) Fall: Plan: Staff at [facility] confirmed patient lost her balance and fell to the left this morning Did not hit her head or lose consciousness No other acute trauma on exam besides her known left hip fracture Fall/aspiration precautions PT/OT consults (5) Tardive dyskinesia: Plan: Will confirm medications after we receive her faxed MAR from [facility] (6) Hypertension: Plan: Currently stable Will confirm medications after we receive her faxed MAR from [facility] Plan The patient was discussed with Dr. Bethea at the time of the History of Present Illness Chief Complaint: Fall, left hip/leg pain Primary Care Provider: [facility] Sharron is an 84-year-old female with history of tar dive dyskinesia (due to previous risperidone), depression, GERD, hypertension, orthostatic hypotension, and mild dementia with paranoid hallucinations who presented to [facility] ER on 03/25/2024 via EMS from [facility] due to a witnessed fall and acute left-sided hip/left lower extremity pain. Was noted to be tachycardic on arrival with heart rate in the 90s but otherwise stable. Labs are significant for leukocytosis of 15 with neutrophil predominance of 11, calcium of 10.4. Chest x-ray was read as negative for acute findings. X-ray of the left hip/pelvis was read as a mildly displaced intertrochanteric fracture within the proximal left femur. Prior to admission the patient was 1 L normal saline and 50 mcg IV fentanyl. Patient was lying in bed in no acute distress at time of exam, history is limited due to patient's baseline mental status. Her only complaint at this time is being cold. Patient's daughter reportedly had to leave for her own doctor's appointment but will return after. I was able to call when [facility] who confirmed that the patient was ambulating in the hallway using her walker when she lost her balance falling to the left and landed on her left hip. They confirm that she did not hit her head or lose consciousness. They confirm that she did not eat or drink prior to her fall or arriving to the ED. She did not have her a.m. medications. Per review of previous admission in October of this year the patient's was initially full code but after later discussions with the patient's family she was eventually transitioned to DNR/DNI. I will speak with the daughter when she arrives back from her doctor's appointment. Please refer to Dr. Bethea's attestation for any changes to the treatment plan Allergies Allergy/AdvReac Type Severity Reaction Status Date / Time acetaminophen Allergy Intermediate RASH Verified 03/25/24 11:32 adhesive Allergy Intermediate RASH Verified 03/25/24 11:32 Penicillins Allergy Intermediate RASH Verified 03/25/24 11:32 latex Allergy Unknown Verified 03/26/24 04:06 risperidone AdvReac Severe tardive Verified 03/25/24 11:32 diskinesia codeine AdvReac Intermediate GI SYMPTOMS Verified 03/25/24 11:32 hydrocodone AdvReac Intermediate GI SYMPTOMS Verified 03/25/24 11:32 Home Medications Medication Instructions Recorded Confirmed Type duloxetine 60 mg capsule,delayed 60 mg PO QAM 06/14/21 03/25/24 History release omeprazole 20 mg capsule,delayed 20 mg PO DAILYBB 06/14/21 03/25/24 History release food supplemt, lactose-reduced 1 ea PO TIDM 11/19/22 03/25/24 History pravastatin 40 mg tablet 40 mg PO QDD 11/19/22 03/25/24 History sennosides 8.6 mg-docusate sodium 1 tab-cap PO QDL PRN Constipation 11/19/22 03/25/24 History 50 mg tablet (Senna-Time S) amlodipine 5 mg tablet 5 mg PO QAM 10/28/23 03/25/24 History deutetrabenazine 12 mg tablet 12 mg PO BID 10/28/23 03/25/24 History (Austedo) melatonin 3 mg disintegrating 3 mg PO HS 10/28/23 03/25/24 History tablet therapeutic multivitamin 1 tab PO QAM 03/25/24 03/25/24 History (Thera-Tabs tablet) Past Med/Surg History Problem List Difficult Barba catheter placement Leukocytosis Closed fracture of left hip (Acute) Fall (Acute) Acute pain of left hip (Acute) Orthostatic hypotension Paranoid delusion Seizure-like activity Acute dehydration (Acute) Encephalopathy acute (Acute) Acute alteration in mental status (Acute) SAMY (acute kidney injury) (Acute) Acute dehydration (Acute) Fall from standing (Acute) Ambulatory dysfunction (Acute) Dehydration (Acute) Ambulatory dysfunction (Acute) Fall (Acute) Abrasion of right arm (Acute) Severe protein-calorie malnutrition Tardive dyskinesia Encephalopathy acute Depression DVT prophylaxis Stroke-like symptoms Hypertension COVID-19 (Acute) Subarachnoid hemorrhage (Acute) Generalized weakness (Acute) SARS-CoV-2 positive (Acute) Hyperlipidemia GERD (gastroesophageal reflux disease) Surgical History History of mastectomy Family History Other Unknown family medical history Social History Smoking Status: Former smoker Tobacco Type: Cigarettes Second Hand Exposure: No; Do You Dip or Chew Tobacco: No; Hx Alcohol Use: No Hx Substance Use: No Preferred Language: Citizen Of [place] Communication Ability: Effective Communication Ability Comment: unknown Oil Rigger Required: No Beliefs That Will Affect Care: None marital status: / Current Living Situation: [facility] Current Living Situation Comment: [facility] Other Information That Helps Us Care for You: No Feels Safe at Home: Yes Safety Concerns: Feels Safe At This Time Assistive Devices: Denture - Upper, Denture - Lower and Walker Physical Exam Physical Exam: Physical Exam: General: In no acute distress, stated age, currently tremulous due to being cold but is otherwise stable nontoxic-appearing HEENT: Normocephalic, atraumatic, no scleral icterus, pupils around round, symmetrical, and reactive to light, dry mucus membranes, trachea midline, no t hyromegaly Chest/Pulm: No respiratory distress, symmetrical chest expansion, clear breath sounds throughout Cardiac: Regular rate, irregular rhythm, no murmurs noted Abdomen: Negative for ascites and bruising, normoactive bowel sounds, soft, non-tender to palpation throughout Musculoskeletal: Patient with shortening and external rotation of the left lower extremity with tenderness to palpation of the left hip, mild skin abrasion to the right knee otherwise no other acute trauma on exam Extremities: Radial, dorsalis pedis, and posterior tibial pulses are intact and symmetrical, no edema noted in the BL LE's Skin: Small skin abrasion on the left knee from her fall this morning without signs of infection or bleeding, otherwise no acute findings Neuro: Alert to person only (is her baseline) no focal defects, patient currently tremulous due to being cold Psych: No acute distress, calm and cooperative during the exam Results & Data Results & Data Vital Signs (Past 12 Hours) Vital Signs Temp Pulse Resp BP Pulse Ox O2 Del Method 03/25/24 09:12 96 H 21 99 03/25/24 09:02 152/103 H 03/25/24 09:00 95 H 26 H 99 03/25/24 08:46 94 H 03/25/24 08:45 94 H 24 100 03/25/24 08:31 154/96 H 03/25/24 08:15 87 27 H 99 03/25/24 08:00 87 20 100 03/25/24 08:00 154/105 H 03/25/24 07:56 156/116 H 03/25/24 07:54 90 21 99 03/25/24 07:51 90 20 100 03/25/24 07:00 36.8 C 112 H 22 158/76 H 94 Room Air Laboratory Results Abnormal lab results 03/25/24 Range/Units 07:20 WBC 15.02 H (4.8-10.8) K/ul MPV 9.1 L (9.4-12.4) fL Neut # (Auto) 11.81 H (1.40-6.50) K/uL Dickson # (Auto) 0.89 H (0.11-0.59) K/uL Creatinine 1.44 H (0.6-1.2) mg/dl Glucose 133 H (70-99(Fasting)) mg/dl Calcium 10.4 H (8.6-10.3) mg/dl Diagnostic Findings Chest X-Ray 03/25/24 07:18 XR chest 1V portable HISTORY: 84 years-old Female trauma acute chest trauma COMPARISON: 10/28/2023 TECHNIQUE: AP view of the chest FINDINGS: Lung volumes are normal. Lungs are clear. There is no pneumothorax or pleural effusion. Cardiac size is stable. Mediastinal contours are normal. There is no evidence for pulmonary edema. IMPRESSION: No acute cardiopulmonary findings. No change in appearance of the chest. ACT 112: Negative or not required by law. The above report was generated using voice recognition software. It may contain grammatical, syntax or spelling errors. Electronically signed by: Cullen Francisco M.D. 03/25/2024 8:39 AM Hip/Pelvis X-Ray 03/25/24 07:18 XR hip LT 2V w pelvis CLINICAL HISTORY: trauma COMPARISON STUDY: Pelvis 11/19/2022. FINDINGS: Mildly displaced intertrochanteric fracture within the proximal left femur. No dislocation. The bones are osteopenic. Soft tissue swelling within the left lateral hip. No additional fractures identified within the pelvis or right hip. Vascular calcifications are noted. IMPRESSION: Mildly displaced intertrochanteric fracture within the proximal left femur. ACT 112: Negative or not required by law. Electronically signed by: Aaron Dobson M.D. 03/25/2024 9:10 AM ECG Additional Comments: Sinus rhythm with first-degree AV block and frequent premature ventricular complexes otherwise no acute changes Code Status & VTE Plan Code Status DNR/DNI VTE Prophylaxis Plan VTE Prophylaxis will be ordered: Yes Supervising Physician Co-Signing Physician Notes I personally saw and examined the patient. I verified all birahim points and agree with Molina Watts PA-C with the following exceptions and/or additions: 84 year old female with dementia presents to the ER following a fall. Unable to get any history from the patient but she does report left hip pain O/E HS RRR, no murmurs, Chest CTAB, Abdo SNT, no pedal edema, shortened and externally rotated left let with normal DP/PT pulses A/P Closed left hip fracture - consult ortho. medically optimized for surgery at this time. Pain relief. Otherwise as above. PG Care Time/CCT Total # of Minutes Spent Total Time Spent with Patient: Total time spent is greater than 50% in coordination of care (as documented) at patient's floor/unit and/or counseling patient: [place] [address] INT INP/OBS CARE 3/75MIN Patient Type Established Medical Decision Making High Complexity Diagnoses Closed fracture of left hip S72.002A Leukocytosis D72.829 Difficult Barba catheter placement T83.9XXA Fall W19.XXXA Tardive dyskinesia G24.01 Hypertension I10
[2024-03-25] MEDS ORDERED: ONDANSETRON INJ 2 MG/ML 2 ML VIAL IV PRN ×2 (10:42→14:31)
--- NOTE | 2024-03-25 11:08 | Orthopedic Consultation ---
Date of Consultation March 25, 2024 Assessment & Plan (1) Closed fracture of left hip: N.p.o. Admitted under medicine service Consent will be obtained once the daughter returns Discussed patient with medicine service and they feel that she is medically stable for surgical intervention OR was contacted and they will have a bed availability after 1 PM Will discuss this with Dr. Lewis History of Present Illness Reason for Consultation: Left hip fracture Requesting Physician: Dr. 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 Was noted to be tachycardic on arrival with heart rate in the 90s but otherwise stable. Labs are significant for leukocytosis of 15 with neutrophil predominance of 11, calcium of 10.4. Chest x-ray was read as negative for acute findings. X-ray of the left hip/pelvis was read as a mildly displaced intertrochanteric fracture within the proximal left femur. Prior to admission the patient was 1 L normal saline and 50 mcg IV fentanyl. Patient was lying in bed in no acute distress at time of exam, history is limited due to patient's baseline mental status. Patient's daughter reportedly had to leave for her own doctor's appointment but will return after. Apparently she fell at [facility] this AM while ambulating in the hallway using her walker when she lost her balance falling to the left and landed on her left hip. She did not strike her head or have LOC. Patient is NPO. She did not have her a.m. medications. Allergies Allergy/AdvReac Type Severity Reaction Status Date / Time acetaminophen Allergy Intermediate RASH Verified 10/28/23 17:24 adhesive Allergy Intermediate RASH Verified 10/28/23 17:24 Penicillins Allergy Intermediate RASH Verified 10/28/23 17:24 risperidone AdvReac Severe tardive Verified 10/28/23 18:26 diskinesia codeine AdvReac Intermediate GI SYMPTOMS Verified 10/28/23 17:24 hydrocodone AdvReac Intermediate GI SYMPTOMS Verified 10/28/23 17:24 Home Medications Medication Instructions Recorded Confirmed Type L'Osei Avendañotters Gummy Bear Viy 2 ea PO QAM 06/14/21 10/28/23 History duloxetine 60 mg capsule,delayed 60 mg PO QAM 06/14/21 10/28/23 History release loperamide 2 mg capsule (Imodium 2 mg PO Q4H PRN loose stools 06/14/21 10/28/23 History A-D) omeprazole 20 mg capsule,delayed 20 mg PO DAILYBB 06/14/21 10/28/23 History release polyethylene glycol 3350 17 17 g PO DAILY PRN Constipation 06/14/21 10/28/23 History gram/dose oral powder (Miralax) food supplemt, lactose-reduced 1 ea PO TIDM 11/19/22 10/28/23 History magnesium hydroxide 400 mg/5 mL 30 ml PO DAILY PRN Constipation 11/19/22 10/28/23 History oral suspension (Milk of Magnesia) omega-3 fatty acids 1,000 mg 1,000 mg PO BID17 11/19/22 10/28/23 History capsule pravastatin 40 mg tablet 40 mg PO QDD 11/19/22 10/28/23 History sennosides 8.6 mg-docusate sodium 1 tab-cap PO QDL PRN Constipation 11/19/22 10/28/23 History 50 mg tablet (Senna-Time S) amlodipine 5 mg tablet 5 mg PO QAM 10/28/23 10/28/23 History deutetrabenazine 12 mg tablet 12 mg PO BID17 10/28/23 10/28/23 History (Austedo) guaifenesin 600 mg tablet, 600 mg PO BID PRN COUGH/CONGESTION 10/28/23 10/28/23 History extended release 12 hr (Mucus Relief ER) melatonin 3 mg disintegrating 3 mg PO HS 10/28/23 10/28/23 History tablet multivitamin,tx-minerals 1 tab PO QAM 10/28/23 10/28/23 History nystatin 100,000 unit/gram topical 1 applic topical BID PRN RASH 10/28/23 10/28/23 History cream NEEDED Patient History Surgical History History of mastectomy Family History Other Unknown family medical history Social History Smoking Status: Unknown if ever smoked Tobacco Type: Cigarettes Second Hand Exposure: Yes; Hx Alcohol Use: No Hx Substance Use: No Preferred Language: Kiswahili Communication Ability: Effective Communication Ability Comment: unknown Contact Lens Assistant Required: No Beliefs That Will Affect Care: None marital status: / Current Living Situation: Half-Way Current Living Situation Comment: [place] Feels Safe at Home: Hesitant to Answer Assistive Devices: Walker Review of Systems Review of Systems: Unobtainable due to cognitive status (She does deny CP and SOB. Otherwise ROS unobtainable.) Physical Exam Physical Exam: Left Hip: Left lower extremity is shortened and externally rotated. Patient is able to actively dorsi and plantarflex her foot. She is unable to perform a straight leg raise test. She does not tolerate logroll testing very well. She has tenderness to palpation over the groin area and greater trochanter. She did tolerate light passive knee flexion to about 40 degrees. She is neurovascularly intact and able to detect light sensation to touch over the pads of her digits and does not have any type of dermatomal of deficit. Results & Data Vital Signs (Past 12 Hours) Vital Signs Temp Pulse Resp BP Pulse Ox O2 Del Method 03/25/24 09:12 96 H 21 99 03/25/24 09:02 152/103 H 03/25/24 09:00 95 H 26 H 99 03/25/24 08:46 94 H 03/25/24 08:45 94 H 24 100 03/25/24 08:31 154/96 H 03/25/24 08:15 87 27 H 99 03/25/24 08:00 87 20 100 03/25/24 08:00 154/105 H 03/25/24 07:56 156/116 H 03/25/24 07:54 90 21 99 03/25/24 07:51 90 20 100 03/25/24 07:00 36.8 C 112 H 22 158/76 H 94 Room Air Diagnostic Findings Laboratory Results WBC 15.02 K/ul (4.8-10.8) H 03/25/24 07:20 RBC 4.40 M/uL (4.20-5.40) 03/25/24 07:20 Hgb 12.8 g/dl (12.0-16.0) 03/25/24 07:20 Hct 39.0 % (37.0-47.0) 03/25/24 07:20 MCV 88.6 fL (80.0-100.0) 03/25/24 07:20 MCH 29.1 pg (25.0-34.0) 03/25/24 07:20 MCHC 32.8 g/dL (32.0-36.0) 03/25/24 07:20 RDW Std Deviation 41.8 fL (36.4-46.3) 03/25/24 07:20 RDW Coeff of Miguel A 12.8 % (11.5-14.5) 03/25/24 07:20 Plt Count 340 K/uL (130-400) 03/25/24 07:20 MPV 9.1 fL (9.4-12.4) L 03/25/24 07:20 Immature Gran % (Auto) 0.6 % 03/25/24 07:20 Neut % (Auto) 78.6 % 03/25/24 07:20 Lymph % (Auto) 12.9 % 03/25/24 07:20 Elbert % (Auto) 5.9 % 03/25/24 07:20 Eos % (Auto) 1.5 % 03/25/24 07:20 Baso % (Auto) 0.5 % 03/25/24 07:20 Neut # (Auto) 11.81 K/uL (1.40-6.50) H 03/25/24 07:20 Lymph # (Auto) 1.94 K/uL (1.20-3.40) 03/25/24 07:20 Elbert # (Auto) 0.89 K/uL (0.11-0.59) H 03/25/24 07:20 Eos # (Auto) 0.22 K/uL (0.00-0.50) 03/25/24 07:20 Baso # (Auto) 0.07 K/uL (0.00-0.20) 03/25/24 07:20 Immature Gran # (Auto) 0.09 K/uL (0.01-0.20) 03/25/24 07:20 PT 10.9 Seconds (9.0-12.0) 03/25/24 07:20 INR 1.0 (0.9-1.1) 03/25/24 07:20 Sodium 137 mmol/L (136-145) 03/25/24 07:20 Potassium 4.3 mmol/L (3.5-5.1) 03/25/24 07:20 Chloride 102 mmol/L (98-107) 03/25/24 07:20 Carbon Dioxide 25 mmol/L (21-32) 03/25/24 07:20 Anion Gap 10 (3-11) 03/25/24 07:20 BUN 22 mg/dl (6-23) 03/25/24 07:20 Creatinine 1.44 mg/dl (0.6-1.2) H 03/25/24 07:20 Est Cr Clr Drug Dosing 24.7 ml/min 03/25/24 07:20 Est GFR ( Amer) 38.3 ml/min 03/25/24 07:20 Est GFR (Non-Af Amer) 33.0 ml/min 03/25/24 07:20 BUN/Creatinine Ratio 15.3 (10-20) 03/25/24 07:20 Glucose 133 mg/dl (70-99(Fasting)) H 03/25/24 07:20 Calcium 10.4 mg/dl (8.6-10.3) H 03/25/24 07:20 Magnesium 2.0 mg/dl (1.7-2.4) 03/25/24 07:20 Total Bilirubin 0.5 mg/dl (0.2-1.0) 03/25/24 07:20 AST 19 U/L (13-39) 03/25/24 07:20 ALT 13 U/L (7-52) 03/25/24 07:20 Alkaline Phosphatase 100 U/L (34-104) 03/25/24 07:20 Troponin I High Sens 6.8 pg/ml (0-14) 03/25/24 07:20 Total Protein 7.7 gm/dl (6.0-8.3) 03/25/24 07:20 Albumin 3.9 gm/dl (3.4-5.0) 03/25/24 07:20 Globulin 3.8 gm/dl (2.5-4.0) 03/25/24 07:20 Albumin/Globulin Ratio 1.0 (0.9-2) 03/25/24 07:20 TSH 3.082 uIu/ml (0.300-4.500) 03/25/24 07:20 Impressions Chest X-Ray 03/25/24 07:18 XR chest 1V portable HISTORY: 84 years-old Female trauma acute chest trauma COMPARISON: 10/28/2023 TECHNIQUE: AP view of the chest FINDINGS: Lung volumes are normal. Lungs are clear. There is no pneumothorax or pleural effusion. Cardiac size is stable. Mediastinal contours are normal. There is no evidence for pulmonary edema. IMPRESSION: No acute cardiopulmonary findings. No change in appearance of the chest. ACT 112: Negative or not required by law. The above report was generated using voice recognition software. It may contain grammatical, syntax or spelling errors. Electronically signed by: Cullen Francisco M.D. 03/25/2024 8:39 AM Hip/Pelvis X-Ray 03/25/24 07:18 XR hip LT 2V w pelvis CLINICAL HISTORY: trauma COMPARISON STUDY: Pelvis 11/19/2022. FINDINGS: Mildly displaced intertrochanteric fracture within the proximal left femur. No dislocation. The bones are osteopenic. Soft tissue swelling within the left lateral hip. No additional fractures identified within the pelvis or right hip. Vascular calcifications are noted. IMPRESSION: Mildly displaced intertrochanteric fracture within the proximal left femur. ACT 112: Negative or not required by law. Electronically signed by: Aaron Dobson M.D. 03/25/2024 9:10 AM
--- NOTE | 2024-03-25 11:33 | Urology Consultation ---
Date of Consultation March 25, 2024 Assessment & Plan (1) Difficult Barba catheter placement: Plan 84-year-old female currently admitted due to a left hip fracture. Per protocol, a catheter was ordered and nursing was unable to place this. Procedure: Patient was prepped and draped in sterile fashion. Her right leg was frog-legged and we left her left leg straight so as not to cause any worsening pain or injury. Vaginal introitus was noted to be narrow and I was unable, even with spreading of her labia, to visualize her urethral meatus. I attempted to get a 16 Kazakh catheter and unsuccessfully. I then switched to a 20 Kazakh coud and gently placed a finger in her vaginal introitus and ran the catheter above this blindly I was fortunately able to get return of clear yellow urine. Balloon was inflated with 10 cc of sterile water and set to gravity drainage. Remainder of care per primary team and orthopedics, including catheter management Urology to sign off History of Present Illness History of Present Illness 84-year-old female currently admitted due to a left hip fracture. Per protocol, a catheter was ordered and nursing was unable to place this. The patient has dementia and was unable to provide a history. Allergies Allergy/AdvReac Type Severity Reaction Status Date / Time acetaminophen Allergy Intermediate RASH Verified 03/25/24 11:32 adhesive Allergy Intermediate RASH Verified 03/25/24 11:32 Penicillins Allergy Intermediate RASH Verified 03/25/24 11:32 risperidone AdvReac Severe tardive Verified 03/25/24 11:32 diskinesia codeine AdvReac Intermediate GI SYMPTOMS Verified 03/25/24 11:32 hydrocodone AdvReac Intermediate GI SYMPTOMS Verified 03/25/24 11:32 Home Medications Medication Instructions Recorded Confirmed Type duloxetine 60 mg capsule,delayed 60 mg PO QAM 06/14/21 03/25/24 History release omeprazole 20 mg capsule,delayed 20 mg PO DAILYBB 06/14/21 03/25/24 History release food supplemt, lactose-reduced 1 ea PO TIDM 11/19/22 03/25/24 History pravastatin 40 mg tablet 40 mg PO QDD 11/19/22 03/25/24 History sennosides 8.6 mg-docusate sodium 1 tab-cap PO QDL PRN Constipation 11/19/22 03/25/24 History 50 mg tablet (Senna-Time S) amlodipine 5 mg tablet 5 mg PO QAM 10/28/23 03/25/24 History deutetrabenazine 12 mg tablet 12 mg PO BID 10/28/23 03/25/24 History (Austedo) melatonin 3 mg disintegrating 3 mg PO HS 10/28/23 03/25/24 History tablet therapeutic multivitamin 1 tab PO QAM 03/25/24 03/25/24 History (Thera-Tabs tablet) Patient History Surgical History History of mastectomy Family History Other Unknown family medical history Social History Smoking Status: Unknown if ever smoked Tobacco Type: Cigarettes Second Hand Exposure: Yes; Hx Alcohol Use: No Hx Substance Use: No Preferred Language: Tajik Communication Ability: Effective Communication Ability Comment: unknown Collar Cutter Required: No Beliefs That Will Affect Care: None marital status: / Current Living Situation: [facility] Current Living Situation Comment: [facility] Feels Safe at Home: Hesitant to Answer Assistive Devices: Walker Physical Exam Physical Exam: General: Alert and oriented, no acute distress HEENT: Normocephalic, mucous membranes moist Pulmonary: Nonlabored respirations Abdomen: Nondistended : Narrow vaginal introitus. Unable to see urethral opening due to atrophy Extremities: Moves all 4 spontaneously Neuro: No gross deficits Skin: Warm, dry, no rashes noted Results & Data Vital Signs (Past 12 Hours) Vital Signs Temp Pulse Resp BP Pulse Ox O2 Del Method 03/25/24 09:12 96 H 21 99 03/25/24 09:02 152/103 H 03/25/24 09:00 95 H 26 H 99 03/25/24 08:46 94 H 03/25/24 08:45 94 H 24 100 03/25/24 08:31 154/96 H 03/25/24 08:15 87 27 H 99 03/25/24 08:00 87 20 100 03/25/24 08:00 154/105 H 03/25/24 07:56 156/116 H 03/25/24 07:54 90 21 99 09/20/24 07:51 90 20 100 03/25/24 07:00 36.8 C 112 H 22 158/76 H 94 Room Air PG Care Time/CCT Total # of Minutes Spent Total Time Spent with Patient: Total time spent is greater than 50% in coordination of care (as documented) at patient's floor/unit and/or counseling patient: Coding Level of Care Code 31340 INT INP/OBS CARE 2/55MIN Diagnoses Difficult Barba catheter placement T83.9XXA
[2024-03-25] MEDS: LACTATED RINGER'S 500 ML IV ONE (11:34)
[2024-03-25] MEDS ORDERED: DOCUSATE SODIUM/SENNA 50/8.6MG TAB PO PRN (11:45)
[2024-03-25 12:27] LABS: Appearance Urine Clear (Clear); Bacteria Urine Automated None Seen (None Seen); Bilirubin Urine Negative (Negative); Blood Urine Negative (Negative); Color Urine Yellow; Epithelial Cell Urine Auto 0-2 /hpf (0-2); Glucose Urine UA Negative (Negative); Ketones Urine Trace (Negative); Leukocyte Esterase Urine 1+ (Negative); Nitrite Urine Negative (Negative); Protein Urine 1+ (Negative); RBC Urine Automated 0-2 /hpf (0-2); Specific Gravity Urine 1.016 (1.000-1.030); Urobilinogen Urine Negative (Negative); pH Urine 5.5 (4.5-7.5)
--- NOTE | 2024-03-25 13:01 | Electrocardiogram Report ---
Test Reason : Blood Pressure : */* mmHG Vent. Rate : 90 BPM Atrial Rate : 90 BPM P-R Int : 216 ms QRS Dur : 92 ms QT Int : 388 ms P-R-T Axes : 72 -25 81 degrees QTcB Int : 474 ms Poor data quality, interpretation may be adversely affected Sinus rhythm with 1st degree A-V block with frequent Premature ventricular complexes Incomplete right bundle branch block Septal infarct , age undetermined Abnormal ECG When compared with ECG of 28-Oct-2023 13:19, Premature ventricular complexes are now Present Confirmed by Remy Nelson ([id number]) on 03/25/2024 1:01:24 PM Referred By: Confirmed By: Remy Nelson
--- NOTE | 2024-03-25 14:03 | Anesthesiology Consultation ---
Date of Service March 25, 2024 Assessment & Plan Chart Review Chart Review: Acceptable Risk for Surgery and Patient NOT seen in Pre Admission Testing Consults Requested none ASA ASA4 Proposed Anesthesia Anesthesia Type: General History Surgery Operation Date: 03/25/24 12:05 Proposed Procedures p Left Troch Nail - Wale Lewis MD Height/Weight Height: 5 ft 4 in Weight: 60.3 kg Allergies Allergy/AdvReac Type Severity Reaction Status Date / Time acetaminophen Allergy Intermediate RASH Verified 03/25/24 11:32 adhesive Allergy Intermediate RASH Verified 03/25/24 11:32 Penicillins Allergy Intermediate RASH Verified 03/25/24 11:32 risperidone AdvReac Severe tardive Verified 03/25/24 11:32 diskinesia codeine AdvReac Intermediate GI SYMPTOMS Verified 03/25/24 11:32 hydrocodone AdvReac Intermediate GI SYMPTOMS Verified 03/25/24 11:32 Medications Home Medications Medication Instructions Recorded Confirmed Last Taken duloxetine 60 mg capsule,delayed 60 mg PO QAM 06/14/21 03/25/24 10/28/23 release omeprazole 20 mg capsule,delayed 20 mg PO DAILYBB 06/14/21 03/25/24 10/28/23 release food supplemt, lactose-reduced 1 ea PO TIDM 11/19/22 03/25/24 10/28/23 12:00 pravastatin 40 mg tablet 40 mg PO QDD 11/19/22 03/25/24 10/27/23 sennosides 8.6 mg-docusate sodium 1 tab-cap PO QDL PRN Constipation 11/19/22 03/25/24 Unknown 50 mg tablet (Senna-Time S) amlodipine 5 mg tablet 5 mg PO QAM 10/28/23 03/25/24 10/28/23 deutetrabenazine 12 mg tablet 12 mg PO BID 10/28/23 03/25/24 10/28/23 08:00 (Austedo) melatonin 3 mg disintegrating 3 mg PO HS 10/28/23 03/25/24 10/27/23 tablet therapeutic multivitamin 1 tab PO QAM 03/25/24 03/25/24 Unknown (Thera-Tabs tablet) Active Medications Generic Name Dose Route Start Last Admin Trade Name Freq PRN Reason Stop Dose Admin Sodium Chloride 1,000 mls @ 125 mls/hr 03/25/24 07:30 03/25/24 08:12 Nss IV 04/24/24 07:29 125 mls/hr .Q8H JENELLE Administration Past Medical History ASCVD Aorta/Carotid areteries HTN HLD Dementia Tardive Dyskinesia Paranoid Delusions ? seizure Hx SAMY Encephalopathy Depression Hx/o SAH GERD IRBBB Exercise / Class Metabolic Activity III < 4 Walking/Shop/Light housework Past Family History Family History Other Unknown family medical history Past Surgical History Surgical History History of mastectomy Past Anesthesia History No Hx of Anesthesia Complications and No Family Hx of Anesthesia Complications History of PONV No Hx of PONV and No Hx of Motion Sickness Social History Smoking Status: Unknown if ever smoked tobacco type: cigarettes Hx Alcohol Use: No Hx Substance Use: No substance use type: does not use Physical Exam Vital Signs Last Vital Signs Temp 36.8 C 03/25/24 07:00 Pulse 112 H 03/25/24 13:03 Resp 20 03/25/24 13:03 BP 149/102 H 03/25/24 12:30 Pulse Ox 99 03/25/24 13:03 O2 Del Method Room Air 03/25/24 10:10 Testing Laboratory Results 03/25/24 07:20 03/25/24 07:20 PT 10.9 Seconds (9.0-12.0) 03/25/24 07:20 INR 1.0 (0.9-1.1) 03/25/24 07:20 Urine Color Yellow 03/25/24 Unknown Urine Appearance Clear (Clear) 03/25/24 Unknown Urine pH 5.5 (4.5-7.5) 03/25/24 Unknown Ur Specific [place] 1.016 (1.000-1.030) 03/25/24 Unknown Urine Protein 1+ (Negative) H 03/25/24 Unknown Urine Glucose (UA) Negative (Negative) 03/25/24 Unknown Urine Ketones Trace (Negative) H 03/25/24 Unknown Urine Nitrite Negative (Negative) 03/25/24 Unknown Ur Leukocyte Esterase 1+ (Negative) H 03/25/24 Unknown Urine WBC (Auto) 11-20 /hpf (0-5) H 03/25/24 Unknown Urine RBC (Auto) 0-2 /hpf (0-2) 03/25/24 Unknown U Hyaline Cast (Auto) 3-5 /lpf (0-2) H 03/25/24 Unknown U Epithel Cells (Auto) 0-2 /hpf (0-2) 03/25/24 Unknown Urine Bacteria (Auto) None Seen (None Seen) 03/25/24 Unknown Electrocardiogram Date: 03/25/24 Findings: + NSR @ (@ 80;1st degree AVB w/ frequent PVC's; IRBBB; ? septal infarct) Chest X-Ray Date: 03/25/24 Findings: + NAD Other Testing 06/22/2021-Neck CTA-LICA-70%; LEV- 20%
[2024-03-25] MEDS: LACTATED RINGER'S 1,000 ML IV SCH (14:30)
[2024-03-25] MEDS ORDERED: fentaNYL citrate PF 100 MCG/2 ML VIAL IV PRN (14:31)
[2024-03-25] MEDS ORDERED: ePHEDrine sulfate 50 MG/ML AMP IV PRN (14:31)
[2024-03-25] MEDS ORDERED: ATROPINE SULFATE 0.1 MG/ML 10ML SYR IV PRN (14:31)
[2024-03-25] MEDS ORDERED: fentaNYL citrate PF 100 MCG/2 ML VIAL ONE ×2 (14:31→15:40)
[2024-03-25] MEDS ORDERED: LABETALOL HCL IV 5 MG/ML 20ML IV PRN (14:31)
[2024-03-25] MEDS: ceFAZolin 2000MG 2,000 MG/15 ML SYR IV SCH (15:05)
[2024-03-25] MEDS ORDERED: ROCURONIUM BROMIDE 10 MG/ML 5 ML VIAL IV ONE (15:06)
[2024-03-25] MEDS ORDERED: PROPOFOL IV EMULSION 10 MG/ML 20 ML VIAL IV ONE (15:06)
[2024-03-25] MEDS ORDERED: LIDOCAINE 2% 2 ML VIAL/AMP(20MG/ML) INFIL ONE (15:06)
[2024-03-25] MEDS ORDERED: PHENYLEPHRINE 100MCG/ML 10ML SYR IV ONE (15:06)
[2024-03-25] MEDS ORDERED: ONDANSETRON INJ 2 MG/ML 2 ML VIAL ONE (15:06)
[2024-03-25] MEDS ORDERED: TRANEXAMIC ACID 100 MG/ML 10 ML VIAL IV ONE (15:08)
[2024-03-25] MEDS: TRANEXAMIC ACID / 0.7% NACL 1000MG/100ML BAG IV ONE (15:20)
--- NOTE | 2024-03-25 16:49 | Operative Report ---
Post Operative Report Pre & Post Diagnosis Operation Date: 03/25/24 12:05 Pre-Op Diagnosis: Left intertrochanteric hip fracture Post-Op Diagnosis: Left hip intertrochanteric hip fracture I identified the patient and participated in the time-out.: Yes Procedure Operation Date: 03/25/24 12:05 Actual Procedures p Left Short trochanteric femoral nail(Left) - Wale Lewis MD Surgeon Wale Lewis MD [employer] Agent Hubert Ford follow Estimated Blood Loss 25 Findings Consistent with Post-Op Diagnosis Specimens None Anesthesia Type General Complications none Disposition Accompanied Patient To Recovery: No Disposition: Recovery Room Indications Sharron is 84. She fell and sustained a simple intertrochanteric fracture of her left hip. She has tardive dyskinesia. Discussed with her daughter and she wishes to proceed with surgery. Mild dementia. Description of Procedure Informed consent. Patient identified. She and her daughter identified the procedure site as the left hip. I marked with my initials. A preoperative surgical timeout performed. Preop dose of IV antibiotics given. TXA given. Taken to the operating room positioned on the fracture table. The right leg was placed into physiologic flexion abduction and external rotation and a padded leg brian. The right arm was placed on an armboard onto the side. The left arm was folded over her chest and held secure with a padded wrap. The left leg was placed into a longitudinal traction with a padded foot brian and padded perineal post. Fluoroscopic guidance was utilized to confirm an adequate reduction in both the AP and lateral planes. This was a simple intertrochanteric fracture with good alignment. The hip was scrubbed and then prepped and draped in usual sterile fashion. DVT prophylaxis with mechanical devices intraoperatively. Postop early mobility mechanical devices and Eliquis beginning the morning after surgery. Dr. Ford help perform the surgery under my direct supervision. 5 cm incision was made in line with the femur and just proximal to the greater trochanter. Electrocautery was utilized down to subcutaneous tissues and the gluteal fascia was divided in line with the incision. The starting point was identified and adjusted x 1 to be in the appropriate position based on AP and lateral radiographs. The proximal reamer was introduced under fluoroscopic control. A 12 mm diameter Synthes mell with 130 degree angle and 170 mm in length. A standard short Synthes troches nail was introduced by hand power. Position was adjusted fluoroscopically and a guidepin was introduced through a lateral percutaneous stab incision and adjusted x 1 to be in the center center position of the femoral head. The length was determined to be 90 mm. The lateral reamer was followed by the triple reamer and the spiral blade was inserted under fluoroscopic control with blows from the mallet. The proximal setscrew was advanced until tight and then backed backed off one half turn for compression. A distal interlocking screw was inserted using the jig in the standard fashion. Hardware position and fracture reduction was confirmed in multiplanar flu oroscopy. The snailer was removed. Wounds were copiously irrigated with sterile saline. The distal 2 incisions were closed with 2-0 Vicryl for the subcutaneous layer and then lluvia. The proximal incision was closed with #1 Vicryl for the fascial layer followed by 0 Vicryl for the fatty layer and to eliminate space followed by 2-0 Vicryl's on the dermal layer and then lluvia. The patient was awakened from anesthesia removed from the fracture table and transferred back to recovery in stable condition. There were no specimens or complications counts were correct and blood loss is estimated to be 25 cc. At the conclusion the operation I spoke to the patient's daughter informed her my findings and discussed the postoperative plan. Routine course of postop IV antibiotics. TXA. PT and OT. Weight-bear as tolerated. Distal interlocking screw was 34 mm in length. I attest to the content of the Intraoperative Record and any orders documented therein. Any exceptions are noted below.
[2024-03-25] MEDS: METOPROLOL TARTRATE 1 MG/ML VIAL IV STA (17:11)
--- NOTE | 2024-03-25 17:13 | Operative Report ---
Post Operative Report Pre & Post Diagnosis Operation Date: 03/25/24 12:05 Pre-Op Diagnosis: Left hip fx Post-Op Diagnosis: Left hip fx. I identified the patient and participated in the time-out.: Yes Procedure Operation Date: 03/25/24 12:05 Actual Procedures p Left Troch Nail(Left) - Wale Lewis MD Surgeon Wale Lewis MD Surveyor [employer] Directional Hubert Ford follow Estimated Blood Loss 25 Findings Consistent with Post-Op Diagnosis Specimens None Description of Procedure The patient was brought to the operative suite she underwent general anesthesia. Surgical timeout was performed. Closed reduction of the left intertrochanteric femur fracture was performed. Left lower extremity was then prepped and draped in usual sterile fashion. Surgical timeout was again performed. Patient then underwent left intertrochanteric femur fracture cephalomedullary nailing. Please see Dr. Lewis's operative report for full details. I was present and assisted with closed reduction, hardware insertion, wound closure, postoperative dressing placement. The patient was then awakened and taken to the recovery room in stable condition. I attest to the content of the Intraoperative Record and any orders documented therein. Any exceptions are noted below.
--- NOTE | 2024-03-25 17:47 | Anesthesiology Progress Note ---
Date of Service March 25, 2024 Anesthesia Post Procedure Vital Signs Vital Signs: Temp Pulse Pulse Pulse Resp BP BP 03/25/24 17:35 85 23 190/137 H 03/25/24 17:25 89 22 178/100 H 03/25/24 17:15 82 15 182/102 H 03/25/24 17:11 115 H 190/116 H 03/25/24 17:05 36.3 C L 123 H 26 H 190/137 H 03/25/24 14:21 37.2 C 108 H 22 171/126 H 03/25/24 14:10 106 H 20 03/25/24 13:03 112 H 20 03/25/24 12:49 107 H 03/25/24 12:45 105 H 26 H 03/25/24 12:30 149/102 H 03/25/24 12:24 29 H 03/25/24 12:15 106 H 23 03/25/24 12:03 105 H 22 03/25/24 11:45 109 H 20 03/25/24 11:36 124 H 21 03/25/24 11:31 159/116 H 03/25/24 11:06 106 H 26 H 03/25/24 10:27 102 H 25 H 03/25/24 10:10 79 20 03/25/24 10:00 173/108 H 03/25/24 09:45 105 H 20 03/25/24 09:36 98 H 24 03/25/24 09:31 139/99 03/25/24 09:12 96 H 21 03/25/24 09:02 152/103 H 03/25/24 09:00 95 H 26 H 03/25/24 08:46 94 H 03/25/24 08:45 94 H 24 03/25/24 08:31 154/96 H 03/25/24 08:15 87 27 H 03/25/24 08:00 87 20 03/25/24 08:00 154/105 H 03/25/24 07:56 156/116 H 03/25/24 07:54 90 21 03/25/24 07:51 90 20 03/25/24 07:00 36.8 C 112 H 22 158/76 H Pulse Ox O2 Del Method O2 Flow Rate 03/25/24 17:35 95 Nasal Cannula 2 03/25/24 17:25 95 Nasal Cannula 2 03/25/24 17:15 95 Nasal Cannula 2 03/25/24 17:11 03/25/24 17:05 95 Oxymask 4 03/25/24 14:21 100 Nasal Cannula 2 03/25/24 14:10 96 Room Air 03/25/24 13:03 99 03/25/24 12:49 03/25/24 12:45 96 03/25/24 12:30 03/25/24 12:24 95 03/25/24 12:15 98 03/25/24 12:03 97 03/25/24 11:45 98 03/25/24 11:36 100 03/25/24 11:31 03/25/24 11:06 99 03/25/24 10:27 03/25/24 10:10 97 Room Air 03/25/24 10:00 03/25/24 09:45 96 03/25/24 09:36 03/25/24 09:31 03/25/24 09:12 99 03/25/24 09:02 03/25/24 09:00 99 03/25/24 08:46 03/25/24 08:45 100 03/25/24 08:31 03/25/24 08:15 99 03/25/24 08:00 100 03/25/24 08:00 03/25/24 07:56 03/25/24 07:54 99 03/25/24 07:51 100 03/25/24 07:00 94 Room Air Transfer of Care Handoff Completed per policy Notes Mental Status: alert / awake / arousable Patient Amnestic to Procedure: Yes Nausea / Vomiting: adequately controlled Pain: adequately controlled Airway Patency, RR, SpO2: stable & adequate BP & HR: stable & adequate Hydration State: stable & adequate Anesthetic Complications: no major complications apparent
--- NOTE | 2024-03-25 18:12 | Fluoroscopy Report ---
FL hip LT 2-3V CLINICAL HISTORY: Left trochanteric nail. COMPARISON STUDY: Pelvis and left hip radiographs March 25, 2024. FLUOROSCOPY TIME: 1 minute and 48 seconds. Ka, r: 17.37 mGy FLUOROSCOPIC IMAGES: 6 FINDINGS: Fluoroscopy was provided during open reduction and internal fixation of the intertrochanter ic fracture of the left femur. Hardware is intact. Fracture alignment appears anatomic. IMPRESSION: Fluoroscopy provided during open reduction and internal fixation of the intertrochanteri c fracture of the left femur. ACT 112: Negative or not required by law. Electronically signed by: Sampson Baker M.D. 03/25/2024 6:11 PM
[2024-03-25] MEDS: LIDOCAINE 1%/EPINEPHRINE 1:100,000 50 ML VIAL ONE (19:30)
[2024-03-25] MEDS: BUPIVACAINE 0.5 % 5 MG/1 ML MPF 30ML VIAL ONE (19:30)
[2024-03-25] MEDS: METOPROLOL TARTRATE 1 MG/ML VIAL IV ONE (19:31)
[2024-03-25] MEDS: PRAVASTATIN SOD 40 MG TAB PO SCH (21:10)
[2024-03-25] MEDS: AUSTEDO 12MG PO SCH (21:10)
[2024-03-25] MEDS: MELATONIN 3 MG TAB PO SCH (21:14)
[2024-03-25] MEDS: ceFAZolin 1000MG 1,000 MG/7.5 ML SYR IV SCH (22:40)
[2024-03-25] MEDS: TRANEXAMIC ACID / 0.7% NACL 1,000 MG/100 ML BAG IV SCH (22:40)
[2024-03-26] MEDS ORDERED: Nursing to Pharmacy Communication SCH (02:00)
[2024-03-26] MEDS: PANTOprazole 40 MG TAB PO SCH (06:23)
[2024-03-26 07:29] LABS: Basophils # (auto) 0.03 K/uL (0.00-0.20); Basophils % (auto) 0.4 %; Eosinophils # (auto) 0.03 K/uL (0.00-0.50); Eosinophils % (auto) 0.4 %; Hematocrit (blood only) 27.9 % (37.0-47.0); Hemoglobin 9.2 g/dl (12.0-16.0); Immature Granulocytes # (auto) 0.04 K/uL (0.01-0.20); Immature Granulocytes % (auto) 0.5 %; Lymphocytes # (auto) 0.91 K/uL (1.20-3.40); Lymphocytes % (auto) 11.3 %; Mean Platelet Volume 9.4 fL (9.4-12.4); Monocytes # (auto) 0.78 K/uL (0.11-0.59); Monocytes % (auto) 9.7 %; Neutrophils # (auto) 6.24 K/uL (1.40-6.50); Neutrophils % (auto) 77.7 %; Platelet Count 231 K/uL (130-400); RDW Coefficient of Variation 12.9 % (11.5-14.5); RDW Standard Deviation 41.7 fL (36.4-46.3); Red Blood Count 3.17 M/uL (4.20-5.40); White Blood Count 8.03 K/ul (4.8-10.8)
[2024-03-26 07:48] LABS: BUN Creatinine Ratio 15.6 (10-20); Bilirubin,Total 0.4 mg/dl (0.2-1.0); Calcium 8.9 mg/dl (8.6-10.3); Creatinine Clr Calc Pharmacy 25.2 ml/min; Est GFR (African American) 39.3 ml/min; Est GFR (Non-African American) 33.9 ml/min; Globulin 2.9 gm/dl (2.5-4.0); Magnesium 1.8 mg/dl (1.7-2.4); Potassium 4.8 mmol/L (3.5-5.1); Total Protein 5.9 gm/dl (6.0-8.3)
[2024-03-26 07:51] LABS: INR 1.1 (0.9-1.1); Prothrombin Time 11.4 Seconds (9.0-12.0)
[2024-03-26] MEDS: APIXABAN 2.5 MG TAB PO SCH (08:13)
[2024-03-26] MEDS: DULoxetine HCL 60 MG CAP PO SCH (08:13)
[2024-03-26] MEDS: amLODIPine BESYLATE 5 MG TAB PO SCH (08:13)
--- NOTE | 2024-03-26 09:57 | Orthopedic Progress Note ---
Date of Service March 26, 2024 Assessment & Plan (1) Closed fracture of left hip: Plan: Stable postoperatively. Vitals and labs are okay. Would benefit from nutrition consult. Will order. Eliquis for DVT prophylaxis. PT and OT. Weight-bear as tolerated. Will likely need placement. Admission and Anticipated Discharge Date Admission Date: March 25, 2024 Subjective Patient appears to be resting comfortably in bed. She is awake. She did not eat anything and reports that she is not hungry. She responds to her name. She offers no complaint. Physical Exam Physical Exam: Dyskinetic movements are present. The dressing is clean and dry. Her thigh and calf are soft without significant swelling. She can flex her knee about 45 degrees today which is an improvement. Her DP pulse is trace palpable. She can initiate ankle and toe plantarflexion dorsiflexion and eversion but is difficult to gauge strength secondary to her dyskinetic movements. She reports intact sensation. Results & Data Vital Signs (Past 12 Hours) Vital Signs Temp Pulse Pulse Resp BP Pulse Ox O2 Del Method 03/26/24 08:33 Nasal Cannula 03/26/24 08:00 37.4 C 86 16 128/76 98 Nasal Cannula 03/26/24 07:16 87 03/26/24 04:07 36.9 C 91 H 20 153/82 H 98 Nasal Cannula 03/26/24 02:08 36.7 C 93 H 20 123/76 96 Nasal Cannula 03/26/24 01:54 88 O2 Flow Rate 03/26/24 08:33 2 03/26/24 08:00 2 03/26/24 07:16 03/26/24 04:07 2 03/26/24 02:08 2 03/26/24 01:54 Laboratory Results Laboratory Results WBC 8.03 K/ul (4.8-10.8) 03/26/24 07:00 RBC 3.17 M/uL (4.20-5.40) L 03/26/24 07:00 Hgb 9.2 g/dl (12.0-16.0) L D 03/26/24 07:00 Hct 27.9 % (37.0-47.0) L 03/26/24 07:00 MCV 88.0 fL (80.0-100.0) 03/26/24 07:00 MCH 29.0 pg (25.0-34.0) 03/26/24 07:00 MCHC 33.0 g/dL (32.0-36.0) 03/26/24 07:00 RDW Std Deviation 41.7 fL (36.4-46.3) 03/26/24 07:00 RDW Coeff of Miguel A 12.9 % (11.5-14.5) 03/26/24 07:00 Plt Count 231 K/uL (130-400) 03/26/24 07:00 MPV 9.4 fL (9.4-12.4) 03/26/24 07:00 Immature Gran % (Auto) 0.5 % 03/26/24 07:00 Neut % (Auto) 77.7 % 03/26/24 07:00 Lymph % (Auto) 11.3 % 03/26/24 07:00 [place] % (Auto) 9.7 % 03/26/24 07:00 Eos % (Auto) 0.4 % 03/26/24 07:00 Baso % (Auto) 0.4 % 03/26/24 07:00 Neut # (Auto) 6.24 K/uL (1.40-6.50) 03/26/24 07:00 Lymph # (Auto) 0.91 K/uL (1.20-3.40) L 03/26/24 07:00 [place] # (Auto) 0.78 K/uL (0.11-0.59) H 03/26/24 07:00 Eos # (Auto) 0.03 K/uL (0.00-0.50) 03/26/24 07:00 Baso # (Auto) 0.03 K/uL (0.00-0.20) 03/26/24 07:00 Immature Gran # (Auto) 0.04 K/uL (0.01-0.20) 03/26/24 07:00 PT 11.4 Seconds (9.0-12.0) 03/26/24 07:00 INR 1.1 (0.9-1.1) 03/26/24 07:00 Sodium 136 mmol/L (136-145) 03/26/24 07:00 Potassium 4.8 mmol/L (3.5-5.1) 03/26/24 07:00 Chloride 108 mmol/L (98-107) H 03/26/24 07:00 Carbon Dioxide 23 mmol/L (21-32) 03/26/24 07:00 Anion Gap 5 (3-11) 03/26/24 07:00 BUN 22 mg/dl (6-23) 03/26/24 07:00 Creatinine 1.41 mg/dl (0.6-1.2) H 03/26/24 07:00 Est Cr Clr Drug Dosing 25.2 ml/min 03/26/24 07:00 Est GFR ( Amer) 39.3 ml/min 03/26/24 07:00 Est GFR (Non-Af Amer) 33.9 ml/min 03/26/24 07:00 BUN/Creatinine Ratio 15.6 (10-20) 03/26/24 07:00 Glucose 114 mg/dl (70-99(Fasting)) H 03/26/24 07:00 Calcium 8.9 mg/dl (8.6-10.3) 03/26/24 07:00 Magnesium 1.8 mg/dl (1.7-2.4) 03/26/24 07:00 Total Bilirubin 0.4 mg/dl (0.2-1.0) 03/26/24 07:00 AST 16 U/L (13-39) 03/26/24 07:00 ALT 8 U/L (7-52) 03/26/24 07:00 Alkaline Phosphatase 70 U/L (34-104) 03/26/24 07:00 Troponin I High Sens 6.8 pg/ml (0-14) 03/25/24 07:20 Total Protein 5.9 gm/dl (6.0-8.3) L D 03/26/24 07:00 Albumin 3.0 gm/dl (3.4-5.0) L 03/26/24 07:00 Globulin 2.9 gm/dl (2.5-4.0) 03/26/24 07:00 Albumin/Globulin Ratio 1.0 (0.9-2) 03/26/24 07:00 25-OH Vitamin D Total 40.4 ng/ml (30-100) 03/26/24 07:00 TSH 3.082 uIu/ml (0.300-4.500) 03/25/24 07:20 Urine Color Yellow 03/25/24 Unknown Urine Appearance Clear (Clear) 03/25/24 Unknown Urine pH 5.5 (4.5-7.5) 03/25/24 Unknown Ur Specific [place] 1.016 (1.000-1.030) 03/25/24 Unknown Urine Protein 1+ (Negative) H 03/25/24 Unknown Urine Glucose (UA) Negative (Negative) 03/25/24 Unknown Urine Ketones Trace (Negative) H 03/25/24 Unknown Urine Blood Negative (Negative) 03/25/24 Unknown Urine Nitrite Negative (Negative) 03/25/24 Unknown Urine Bilirubin Negative (Negative) 03/25/24 Unknown Urine Urobilinogen Negative (Negative) 03/25/24 Unknown Ur Leukocyte Esterase 1+ (Negative) H 03/25/24 Unknown Urine WBC (Auto) 11-20 /hpf (0-5) H 03/25/24 Unknown Urine RBC (Auto) 0-2 /hpf (0-2) 03/25/24 Unknown U Hyaline Cast (Auto) 3-5 /lpf (0-2) H 03/25/24 Unknown U Epithel Cells (Auto) 0-2 /hpf (0-2) 03/25/24 Unknown Urine Bacteria (Auto) None Seen (None Seen) 03/25/24 Unknown Nasal Screen MRSA (PCR) Negative (Negative) 03/25/24 20:09 SARS-CoV-2, RNA, NAAT NEGATIVE (NEGATIVE) 03/25/24 11:19 Blood Type A Positive 03/25/24 14:03 Antibody Screen NEGATIVE 03/25/24 14:03 Impressions Chest X-Ray 03/25/24 07:18 XR chest 1V portable HISTORY: 84 years-old Female trauma acute chest trauma COMPARISON: 10/28/2023 TECHNIQUE: AP view of the chest FINDINGS: Lung volumes are normal. Lungs are clear. There is no pneumothorax or pleural effusion. Cardiac size is stable. Mediastinal contours are normal. There is no evidence for pulmonary edema. IMPRESSION: No acute cardiopulmonary findings. No change in appearance of the chest. ACT 112: Negative or not required by law. The above report was generated using voice recognition software. It may contain grammatical, syntax or spelling errors. Electronically signed by: Cullen Francisco M.D. 03/25/2024 8:39 AM Hip/Pelvis X-Ray 03/25/24 07:18 XR hip LT 2V w pelvis CLINICAL HISTORY: trauma COMPARISON STUDY: Pelvis 11/19/2022. FINDINGS: Mildly displaced intertrochanteric fracture within the proximal left femur. No dislocation. The bones are osteopenic. Soft tissue swelling within the left lateral hip. No additional fractures identified within the pelvis or right hip. Vascular calcifications are noted. IMPRESSION: Mildly displaced intertrochanteric fracture within the proximal left femur. ACT 112: Negative or not required by law. Electronically signed by: Aaron Dobson M.D. 03/25/2024 9:10 AM Hip X-Ray 03/25/24 14:30 FL hip LT 2-3V CLINICAL HISTORY: Left trochanteric nail. COMPARISON STUDY: Pelvis and left hip radiographs March 25, 2024. FLUOROSCOPY TIME: 1 minute and 48 seconds. Ka, r: 17.37 mGy FLUOROSCOPIC IMAGES: 6 FINDINGS: Fluoroscopy was provided during open reduction and internal fixation of the intertrochanteric fracture of the left femur. Hardware is intact. Fracture alignment appears anatomic. IMPRESSION: Fluoroscopy provided during open reduction and internal fixation of the intertrochanteric fracture of the left femur. ACT 112: Negative or not required by law. Electronically signed by: Sampson Baker M.D. 03/25/2024 6:11 PM
[2024-03-26] MEDS: MoRPHine SULFATE 4 MG/ML 1 ML CARP\\VIAL IV PRN (10:34)
--- NOTE | 2024-03-26 11:13 | Hospitalist Progress Note ---
Date of Service March 26, 2024 Assessment & Plan (1) Closed fracture of left hip: Plan: Patient presented to the ED on 03/25 following a fall. -x-ray of left hip/pelvis shows mildly displaced intertrochanteric fracture within the proximal left femur -ortho consulted and patient underwent repair of her fracture on 03/[address] Lewis. -PT/OT consulted- OT recommended SNF vs PT recommending rehab -pain management w/ prn morphine -zofran for nausea -CBC reviewed: 03/26: WBC 8.03, hgb 9.2 -BMP reviewed 03/26: creatinine 1.41, BUN 22 AM CBC, BMP (2) Leukocytosis: Plan: Patient noted to have a leukocytosis of 15 with neutrophil predominance of 11 on arrival Likely combination of dehydration and reactivity from fall repeat CBC 03/26: WBC WNL Urine culture negative (3) Difficult Calderon catheter placement: Plan: Nursing staff attempted several times to place Calderon catheter after patient arrival but were unsuccessful due to patient's anatomy Urology consulted and was able to place calderon on 03/25 (4) Fall: Plan: Staff at [facility] confirmed patient lost her balance and fell to the left this morning Did not hit her head or lose consciousness No other acute trauma on exam besides her known left hip fracture Fall/aspiration precautions PT/OT consults Plan Chronic conditions: HTN: Amlodipine Tardive Dyskinesia: [place] Mental health: Cymbalta HLD: statin GERD: PPI DVT prophylaxis: Eliquis Code status: DNR/DNI Disposition: continued inpatient stay pending placement. Diet: regular, easy to chew Admission and Anticipated Discharge Date Admission Date: March 25, 2024 Subjective Patient seen and examined this morning. Unable to obtain any information from patient. patient oriented to self only. Physical Exam 2 Constitutional: WD/WN, vitals as above Eyes: PERRL, conjunctivae normal, anicteric sclerae Respiratory: normal respiratory effort, lungs clear to auscultation Cardiovascular: RRR, no murmur, no edema Skin: no rashes, warm and dry Psychiatric: AXO to self only Results & Data Results & Data Vital Signs (Past 12 Hours) Vital Signs Temp Pulse Pulse Resp BP Pulse Ox O2 Del Method 03/26/24 08:33 Nasal Cannula 03/26/24 08:00 37.4 C 86 16 128/76 98 Nasal Cannula 03/26/24 07:16 87 03/26/24 04:07 36.9 C 91 H 20 153/82 H 98 Nasal Cannula 03/26/24 02:08 36.7 C 93 H 20 123/76 96 Nasal Cannula 03/26/24 01:54 88 O2 Flow Rate 03/26/24 08:33 2 03/26/24 08:00 2 03/26/24 07:16 03/26/24 04:07 2 03/26/24 02:08 2 03/26/24 01:54 Laboratory Results 03/26/24 07:00 03/26/24 07:00 PG Care Time/CCT Total # of Minutes Spent Total Time Spent with Patient: Total time spent is greater than 50% in coordination of care (as documented) at patient's floor/unit and/or counseling patient: Coding Level of Care Code 19975 SUB INP/OBS CARE 2/35MIN Diagnoses Closed fracture of left hip, initial encounter S72.002A Encounter type: initial encounter Leukocytosis, unspecified type D72.829 Leukocytosis type: unspecified Difficult Calderon catheter placement T83.9XXA Fall, initial encounter W19.XXXA Encounter type: initial encounter (1) Closed fracture of left hip Encounter type: initial encounter Qualified Code(s): S72.002A - Fracture of unspecified part of neck of left femur, initial encounter for closed fracture (2) Leukocytosis Leukocytosis type: unspecified Qualified Code(s): D72.829 - Elevated white blood cell count, unspecified (4) Fall Encounter type: initial encounter Qualified Code(s): W19.XXXA - Unspecified fall, initial encounter
[2024-03-26] MEDS: CHOLECALCIFEROL 125 MCG (5,000 UNITS) TAB PO SCH (11:39)
[2024-03-27 08:07] LABS: Basophils # (auto) 0.04 K/uL (0.00-0.20); Basophils % (auto) 0.6 %; Eosinophils # (auto) 0.16 K/uL (0.00-0.50); Eosinophils % (auto) 2.2 %; Hematocrit (blood only) 24.8 % (37.0-47.0); Hemoglobin 8.1 g/dl (12.0-16.0); Immature Granulocytes # (auto) 0.04 K/uL (0.01-0.20); Immature Granulocytes % (auto) 0.6 %; Lymphocytes # (auto) 0.95 K/uL (1.20-3.40); Lymphocytes % (auto) 13.2 %; Mean Corpuscular Hemoglobin 29.6 pg (25.0-34.0); Mean Corpuscular Hgb Conc 32.7 g/dL (32.0-36.0); Mean Corpuscular Volume 90.5 fL (80.0-100.0); Mean Platelet Volume 9.7 fL (9.4-12.4); Monocytes # (auto) 0.84 K/uL (0.11-0.59); Monocytes % (auto) 11.7 %; Neutrophils # (auto) 5.16 K/uL (1.40-6.50); Neutrophils % (auto) 71.7 %; Platelet Count 193 K/uL (130-400); RDW Standard Deviation 43.1 fL (36.4-46.3); Red Blood Count 2.74 M/uL (4.20-5.40); White Blood Count 7.19 K/ul (4.8-10.8)
[2024-03-27 08:26] LABS: INR 1.1 (0.9-1.1); Prothrombin Time 11.5 Seconds (9.0-12.0)
[2024-03-27 08:27] LABS: Anion Gap 5 (3-11); Blood Urea Nitrogen 19 mg/dl (6-23); Calcium 8.8 mg/dl (8.6-10.3); Carbon Dioxide 22 mmol/L (21-32); Chloride 109 mmol/L (98-107); Est GFR (African American) 44.6 ml/min; Est GFR (Non-African American) 38.5 ml/min; Glucose 78 mg/dl (70-99(Fasting)); Potassium 4.5 mmol/L (3.5-5.1); Sodium 136 mmol/L (136-145)
[2024-03-27 08:32] LABS: Alanine Aminotransferase < 3 U/L (7-52); Albumin Level 2.8 gm/dl (3.4-5.0); Alkaline Phosphatase 65 U/L (34-104); Aspartate Aminotransferase 15 U/L (13-39); Bilirubin,Total 0.4 mg/dl (0.2-1.0); Globulin 2.7 gm/dl (2.5-4.0); Magnesium 1.8 mg/dl (1.7-2.4); Total Protein 5.5 gm/dl (6.0-8.3)
--- NOTE | 2024-03-27 09:30 | Orthopedic Progress Note ---
Date of Service March 27, 2024 Assessment & Plan (1) Closed fracture of left hip: Plan: Stable postop. PT and OT. Afebrile. Hemoglobin 8 hematocrit approximately 24. Placement. Eliquis for DVT prophylaxis.. Admission and Anticipated Discharge Date Admission Date: March 25, 2024 Subjective Resting comfortably in bed. Reports no problems. Asks to be covered up and for the lights to be turned off. Physical Exam Physical Exam: Dressing is changed. There is no fluid accumulation or drainage. No erythema or significant swelling. New dressing is applied. Her foot is warm and she is able to wiggle her toes but not comply with a detailed neurovascular exam Results & Data Vital Signs (Past 12 Hours) Vital Signs Temp Pulse Pulse Resp BP BP Pulse Ox 03/27/24 07:49 36.9 C 94 H 16 134/58 L 97 03/27/24 06:59 95 H 03/27/24 04:37 36.7 C 76 20 124/65 97 03/27/24 01:04 37.7 C H 98 H 20 143/83 H 95 03/26/24 22:23 102 H O2 Del Method O2 Flow Rate 03/27/24 07:49 Nasal Cannula 2 03/27/24 06:59 03/27/24 04:37 Nasal Cannula 2 03/27/24 01:04 Room Air, Nasal Cannula 2 03/26/24 22:23 Laboratory Results Laboratory Results WBC 7.19 K/ul (4.8-10.8) 03/27/24 07:22 RBC 2.74 M/uL (4.20-5.40) L 03/27/24 07:22 Hgb 8.1 g/dl (12.0-16.0) L 03/27/24 07:22 Hct 24.8 % (37.0-47.0) L 03/27/24 07:22 MCV 90.5 fL (80.0-100.0) 03/27/24 07:22 MCH 29.6 pg (25.0-34.0) 03/27/24 07: MCHC 32.7 g/dL (32.0-36.0) 03/27/24 07:22 RDW Std Deviation 43.1 fL (36.4-46.3) 03/27/24 07:22 RDW Coeff of Miguel A 13.0 % (11.5-14.5) 03/27/24 07:22 Plt Count 193 K/uL (130-400) 03/27/24 07:22 MPV 9.7 fL (9.4-12.4) 03/27/24 07:22 Immature Gran % (Auto) 0.6 % 03/27/24 07:22 Neut % (Auto) 71.7 % 03/27/24 07:22 Lymph % (Auto) 13.2 % 03/27/24 07:22 [place] % (Auto) 11.7 % 03/27/24 07:22 Eos % (Auto) 2.2 % 03/27/24 07:22 Baso % (Auto) 0.6 % 03/27/24 07: Neut # (Auto) 5.16 K/uL (1.40-6.50) 03/27/24 07:22 Lymph # (Auto) 0.95 K/uL (1.20-3.40) L 03/27/24 07:22 [place] # (Auto) 0.84 K/uL (0.11-0.59) H 03/27/24 07:22 Eos # (Auto) 0.16 K/uL (0.00-0.50) 03/27/24 07:22 Baso # (Auto) 0.04 K/uL (0.00-0.20) 03/27/24 07:22 Immature Gran # (Auto) 0.04 K/uL (0.01-0.20) 03/27/24 07: PT 11.5 Seconds (9.0-12.0) 03/27/24 07:22 INR 1.1 (0.9-1.1) 03/27/24 07:22 Sodium 136 mmol/L (136-145) 03/27/24 07:22 Potassium 4.5 mmol/L (3.5-5.1) 03/27/24 07:22 Chloride 109 mmol/L (98-107) H 03/27/24 07:22 Carbon Dioxide 22 mmol/L (21-32) 03/27/24 07:22 Anion Gap 5 (3-11) 03/27/24 07:22 BUN 19 mg/dl (6-23) 03/27/24 07:22 Creatinine 1.27 mg/dl (0.6-1.2) H 03/27/24 07:22 Est Cr Clr Drug Dosing 28.0 ml/min 03/27/24 07:22 Est GFR ( Amer) 44.6 ml/min 03/27/24 07:22 Est GFR (Non-Af Amer) 38.5 ml/min 03/27/24 07:22 BUN/Creatinine Ratio 15.0 (10-20) 03/27/24 07:22 Glucose 78 mg/dl (70-99(Fasting)) 03/27/24 07:22 Calcium 8.8 mg/dl (8.6-10.3) 03/27/24 07:22 Magnesium 1.8 mg/dl (1.7-2.4) 03/27/24 07:22 Total Bilirubin 0.4 mg/dl (0.2-1.0) 03/27/24 07:22 AST 15 U/L (13-39) 03/27/24 07:22 ALT < 3 U/L (7-52) L 03/27/24 07:22 Alkaline Phosphatase 65 U/L (34-104) 03/27/24 07:22 Troponin I High Sens 6.8 pg/ml (0-14) 03/25/24 07:20 Total Protein 5.5 gm/dl (6.0-8.3) L 03/27/24 07:22 Albumin 2.8 gm/dl (3.4-5.0) L 03/27/24 07:22 Globulin 2.7 gm/dl (2.5-4.0) 03/27/24 07:22 Albumin/Globulin Ratio 1.0 (0.9-2) 03/27/24 07:22 25-OH Vitamin D Total 40.4 ng/ml (30-100) 03/26/24 07:00 TSH 3.082 uIu/ml (0.300-4.500) 03/25/24 07:20 Urine Color Yellow 03/25/24 Unknown Urine Appearance Clear (Clear) 03/25/24 Unknown Urine pH 5.5 (4.5-7.5) 03/25/24 Unknown Ur Specific [place] 1.016 (1.000-1.030) 03/25/24 Unknown Urine Protein 1+ (Negative) H 03/25/24 Unknown Urine Glucose (UA) Negative (Negative) 03/25/24 Unknown Urine Ketones Trace (Negative) H 03/25/24 Unknown Urine Blood Negative (Negative) 03/25/24 Unknown Urine Nitrite Negative (Negative) 03/25/24 Unknown Urine Bilirubin Negative (Negative) 03/25/24 Unknown Urine Urobilinogen Negative (Negative) 03/25/24 Unknown Ur Leukocyte Esterase 1+ (Negative) H 03/25/24 Unknown Urine WBC (Auto) 11-20 /hpf (0-5) H 03/25/24 Unknown Urine RBC (Auto) 0-2 /hpf (0-2) 03/25/24 Unknown U Hyaline Cast (Auto) 3-5 /lpf (0-2) H 03/25/24 Unknown U Epithel Cells (Auto) 0-2 /hpf (0-2) 03/25/24 Unknown Urine Bacteria (Auto) None Seen (None Seen) 03/25/24 Unknown Nasal Screen MRSA (PCR) Negative (Negative) 03/25/24 20:09 SARS-CoV-2, RNA, NAAT NEGATIVE (NEGATIVE) 03/25/24 11:19 Blood Type A Positive 03/25/24 14:03 Antibody Screen NEGATIVE 03/25/24 14:03 Impressions Chest X-Ray 03/25/24 07:18 XR chest 1V portable HISTORY: 84 years-old Female trauma acute chest trauma COMPARISON: 10/28/2023 TECHNIQUE: AP view of the chest FINDINGS: Lung volumes are normal. Lungs are clear. There is no pneumothorax or pleural effusion. Cardiac size is stable. Mediastinal contours are normal. There is no evidence for pulmonary edema. IMPRESSION: No acute cardiopulmonary findings. No change in appearance of the chest. ACT 112: Negative or not required by law. The above report was generated using voice recognition software. It may contain grammatical, syntax or spelling errors. Electronically signed by: Cullen Francisco M.D. 03/25/2024 8:39 AM Hip/Pelvis X-Ray 03/25/24 07:18 XR hip LT 2V w pelvis CLINICAL HISTORY: trauma COMPARISON STUDY: Pelvis 11/19/2022. FINDINGS: Mildly displaced intertrochanteric fracture within the proximal left femur. No dislocation. The bones are osteopenic. Soft tissue swelling within the left lateral hip. No additional fractures identified within the pelvis or right hip. Vascular calcifications are noted. IMPRESSION: Mildly displaced intertrochanteric fracture within the proximal left femur. ACT 112: Negative or not required by law. Electronically signed by: Aaron Dobson M.D. 03/25/2024 9:10 AM Hip X-Ray 03/25/24 14:30 FL hip LT 2-3V CLINICAL HISTORY: Left trochanteric nail. COMPARISON STUDY: Pelvis and left hip radiographs March 25, 2024. FLUOROSCOPY TIME: 1 minute and 48 seconds. Ka, r: 17.37 mGy FLUOROSCOPIC IMAGES: 6 FINDINGS: Fluoroscopy was provided during open reduction and internal fixation of the intertrochanteric fracture of the left femur. Hardware is intact. Fracture alignment appears anatomic. IMPRESSION: Fluoroscopy provided during open reduction and internal fixation of the intertrochanteric fracture of the left femur. ACT 112: Negative or not required by law. Electronically signed by: Sampson Baker M.D. 03/25/2024 6:11 PM (1) Closed fracture of left hip Encounter type: initial encounter Qualified Code(s): S72.002A - Fracture of unspecified part of neck of left femur, initial encounter for closed fracture
--- NOTE | 2024-03-27 13:31 | Hospitalist Progress Note ---
Date of Service March 27, 2024 Assessment & Plan (1) Closed fracture of left hip: Plan: Patient presented to the ED on 03/25 following a fall. -x-ray of left hip/pelvis shows mildly displaced intertrochanteric fracture within the proximal left femur -ortho consulted and patient underwent repair of her fracture on 03/[address] Lewis. -PT/OT consulted- OT recommended SNF vs PT recommending rehab -pain management w/ prn morphine -zofran for nausea -CBC reviewed: 03/27: WBC 8.03, hgb 8.1 recheck afternoon 03/27 - hgb stable at 8.3 if hgb stable on 03/28 patient will be stable for d/c -BMP reviewed 03/26: creatinine 1.41, BUN 22 AM CBC, BMP (2) Leukocytosis: Plan: Patient noted to have a leukocytosis of 15 with neutrophil predominance of 11 on arrival Likely combination of dehydration and reactivity from fall repeat CBC 03/27: WBC WNL Urine culture negative (3) Difficult Calderon catheter placement: Plan: Nursing staff attempted several times to place Calderon catheter after patient arrival but were unsuccessful due to patient's anatomy Urology consulted and was able to place calderon on 03/25 (4) Fall: Plan: Staff at [facility] confirmed patient lost her balance and fell to the left this morning Did not hit her head or lose consciousness No other acute trauma on exam besides her known left hip fracture Fall/aspiration precautions PT/OT consults Plan Chronic conditions: HTN: Amlodipine Tardive Dyskinesia: [place] Mental health: [facility] HLD: statin GERD: PPI DVT prophylaxis: Eliquis Code status: DNR/DNI Disposition: continued inpatient stay pending placement. Diet: regular, easy to chew Admission and Anticipated Discharge Date Admission Date: March 25, 2024 Subjective Patient seen and examined this morning. patient oriented to self. Stated she was tired but denied any other symptoms. Physical Exam 2 Constitutional: WD/WN, vitals as above Eyes: PERRL, conjunctivae normal, anicteric sclerae Respiratory: normal respiratory effort, lungs clear to auscultation Cardiovascular: RRR, no murmur, no edema Skin: no rashes, warm and dry Psychiatric: AxO x 1 Results & Data Results & Data Vital Signs (Past 12 Hours) Vital Signs Temp Pulse Pulse Resp BP BP Pulse Ox 09/22/24 12:26 36.9 C 95 H 16 111/68 94 03/27/24 07:49 36.9 C 94 H 16 134/58 L 97 03/27/24 06:59 95 H 03/27/24 04:37 36.7 C 76 20 124/65 97 O2 Del Method O2 Flow Rate 03/27/24 12:26 Nasal Cannula 2 03/27/24 07:49 Nasal Cannula 2 03/27/24 06:59 03/27/24 04:37 Nasal Cannula 2 Laboratory Results 03/27/24 14:02 03/27/24 07:22 PG Care Time/CCT Total # of Minutes Spent Total Time Spent with Patient: Total time spent is greater than 50% in coordination of care (as documented) at patient's floor/unit and/or counseling patient: Coding Level of Care Code 33755 SUB INP/OBS CARE 2/35MIN Diagnoses Closed fracture of left hip, initial encounter S72.002A Encounter type: initial encounter Leukocytosis, unspecified type D72.829 Leukocytosis type: unspecified Difficult Calderon catheter placement T83.9XXA Fall, initial encounter W19.XXXA Encounter type: initial encounter (1) Closed fracture of left hip Encounter type: initial encounter Qualified Code(s): S72.002A - Fracture of unspecified part of neck of left femur, initial encounter for closed fracture (2) Leukocytosis Leukocytosis type: unspecified Qualified Code(s): D72.829 - Elevated white blood cell count, unspecified (4) Fall Encounter type: initial encounter Qualified Code(s): W19.XXXA - Unspecified fall, initial encounter
[2024-03-27 14:32] LABS: Hematocrit (blood only) 26.3 % (37.0-47.0); Hemoglobin 8.3 g/dl (12.0-16.0); Mean Corpuscular Hemoglobin 28.9 pg (25.0-34.0); Mean Corpuscular Hgb Conc 31.6 g/dL (32.0-36.0); Mean Corpuscular Volume 91.6 fL (80.0-100.0); Mean Platelet Volume 9.4 fL (9.4-12.4); Platelet Count 188 K/uL (130-400); RDW Coefficient of Variation 12.7 % (11.5-14.5); RDW Standard Deviation 42.7 fL (36.4-46.3); Red Blood Count 2.87 M/uL (4.20-5.40); White Blood Count 7.53 K/ul (4.8-10.8)
[2024-03-28 07:34] LABS: Basophils # (auto) 0.02 K/uL (0.00-0.20); Basophils % (auto) 0.3 %; Eosinophils # (auto) 0.18 K/uL (0.00-0.50); Eosinophils % (auto) 2.3 %; Hematocrit (blood only) 24.1 % (37.0-47.0); Hemoglobin 7.8 g/dl (12.0-16.0); Immature Granulocytes # (auto) 0.04 K/uL (0.01-0.20); Immature Granulocytes % (auto) 0.5 %; Lymphocytes # (auto) 1.15 K/uL (1.20-3.40); Lymphocytes % (auto) 14.5 %; Mean Corpuscular Hemoglobin 28.9 pg (25.0-34.0); Mean Corpuscular Hgb Conc 32.4 g/dL (32.0-36.0); Mean Corpuscular Volume 89.3 fL (80.0-100.0); Mean Platelet Volume 9.4 fL (9.4-12.4); Monocytes # (auto) 0.97 K/uL (0.11-0.59); Monocytes % (auto) 12.2 %; Neutrophils # (auto) 5.59 K/uL (1.40-6.50); Neutrophils % (auto) 70.2 %; Platelet Count 211 K/uL (130-400); RDW Coefficient of Variation 12.7 % (11.5-14.5); RDW Standard Deviation 41.3 fL (36.4-46.3); White Blood Count 7.95 K/ul (4.8-10.8)
[2024-03-28 07:51] LABS: Albumin Globulin Ratio 0.9 (0.9-2); Albumin Level 2.7 gm/dl (3.4-5.0); BUN Creatinine Ratio 17.2 (10-20); Bilirubin,Total 0.4 mg/dl (0.2-1.0); Calcium 8.7 mg/dl (8.6-10.3); Creatinine Clr Calc Pharmacy 29.1 ml/min; Est GFR (African American) 46.8 ml/min; Est GFR (Non-African American) 40.4 ml/min; Globulin 2.9 gm/dl (2.5-4.0); Magnesium 1.6 mg/dl (1.7-2.4); Potassium 4.1 mmol/L (3.5-5.1); Total Protein 5.6 gm/dl (6.0-8.3)
[2024-03-28 07:55] VITALS: RESP 17
[2024-03-28 07:55] LABS: Polychromasia 1+
[2024-03-28 08:01] LABS: INR 1.1 (0.9-1.1); Prothrombin Time 11.5 Seconds (9.0-12.0)
[2024-03-28] MEDS ORDERED: oxyCODONE HCL IR 5 MG TAB (IMMEDIATE RELEASE) PO PRN (08:39)
[2024-03-28] MEDS: MAGNESIUM SULFATE / D5W 1 GM/100 ML BAG IV SCH (09:10)
--- NOTE | 2024-03-28 10:46 | Orthopedic Progress Note ---
Date of Service March 28, 2024 Assessment & Plan (1) S/p left hip fracture: Plan: Postop day 3 status post left troch nail with Dr. Lewis Patient is overall doing well. Continue with pain control per primary. PT/OT. Dressing changes needed. Her dressing was changed 03/27. She can be weightbearing as tolerated with walker/assistance. Follow-up in 10 to 14 days at [facility] orthopedic for suture removal. She will need placement for rehab. Labs are stable today. Admission and Anticipated Discharge Date Admission Date: March 25, 2024 Subjective Patient was seen and examined at bedside. She reports that she is doing well. She is somewhat sore but is not having much pain. Physical Exam Physical Exam: Patient's dressing is clean, dry and intact. No major surrounding erythema or ecchymosis. She slightly tender to the touch. She can wiggle all of her toes and dorsiflex and plantarflex her ankle. She can slightly bend her knee. She is able to tolerate some abduction and adduction of her hip with no pain. Results & Data Vital Signs (Past 12 Hours) Vital Signs Temp Pulse Pulse Resp BP Pulse Ox O2 Del Method 03/28/24 07:54 37.1 C 99 H 17 148/90 H 90 Room Air 03/28/24 07:04 108 H 03/28/24 04:00 36.7 C 98 H 18 132/82 94 Room Air 03/28/24 02:12 Nasal Cannula 03/28/24 01:17 96 H 03/27/24 23:03 37.0 C 95 H 18 138/84 98 Nasal Cannula O2 Flow Rate 03/28/24 07:54 03/28/24 07:04 03/28/24 04:00 03/28/24 02:12 2 03/28/24 01:17 03/27/24 23:03 2 Laboratory Results 03/28/24 03/27/24 Range/Units 07:10 14:02 WBC 7.95 7.53 (4.8-10.8) K/ul RBC 2.70 L 2.87 L (4.20-5.40) M/uL Hgb 7.8 L 8.3 L (12.0-16.0) g/dl Hct 24.1 L 26.3 L (37.0-47.0) % MCV 89.3 91.6 (80.0-100.0) fL MCH 28.9 28.9 (25.0-34.0) pg MCHC 32.4 31.6 L (32.0-36.0) g/dL RDW Std Deviation 41.3 42.7 (36.4-46.3) fL RDW Coeff of Miguel A 12.7 12.7 (11.5-14.5) % Plt Count 211 188 (130-400) K/uL MPV 9.4 9.4 (9.4-12.4) fL Immature Gran % (Auto) 0.5 % Neut % (Auto) 70.2 % Lymph % (Auto) 14.5 % [place] % (Auto) 12.2 % Eos % (Auto) 2.3 % Baso % (Auto) 0.3 % Neut # (Auto) 5.59 (1.40-6.50) K/uL Lymph # (Auto) 1.15 L (1.20-3.40) K/uL [place] # (Auto) 0.97 H (0.11-0.59) K/uL Eos # (Auto) 0.18 (0.00-0.50) K/uL Baso # (Auto) 0.02 (0.00-0.20) K/uL Immature Gran # (Auto) 0.04 (0.01-0.20) K/uL Polychromasia 1+ PT 11.5 (9.0-12.0) Seconds INR 1.1 (0.9-1.1) Sodium 134 L (136-145) mmol/L Potassium 4.1 (3.5-5.1) mmol/L Chloride 106 (98-107) mmol/L Carbon Dioxide 22 (21-32) mmol/L Anion Gap 6 (3-11) BUN 21 (6-23) mg/dl Creatinine 1.22 H (0.6-1.2) mg/dl Est Cr Clr Drug Dosing 29.1 ml/min Est GFR ( Amer) 46.8 ml/min Est GFR (Non-Af Amer) 40.4 ml/min BUN/Creatinine Ratio 17.2 (10-20) Glucose 113 H (70-99(Fasting)) mg/dl Calcium 8.7 (8.6-10.3) mg/dl Magnesium 1.6 L (1.7-2.4) mg/dl Total Bilirubin 0.4 (0.2-1.0) mg/dl AST 16 (13-39) U/L ALT 4 L (7-52) U/L Alkaline Phosphatase 66 (34-104) U/L Total Protein 5.6 L (6.0-8.3) gm/dl Albumin 2.7 L (3.4-5.0) gm/dl Globulin 2.9 (2.5-4.0) gm/dl Albumin/Globulin Ratio 0.9 (0.9-2)
--- NOTE | 2024-03-28 14:00 | Discharge Summary ---
Discharge Summary Date of Service March 28, 2024 Principal Dx & Hospital Course #1 = Principal Diagnosis (1) Closed fracture of left hip: Patient presented to the ED on 03/25 following a fall. Mechanical fall. No LOC. -x-ray of left hip/pelvis shows mildly displaced intertrochanteric fracture within the proximal left femur -ortho consulted - s/p Left Troch nail 03/[address] Lewis. - Eliquis for DVT proph -PT/OT consulted- - recommend rehab, CM following Hgb dropped post operatively but has been stable, suspect dilutional component as fluids still continued from the ED. - no signs of GI bleeding - fluids stopped. - recommend recheck CBC later this week discharge to [facility] today (2) Leukocytosis: Patient noted to have a leukocytosis of 15 with neutrophil predominance of 11 on arrival -Likely combination of dehydration and reactivity from fall - urine culture negative Afebrile and WBC now WNL (3) Difficult Calderon catheter placement: Nursing staff attempted several times to place Calderon catheter after patient arrival but were unsuccessful due to patient's anatomy Urology consulted and was able to place calderon on 03/25 Calderon removed prior to discharge Plan Chronic conditions: HTN: Amlodipine Tardive Dyskinesia: Austedo Mental health: Cymbalta HLD: statin GERD: PPI Dispo: discharge to [facility] today Daughter updated by phone 03/28 Notes For Next Care Provider Fall s/p troch nail. [facility]. 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 Was noted to be tachycardic on arrival with heart rate in the 90s but otherwise stable. Labs are significant for leukocytosis of 15 with neutrophil predominance of 11, calcium of 10.4. Chest x-ray was read as negative for acute findings. X-ray of the left hip/pelvis was read as a mildly displaced intertrochanteric fracture within the proximal left femur. Prior to admission the patient was 1 L normal saline and 50 mcg IV fentanyl. Patient was lying in bed in no acute distress at time of exam, history is limited due to patient's baseline mental status. Her only complaint at this time is being cold. Patient's daughter reportedly had to leave for her own doctor's appointment but will return after. I was able to call when Liliana Corbett who confirmed that the patient was ambulating in the hallway using her walker when she lost her balance falling to the left and landed on her left hip. They confirm that she did not hit her head or lose consciousness. They confirm that she did not eat or drink prior to her fall or arriving to the ED. She did not have her a.m. medications. Per review of previous admission in October of this year the patient's was initially full code but after later discussions with the patient's family she was eventually transitioned to DNR/DNI. I will speak with the daughter when she arrives back from her doctor's appointment. Please refer to Dr. Bethea's attestation for any changes to the treatment plan Discharge Exam General: NAD, VS as above Resp: normal respiratory effort, lungs clear to auscultation CV: RRR, no murmur, Abd: normal bowel sounds, non tender, no hepatosplenomegaly Extremities: Moves all extremities, left hip dressing c/d/i, mild tenderness to palpation. no LE edema Neuro: A&O x2, Discharge Plan Discharge Items Patient Disposition: Transfer Inpatient Rehab Fac Reason For Visit: FALL, left hip fracture Discharge Diagnosis: Left hip fracture Activity: As commented below Activity Comment: work with therapy to get stronger Non-emergency contact: Primary Care Provider and Surgeon Call non-emergency contact if: you have any medication questions, your symptoms worsen, your pain is not controlled, your pain is unusual for you and your temperature is above 101 Follow-up/Referrals: Wale Lewis MD [Surgeon] - 04/08/24 9:00 am Julio Jones [Primary Care Provider] - Diet: Regular Diet Texture: Easy to Chew Addtl Attending Provider Instructions: Ms. Emery, You were hospitalized after a fall resulting in a hip fracture, this was repaired by Dr. Lewis. You will be going to rehab to get stronger. New medications: -Eliquis for DVT prevention - Vitamin D supplementation orally Your blood counts were on the lower end after surgery. Recommend repeat CBC in the next few days to ensure stability. Addtl Manager Technical Support Provider Instructions: Orthopedic Discharge Instructions: WBAT with walker/assistance Dressing change as needed Ice PRN Eliquis for DVT x 6 weeks PT/OT Follow up with Dr Lewis in 10-14 days at [facility] Orthopedics as scheduled Pending Studies at Discharge: No Stand-Alone Forms: My [facility] Skilled Items Patient informed of condition?: Yes DNR: Yes Discharge Level of Care: Acute rehab Communicable Disease: No Discharge Prognosis: Stable Lines: None Urinary Catheter: No Medications and DC Order Prescriptions: New cholecalciferol (vitamin D3) 125 mcg (5,000 unit) Tablet 125 mcg PO QAM 30 Days Qty: 30 1RF Eliquis 2.5 mg Tablet 2.5 mg PO BID 42 Days Qty: 84 0RF Continued omeprazole 20 mg capsule,delayed release(DR/EC) 20 mg PO DAILYBB duloxetine 60 mg Capsule,Delayed Release(Dr/Ec) 60 mg PO QAM pravastatin 40 mg tablet 40 mg PO QDD sennosides-docusate sodium [Senna-Time S] 8.6-50 mg Tablet 1 tab-cap PO QDL PRN (Reason: Constipation) food supplemt, lactose-reduced Liquid 1 ea PO TIDM Rx Instructions: drink can of BOOST VERY VANILLA three times a day Thera-Tabs Tablet 1 tab PO QAM amlodipine 5 mg tablet 5 mg PO QAM melatonin 3 mg Tablet,Disintegrating 3 mg PO HS Austedo 12 mg tablet 12 mg PO BID Discharge Orders: Discharge Order (Routine); Ordered 03/28/24 Ordered By: Roxana Mensah Admission Data Admit Date/Time: 03/25/24 10:10 Attending Provider: Rhina Mcneill Admit Provider: Dewayne Bethea [facility] Other Providers: Wale Lewis; Sukhwinder Hoover; [facility] Hospital Stay Data Consultations 03/25/24 10:10 Consult Orthopedic Surgery Routine 03/25/24 10:36 Consult Urology Routine Procedures Performed Operation Date: 03/25/24 12:05 Actual Procedures p Left Troch Nail(Left) - Wale Lewis MD Diagnostic Imagining Performed Chest X-Ray 03/25/24 07:18 XR chest 1V portable HISTORY: 84 years-old Female trauma acute chest trauma COMPARISON: 10/28/2023 TECHNIQUE: AP view of the chest FINDINGS: Lung volumes are normal. Lungs are clear. There is no pneumothorax or pleural effusion. Cardiac size is stable. Mediastinal contours are normal. There is no evidence for pulmonary edema. IMPRESSION: No acute cardiopulmonary findings. No change in appearance of the chest. ACT 112: Negative or not required by law. The above report was generated using voice recognition software. It may contain grammatical, syntax or spelling errors. Electronically signed by: Cullen Francisco M.D. 03/25/2024 8:39 AM Hip/Pelvis X-Ray 03/25/24 07:18 XR hip LT 2V w pelvis CLINICAL HISTORY: trauma COMPARISON STUDY: Pelvis 11/19/2022. FINDINGS: Mildly displaced intertrochanteric fracture within the proximal left femur. No dislocation. The bones are osteopenic. Soft tissue swelling within the left lateral hip. No additional fractures identified within the pelvis or right hip. Vascular calcifications are noted. IMPRESSION: Mildly displaced intertrochanteric fracture within the proximal left femur. ACT 112: Negative or not required by law. Electronically signed by: Aaron Dobson M.D. 03/25/2024 9:10 AM Hip X-Ray 03/25/24 14:30 FL hip LT 2-3V CLINICAL HISTORY: Left trochanteric nail. COMPARISON STUDY: Pelvis and left hip radiographs March 25, 2024. FLUOROSCOPY TIME: 1 minute and 48 seconds. Ka, r: 17.37 mGy FLUOROSCOPIC IMAGES: 6 FINDINGS: Fluoroscopy was provided during open reduction and internal fixation of the intertrochanteric fracture of the left femur. Hardware is intact. Fracture alignment appears anatomic. IMPRESSION: Fluoroscopy provided during open reduction and internal fixation of the intertrochanteric fracture of the left femur. ACT 112: Negative or not required by law. Electronically signed by: Sampson Baker M.D. 03/25/2024 6:11 PM Pending Results Patient Have Any Pending Studies at Discharge: No Discharge Instructions Given to Patient (Per Discharging Provider) Ms. Emery, You were hospitalized after a fall resulting in a hip fracture, this was repaired by Dr. Lewis. You will be going to rehab to get stronger. New medications: -Eliquis for DVT prevention - Vitamin D supplementation orally Your blood counts were on the lower end after surgery. Recommend repeat CBC in the next few days to ensure stability. Supervising Physician Co-Signing Physician Notes PA Supervision Note: I personally saw and examined the patient. I verified all ibrahim points and agree with JOVAN Mensah with the following exceptions and/or additions: S-Pt feels well at time of discharge. No concerns O- Vitals reviewed Gen: [AAOx3, NAD] HEENT: [anicteric sclerae, EOMI] Pulm-no labored breathing CBC reviewed A/P-84 yo female here with fall and hip fracture now s/p repair, with acute blood loss anemia from fracture Stable for discharge, repeat CBC within 1 week Total Time Total Time Spent Total Time Spent (In Minutes): Time spent day of discharge 40 minutes including direct patient care, medication reconciliation, documentation, review of labs and images, and coordination of care. Coding Level of Care Code 57117 INP/OBS DISCH >30 MIN Diagnoses Closed fracture of left hip, initial encounter S72.002A Encounter type: initial encounter Leukocytosis, unspecified type D72.829 Leukocytosis type: unspecified Difficult Calderon catheter placement T83.9XXA
[2024-03-28 16:18] VITALS: BP 136/84; PULSE 97; TEMP 98.6; O2SAT 90
== END 2024-03-28 17:31 | DRG 481 ==
LOC: ED 07:10 → 2W 10:10 → SUATTDRO 10:10

== ENCOUNTER 2024-07-03 13:05 | Inpatient (IN) ==
--- OUTSIDE RECORDS SUMMARY | 2024-07-03 13:09 | External Medical Summary | Continuity of Care Document ---
Author Name Unknown Organization [facility] [address] [place], [place] [address]A Address [address] [place] [phone] Care Team Providers Care Maintenance Dispatcher Name Role Phone Nuha Moffett Primary Care Physician [id number] [id number] Date(s): 06/20/24 - 06/20/24 [facility] [address] [facility] [address] [place] [address] Encounter Diagnosis Hip fracture, left(Discharge Diagnosis) - 06/20/24 Discharge Disposition: Home or Self Care Attending Physician: MD Joshua, Wale Garcia Allergies, Adverse Reactions, Alerts Substance Criticality Severity Reaction Reaction Severity Status codeine gi upset Active Tylenol gi upset Active PCN (penicillin) rash Act mabel Vicodin gi upset Active Adhesive bandage rash Act mabel Immunizations Given and Recorded Vaccine Date Status Refusal Reason influenza virus vaccine, inactivated 05/06/20 Danny rded pneumococcal 13-valent vaccine 07/04/15 Recorded zoster vaccine live 06/05/11 Recorded pneumococcal 23-valent vaccine 03/31/08 Recorded tetanus toxoids-diphtheria, Td (Adult) 07/06/00 Re corded Medications amLODIPine 5 mg oral tablet Start: 12/07/23 5:32:00 PM EDT, 1 tab, PO, Daily, Disp# 28 tab, Refills: 10, *HTN*., Pharmacy: [facility] Start Date: 12/07/23 Status: Ordered Austedo 12 mg oral tablet Start: 03/09/24 2:35:00 PM EDT, 1 tab, PO, bid, Disp# 60 tab, Refills: 5, [facility] Start Date: 03/09/24 Stop Date: 09/05/24 Status: Ordered DULoxetine 60 mg oral delayed release capsule Start: 12/07/23 5:32:00 PM EDT, 1 cap, PO, Daily, Disp# 28 cap, Refills: 10, *DEPRESSION*., Pharmacy:[facility] Start Date: 12/07/23 Status: Ordered Fish Oil 1000 mg oral capsule Start: 12/31/16 3:55:00 PM EDT, 2 cap, PO, Daily Start Date: 12/31/16 Status: Ordered L'mimi Phan Gummy Vites oral tablet, chewable Start: 07/13/20 3:47:00 [...] hold if diarrhea or loose stools, Pharmacy: [facility] Start Date: 07/10/20 Status: Ordered omeprazole 20 mg oral delayed release capsule Start: 12/07/23 5:31:00 PM EDT, 1 cap, PO, Before breakfast, Disp# 28 cap, Refills: 4, FOR GERD., [facility] Start Date: 12/07/23 Status: Ordered pravastatin 40 mg oral tablet Start: 12/07/23 5:32:00 PM EDT, See Instructions, Disp# 28 tab, Refills: 4, TAKE 1 TABLET BY MOUTH ONCE DAILY WITH DINNER FOR CHOLESTEROL, Pharmacy: [facility] Start Date: 12/07/23 Status: Ordered senna 8.6 mg oral tablet Start: 03/31/23 4:34:00 PM EDT, 1 tab, PO, Daily, PRN: as needed for constipation Start Date: 03/31/23 Status: Ordered Therems M oral tablet Start: 03/31/23 4:33:00 PM EDT, 1 tab, PO, Daily Start Date: 03/31/23 Status: Ordered Mental Status 06/20/24 Barriers to Learning one year None evide nt Mandatory Health Literacy Documentation Yes Health Literacy Communication Barriers N ever Primary Language Swedish Problem List Condition Confirmation Course Effective Dates [...] Diagnosis Diagnosis Type Effective Dates Health Status Cl inical Service Informant Hip fracture, left Discharge Diagnosis 06/20/24 Non-Specified Procedures Procedure Date Related Diagnosis Body [...] ventifular size and function 11s/p colon adenoma Social History Social History Type Response Smoking Status Never smoked cigaret yamilex Sex Female Sex Representation Female (finding) Ortho Outpt Note * Aubree Kent: MODIFY, MODIFY, PERFORM Aubree Kent: PERFORM, MODIFY Aubree Kent: MODIFY MD Joshua, Wale Garcia: MODIFY Event Display: Ortho Outpt Note Authored Date: [id number] Name:TAMARA ROBLES Patient Number:[id number] :[id number] Date of Service:06/20/2024 CHIEF COMPLAINT:3 monthss/p left trochanteric nail, DOS: 03/25/2024 HPI: [id number] Priscila presents today forfollow up of left trochanteric nail. She presents today with her daughter. Her daughter explains that most of the time when she sees her, she is sleeping, so sheis unsure of whatthe patient'sactivity is like.The patientdenies any therapy or walking. She ambulates from bed to chair with assistance. Her home is now in a permanent halfway. According to her paperwork that she brought in today, she is not currently taking any blood thinners. PHYSICAL EXAM: Focusing on the patient's LEFT hip: Able to stand with assistance, but could not ambulate Shuffled in place Significant movement disorder Nontenderleft hip Limited, but good hip movement without significant pain DIAGNOSTIC REVIEW: 3views (including AP of pelvis) of theleft hipobtained today and personally interpreted by silvia at [facility] show short trochanteric femoral nail in the left hip. Hardware is in good position. No evidence of complication. Fracture appears to be healing. IMPRESSION: 84 year old female3 monthss/p left trochanteric nail, DOS: 03/25/2024 PLAN: - Advised daughter to discuss therapy results with the rehab facility. Therapy has likely accomplished as much as it can at this point. Goals are limited. Fall risk is high. She can certainly stand with assistance to help transfer however I do not think she is safe for independent ambulation. - Recommend DEXAbone densityscan and medication treatment. DEXA scan ordered. - Follow up as needed for clinical evaluation The patient understood all my instructions and explanation; all their questions were satisfactorilyaddressed. ATTESTATION: I, Aubree Kent, have scribed for, and in the presence of, Wale Lewis, on this date,06/20/2024 13:23:42. Electronic Signature on File Electronically Reviewed/Signed by: Aubree Kent Author Signature Dt/Tm:06/20/2024 02:16 PM Electronically Reviewed/Signed by: Wale Lewis MD Cosigner Signature Dt/Tm: 06/20/2024 04:31 PM Division of Sports Medicine [facility] Patient Care team information Care Team Personnel Name: DEBORAH Duran Tara Position: Nurse Pract - Family Med Member Role: Lifetime Relationship Address: [address] [place] [address] [place] Name: MD Moffett [place] Position: Physician - Family Med Member Role: Primary Care Provider Address: [address] [place] [address] [place] Care Team Related Persons Name: PARISH ROBLES
--- NOTE | 2024-07-03 13:26 | Emergency Department Note ---
Impression & Plan Acute alteration in mental status, Fall, Urinary tract infection, Head injury ED Provider Note NAME: TAMARA ROBLES AGE: 84 SEX: F : 1940 ARRIVES VIA: Ambulance INFORMANT: Patient, ED PROVIDER(S): Enrique Marmolejo DO CHIEF COMPLAINT: Altered mental status HPI: The patient is an 84-year-old female who presented to the emergency department from her personal-group home. The patient has a history of encephalopathy as well as altered mental status. The patient's had dehydration in the past. The patient also has a history of frequent falls. The patient fell at her residential. She struck the right side of her head. She was not felt to have any traumatic injury. She does not take blood thinners. She was observed at her personal-group home but was seen by her family today. The family felt the patient was more confused than usual and the patient was sent to the emergency department for further evaluation. There is no reported vomiting or fever. ROS: See above HPI for pertinent positives & negatives. A total of 10 systems reviewed and were otherwise negative. PAST MEDICAL HISTORY: See Below PAST SURGICAL HISTORY: See Below FAMILY HISTORY: See Below SOCIAL HISTORY: See Below HOME MEDICATIONS: See Below ALLERGIES: See Below VITALS: See Below PHYSICAL EXAMINATION: GENERAL: Patient is listless and does not respond to questions. She does respond to loud verbal commands but not appropriately. EYES: The conjunctivae are clear. The pupils are round and reactive. EARS, NOSE, MOUTH AND THROAT: The nose is without any evidence of any deformity. Mucous membranes are dry. There was ecchymosis noted on the right side of forehead. NECK: The neck is nontender and supple. RESPIRATORY: Normal respiratory effort is noted there is no evidence of wheezing rhonchi or rales CARDIOVASCULAR: Regular rate and rhythm noted there no murmurs rubs or gallops normal S1 normal S2. GASTROINTESTINAL: The abdomen is soft. Abdomen is nontender. MUSCULOSKELETAL/EXTREMITIES: There is no evidence of gross deformity full range of motion is noted in the hips and shoulders. SKIN: Skin is warm and dry. There is no significant pedal edema. NEUROLOGIC: Patient is awake to loud verbal commands. She does not follow commands. Patellar tendon reflexes are 2+ bilaterally. MEDICAL DECISION MAKING: The patient is an 84-year-old female who presented to the emergency department for altered mental status. The patient presented from her residential. The patient did appear to be somewhat listless. It was unclear what her baseline was. She was treated with IV fluids and IV antibiotics for presumed urinary tract infection noted on urinalysis. There was also a reported fall and the patient did have ecchymosis over the right side of her forehead. For this reason further radiographic studies were obtained including CT of the brain. Patient did appear to have a significant amount of atrophy but no obvious bleeding was noted. I discussed the patient's laboratory and radiographic studies with the patient's daughter. I did offer to have the patient started on antibiotic with follow-up as an outpatient but patient's daughter was concerned because the patient is still not at her baseline. For this reason I discussed her condition with the on-call [facility] hospitalist. Triage Nursing notes reviewed. Prior medical records reviewed Vital Signs: reviewed and remarkable for no significant abnormalities Differential diagnosis: Infection, hypoglycemia, electrolyte abnormalities, overdose, toxicologic, cardiac sources, intracerebral event, neurologic, trauma, as well as other pathologies. ER treatment provided: See below Diagnostics interpreted by me: ECG: EKG was obtained in the emergency department. My interpretation is sinus rhythm at 100 bpm. There is no acute ST segment abnormalities, PVCs were noted, this was compared to a tracing from March 25, 2024. No changes were noted. Cardiac Monitoring: An order was placed for continuous cardiac monitoring. The monitor shows a rate of 98 bpm with sinus rhythm. Laboratory studies: As stated above and show below. Imaging studies: See below. Radiographic imaging was reviewed by myself Consultation(s): Dr. Mcneill was notified about the patient. I also discussed this case with Dr. Delgado. Past Med/Surg History Problem List (Updated 07/03/24 @ 15:44 by Enrique Marmolejo DO) Head injury (Acute) Urinary tract infection (Acute) Fall (Acute) Acute alteration in mental status (Acute) Orthostatic hypotension Paranoid delusion Seizure-like activity Acute dehydration (Acute) Encephalopathy acute (Acute) Acute alteration in mental status (Acute) SAMY (acute kidney injury) (Acute) Acute dehydration (Acute) Fall from standing (Acute) Ambulatory dysfunction (Acute) Dehydration (Acute) Ambulatory dysfunction (Acute) Fall (Acute) Abrasion of right arm (Acute) Severe protein-calorie malnutrition Encephalopathy acute Depression DVT prophylaxis Stroke-like symptoms COVID-19 (Acute) Subarachnoid hemorrhage (Acute) Generalized weakness (Acute) SARS-CoV-2 positive (Acute) Hyperlipidemia GERD (gastroesophageal reflux disease) Medical History S/p left hip fracture Tardive dyskinesia Hypertension Surgical History History of mastectomy Family History Other Unknown family medical history Social History Smoking Status: Unknown if ever smoked Tobacco Type: Cigarettes Second Hand Exposure: No; Do You Dip or Chew Tobacco: No; Hx Alcohol Use: No Hx Substance Use: No Preferred Language: Icelandic Communication Ability: Effective Communication Ability Comment: unknown Direct Mail Coordinator Required: No Beliefs That Will Affect Care: None marital status: / Current Living Situation: Longterm Current Living Situation Comment: [facility] Feels Safe at Home: Yes Assistive Devices: Walker Allergies Allergies Allergy/AdvReac Type Severity Reaction Status Date / Time acetaminophen Allergy Intermediate RASH Verified 03/25/24 11:32 adhesive Allergy Intermediate RASH Verified 03/25/24 11:32 Penicillins Allergy Intermediate RASH Verified 03/25/24 11:32 latex Allergy Unknown Verified 03/26/24 04:06 risperidone AdvReac Severe tardive Verified 03/25/24 11:32 diskinesia codeine AdvReac Intermediate GI SYMPTOMS Verified 03/25/24 11:32 hydrocodone AdvReac Intermediate GI SYMPTOMS Verified 03/25/24 11:32 Home Meds Home Medications Medication Instructions Recorded Confirmed duloxetine 60 mg capsule,delayed 60 mg PO QAM 06/14/21 07/03/24 release omeprazole 20 mg capsule,delayed 20 mg PO DAILYBB 06/14/21 07/03/24 release food supplemt, lactose-reduced 1 ea PO TIDM 11/19/22 07/03/24 pravastatin 40 mg tablet 40 mg PO QDD 11/19/22 07/03/24 amlodipine 5 mg tablet 5 mg PO QAM 10/28/23 07/03/24 deutetrabenazine 12 mg tablet 12 mg PO BID 10/28/23 07/03/24 (Austedo) bisacodyl 10 mg rectal suppository 10 mg CO DAILY PRN Constipation 07/03/24 07/03/24 (Dulcolax (bisacodyl)) lidocaine 4 % topical patch 1 patch topical BID PRN Pain 07/03/24 07/03/24 magnesium hydroxide 400 mg/5 mL 30 ml PO DAILY PRN Constipation 07/03/24 07/03/24 oral suspension (Milk of Magnesia) meloxicam 7.5 mg tablet 7.5 mg PO HS 07/03/24 07/03/24 multivitamin 1 tab PO DAILY 07/03/24 07/03/24 sodium phosphates 19 gram-7 118 ml CO DAILY PRN Constipation 07/03/24 07/03/24 gram/118 mL enema (Fleet Enema) tramadol 50 mg tablet 25 mg PO Q8H PRN Pain 07/03/24 07/03/24 Previous Rx's Medication Instructions Recorded cholecalciferol (vitamin D3) 125 125 mcg PO QAM 30 days #30 tabs 03/28/24 mcg (5,000 unit) tablet Results & Data (ED) Vital Signs Vital Signs - 24 hr 07/03/24 13:10 07/03/24 13:10 07/03/24 13:42 Temperature 36.5 C Temperature Source Oral Pulse Rate 100 H Pulse Rate [Apical] Respiratory Rate 19 Respiratory Effort / Characteristics Non-Labored Spontaneous Respiratory Depth Normal Respiratory Pattern Regular Blood Pressure 136/84 Blood Pressure [Right Arm] Blood Pressure Mean 101 Blood Pressure Mean [Right Arm] Pulse Oximetry 96 96 96 Oxygen Delivery Method Room Air Room Air Room Air Sepsis Recent Fever Within 48 Hours No Sepsis New/Unexplained Change in Mental Status Yes Sepsis Action Taken by Nursing No Action Required 07/03/24 14:00 07/03/24 14:10 07/03/24 16:00 Temperature Temperature Source Pulse Rate 95 H Pulse Rate [Apical] 93 H 98 H Respiratory Rate 23 19 Respiratory Effort / Characteristics Non-Labored Spontaneous Non-Labored Spontaneous Respiratory Depth Normal Normal Respiratory Pattern Regular Blood Pressure Blood Pressure [Right Arm] 126/84 115/85 Blood Pressure Mean Blood Pressure Mean [Right Arm] 98 95 Pulse Oximetry 93 95 Oxygen Delivery Method Room Air Room Air Sepsis Recent Fever Within 48 Hours Sepsis New/Unexplained Change in Mental Status Sepsis Action Taken by Longterm Medications Current Medication List: was personally reviewed by me Laboratory Data Attestation: I reviewed the patient's lab results. 07/03/24 13:40 07/03/24 13:40 Lab Results 07/03/24 07/03/24 07/03/24 Range/Units 13:40 13:58 14:34 WBC 13.10 H (4.8-10.8) K/ul RBC 4.26 (4.20-5.40) M/uL Hgb 11.3 L (12.0-16.0) g/dl Hct 34.8 L (37.0-47.0) % MCV 81.7 (80.0-100.0) fL MCH 26.5 (25.0-34.0) pg MCHC 32.5 (32.0-36.0) g/dL RDW Std Deviation 41.1 (36.4-46.3) fL RDW Coeff of Miguel A 13.9 (11.5-14.5) % Plt Count 418 H (130-400) K/uL MPV 9.5 (9.4-12.4) fL Immature Gran % (Auto) 1.1 % Neut % (Auto) 73.5 % Lymph % (Auto) 11.1 % Valley % (Auto) 10.6 % Eos % (Auto) 3.3 % Baso % (Auto) 0.4 % Neut # (Auto) 9.64 H (1.40-6.50) K/uL Lymph # (Auto) 1.45 (1.20-3.40) K/uL Valley # (Auto) 1.39 H (0.11-0.59) K/uL Eos # (Auto) 0.43 (0.00-0.50) K/uL Baso # (Auto) 0.05 (0.00-0.20) K/uL Immature Gran # (Auto) 0.14 (0.01-0.20) K/uL PT 11.0 (9.0-12.0) Seconds INR 1.0 (0.9-1.1) APTT 26 (21-31) Seconds PTT Ratio 1.0 VBG pH 7.45 H (7.36-7.41) VBG pCO2 37 L (38-50) mmHg VBG pO2 41 mmHg VBG HCO3 26 mmol/L VBG O2 Saturation 72.7 % VBG Base Excess 1.8 mEq/L Sodium 133 L (136-145) mmol/L Potassium 4.8 (3.5-5.1) mmol/L Chloride 99 (98-107) mmol/L Carbon Dioxide 26 (21-32) mmol/L Anion Gap 8 (3-11) BUN 26 H (6-23) mg/dl Creatinine 1.47 H (0.6-1.2) mg/dl Est Cr Clr Drug Dosing 24.2 ml/min eGFR 34.77 BUN/Creatinine Ratio 17.7 (10-20) Glucose 109 H (70-99(Fasting)) mg/dl Calcium 10.3 (8.6-10.3) mg/dl Magnesium 1.9 (1.7-2.4) mg/dl Total Bilirubin 0.5 (0.2-1.0) mg/dl AST 14 (13-39) U/L ALT 11 (7-52) U/L Alkaline Phosphatase 123 H (34-104) U/L Total Creatine Kinase 25 L (26-192) U/L Troponin I High Sens 10.9 (0-14) pg/ml Total Protein 7.2 (6.0-8.3) gm/dl Albumin 3.3 L (3.4-5.0) gm/dl Globulin 3.9 (2.5-4.0) gm/dl Albumin/Globulin Ratio 0.8 L (0.9-2) TSH 1.589 (0.300-4.500) uIu/ml Urine Color Yellow Urine Appearance Cloudy A (Clear) Urine pH 6.0 (4.5-7.5) Ur Specific Lester 1.017 (1.000-1.030) Urine Protein 2+ H (Negative) Urine Glucose (UA) Negative (Negative) Urine Ketones Negative (Negative) Urine Blood 1+ H (Negative) Urine Nitrite Positive A (Negative) Urine Bilirubin Negative (Negative) Urine Urobilinogen Negative (Negative) Ur Leukocyte Esterase 2+ H (Negative) Urine WBC (Auto) 21-50 H (0-5) /hpf Urine RBC (Auto) 6-10 H (0-2) /hpf U Hyaline Cast (Auto) 3-5 H (0-2) /lpf U Epithel Cells (Auto) 3-5 H (0-2) /hpf Urine Bacteria (Auto) 4+ H (None Seen) SARS-CoV-2 (PCR) NEGATIVE (Negative) Influenza Type A (PCR) Negative (Neg) Influenza Type B (PCR) Negative (Neg) RSV (RT-PCR) Negative (Neg) Administered Medications Discontinued Medications Sodium Chloride (Nss) 500 mls @ 999 mls/hr IV .Q31M ONE Stop: 07/03/24 16:00 Last Infusion: 07/03/24 16:23 Dose: Infused Documented By: Admin: 07/03/24 15:44 Dose: 999 mls/hr Documented By: MADHU Ceftriaxone Sodium (Rocephin) 2,000 mg in 50 mls @ 100 mls/hr IV NOW STA Stop: 07/03/24 15:59 Last Infusion: 07/03/24 16:23 Dose: Infused Documented By: Admin: 07/03/24 15:43 Dose: 100 mls/hr Documented By: MADHU Imaging Data Attestation: I personally reviewed and interpreted this imaging study as follows: My Impression: CT the brain was obtained in the emergency department. My interpretation is no intracranial hemorrhage or mass effect, final report below. 1 view chest x-ray was obtained in the emergency department. My interpretation is no free air or definite infiltrate, final report below. Radiologist's Impression: Cervical Spine CT 07/03/24 13:16 CT cervical spine wo con CLINICAL HISTORY: fall TECHNIQUE: Multidetector row helical CT of the cervical spine was performed without administration of intravenous contrast. Coronal and sagittal reformations were obtained. Automated dose lowering techniques and/or adjustment according to patient size were utilized for this exam. Comparison: Comparison is made to CT neck 11/21/2022 FINDINGS: No acute fractures or subluxations are identified. Degenerative changes are seen in the visualized spine. The alignment is normal. Incidental note is made of ossification of some of the left mastoid air cells. There is a 21 mm right thyroid nodule. IMPRESSION: 1. Degenerative changes without evidence of acute bony injury. 2. Possible small left mastoid effusion. 3. Large right thyroid nodule which can be followed up on a nonemergent basis by ultrasound. ACT 112: Positive. There are findings on this exam that require communication between the performing entity and the patient following Patient Test Result [place] Act ([place] Act 112) guidelines. Electronically signed by: Chino Estevez M.D. 07/03/2024 2:[address] 07/03/24 13:16 CT head/brain wo con CLINICAL HISTORY: fall Technique: Contiguous axial CT images of the head were acquired from the base of the skull to the vertex without intravenous contrast administration. Images were viewed in brain, subdural and bone windows. Automated dose lowering techniques and/or adjustment according to patient size were utilized for this exam. Comparison: Comparison is made to CT head 10/28/2023 Findings: Areas of decreased attenuation are present in the periventricular and subcortical white matter bilaterally consistent with small vessel ischemic disease. Generalized cerebral atrophy with commensurate enlargement of the ventricles, sulci, and cisterns is also present. There is no acute intracranial hemorrhage or evidence of acute territorial infarction. No shift of the midline structures, mass effect, or extra-axial abnormalities are shown. Atherosclerotic calcifications are present in the intracranial segments of the internal carotid arteries. Imaged portions of the paranasal sinuses and mastoid air cells are clear. The orbits appear normal. There are no acute fractures of the calvaria or scalp swelling. Impression: No acute intracranial hemorrhage, no evidence of acute territorial infarction or other acute intracranial disease process. ACT 112: Negative or not required by law. Electronically signed by: Chino Estevez M.D. 07/03/2024 1:59 PM Pelvis X-Ray 07/03/24 13:16 XR pelvis 1-2V routine CLINICAL HISTORY: fall TECHNIQUE: A single frontal view of the pelvis was obtained. Comparison: Comparison is made to hip radiograph 06/20/2024 FINDINGS: Left femoral mell is seen. Degenerative changes are seen in the hip joints and lumbar spine. Vascular calcifications are noted. IMPRESSION: Degenerative changes without evidence of acute abnormality. ACT 112: Negative or not required by law. Electronically signed by: Chino Estevez M.D. 07/03/2024 1:35 PM Chest X-Ray 07/03/24 13:17 XR chest 1V portable CLINICAL HISTORY: weakness TECHNIQUE: Single frontal radiograph of the chest was obtained. Comparison: Comparison is made to chest radiograph 03/25/2024 FINDINGS: No lines and tubes are seen. Cardiomegaly is noted. The aortic arch is calcified. The lungs are clear. No evidence of pleural effusion or pneumothorax. IMPRESSION: No acute chest disease. ACT 112: Negative or not required by law. Electronically signed by: Chino Estevez M.D. 07/03/2024 1:30 PM Discharge Plan Visit Data Chief Complaint: Confusion Stated Complaint: CONFUSED, AMS, GROUND LEVEL FALL ED Provider: Enrique Marmolejo Discharge Problem: Acute alteration in mental status, Fall, Urinary tract infection, Head injury Patient Disposition: Being Evaluated by Hospitalist Forms Stand Alone Forms: [facility] Prescriptions Prescriptions: No Action omeprazole 20 mg capsule,delayed release(DR/EC) 20 mg PO DAILYBB duloxetine 60 mg Capsule,Delayed Release(Dr/Ec) 60 mg PO QAM pravastatin 40 mg tablet 40 mg PO QDD food supplemt, lactose-reduced Liquid 1 ea PO TIDM Rx Instructions: drink can of BOOST VERY VANILLA three times a day cholecalciferol (vitamin D3) 125 mcg (5,000 unit) Tablet 125 mcg PO QAM 30 Days Qty: 30 1RF amlodipine 5 mg tablet 5 mg PO QAM [place] 12 mg tablet 12 mg PO BID multivitamin Tablet 1 tab PO DAILY lidocaine 4 % Adhesive Patch,Medicated 1 patch TOPICAL BID PRN (Reason: Pain) Rx Instructions: APPLY TO LEFT HIP tramadol 50 mg Tablet 25 mg PO Q8H PRN (Reason: Pain) meloxicam 7.5 mg tablet 7.5 mg PO HS magnesium hydroxide [Milk of Magnesia] 400 mg/5 mL Suspension 30 ml PO DAILY PRN (Reason: Constipation) bisacodyl [Dulcolax (bisacodyl)] 10 mg Suppository 10 mg CO DAILY PRN (Reason: Constipation) Fleet Enema 19-7 gram/118 mL Enema 118 ml CO DAILY PRN (Reason: Constipation) Referrals Referrals: [facility] [Primary Care Provider] - Discharge Problem: Fall Qualifiers: Encounter type: initial encounter Qualified Code(s): W19.XXXA - Unspecified fall, initial encounter Urinary tract infection Qualifiers: Urinary tract infection type: acute cystitis Hematuria presence: without hematuria Qualified Code(s): N30.00 - Acute cystitis without hematuria Head injury Qualifiers: Encounter type: initial encounter Qualified Code(s): S09.90XA - Unspecified injury of head, initial encounter
--- NOTE | 2024-07-03 13:32 | XRay Report ---
XR chest 1V portable CLINICAL HISTORY: weakness TECHNIQUE: Single frontal radiograph of the chest was obtained. Comparison: Comparison is made to chest radiograph 03/25/2024 FINDINGS: No lines and tubes are seen. Cardiomegaly is noted. The aortic arch is calcified. The lungs are clear . No evidence of pleural effusion or pneumothorax. IMPRESSION: No acute chest disease. ACT 112: Negative or not required by law. Electronically signed by: Chino Estevez M.D. 07/03/2024 1:30 PM
--- NOTE | 2024-07-03 13:36 | XRay Report ---
XR pelvis 1-2V routine CLINICAL HISTORY: fall TECHNIQUE: A single frontal view of the pelvis was obtained. Comparison: Comparison is made to hip radiograph 06/20/2024 FINDINGS: Left femoral mell is seen. Degenerative changes are seen in the hip joints and lumbar spine. Vascular calcifications are noted. IMPRESSION: Degenerative changes without evidence of acute abnormality. ACT 112: Negative or not required by law. Electronically signed by: Chino Estevez M.D. 07/03/2024 1:35 PM
--- NOTE | 2024-07-03 14:00 | CT Scan Report ---
CT head/brain wo con CLINICAL HISTORY: fall Technique: Contiguous axial CT images of the head were acquired from the base of the skull to the richard mendel without intravenous contrast administration. Images were viewed in brain, subdural and [facility]. Automated dose lowering techniques and/or adjustment according to patient size were utilized for this exam. Comparison: Comparison is made to CT head 10/28/2023 Findings: Areas of decreased attenuation are present in the periventricular and subcortical white matter bilate rally consistent with small vessel ischemic disease. Generalized cerebral atrophy with commensurate e nlargement of the ventricles, sulci, and cisterns is also present. There is no acute intracranial hem orrhage or evidence of acute territorial infarction. No shift of the midline structures, mass effect, or extra-axial abnormalities are shown. Atherosclerotic calcifications are present in the intracran ial segments of the internal carotid arteries. Imaged portions of the paranasal sinuses and mastoid air cells are clear. The orbits appear normal. There are no acute fractures of the calvaria or scalp swelling. Impression: No acute intracranial hemorrhage, no evidence of acute territorial infarction or other acute intracra nial disease process. ACT 112: Negative or not required by law. Electronically signed by: Chino Estevez M.D. 07/03/2024 1:59 PM
--- NOTE | 2024-07-03 14:03 | CT Scan Report ---
CT cervical spine wo con CLINICAL HISTORY: fall TECHNIQUE: Multidetector row helical CT of the cervical spine was performed without administration of intravenous contrast. Coronal and sagittal reformations were obtained. Automated dose lowering techn iques and/or adjustment according to patient size were utilized for this exam. Comparison: Comparison is made to CT neck 11/21/2022 FINDINGS: No acute fractures or subluxations are identified. Degenerative changes are seen in the visualized sp ine. The alignment is normal. Incidental note is made of ossification of some of the left mastoid air cells. There is a 21 mm right thyroid nodule. IMPRESSION: 1. Degenerative changes without evidence of acute bony injury. 2. Possible small left mastoid effusion. 3. Large right thyroid nodule which can be followed up on a nonemergent basis by ultrasound. ACT 112: Positive. There are findings on this exam that require communication between the performing entity and the patient following Patient Test Result [place] Act ([place] Act 112) guidelines. Electronically signed by: Chino Estevez M.D. 07/03/2024 2:02 PM
[2024-07-03 14:09] LABS: Base Excess VBG 1.8 mEq/L; HCO3 VBG 26 mmol/L; Oxygen Saturation VBG 72.7 %; PCO2 VBG 37 mmHg (38-50); PO2 VBG 41 mmHg; pH VBG 7.45 (7.36-7.41)
[2024-07-03 14:09] LABS: Basophils # (auto) 0.05 K/uL (0.00-0.20); Basophils % (auto) 0.4 %; Eosinophils # (auto) 0.43 K/uL (0.00-0.50); Eosinophils % (auto) 3.3 %; Hematocrit (blood only) 34.8 % (37.0-47.0); Hemoglobin 11.3 g/dl (12.0-16.0); Immature Granulocytes # (auto) 0.14 K/uL (0.01-0.20); Immature Granulocytes % (auto) 1.1 %; Lymphocytes # (auto) 1.45 K/uL (1.20-3.40); Lymphocytes % (auto) 11.1 %; Mean Corpuscular Hemoglobin 26.5 pg (25.0-34.0); Mean Corpuscular Hgb Conc 32.5 g/dL (32.0-36.0); Mean Corpuscular Volume 81.7 fL (80.0-100.0); Mean Platelet Volume 9.5 fL (9.4-12.4); Monocytes # (auto) 1.39 K/uL (0.11-0.59); Monocytes % (auto) 10.6 %; Neutrophils # (auto) 9.64 K/uL (1.40-6.50); Neutrophils % (auto) 73.5 %; Platelet Count 418 K/uL (130-400); RDW Coefficient of Variation 13.9 % (11.5-14.5); RDW Standard Deviation 41.1 fL (36.4-46.3); Red Blood Count 4.26 M/uL (4.20-5.40)
[2024-07-03 14:28] LABS: Albumin Globulin Ratio 0.8 (0.9-2); Albumin Level 3.3 gm/dl (3.4-5.0); BUN Creatinine Ratio 17.7 (10-20); Bilirubin,Total 0.5 mg/dl (0.2-1.0); Calcium 10.3 mg/dl (8.6-10.3); Creatinine Clr Calc Pharmacy 24.2 ml/min; Globulin 3.9 gm/dl (2.5-4.0); Magnesium 1.9 mg/dl (1.7-2.4); Potassium 4.8 mmol/L (3.5-5.1); Total Protein 7.2 gm/dl (6.0-8.3)
[2024-07-03 14:34] LABS: Influenza A virus by PCR Negative (Neg); Influenza B virus by PCR Negative (Neg); RSV by PCR Negative (Neg); SARS CoV2 RNA(COVID-19) Ceph NEGATIVE (Negative); Troponin I High Sensitivity 10.9 pg/ml (0-14)
[2024-07-03 14:37] LABS: Partial Thromboplastin Time 26 Seconds (21-31)
[2024-07-03 14:43] LABS: Thyroid Stimulating Hormone 1.589 uIu/ml (0.300-4.500)
[2024-07-03 15:15] LABS: Appearance Urine Cloudy (Clear); Bacteria Urine Automated 4+ (None Seen); Bilirubin Urine Negative (Negative); Blood Urine 1+ (Negative); Color Urine Yellow; Glucose Urine UA Negative (Negative); Ketones Urine Negative (Negative); Leukocyte Esterase Urine 2+ (Negative); Nitrite Urine Positive (Negative); Protein Urine 2+ (Negative); Specific Gravity Urine 1.017 (1.000-1.030); Urobilinogen Urine Negative (Negative); WBC Urine Automated 21-50 /hpf (0-5)
[2024-07-03] MEDS: cefTRIAXone SODIUM 2,000 MG/50 ML BAG IV STA (15:43)
[2024-07-03] MEDS: SODIUM CHLORIDE 0.9% 500 ML IV ONE (15:44)
--- NOTE | 2024-07-03 17:35 | History & Physical Report ---
Date of Service July 03, 2024 Assessment & Plan (1) Urinary tract infection: (2) Acute alteration in mental status: (3) SAMY (acute kidney injury): (4) Depression: (5) GERD (gastroesophageal reflux disease): (6) Severe protein-calorie malnutrition: (7) Tardive dyskinesia: (8) Hypertension: (9) S/p left hip fracture: Plan Pt is a 84 yo female with a past medical history of tardive dyskinesia after risperidone treatment for paranoid delusions in 2013, hx of AMS, baseline cognitive decline (knows who she is and events at baseline, not time or place), significant ambulatory dysfunction (wheelchair bound since Mar 2024 hip fracture), GERD, and poor appetite, hx subarachnoid hemorrhage who presents to the hospital on 07/03 after a fall at [facility] facility with worsened AMS and UTI. #Altered mental status, acute on chronic - likely multifactorial; dehydration due to poor po intake vs UTI/metabolic vs medication effects as she is on tramadol and Austedo - CT head/CT neck without acute injury or process on admission #Poor po intake/overall decline - will consult paper processing machine helper for nutritional eval - PT/OT consulted #SAMY - no documented hx of CKD but her baseline may be 1.2 or so based on previous values here - Cr on admission 1.47 - 1L NSS given in the ER - suspect prerenal due to poor po intake + NSAID use - hold NSAIDs as much as possible - will do 1 bag of plasmalyte at 80 ml/hr #UTI - UA suggestive of UTI; urine cx pending - given dose of ceftriaxone in the ER - will switch to cefepime given previous urine grew pseudomonas/somewhat resistent e coli #Tardive dyskinesia - per pt's daughter she is on 12 mg Austedo BID with once daily dosing every other day - will continue home dosing but consider decreasing dosing if pt remains sedated/altered as this medication is quite sedating #Dysphagia - aspiration precautions - will consult speech for reeval - diet is minced and moist per last speech note in 2020 recs #HTN - continue home amlodipine #Hip pain, L - had fall with hip fx in mar 2024 - hold home tramadol due to worsened AMS - hold home meloxicam due to bump in Cr and poor po intake - will do topical voltaren gel to L hip - PT/OT consulted #Depression - continue home duloxetine #Constipation - continue home prns #GERD - continue home omeprazole VTE ppx: lovenox History of Present Illness Chief Complaint: Fall, worsened AMS, UTI Primary Care Provider: [facility] Pt is a 84 yo female with a past medical history of tardive dyskinesia after risperidone treatment for paranoid delusions in 2013, hx of AMS, baseline cognitive decline (knows who she is and events at baseline, not time or place), significant ambulatory dysfunction (wheelchair bound since Mar 2024 hip fracture), GERD, and poor appetite, hx subarachnoid hemorrhage who presents to the hospital on 07/03 after a fall at [facility] facility with worsened AMS and UTI. Her daughter is present and gives history as pt does not say meaningful sentences on admission. Daughter states she got a call around 6:30am that her mom had fallen last night and when she went to visit her this afternoon she seemed to be uncomfortable and not acting her normal self, was staring off into space and not being very verbal. She does have a hx of AMS with dehydration/UTIs in the past. She states she has also been having poor po intake and diet at [facility] was recently changes from bite sized to puree and she believes this may be playing into her poor po intake. Normally pt is awake, alert, talking meaningfully. She states she has not complained of abdominal pain or dysuria but did seem tender with palpation to her L hip. She does note that she has been slowly declining over time in general. Allergies Allergy/AdvReac Type Severity Reaction Status Date / Time acetaminophen Allergy Intermediate RASH Verified 03/25/24 11:32 adhesive Allergy Intermediate RASH Verified 03/25/24 11:32 Penicillins Allergy Intermediate RASH Verified 03/25/24 11:32 latex Allergy Unknown Verified 03/26/24 04:06 risperidone AdvReac Severe tardive Verified 03/25/24 11:32 diskinesia codeine AdvReac Intermediate GI SYMPTOMS Verified 03/25/24 11:32 hydrocodone AdvReac Intermediate GI SYMPTOMS Verified 03/25/24 11:32 Home Medications Medication Instructions Recorded Confirmed Type duloxetine 60 mg capsule,delayed 60 mg PO QAM 06/14/21 07/03/24 History release omeprazole 20 mg capsule,delayed 20 mg PO DAILYBB 06/14/21 07/03/24 History release food supplemt, lactose-reduced 1 ea PO TIDM 11/19/22 07/03/24 History pravastatin 40 mg tablet 40 mg PO QDD 11/19/22 07/03/24 History amlodipine 5 mg tablet 5 mg PO QAM 10/28/23 07/03/24 History deutetrabenazine 12 mg tablet 12 mg PO BID 10/28/23 07/03/24 History (Austedo) cholecalciferol (vitamin D3) 125 125 mcg PO QAM 30 days #30 tabs 03/28/24 07/03/24 Rx mcg (5,000 unit) tablet bisacodyl 10 mg rectal suppository 10 mg IL DAILY PRN Constipation 07/03/24 07/03/24 History (Dulcolax (bisacodyl)) lidocaine 4 % topical patch 1 patch topical BID PRN Pain 07/03/24 07/03/24 History magnesium hydroxide 400 mg/5 mL 30 ml PO DAILY PRN Constipation 07/03/24 07/03/24 History oral suspension (Milk of Magnesia) meloxicam 7.5 mg tablet 7.5 mg PO HS 07/03/24 07/03/24 History multivitamin 1 tab PO DAILY 07/03/24 07/03/24 History sodium phosphates 19 gram-7 118 ml IL DAILY PRN Constipation 07/03/24 07/03/24 History gram/118 mL enema (Fleet Enema) tramadol 50 mg tablet 25 mg PO Q8H PRN Pain 07/03/24 07/03/24 History Past Med/Surg History Problem List (Updated 07/03/24 @ 18:09 by Background Lashon) Head injury (Acute) Urinary tract infection (Acute) Fall (Acute) Acute alteration in mental status (Acute) Orthostatic hypotension Paranoid delusion Seizure-like activity Acute dehydration (Acute) Encephalopathy acute (Acute) Acute alteration in mental status (Acute) SAMY (acute kidney injury) (Acute) Acute dehydration (Acute) Fall from standing (Acute) Ambulatory dysfunction (Acute) Dehydration (Acute) Ambulatory dysfunction (Acute) Fall (Acute) Abrasion of right arm (Acute) Severe protein-calorie malnutrition Encephalopathy acute Depression DVT prophylaxis Stroke-like symptoms COVID-19 (Acute) Subarachnoid hemorrhage (Acute) Generalized weakness (Acute) SARS-CoV-2 positive (Acute) Hyperlipidemia GERD (gastroesophageal reflux disease) Medical History S/p left hip fracture Tardive dyskinesia Hypertension Surgical History History of mastectomy Family History Other Unknown family medical history Social History Smoking Status: Unknown if ever smoked Tobacco Type: Cigarettes Second Hand Exposure: No; Do You Dip or Chew Tobacco: No; Hx Alcohol Use: No Hx Substance Use: No Preferred Language: Bengali Communication Ability: Effective Communication Ability Comment: unknown Skin Therapist Required: No Beliefs That Will Affect Care: None marital status: / Current Living Situation: Detention [facility] Feels Safe at Home: Yes Assistive Devices: Walker Review of Systems Review of Systems: Per HPI. Physical Exam Physical Exam: General: Awake, looks around room, no acute distress, HEENT: Normocephalic, no gross deformity of the face Cardio: Regular rate and rhythm, no murmur, Resp: Lungs clear to auscultation b/l, no wheezes or rhonchi, GI: Soft and nontender, nondistended, bowel sounds active Skin: Warm, pink, dry, no rashes on back/torso present on admission Extremities: No gross deformity of the hip or legs noted Results & Data Results & Data Vital Signs (Past 12 Hours) Vital Signs Temp Pulse Pulse Resp BP BP Pulse Ox 07/03/24 16:00 98 H 19 115/85 95 07/03/24 14:10 95 H 07/03/24 14:00 93 H 23 126/84 93 07/03/24 13:42 96 07/03/24 13:10 96 07/03/24 13:10 36.5 C 100 H 19 136/84 96 O2 Del Method 07/03/24 16:00 Room Air 07/03/24 14:10 07/03/24 14:00 Room Air 07/03/24 13:42 Room Air 07/03/24 13:10 Room Air 07/03/24 13:10 Room Air Code Status & VTE Plan VTE Prophylaxis Plan VTE Prophylaxis will be ordered: Yes Supervising Physician Co-Signing Physician Notes ATTESTATION I also saw the patient and confirmed ibrahim portions of the history and exam. I agree with the impression and plan in the resident documentation, and as summarized below. Upon exam, follows simple commands, smiles, but limited interaction otherwise. No acute distress. Hemodynamically stable. Cervical spine CT shows thyroid nodule. CXR, CT head, and pelvic X-ray without acute findings. Labs demonstrate mild leukocytosis. HgB 11.3. Plt 418. Sodium 133, BUN 26, Cr 1.47 U/A nitrite (+) leuk (+), SPG 1.017 EKG sinus with PVCs Urine and blood cultures collected, although blood after one dose of Rocephin IMPRESSION & PLAN UTI Metabolic encephalopathy Hyponatremia SAMY TD Cefepime given history of pseudomonas pending speciation and sensitivity Gentle IVF and repeat labs in AM Austedo recently changed from 12 mg BID to 12 mg BID alternating with 12 mg daily due to increase somnolence (known side effect). 6 mg BID may be better, although TABs cannot be split and our pharmacy does not stock; will continue current dosing as noted above for now. Additional per resident documentation Resident Activity Tracking Resident Involvement: Resident Care Provided Care Provided: Adult Hospital Medicine (1) Urinary tract infection Hematuria presence: without hematuria Urinary tract infection type: acute cystitis Qualified Code(s): N30.00 - Acute cystitis without hematuria
[2024-07-03] MEDS ORDERED: MAGNESIUM HYDROXIDE SUSP 30 ML UDC PO PRN (18:24)
[2024-07-03] MEDS ORDERED: MELATONIN 3 MG TAB PO PRN (18:24)
[2024-07-03] MEDS ORDERED: SOD PHOSPHATE/SOD BIPHOSPHATE ENEMA 132 ML BTL PR PRN (18:24)
[2024-07-03] MEDS ORDERED: LIDOCAINE 5% 1 PATCH TD PRN (19:15)
[2024-07-03] MEDS: CEFEPIME 2000MG 2,000 MG/20 ML SYR IV ONE (20:43)
[2024-07-03] MEDS: PLASMA-LYTE A 1,000 ML IV SCH (20:44)
[2024-07-03] MEDS: ENOXAPARIN INJ 30 MG/0.3 ML SYR SQ SCH (20:44)
[2024-07-04 07:46] LABS: Basophils # (auto) 0.07 K/uL (0.00-0.20); Basophils % (auto) 0.5 %; Eosinophils # (auto) 0.28 K/uL (0.00-0.50); Eosinophils % (auto) 2.1 %; Hematocrit (blood only) 35.5 % (37.0-47.0); Hemoglobin 11.5 g/dl (12.0-16.0); Immature Granulocytes # (auto) 0.12 K/uL (0.01-0.20); Immature Granulocytes % (auto) 0.9 %; Lymphocytes % (auto) 6.9 %; Mean Corpuscular Hemoglobin 26.2 pg (25.0-34.0); Mean Corpuscular Hgb Conc 32.4 g/dL (32.0-36.0); Mean Corpuscular Volume 80.9 fL (80.0-100.0); Mean Platelet Volume 9.7 fL (9.4-12.4); Monocytes # (auto) 1.19 K/uL (0.11-0.59); Monocytes % (auto) 9.1 %; Neutrophils # (auto) 10.48 K/uL (1.40-6.50); Neutrophils % (auto) 80.5 %; Platelet Count 408 K/uL (130-400); RDW Coefficient of Variation 13.7 % (11.5-14.5); RDW Standard Deviation 40.4 fL (36.4-46.3); Red Blood Count 4.39 M/uL (4.20-5.40); White Blood Count 13.04 K/ul (4.8-10.8)
[2024-07-04 08:00] LABS: Albumin Globulin Ratio 0.8 (0.9-2); Albumin Level 3.3 gm/dl (3.4-5.0); BUN Creatinine Ratio 17.9 (10-20); Bilirubin,Total 0.4 mg/dl (0.2-1.0); Calcium 10.2 mg/dl (8.6-10.3); Creatinine Clr Calc Pharmacy 26.5 ml/min; Globulin 4.1 gm/dl (2.5-4.0); Magnesium 1.8 mg/dl (1.7-2.4); Potassium 4.2 mmol/L (3.5-5.1); Total Protein 7.4 gm/dl (6.0-8.3)
--- NOTE | 2024-07-04 09:11 | Electrocardiogram Report ---
Test Reason : Blood Pressure : */* mmHG Vent. Rate : 100 BPM Atrial Rate : 100 BPM P-R Int : 196 ms QRS Dur : 84 ms QT Int : 364 ms P-R-T Axes : 63 -43 58 degrees QTcB Int : 469 ms Sinus rhythm with frequent Premature ventricular complexes Left axis deviation Left anterior fascicular block Abnormal ECG When compared with ECG of 25-Mar-2024 07:25, Criteria for Septal infarct are no longer Present Confirmed by Sue Clay (Ramila) on 07/04/2024 9:11:26 AM Referred By: [facility] Confirmed By: Sue Clay
[2024-07-04] MEDS: amLODIPine BESYLATE 5 MG TAB PO SCH (09:21)
[2024-07-04] MEDS: PANTOprazole 40 MG TAB PO SCH (09:21)
[2024-07-04] MEDS: DULoxetine HCL 60 MG CAP PO SCH (09:21)
[2024-07-04] MEDS: CHOLECALCIFEROL 125 MCG (5,000 UNITS) TAB PO SCH (09:21)
[2024-07-04] MEDS: CEFEPIME 1000MG 1,000 MG/10 ML SYR IV SCH (09:26)
--- NOTE | 2024-07-04 13:55 | Hospitalist Progress Note ---
Date of Service July 04, 2024 Assessment & Plan (1) Urinary tract infection: (2) Acute alteration in mental status: (3) SAMY (acute kidney injury): (4) Depression: (5) GERD (gastroesophageal reflux disease): (6) Severe protein-calorie malnutrition: (7) Tardive dyskinesia: (8) Hypertension: (9) S/p left hip fracture: Plan Pt is a 84 yo female with a past medical history of tardive dyskinesia after risperidone treatment for paranoid delusions in 2013, hx of AMS, baseline cognitive decline (knows who she is and events at baseline, not time or place), significant ambulatory dysfunction (wheelchair bound since Mar 2024 hip fracture), GERD, and poor appetite, hx subarachnoid hemorrhage who presents to the hospital on 07/03 after a fall at [facility] facility with worsened AMS and UTI. #Altered mental status, acute on chronic - likely multifactorial; dehydration due to poor po intake vs UTI/metabolic vs medication effects as she is on tramadol and Austedo - CT head/CT neck without acute injury or process on admission - Non oriented this morning #Poor po intake/overall decline - will consult toe stripper for nutritional eval - PT/OT consulted #SAMY - no documented hx of CKD but her baseline may be 1.2 or so based on previous values here - Cr on admission 1.47 - 1L NSS given in the ER - suspect prerenal due to poor po intake + NSAID use - hold NSAIDs as much as possible - will do 1 bag of plasmalyte at 80 ml/hr #UTI - UA suggestive of UTI; urine cx pending - IV Cefepime - will switch to cefepime given previous urine grew pseudomonas/somewhat resistent e coli #Tardive dyskinesia - per pt's daughter she is on 12 mg [place]edo BID with once daily dosing every other day - will continue home dosing but consider decreasing dosing if pt remains sedated/altered as this medication is quite sedating #Dysphagia - aspiration precautions - will consult speech for reeval - diet is minced and moist per last speech note in 2020 recs #HTN - continue home amlodipine #Hip pain, L - had fall with hip fx in mar 2024 - hold home tramadol due to worsened AMS - hold home meloxicam due to bump in Cr and poor po intake - will do topical voltaren gel to L hip - PT/OT consulted #Depression - continue home duloxetine #Constipation - continue home prns #GERD - continue home omeprazole VTE ppx: lovenox Admission and Anticipated Discharge Date Admission Date: July 03, 2024 Supervising Physician Co-Signing Physician Notes I personally examined the patient and verified all ibrahim points of history and exam, discussed case, and agree with decision making with Dr Twin Craig no meaningful HPI review of systems obtainable. Patient resting comfortably appears to be in no distress. Vitals noted. Breathing unlabored no accessory muscle use good effort. Skin without rashes pallor or icterus. IMPRESSION & PLAN UTI Metabolic encephalopathy Hyponatremia SAMY TD Continue Cefepime given history of pseudomonas pending speciation and sensitivity to follow p.o. intake now that she is off of IV fluids Austedo recently changed from 12 mg BID to 12 mg BID alternating with 12 mg daily due to increase somnolence (known side effect). 6 mg BID may be better, although TABs cannot be split and our pharmacy does not stock; will continue current dosing as noted above for now. Additional per resident documentation Subjective See this morning. She was oriented to person only. Not place or situation. difficult to get a history from patient. IV access was reestablish this morning Review of Systems Review of Systems: as per HPI Physical Exam Constitutional: + thin and cooperative; no acute distres s Respiratory: normal respiratory effort, lungs clear to auscultation Cardiovascular: RRR, no murmur, no edema Gastrointestinal (Abdomen): normal bowel sounds, soft, nontender, no hepatosplenomegaly Results & Data Results & Data Vital Signs (Past 12 Hours) Vital Signs Temp Pulse Resp BP Pulse Ox O2 Del Method 07/04/24 10:58 Room Air 07/04/24 07:43 36.6 C 62 16 124/81 95 Room Air 07/04/24 04:20 Room Air 07/04/24 04:20 36.8 C 70 16 117/77 98 Room Air Resident Activity Tracking Resident Involvement: Resident Care Provided Care Provided: Adult Hospital Medicine (1) Urinary tract infection Hematuria presence: without hematuria Urinary tract infection type: acute cystitis Qualified Code(s): N30.00 - Acute cystitis without hematuria
[2024-07-04] MEDS: PRAVASTATIN SOD 40 MG TAB PO SCH (17:17)
--- NOTE | 2024-07-04 18:54 | Billing Data ---
Date of Service July 04, 2024 Coding Level of Care Code 03013 SUB INP/OBS CARE
[2024-07-05 06:48] LABS: Albumin Level 3.2 gm/dl (3.4-5.0); Bilirubin,Total 0.6 mg/dl (0.2-1.0); Calcium 9.9 mg/dl (8.6-10.3); Potassium 4.1 mmol/L (3.5-5.1)
[2024-07-05 06:54] LABS: Albumin Globulin Ratio 0.9 (0.9-2); BUN Creatinine Ratio 18.3 (10-20); Creatinine Clr Calc Pharmacy 29.6 ml/min; Globulin 3.6 gm/dl (2.5-4.0); Total Protein 6.8 gm/dl (6.0-8.3)
[2024-07-05 07:29] LABS: Basophils # (auto) 0.05 K/uL (0.00-0.20); Basophils % (auto) 0.3 %; Eosinophils % (auto) 1.3 %; Hematocrit (blood only) 31.3 % (37.0-47.0); Hemoglobin 10.2 g/dl (12.0-16.0); Immature Granulocytes # (auto) 0.12 K/uL (0.01-0.20); Immature Granulocytes % (auto) 0.8 %; Lymphocytes # (auto) 1.13 K/uL (1.20-3.40); Lymphocytes % (auto) 7.4 %; Mean Corpuscular Hemoglobin 26.4 pg (25.0-34.0); Mean Corpuscular Hgb Conc 32.6 g/dL (32.0-36.0); Mean Corpuscular Volume 80.9 fL (80.0-100.0); Mean Platelet Volume 9.6 fL (9.4-12.4); Monocytes # (auto) 1.46 K/uL (0.11-0.59); Monocytes % (auto) 9.6 %; Neutrophils # (auto) 12.26 K/uL (1.40-6.50); Neutrophils % (auto) 80.6 %; Platelet Count 385 K/uL (130-400); RDW Coefficient of Variation 13.8 % (11.5-14.5); RDW Standard Deviation 40.5 fL (36.4-46.3); Red Blood Count 3.87 M/uL (4.20-5.40); White Blood Count 15.22 K/ul (4.8-10.8)
--- NOTE | 2024-07-05 14:58 | Hospitalist Progress Note ---
Date of Service July 05, 2024 Assessment & Plan (1) Urinary tract infection: (2) Acute alteration in mental status: (3) SAMY (acute kidney injury): (4) Depression: (5) GERD (gastroesophageal reflux disease): (6) Severe protein-calorie malnutrition: (7) Tardive dyskinesia: (8) Hypertension: (9) S/p left hip fracture: Plan Pt is a 84 yo female with a past medical history of tardive dyskinesia after risperidone treatment for paranoid delusions in 2013, hx of AMS, baseline cognitive decline (knows who she is and events at baseline, not time or place), significant ambulatory dysfunction (wheelchair bound since Mar 2024 hip fracture), GERD, and poor appetite, hx subarachnoid hemorrhage who presents to the hospital on 07/03 after a fall at [facility] facility with worsened AMS and UTI. #Altered mental status, acute on chronic #Metabolic encephalopathy - likely multifactorial; dehydration due to poor po intake vs UTI/metabolic vs medication effects as she is on tramadol and Austedo - CT head/CT neck without acute injury or process on admission - Non oriented this morning - Patient developed Slurred speech in the afternoon. Will order an STAT CT head. #Poor po intake/overall decline - will consult supervisor microbiology technologists for nutritional eval - PT/OT consulted - Boost ordered #SAMY - no documented hx of CKD but her baseline may be 1.2 or so based on previous values here - Cr on admission 1.47 - s/p 2 L NSS - suspect prerenal due to poor po intake + NSAID use - hold NSAIDs as much as possible - CMP AM #UTI - UA suggestive of UTI; urine cx pending - IV Cefepime , due to previous Pseudomonas - Mild leukocytosis this am, Procal negative, CRP - #Tardive dyskinesia - per pt's daughter she is on 12 mg Austedo BID with once daily dosing every other day - will continue home dosing but consider decreasing dosing if pt remains sedated/altered as this medication is quite sedating #Dysphagia - aspiration precautions - diet is minced and moist per last speech note in 2020 recs #HTN - continue home amlodipine #Hip pain, L - had fall with hip fx in mar 2024 - hold home tramadol due to worsened AMS - hold home meloxicam due to bump in Cr and poor po intake - will do topical voltaren gel to L hip - PT/OT consulted #Depression - continue home duloxetine #Constipation - continue home prns #GERD - continue home omeprazole VTE ppx: lovenox Admission and Anticipated Discharge Date Admission Date: July 03, 2024 Supervising Physician Co-Signing Physician Notes I personally examined the patient and verified all ibrahim points of history and exam, discussed case, and agree with decision making with Dr Twin Craig no meaningful HPI review of systems obtainable. For what is worth, she does deny complaintsdenying shortness of breath or pain. Obviously HPI and review of systems extremely unreliable. Vitals noted, in general she is awake and alert somewhat restless in bed but appears to be in no distress. Cardio is regular lungs seem to be clear somewhat difficult exam but no rales rhonchi or wheezes no accessory muscle use good effort and on room air. Abdomen is soft nondistended nontender no masses organomegaly. Extremities are without calf tenderness. Skin without overt rashes. head CT ordered and follow-upreassuring findings/no bleed IMPRESSION & PLAN UTIleukocytosis and some apparent urinary symptoms prior to admissionbut with clinical picture fitting some literature suggests up to ~30% of UTI clinical pictures can have a negative culture Metabolic encephalopathySeems to be due to UTI and dehydration (both of which are improving, but deliriums obviously can take quite a while to resolve even when the underlying cause has been treated) Hyponatremia SAMY TD Continue Cefepime given history of pseudomonas; white count did increased some today, and her heart rate is up a little bit more, but otherwise she actually looks well and shows no other worrisome findingsshe has been more restless which might explain the tachycardia, but obviously not the white count. At the same time, followed up with CRP and procalcitonin that are quite reassuringcontinue current antibiotic regimen. to follow p.o. intake now that she is off of IV fluids Austedo recently changed from 12 mg BID to 12 mg BID alternating with 12 mg daily due to increase somnolence (known side effect). 6 mg BID may be better, although TABs cannot be split and our pharmacy does not stock; will continue current dosing as noted above for now. Does not appear to be getting itbut other than increased restlessness I am not seeing where that could contribute to her leukocytosis, just her restlessnessand therefore probably perpetuating her delirium Additional per resident documentation Subjective See this morning. She was oriented to person only. Not place or situation. d ifficult to get a history from patient. IV access was reestablish this morning Review of Systems Review of Systems: as per HPI Physical Exam Constitutional: + thin and cooperative; no acute distres s Respiratory: normal respiratory effort, lungs clear to auscultation Cardiovascular: RRR, no murmur, no edema Gastrointestinal (Abdomen): normal bowel sounds, soft, nontender, no hepatosplenomegaly Results & Data Results & Data Vital Signs (Past 12 Hours) Vital Signs Temp Pulse Resp BP Pulse Ox O2 Del Method 07/05/24 08:21 146/79 H 07/05/24 07:35 Room Air 07/05/24 07:18 36.7 C 110 H 18 94 Room Air Resident Activity Tracking Resident Involvement: Resident Care Provided Care Provided: Adult Hospital Medicine (1) Urinary tract infection Hematuria presence: without hematuria Urinary tract infection type: acute cystitis Qualified Code(s): N30.00 - Acute cystitis without hematuria
[2024-07-05] MEDS: LORazepam 2 MG/1 ML VIAL IV STA (15:45)
--- NOTE | 2024-07-05 15:55 | CT Scan Report ---
CT OF THE HEAD WITHOUT CONTRAST CLINICAL HISTORY: Slurred speech, head trauma COMPARISON STUDY: MRI of the brain October 28, 2023. Head CT July 03, 2024. CT DOSE: 1250.21 mGy.cm TECHNIQUE: Helical axial images of the head were obtained without IV contrast. Automated exposure con trol was utilized for the study. A dose lowering technique was utilized adhering to the principles o f ALARA. FINDINGS: This exam is moderately compromised by motion artifact. No acute intracranial hemorrhage, m idline shift or mass effect is present. Ventricular system is stable. The basal cisterns are patent. Extensive white matter hypodensities are unchanged and favor small vessel disease. There are no extra -axial collections. No displaced calvarial fractures are present. A small amount of fluid within the left mastoid air cells is unchanged. IMPRESSION: 1. No acute intracranial findings. Exam moderately compromised by motion artifact. 2. No calvarial fractures identified. ACT 112: Negative or not required by law. Electronically signed by: Sampson Baker M.D. 07/05/2024 3:53 PM
--- NOTE | 2024-07-05 17:00 | Billing Data ---
Date of Service July 05, 2024 Coding Level of Care Code 72695 SUB INP/OBS CARE
[2024-07-06 06:31] LABS: Basophils # (auto) 0.09 K/uL (0.00-0.20); Basophils % (auto) 0.5 %; Eosinophils # (auto) 0.28 K/uL (0.00-0.50); Eosinophils % (auto) 1.5 %; Hematocrit (blood only) 30.3 % (37.0-47.0); Hemoglobin 9.8 g/dl (12.0-16.0); Immature Granulocytes # (auto) 0.15 K/uL (0.01-0.20); Immature Granulocytes % (auto) 0.8 %; Lymphocytes # (auto) 1.14 K/uL (1.20-3.40); Lymphocytes % (auto) 6.1 %; Mean Corpuscular Hemoglobin 26.3 pg (25.0-34.0); Mean Corpuscular Hgb Conc 32.3 g/dL (32.0-36.0); Mean Corpuscular Volume 81.5 fL (80.0-100.0); Mean Platelet Volume 9.9 fL (9.4-12.4); Monocytes # (auto) 1.95 K/uL (0.11-0.59); Monocytes % (auto) 10.5 %; Neutrophils # (auto) 14.96 K/uL (1.40-6.50); Neutrophils % (auto) 80.6 %; Platelet Count 434 K/uL (130-400); RDW Coefficient of Variation 13.9 % (11.5-14.5); Red Blood Count 3.72 M/uL (4.20-5.40); White Blood Count 18.57 K/ul (4.8-10.8)
[2024-07-06 06:49] LABS: BUN Creatinine Ratio 18.4 (10-20); Calcium 10.3 mg/dl (8.6-10.3); Creatinine Clr Calc Pharmacy 24.2 ml/min; Potassium 4.9 mmol/L (3.5-5.1)
[2024-07-06] MEDS: DEUTETRABENAZINE PO SCH (07:53)
[2024-07-06] MEDS: PLASMA-LYTE A 1,000 ML IV SCH (07:54)
[2024-07-06 08:16] LABS: C Reactive Protein 9.8 mg/dl (0-0.5)
--- NOTE | 2024-07-06 08:16 | Hospitalist Progress Note ---
Date of Service July 06, 2024 Assessment & Plan (1) Urinary tract infection: (2) Acute alteration in mental status: (3) SAMY (acute kidney injury): (4) Depression: (5) GERD (gastroesophageal reflux disease): (6) Severe protein-calorie malnutrition: (7) Tardive dyskinesia: (8) Hypertension: (9) Pelvic mass: Plan Pt is a 84 yo female with a past medical history of tardive dyskinesia after risperidone treatment for paranoid delusions in 2013, hx of AMS, baseline cognit mabel decline (knows who she is and events at baseline, not time or place), significant ambulatory dysfunction (wheelchair bound since Mar 2024 hip fracture), GERD, and poor appetite, hx subarachnoid hemorrhage who presents to the hospital on 07/03 after a fall at [facility] facility with worsened AMS and UTI. Hydronephrosis/ UTI - Worsening WBC, tachycardia, and abdominal pain (tender/voluntary guarding on exam) - CT pelvic / abdomen w/: Severe left hydroureteronephrosis with marked left renal cortical thinning suggesting a long-standing obstruction. 6.2 x 6.2 cm left pelvic mass which is likely necrotic and mass-like thickening at the left ureterovesical junction. The findings are consistent with a neoplastic process and may reflect transitional cell carcinoma. Several hypodense hepatic lesions suspicious for metastases. A CT of the abdomen and pelvis with IV contrast could be obtained for further evaluation. Large amount of stool within the rectum and moderate amount of stool within the colon. No evidence for a bowel obstruction. Status post right hemicolectomy. -Urology consulted: Recommended Nephrostomy tube on left, would need transfer for this. Stent placement would potentially be unsuccessful. Place NPO for re eval tomorrow morning -Antibiotic switch to Zosyn and Daptomycin today-monitor for allergic reaction given remote h/o PCN allergy -urine culture repeated, pending - NPO at midnight Pelvic Mass - Urology consulted, aprec recommendation - Will consult railroad wheels and axle inspector as well - Would need biopsy for further eval - consider Liver sonogram to further eval lesions on liver - Consider MRI Brain IV contrast to further eval for mets on brain-daughter requests to hold off on this for now - CA- 125 #Altered mental status, acute on chronic #Metabolic encephalopathy - likely multifactorial; dehydration due to infection vs poor po intake vs metabolic, vs malignant process - CT head/CT neck without acute injury or process on admission - Repeat head CT: No acute intracranial findings, no hemorrhages. Exam compromised by motion artifact - Continue supportive care, Abx as above #Poor po intake/overall decline - will consult election supervisor for nutritional eval - PT/OT consulted - Boost ordered #SAMY -baseline may be 1.2 - Cr on admission 1.47 - suspect prerenal due to poor po intake + NSAID use vs obstructed - hold NSAIDs as much as possible - IV Plasmalyte 80 ml/hr x 1 bag restarted today #Tardive dyskinesia - per pt's daughter she is on 12 mg [place] BID with once daily dosing every other day #Dysphagia - aspiration precautions - diet is minced and moist per last speech note in 2020 recs #HTN - continue home amlodipine #Hip pain, L - had fall with hip fx in mar 2024 - hold home tramadol due to worsened AMS - hold home meloxicam due to bump in Cr and poor po intake - will do topical Voltaren gel to L hip #Depression - continue home duloxetine #Constipation - severe constipation on CT A/P--> add miralax daily, senna, and continue bisacodyl prn #GERD - continue home omeprazole VTE ppx: lovenox sq Admission and Anticipated Discharge Date Admission Date: July 03, 2024 Supervising Physician Co-Signing Physician Notes I personally examined the patient and verified all ibrahim points of history and exam, discussed case, and agree with decision making with Dr. Twin Craig with the following additions/exceptions: S-Pt lethargic but does open her eyes to her name and looks at me, then falls back asleep with her eyes open. Had a few drinks today with encouragement but not taking much po. Had 35 min conversation with daughter at bedside about diagnostic testing and next steps. For now, daughter wants to to interventions that treat her UTI and confusion (including ureteral stent placement, unsure about nephrostomy tube if requires trnsfer to another facility), antibiotics, but is unsure if she should pursue further workup for malignancy i.e. biopsy and treatment etc. O- Vitals Reviewed Gen: [sleeping, lethargic, NAD] HEENT: [anicteric sclerae, small pupils, tongue, lips and buccal mucosa quite dry] CV: [RRR no mgr nl S1S2, bilateral mastectomy with incisional scars present] Pulm: [CTAB no wcr] Abd: [+BS soft NT ND no masses or hernias, incisional scar in supraumbilical region] Ext: [no edema] Skin: [no rashes, warm/dry] Neuro-: occasional myoclonic jerks CBC, BMP, CT A/P, UA, urine cx reviewed A/P: 84 yo female here with worsening confusion after a fall with head trauma, found to have UTI and now with necrotic large pelvic mass causing left ureteral compression and hydronephrosis, possible liver mets Plan for possible Urology left ureteral stent placement and cystoscopy Changed abx to broad spectrum with Zosyn and Dapto, stop Cefepime also as this can cause encephalopathy Continue supportive care, encourage good day/night sleep cycles Give IVFs for dehydration today given poor po intake Consider KEYING MACHINE OPERATOR consult vs IR for pelvic mass biopsy if daughter decides to pursue F/u repeat urine culture Follow AM CBC, CMP, CA-125 Subjective Seen this am, patient asleep, easily to wake. Disoriented to placed and situations. Worsening AMS Discussion with Sue (daughter) this afternoon. Review CT findings, as well as possible treatment. Patient is unsure what steps to take next. Unsure about surgery about surgery. Refers her mom seen to be more awake today, keeping eye contact. Hospice discussed as well, as part of possible plan. Need for biopsy to establish define diagnosed, this would need to be after current acute process infection resolved. All questions answered. Review of Systems Review of Systems: as per HPI Physical Exam Constitutional: + ill appearing and + altered mental sta tus; no acute distress Respiratory: normal respiratory effort, lungs clear to auscultation Cardiovascular: RRR, no murmur, no edema Gastrointestinal (Abdomen): Inspection/Auscultation: normal bowel sounds; abdomen not distended Percussion/Palpation: + abdomen tender (Lower abdominal tenderness) and abdomen soft; no guarding Skin: no rashes, warm and dry Results & Data Results & Data Vital Signs (Past 12 Hours) Vital Signs Temp Pulse Resp BP Pulse Ox O2 Del Method 07/06/24 06:59 36.5 C 84 18 112/72 91 Room Air Resident Activity Tracking Resident Involvement: Resident Care Provided Care Provided: Adult Hospital Medicine (1) Urinary tract infection Hematuria presence: without hematuria Urinary tract infection type: acute cystitis Qualified Code(s): N30.00 - Acute cystitis without hematuria
[2024-07-06 09:40] LABS: Albumin Level 3.2 gm/dl (3.4-5.0); Bilirubin Direct 0.2 mg/dl (0-0.2); Bilirubin,Total 0.6 mg/dl (0.2-1.0); Total Protein 6.9 gm/dl (6.0-8.3)
--- NOTE | 2024-07-06 10:46 | CT Scan Report ---
CT OF THE ABDOMEN AND PELVIS WITHOUT CONTRAST CLINICAL HISTORY: Leukocytosis. Abdominal tenderness. COMPARISON STUDY: No previous studies for comparison. TECHNIQUE: Axial images of the abdomen and pelvis were obtained without IV contrast. Images were revi ewed in the axial, sagittal, and coronal planes. Automated exposure control was utilized for the rach dy. A dose lowering technique was utilized adhering to the principles of ALARA. FINDINGS: A trace right pleural effusion is present. Evaluation of the abdomen and pelvis is suboptim al on this unenhanced exam. There is no pneumatosis, free air or portal venous gas. Multiple hypodens e hepatic lesions measure up to 2.3 cm. Spleen, adrenal glands and pancreas are unremarkable. Water a ttenuation right renal lesions favor cysts. There is no right hydronephrosis. Severe left hydroureter onephrosis is noted with marked left renal cortical thinning. A mixed attenuation mass-like abnormali ty within the left hemipelvis measures 6.2 x 6.2 cm it appears to be necrotic. This may represent the site of ureteral obstruction. There is also a 4 x 3.1 cm mass-like density at the left ureteral vesi will junction on image 310. Small calcific densities within the mid left ureter may be within the wall of the ureter or the mass. Large amount of stool within the rectum is present. There is a moderate a mount of stool within the colon. No evidence for a bowel obstruction. Numerous lower thoracic and lum bar spine compression fractures are likely chronic. Healed intertrochanteric fracture of the left fem ur is noted. No acute fractures within the lumbar spine, pelvis or hips are identified. Status post r ight hemicolectomy. IMPRESSION: 1. Severe left hydroureteronephrosis with marked left renal cortical thinning suggesting a long-stand ing obstruction. Caliber change of the distal left ureter with an associated 6.2 x 6.2 cm left pelvic mass which is likely necrotic and mass-like thickening at the left ureterovesical junction. The find ings are consistent with a neoplastic process and may reflect transitional cell carcinoma. Alternativ elayne, a gynecologic etiology such as cervical cancer with left ureteral obstruction could appear simil ar. Urology consultation is recommended. 2. No right hydronephrosis. Numerous low-attenuation right renal lesions which are suboptimally asses sed on unenhanced exam but favor cysts. 3. Several hypodense hepatic lesions suspicious for metastases. A CT of the abdomen and pelvis with I V contrast could be obtained for further evaluation. 4. Large amount of stool within the rectum and moderate amount of stool within the colon. No evidence for a bowel obstruction. Status post right hemicolectomy. 5. Numerous old lower thoracic and lumbar spine compression fractures. ACT 112: Positive. There are findings on this exam that require communication between the performing entity and the patient following Patient Test Result Information Act ([place] Act 112) guidelines. Electronically signed by: Sampson Baker M.D. 07/06/2024 10:44 AM
--- NOTE | 2024-07-06 11:16 | Urology Consultation ---
Date of Consultation July 06, 2024 Assessment & Plan (1) Urinary tract infection: (2) Pelvic mass: (3) Acute alteration in mental status: (4) SAMY (acute kidney injury): Plan 84-year-old female with altered mental status, UTI, increasing leukocytosis, CT scan demonstrating hydronephrosis and large likely necrotic pelvic mass. Unclear the exact cause of her altered mental status. It could be related to urinary tract infection. If there is infection in the left kidney, this appears to be obstructed and we likely do not have good source control. I think with the size of the pelvic mass, ureteral stent placement would be challenging if not impossible. The mass could also cause extrinsic compression of the stent and need to poor drainage even if the stent is in good position. For maximal drainage, I would recommend nephrostomy tube as the most definitive option. Pelvic mass raises concern for malignancy, especially in the setting of other possible hepatic metastases. May be a candidate for percutaneous biopsy, however would probably try to avoid this in the setting of acute infection. I do not think she will be a surgical candidate for mass removal, but could potentially have palliative measures, depending on pathology. Given her age and comorbidities, as well as potential invasiveness of treatment options, I think it would be worthwhile to have a goals of care discussion with her family. If they would like to focus on symptom management/palliation, hospice may be reasonable. If they want to proceed with as much treatment as possible, I would recommend transfer for left nephrostomy tube to maximize drainage of the kidney and for source control for potential infection, prior to further evaluation of likely malignancy. History of Present Illness Reason for Consultation: Hydronephrosis, pelvic mass, UTI Attending Physician: Rhina Mcneill MD History of Present Illness This is an 84-year-old female with history of tardive dyskinesia, baseline cognitive decline, prior history of breast cancer s/p bilateral mastectomy. She presented to the emergency department after a fall and associated worsening altered mental status. She was admitted to the hospital for treatment of UTI and further evaluation of altered mental status. While in the hospital, mental status has been gradually worsening and leukocytosis has been increasing. She has been on cefepime with history of prior Pseudomonas infection. She had a CT scan of the abdomen and pelvis performed on 07/06/2024. I independently reviewed these images. Both kidneys are in normal position. There is significant hydronephrosis of the left with cortical thinning. There is a cyst on the right kidney, but the parenchyma appears normal. No hydronephrosis on the right. On the left side the hydronephrosis extends down to the pelvis where there is a large left-sided pelvic mass which may be protruding into the bladder or at least raising up the left sidewall. There is some urine within the bladder. Radiology also notes suspicious lesions in the liver concerning for metastasis Urology was consulted for further evaluation in the setting of hydronephrosis, pelvic mass and UTI. At the bedside, the patient is unable to provide any history or answer any questions. Allergies Allergy/AdvReac Type Severity Reaction Status Date / Time acetaminophen Allergy Intermediate RASH Verified 03/25/24 11:32 adhesive Allergy Intermediate RASH Verified 03/25/24 11:32 Penicillins Allergy Intermediate RASH Verified 03/25/24 11:32 latex Allergy Unknown Verified 03/26/24 04:06 risperidone AdvReac Severe tardive Verified 03/25/24 11:32 diskinesia codeine AdvReac Intermediate GI SYMPTOMS Verified 03/25/24 11:32 hydrocodone AdvReac Intermediate GI SYMPTOMS Verified 03/25/24 11:32 Home Medications Medication Instructions Recorded Confirmed Type duloxetine 60 mg capsule,delayed 60 mg PO QAM 06/14/21 07/03/24 History release omeprazole 20 mg capsule,delayed 20 mg PO DAILYBB 06/14/21 07/03/24 History release food supplemt, lactose-reduced 1 ea PO TIDM 11/19/22 07/03/24 History pravastatin 40 mg tablet 40 mg PO QDD 11/19/22 07/03/24 History amlodipine 5 mg tablet 5 mg PO QAM 10/28/23 07/03/24 History deutetrabenazine 12 mg tablet 12 mg PO BID 10/28/23 07/03/24 History (Austedo) cholecalciferol (vitamin D3) 125 125 mcg PO QAM 30 days #30 tabs 03/28/24 07/03/24 Rx mcg (5,000 unit) tablet bisacodyl 10 mg rectal suppository 10 mg ID DAILY PRN Constipation 07/03/24 07/03/24 History (Dulcolax (bisacodyl)) lidocaine 4 % topical patch 1 patch topical BID PRN Pain 07/03/24 07/03/24 History magnesium hydroxide 400 mg/5 mL 30 ml PO DAILY PRN Constipation 07/03/24 07/03/24 History oral suspension (Milk of Magnesia) meloxicam 7.5 mg tablet 7.5 mg PO HS 07/03/24 07/03/24 History multivitamin 1 tab PO DAILY 07/03/24 07/03/24 History sodium phosphates 19 gram-7 118 ml ID DAILY PRN Constipation 07/03/24 07/03/24 History gram/118 mL enema (Fleet Enema) tramadol 50 mg tablet 25 mg PO Q8H PRN Pain 07/03/24 07/03/24 History Patient History Medical History S/p left hip fracture Tardive dyskinesia Hypertension Surgical History History of mastectomy Family History Other Unknown family medical history Social History Smoking Status: Unknown if ever smoked Tobacco Type: Cigarettes Second Hand Exposure: No (Pt non-verbal and confused); Do You Dip or Chew Tobacco: No; Tobacco Cessation Education Requested by Patient: No Hx Alcohol Use: No (Pt non-verbal and confused) Hx Substance Use: No Preferred Language: Hungarian Communication Ability: Effective Communication Ability Comment: Pt non-verbal and confused Cleaner And Preparer Required: No Beliefs That Will Affect Care: None marital status: / Current Living Situation: [facility] Current Living Situation Comment: Pt non-verbal and confused Other Information That Helps Us Care for You: No (Pt non-verbal and confused) Feels Safe at Home: Yes Safety Concerns: Feels Safe At This Time Assistive Devices: Walker and Wheelchair Assistive Devices Comment: Pt non-verbal and confused Review of Systems Review of Systems: Unable to obtain review of systems due to mental status Physical Exam Physical Exam: Resting in bed, makes eye contact, unable to answer any questions Constitutional: no acute distress Eyes: + anicteric sclerae; pupils not irregula r Respiratory: normal respiratory effort; no respiratory distress, does not use accessory muscles and no cough Cardiovascular: well perfused Gastrointestinal (Abdomen): Inspection/Auscultation: abdomen not distended Musculoskeletal: Extremities: extremities normal to inspection Skin: normal turgor; no rashes and no lesions Neurologic: moves all extremities and awake Psychiatric: Orientation: alert Results & Data Vital Signs (Past 12 Hours) Vital Signs Temp Pulse Resp BP Pulse Ox O2 Del Method 07/06/24 06:59 36.5 C 84 18 112/72 91 Room Air PG Care Time/CCT Total # of Minutes Spent Total Time Spent with Patient: Total time spent is greater than 50% in coordination of care (as documented) at patient's floor/unit and/or counseling patient: Coding Level of Care Code 10727 INT INP/OBS CARE 2/55MIN Diagnoses Urinary tract infection N30.00 Hematuria presence: without hematuria Urinary tract infection type: acute cystitis Pelvic mass R19.00 Acute alteration in mental status R41.82 SAMY (acute kidney injury) N17.9 (1) Urinary tract infection Hematuria presence: without hematuria Urinary tract infection type: acute cystitis Qualified Code(s): N30.00 - Acute cystitis without hematuria
--- NOTE | 2024-07-06 12:09 | XRay Report ---
XR chest 1V portable CLINICAL HISTORY: Leukocytosis. COMPARISON STUDY: Chest radiograph July 03, 2024. Chest CT June 25, 2021. FINDINGS: There is no pneumothorax. Trace right pleural effusion is present. Right basilar opacity fa vors atelectasis. There is no evidence for pulmonary edema. Cardiomediastinal silhouette is unremarka ble. Right chest wall/axillary surgical clips are incidentally noted. IMPRESSION: Trace right pleural effusion. Right basilar opacity which favors atelectasis. ACT 112: Negative or not required by law. Electronically signed by: Sampson Baker M.D. 07/06/2024 12:07 PM
[2024-07-06] MEDS: GLYCERIN ADULT 12 SUPP/BOX SUPP PR ONE (14:48)
[2024-07-06] MEDS: bisacodyL 10 MG SUPP PR PRN (15:14)
[2024-07-06 16:24] LABS: Appearance Urine Cloudy (Clear); Bacteria Urine Automated 2+ (None Seen); Bilirubin Urine Negative (Negative); Blood Urine 2+ (Negative); Color Urine Yellow; Epithelial Cell Urine Auto 0-2 /hpf (0-2); Glucose Urine UA Negative (Negative); Ketones Urine 1+ (Negative); Leukocyte Esterase Urine 2+ (Negative); Nitrite Urine Positive (Negative); Protein Urine 2+ (Negative); Specific Gravity Urine 1.018 (1.000-1.030); Urobilinogen Urine Negative (Negative); WBC Urine Automated >50 /hpf (0-5); pH Urine 5.5 (4.5-7.5)
[2024-07-06] MEDS: DAPTOmycin 225 MG in SYRINGE 0 ML IV SCH (16:24)
[2024-07-06] MEDS: PIPERACILLIN/TAZOBACTAM 4.5 GM/100 ML BAG IV SCH (16:35)
[2024-07-06] MEDS ORDERED: cefTRIAXone SODIUM 1,000 MG/50 ML BAG IV SCH (19:00)
[2024-07-06] MEDS: POLYETHYLENE (MIRALAX) 17 GM PACK PO SCH (19:44)
--- NOTE | 2024-07-06 20:04 | Billing Data ---
Date of Service July 06, 2024 Coding Level of Care Code 25157 SUB INP/OBS CARE MIN
[2024-07-06] MEDS: SENNA 8.6 MG TAB PO SCH (20:34)
[2024-07-06] MEDS ORDERED: diphenhydrAMINE 50 MG/ML VIAL IV PRN (23:00)
[2024-07-06] MEDS: SODIUM CHLORIDE 0.9% 500 ML IV SCH (23:54)
[2024-07-07 06:55] LABS: INR 1.1 (0.9-1.1); Prothrombin Time 11.7 Seconds (9.0-12.0)
[2024-07-07 07:03] LABS: Albumin Globulin Ratio 0.9 (0.9-2); Albumin Level 2.9 gm/dl (3.4-5.0); Bilirubin,Total 0.6 mg/dl (0.2-1.0); C Reactive Protein 8.7 mg/dl (0-0.5); Calcium 9.7 mg/dl (8.6-10.3); Globulin 3.4 gm/dl (2.5-4.0); Potassium 4.2 mmol/L (3.5-5.1); Total Protein 6.3 gm/dl (6.0-8.3)
[2024-07-07 07:25] LABS: Basophils # (auto) 0.05 K/uL (0.00-0.20); Basophils % (auto) 0.4 %; Eosinophils # (auto) 0.48 K/uL (0.00-0.50); Eosinophils % (auto) 3.6 %; Hematocrit (blood only) 30.1 % (37.0-47.0); Hemoglobin 9.9 g/dl (12.0-16.0); Immature Granulocytes # (auto) 0.13 K/uL (0.01-0.20); Lymphocytes % (auto) 6.7 %; Mean Corpuscular Hemoglobin 26.2 pg (25.0-34.0); Mean Corpuscular Hgb Conc 32.9 g/dL (32.0-36.0); Mean Corpuscular Volume 79.6 fL (80.0-100.0); Mean Platelet Volume 10.1 fL (9.4-12.4); Monocytes # (auto) 1.29 K/uL (0.11-0.59); Monocytes % (auto) 9.6 %; Neutrophils % (auto) 78.7 %; Platelet Count 396 K/uL (130-400); RDW Standard Deviation 40.2 fL (36.4-46.3); Red Blood Count 3.78 M/uL (4.20-5.40); White Blood Count 13.45 K/ul (4.8-10.8)
[2024-07-07] MEDS: DEUTETRABENAZINE PO SCH (07:38)
--- NOTE | 2024-07-07 10:19 | Urology Progress Note ---
Date of Service July 07, 2024 Assessment & Plan (1) Hydronephrosis, left: (2) Pelvic mass: (3) Acute alteration in mental status: (4) SAMY (acute kidney injury): Plan: 84-year-old female with altered mental status, concern for UTI, increasing leukocytosis, CT scan demonstrating hydronephrosis and large likely necrotic pelvic mass. Patient afebrile, hemodynamically stable. Labs today reviewedcreatinine 1.42, WBC improved to 13.45, hemoglobin 9.9. Urine culture 07/03 w/ 3 types of organisms present. Repeat urine culture 07/06/24 pending. Blood cultures with no growth to date. Barba catheter in place to maximize bladder drainage. Had a lengthy discussion with Sharron's daughter Sue again regarding options for ureteral stent or nephrostomy tube to maximize drainage. She would like to hold off on surgical intervention at this time. Okay for alex butler to have diet today from perspective. It would be worthwhile to have a goals of care discussion with her family. Continue with broad-spectrum antibiotics and medical management per hospital medicine service. will follow peripherally, please contact our service with any questions or changes to clinical status. Admission and Anticipated Discharge Date Admission Date: July 03, 2024 Subjective Patient seen and examined at bedside this morning. She is resting in bed. She opens her eyes to speech, but is not interactive. Her daughter, Sue, is at bedside. Review of Systems Review of Systems: Unobtainable due to cognitive status Physical Exam Constitutional: + thin; no acute distress Respiratory: no respiratory distress and no labored breathing Gastrointestinal (Abdomen): Inspection/Auscultation: abdomen not distended Neurologic: opens eyes to speech, but not interactive Genitourinary: Barba patent and draining clear yellow urine Results & Data Vital Signs (Past 12 Hours) Vital Signs Temp Pulse Resp BP Pulse Ox O2 Del Method 07/07/24 07:10 37.0 C 53 L 16 139/62 95 Room Air PG Care Time/CCT Total # of Minutes Spent Total Time Spent with Patient: Total time spent is greater than 50% in coordination of care (as documented) at patient's floor/unit and/or counseling patient: Coding Level of Care Code 51552 SUB INP/OBS CARE 07/30MIN Diagnoses Hydronephrosis, left N13.30 Pelvic mass R19.00 Acute alteration in mental status R41.82 SAMY (acute kidney injury) N17.9
--- NOTE | 2024-07-07 12:54 | Hospitalist Progress Note ---
Date of Service July 07, 2024 Assessment & Plan (1) Urinary tract infection: (2) Acute alteration in mental status: (3) SAMY (acute kidney injury): (4) Depression: (5) GERD (gastroesophageal reflux disease): (6) Severe protein-calorie malnutrition: (7) Tardive dyskinesia: (8) Hypertension: (9) S/p left hip fracture: Plan Pt is a 84 yo female with a past medical history of tardive dyskinesia after risperidone treatment for paranoid delusions in 2013, hx of AMS, baseline cognitive decline (knows who she is and events at baseline, not time or place), significant ambulatory dysfunction (wheelchair bound since Mar 2024 hip fracture), GERD, and poor appetite, hx subarachnoid hemorrhage who presents to the hospital on 07/03 after a fall at [facility] facility with worsened AMS and UTI. Hydronephrosis/ UTI - Worsening WBC, tachycardia, and abdominal pain (tender/guarding on exam - CT pelvic / abdomen wo: Severe left hydroureteronephrosis with marked left renal cortical thinning suggesting a long-standing obstruction. 6.2 x 6.2 cm left pelvic mass which is likely necrotic and mass-like thickening at the left ureterovesical junction. The findings are consistent with a neoplastic process and may reflect transitional cell carcinoma. Several hypodense hepatic lesions suspicious for metastases. A CT of the abdomen and pelvis with IV contrast could be obtained for further evaluation. Large amount of stool within the rectum and moderate amount of stool within the colon. No evidence for a bowel obstruction. Status post right hemicolectomy. -Urology consulted: Recommended Nephrostomy tubes, would need transfer for this. Stent placement would potentially be unsuccessful. -Antibiotic switch to Vanco and Daptomycin today - Goals of care discussion started today. -urine culture repeated, pending Pelvic Mass - Urology consulted, aprec recommendation - Will consult fourdrinier machine operator as well - Would need biopsy for further eval - CA- 125 #Altered mental status, acute on chronic #Metabolic encephalopathy - likely multifactorial; dehydration due to infection vs poor po intake vs metabolic, vs malignant process - CT head/CT neck without acute injury or process on admission - Repeat head CT: No acute intracranial findings, no hemorrhages. Exam compromised by motion artifact - Continue supportive care, Abx as above #Poor po intake/overall decline - will consult candy bar attendant for nutritional eval - PT/OT consulted - Boost ordered #SAMY -baseline may be 1.2 - Cr on admission 1.47 - suspect prerenal due to poor po intake + NSAID use vs obstructed - hold NSAIDs as much as possible #Tardive dyskinesia - per pt's daughter she is on 12 mg [place] BID with once daily dosing every other day #Dysphagia - aspiration precautions - diet is minced and moist per last speech note in 2020 recs #HTN - continue home amlodipine #Hip pain, L - had fall with hip fx in mar 2024 - hold home tramadol due to worsened AMS - hold home meloxicam due to bump in Cr and poor po intake - will do topical Voltaren gel to L hip #Depression - continue home duloxetine #Constipation - continue home prns #GERD - continue home omeprazole VTE ppx: lovenox sq Admission and Anticipated Discharge Date Admission Date: July 03, 2024 Supervising Physician Co-Signing Physician Notes I personally examined the patient and verified all ibrahim points of history and exam, discussed case, and agree with decision making with Dr Twin Craig No meaningful HPI review of systems obtainable. Daughter not present. Vitals noted. In general resting comfortably appears to be in no distress. Breathing unlabored no accessory muscle use. Skin without rashes pallor or icterus. No focal neurodeficits noted. A/P: 84 yo female here with worsening confusion after a fall with head trauma, found to have UTI and now with necrotic large pelvic mass causing left ureteral compression and hydronephrosis, possible liver mets P Continue broad antibiotics for now. Appreciate urology input. Daughter working through decision making given this rather catastrophic change in working diagnosis given yesterday's CT findings. DVT prophylaxisLovenox otherwise as above Subjective Seen this morning. Daughter at bedside. Non interactive. Asleep. Daughter unsure of what next steps wants to take. she wants o avoid surgery. Review of Systems Review of Systems: as per HPI Physical Exam Constitutional: + ill appearing, + thin, + altered menta l status and cooperative; no acute distress Respiratory: normal respiratory effort, lungs clear to auscultation Cardiovascular: RRR, no murmur, no edema Gastrointestinal (Abdomen): normal bowel sounds, soft, nontender, no hepatosplenomegaly Inspection/Auscultation: normal bowel sounds; abdomen not distended Percussion/Palpation: + abdomen tender (Lower abdominal tenderness), + guarding, + abdomen rigid and abdomen soft Skin: no rashes, warm and dry Results & Data Results & Data Vital Signs (Past 12 Hours) Vital Signs Temp Pulse Resp BP Pulse Ox O2 Del Method 07/07/24 10:10 Room Air 07/07/24 07:10 37.0 C 53 L 16 139/62 95 Room Air Resident Activity Tracking Resident Involvement: Resident Care Provided Care Provided: Adult Hospital Medicine (1) Urinary tract infection Hematuria presence: without hematuria Urinary tract infection type: acute cystitis Qualified Code(s): N30.00 - Acute cystitis without hematuria
[2024-07-07] MEDS: SODIUM CHLORIDE 0.9% 1,000 ML IV SCH (17:36)
--- NOTE | 2024-07-07 18:09 | Billing Data ---
Date of Service July 07, 2024 Coding Level of Care Code 04782 SUB INP/OBS CARE
[2024-07-08 07:39] LABS: Albumin Globulin Ratio 0.9 (0.9-2); Albumin Level 2.9 gm/dl (3.4-5.0); BUN Creatinine Ratio 14.6 (10-20); Bilirubin,Total 0.6 mg/dl (0.2-1.0); Calcium 9.2 mg/dl (8.6-10.3); Creatinine Clr Calc Pharmacy 22.5 ml/min; Globulin 3.3 gm/dl (2.5-4.0); Potassium 3.6 mmol/L (3.5-5.1); Total Protein 6.2 gm/dl (6.0-8.3)
[2024-07-08 07:41] LABS: Basophils # (auto) 0.06 K/uL (0.00-0.20); Basophils % (auto) 0.5 %; Eosinophils % (auto) 4.4 %; Hematocrit (blood only) 29.3 % (37.0-47.0); Hemoglobin 9.5 g/dl (12.0-16.0); Immature Granulocytes % (auto) 0.9 %; Lymphocytes # (auto) 0.96 K/uL (1.20-3.40); Lymphocytes % (auto) 8.4 %; Mean Corpuscular Hemoglobin 26.2 pg (25.0-34.0); Mean Corpuscular Hgb Conc 32.4 g/dL (32.0-36.0); Mean Corpuscular Volume 80.9 fL (80.0-100.0); Mean Platelet Volume 9.7 fL (9.4-12.4); Monocytes # (auto) 1.14 K/uL (0.11-0.59); Neutrophils # (auto) 8.65 K/uL (1.40-6.50); Neutrophils % (auto) 75.8 %; Platelet Count 397 K/uL (130-400); RDW Standard Deviation 41.1 fL (36.4-46.3); Red Blood Count 3.62 M/uL (4.20-5.40); White Blood Count 11.41 K/ul (4.8-10.8)
--- NOTE | 2024-07-08 13:54 | Hospitalist Progress Note ---
Date of Service July 08, 2024 Assessment & Plan (1) Urinary tract infection: (2) Acute alteration in mental status: (3) SAMY (acute kidney injury): (4) Depression: (5) GERD (gastroesophageal reflux disease): (6) Severe protein-calorie malnutrition: (7) Tardive dyskinesia: (8) Hypertension: (9) S/p left hip fracture: Plan Pt is a 84 yo female with a past medical history of tardive dyskinesia after risperidone treatment for paranoid delusions in 2013, hx of AMS, baseline cognitive decline (knows who she is and events at baseline, not time or place), significant ambulatory dysfunction (wheelchair bound since Mar 2024 hip fracture), GERD, and poor appetite, hx subarachnoid hemorrhage who presents to the hospital on 07/03 after a fall at [facility] facility with worsened AMS and UTI. Hydronephrosis/ UTI - Worsening WBC, tachycardia, and abdominal pain (tender/guarding on exam - CT pelvic / abdomen wo: Severe left hydroureteronephrosis with marked left renal cortical thinning suggesting a long-standing obstruction. 6.2 x 6.2 cm left pelvic mass which is likely necrotic and mass-like thickening at the left ureterovesical junction. The findings are consistent with a neoplastic process and may reflect transitional cell carcinoma. Several hypodense hepatic lesions suspicious for metastases. A CT of the abdomen and pelvis with IV contrast could be obtained for further evaluation. Large amount of stool within the rectum and moderate amount of stool within the colon. No evidence for a bowel obstruction. Status post right hemicolectomy. -Urology consulted: Recommended Nephrostomy tubes, would need transfer for this. Stent placement would potentially be unsuccessful. -Antibiotic switch to Vanco and Daptomycin today - Goals of care discussion started today. -urine culture repeated, multiples organism - [facility] discussion today. No aggressive treatment for cancer. Will treat infections as needed, until decline. will schedule to get her back to center [facility]. PO antibiotics. Case management following - Encourage eating Pelvic Mass - Urology consulted, aprec recommendation - Will consult seam hammerer as well - Would need biopsy for further eval - CA- 125: 28 #Altered mental status, acute on chronic #Metabolic encephalopathy - likely multifactorial; dehydration due to infection vs poor po intake vs metabolic, vs malignant process - CT head/CT neck without acute injury or process on admission - Repeat head CT: No acute intracranial findings, no hemorrhages. Exam com promised by motion artifact - Continue supportive care, Abx as above - Improving slowly #Poor po intake/overall decline - will consult customs and immigration officer for nutritional eval - Boost ordered - Continue PT #SAMY -baseline may be 1.2 - Cr on admission 1.47 - suspect prerenal due to poor po intake + NSAID use vs obstructed - hold NSAIDs as much as possible #Tardive dyskinesia - per pt's daughter she is on 12 mg [place] BID with once daily dosing every other day #Dysphagia - aspiration precautions #HTN - continue home amlodipine #Hip pain, L - had fall with hip fx in mar 2024 - hold home tramadol due to worsened AMS - hold home meloxicam due to bump in Cr and poor po intake - will do topical Voltaren gel to L hip #Depression - continue home duloxetine #Constipation - continue home prns #GERD - continue home omeprazole VTE ppx: lovenox sq Admission and Anticipated Discharge Date Admission Date: July 03, 2024 Supervising Physician Co-Signing Physician Notes I personally examined the patient and verified all ibrahim points of history and exam, discussed case, and agree with decision making with Dr Twin Craig No meaningful HPI review of systems obtainable. Daughter present. Extensive discussions led by Dr. Twin Craig and supported by myself. Vitals noted. In general resting comfortably appears to be in no distress. Breathing unlabored no accessory muscle use. Skin without rashes pallor or icterus. No focal neurodeficits noted. A/P: 84 yo female here with worsening confusion after a fall with head trauma, found to have UTI and now with necrotic large pelvic mass causing left ureteral compression and hydronephrosis, possible liver mets P Continue broad antibiotics for now. Daughter notes she is looking a bit better and brighter between the antibiotics and IV fluids. At the same time she is fully aware of the prognosis related to the pelvic mass, and does not want intervention diagnostically or therapeutically for this. Otherwise she would like to focus on her mother's quality of lifewhich currently does entail antibiotics and possibly intermittent IV fluids when her p.o. intake is poor. Once this no longer seems to be benefiting her, she seems of the mindset to gradually move her mother towards more of a fully comfort measures planbut given that her mother is waking up and smiling and showing some signs of quality of life, she would like to continue some degree of medical care at this time. Safe/stable for return to SNF once this can be facilitated. DVT prophylaxisLovenox otherwise as above Subjective Seen this morning. Daughter at bedside. Non interactive. Asleep. Awake with stimuli Daughter refers an improvement. Eating with her. Talking words Review of Systems Review of Systems: as per HPI Physical Exam Constitutional: + ill appearing, + thin, + altered menta l status and cooperative; no acute distress Respiratory: normal respiratory effort, lungs clear to auscultation Cardiovascular: RRR, no murmur, no edema Gastrointestinal (Abdomen): Inspection/Auscultation: normal bowel sounds; abdomen not distended Percussion/Palpation: + abdomen tender (Lower abdominal tenderness), + guarding, + abdomen rigid and abdomen soft Skin: no rashes, warm and dry Results & Data Results & Data Vital Signs (Past 12 Hours) Vital Signs Temp Pulse Resp BP Pulse Ox O2 Del Method 07/08/24 07:45 Room Air 07/08/24 07:18 36.6 C 98 H 16 163/88 H 92 Room Air Resident Activity Tracking Resident Involvement: Resident Care Provided Care Provided: Adult Hospital Medicine (1) Urinary tract infection Hematuria presence: without hematuria Urinary tract infection type: acute cystitis Qualified Code(s): N30.00 - Acute cystitis without hematuria
--- NOTE | 2024-07-08 18:09 | Billing Data ---
Date of Service July 08, 2024 Coding Level of Care Code 13456 SUB INP/OBS CARE
[2024-07-08 20:06] VITALS: O2SAT 94
[2024-07-09 06:46] LABS: Creatinine Clr Calc Pharmacy 24.8 ml/min
[2024-07-09 08:33] VITALS: BP 144/75; PULSE 63; RESP 16; TEMP 98.1
--- NOTE | 2024-07-09 10:34 | Urology Progress Note ---
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 Hoover prior assessment that percutaneous drainage would likely be superior to retrograde drainage if she ultimately requires any intervention For the time being I think is very reasonable not to intervene Admission and Anticipated Discharge Date Admission Date: July 03, 2024 Subjective Seen and examined this morning She is not providing a great deal of history but denies any pain Urine is clear Hemodynamically stable Physical Exam Physical Exam: Clear urine in her [place] Abdomen soft, nontender to palpation Results & Data Vital Signs (Past 12 Hours) Vital Signs Temp Pulse Resp BP Pulse Ox O2 Del Method 07/09/24 08:33 36.7 C 63 16 144/75 H 94 Room Air PG Care Time/CCT Total # of Minutes Spent Total Time Spent with Patient: Total time spent is greater than 50% in coordination of care (as documented) at patient's floor/unit and/or counseling patient: Coding Level of Care Code 65875 SUB INP/OBS CARE 2/35MIN Diagnoses Hydronephrosis, left N13.30 Pelvic mass R19.00
[2024-07-09] MEDS: CIPROFLOXACIN 500 MG TAB PO SCH (12:23)
--- NOTE | 2024-07-09 13:38 | Discharge Summary ---
Date of Service July 09, 2024 Admission HPI Per Admitting Provider Pt is a 84 yo female with a past medical history of tardive dyskinesia after risperidone treatment for paranoid delusions in 2013, hx of AMS, baseline cognitive decline (knows who she is and events at baseline, not time or place), significant ambulatory dysfunction (wheelchair bound since Mar 2024 hip fracture), GERD, and poor appetite, hx subarachnoid hemorrhage who presents to the hospital on 07/03 after a fall at [facility] with worsened AMS and UTI. Her daughter is present and gives history as pt does not say meaningful sentences on admission. Daughter states she got a call around 6:30am that her mom had fallen last night and when she went to visit her this afternoon she seemed to be uncomfortable and not acting her normal self, was staring off into space and not being very verbal. She does have a hx of AMS with dehydration/UTIs in the past. She states she has also been having poor po intake and diet at [facility] was recently changes from bite sized to puree and she believes this may be playing into her poor po intake. Normally pt is awake, alert, talking meaningfully. She states she has not complained of abdominal pain or dysuria but did seem tender with palpation to her L hip. She does note that she has been slowly declining over time in general. Principal Diagnosis Severe left hydroureteronephrosis UTI AMS Pelvic Mass Discharge Exam Constitutional + ill appearing, + thin, + altered mental status and cooperative; no acute distress Respiratory normal respiratory effort, lungs clear to auscultation Cardiovascular RRR, no murmur, no edema Gastrointestinal (Abdomen) Inspection/Auscultation: normal bowel sounds; abdomen not distended Percussion/Palpation: + abdomen tender (Lower abdominal tenderness) and abdomen soft Skin no rashes, warm and dry Discharge Data Allergies Allergy/AdvReac Type Severity Reaction Status Date / Time acetaminophen Allergy Intermediate RASH Verified 03/25/24 11:32 adhesive Allergy Intermediate RASH Verified 03/25/24 11:32 Penicillins Allergy Intermediate RASH Verified 03/25/24 11:32 latex Allergy Unknown Verified 03/26/24 04:06 risperidone AdvReac Severe tardive Verified 03/25/24 11:32 diskinesia codeine AdvReac Intermediate GI SYMPTOMS Verified 03/25/24 11:32 hydrocodone AdvReac Intermediate GI SYMPTOMS Verified 03/25/24 11:32 Consultations 07/03/24 15:44 ED Decision to Admit Stat 07/06/24 10:53 Consult Urology Routine Ordered Studies 07/03/24 13:16 CT cervical spine wo con Stat CT head/brain wo con Stat 07/05/24 14:[address] [CT head/brain wo con] Stat 07/06/24 09:36 CT Abdomen and Pelvis [CT abd pelvis wo con] Routine Hospital Course (1) Urinary tract infection: (2) Acute alteration in mental status: (3) SAMY (acute kidney injury): (4) Depression: (5) GERD (gastroesophageal reflux disease): (6) Severe protein-calorie malnutrition: (7) Tardive dyskinesia: (8) Hypertension: (9) S/p left hip fracture: Plan Pt is a 84 yo female with a past medical history of tardive dyskinesia after risperidone treatment for paranoid delusions in 2013, hx of AMS, baseline cognitive decline (knows who she is and events at baseline, not time or place), significant ambulatory dysfunction (wheelchair bound since Mar 2024 hip fracture), GERD, and poor appetite, hx subarachnoid hemorrhage who presents to the hospital on 07/03 after a fall at [facility] facility with worsened AMS and UTI. Hydronephrosis/ UTI - Worsening WBC, tachycardia, and abdominal pain (tender/guarding on exam) - CT pelvic / abdomen wo contrast : Severe left hydroureteronephrosis with marked left renal cortical thinning suggesting a long-standing obstruction. 6.2 x 6.2 cm left pelvic mass which is likely necrotic and mass-like thickening at the left ureterovesical junction. The findings are consistent with a neoplastic process and may reflect transitional cell carcinoma. Several hypodense hepatic lesions suspicious for metastases. A CT of the abdomen and pelvis with IV contrast could be obtained for further evaluation. Large amount of stool within the rectum and moderate amount of stool within the colon. No evidence for a bowel obstruction. Status post right hemicolectomy. -Urology consulted: Recommended Nephrostomy tubes, would need transfer for this. Stent placement would potentially be unsuccessful. Do not recommended - s/p Vanco and Daptomycin - Patient WBC and mentation improved with broaded coverage -Urine culture: More than three types of organism, all high count. - Will continue broad coverage in the setting of improving. Ciprofloxacin 500 mg for 7 days and Doxycycline 100 mg BID 5 more days. - Patient discharge with Barba. Discontinue when finished treatment Pelvic Mass - Urology consulted - Percutaneous drainage would be superior that stent - GOC discussion today with the daughter: No aggressive treatment for cancer. Daughter wants to focus on quality of life: antibiotics and IVF if po intake is low. Once patient stop responding she would like to gradually move her to comfort measures. Will treat infections as needed. - AMS seem to be improving, patient awake and smiling, responding to questions. Would continue some degree of medical care - Daughter wants to hold on further therapeutic or diagnostic procedures - Encourage PO- Diet mince and moist. Encourage eating, avoid pureed food, patient does not seem to enjoy them #Altered mental status, acute on chronic #Metabolic encephalopathy, improving slowly - likely multifactorial; dehydration due to infection vs poor po intake vs metabolic, vs malignant process - CT head/CT neck without acute injury or process on admission - Repeat head CT: No acute intracranial findings, no hemorrhages. Exam compromised by motion artifact - Continue supportive care, Abx as above #Poor po intake/overall decline -Speech pathology consulted: IDDSI 5 Minced and moist diet. Can trial of Soft, bite-sized when alert enough aspiration precautions mouth care 2x/day - Boost ordered - Continue PT #SAMY -baseline may be 1.2 - Cr: 1.43 - suspect prerenal due to poor po intake + NSAID use vs obstructed - hold NSAIDs as much as possible - Encourage PO intake - Monitor BMP in 3 days #Tardive dyskinesia - per pt's daughter she is on 12 mg Austedo BID with once daily dosing every other day - Recommended to do a trail of dose once daily to avoid sedation. #Dysphagia - aspiration precautions #HTN - continue home amlodipine #Hip pain, L - had fall with hip fx in mar 2024 - hold home tramadol due to worsened AMS - hold home meloxicam due to bump in Cr and poor po intake - will do topical Voltaren gel to L hip #Depression - continue home duloxetine #Constipation - continue home prns #GERD - continue home omeprazole Total Time Total Time Spent Total Time Spent (In Minutes): see attending documentation Discharge Plan Discharge Items Patient Disposition: Transfer [facility] Reason For Visit: UTI,WORSENING AMS Discharge Diagnosis: Hydronephorsis Activity: Per Instructions section Non-emergency contact: Primary Care Provider Call non-emergency contact if: you have any medication questions, your pain is not controlled, your pain is worsening and your temperature is above 101 Follow-up/Referrals: [facility] [Primary Care Provider] - Diet: Regular Addtl Attending Provider Instructions: Pt is a 84 yo female with a past medical history of tardive dyskinesia after risperidone treatment for paranoid delusions in 2013, hx of AMS, baseline cognitive decline (knows who she is and events at baseline, not time or place), significant ambulatory dysfunction (wheelchair bound since Mar 2024 hip fracture), GERD, and poor appetite, hx subarachnoid hemorrhage who presents to the hospital on 07/03 after a fall at [facility] with worsened AMS and UTI. Hydronephrosis/ UTI - Worsening WBC, tachycardia, and abdominal pain (tender/guarding on exam) - CT pelvic / abdomen wo contrast : Severe left hydroureteronephrosis with marked left renal cortical thinning suggesting a long-standing obstruction. 6.2 x 6.2 cm left pelvic mass which is likely necrotic and mass-like thickening at the left ureterovesical junction. The findings are consistent with a neoplastic process and may reflect transitional cell carcinoma. Several hypodense hepatic lesions suspicious for metastases. A CT of the abdomen and pelvis with IV contrast could be obtained for further evaluation. Large amount of stool within the rectum and moderate amount of stool within the colon. No evidence for a bowel obstruction. Status post right hemicolectomy. -Urology consulted: Recommended Nephrostomy tubes, would need transfer for this. Stent placement would potentially be unsuccessful. Do not recommended - s/p Vanco and Daptomycin - Patient WBC and mentation improved with broaded coverage -Urine culture: More than three types of organism, all high count. - Will continue broad coverage in the setting of improving. Ciprofloxacin 500 mg for 7 days and Doxycycline 100 mg BID 5 more days. - Patient discharge with [facility]ba. Discontinue when finished treatment Pelvic Mass - Urology consulted - Percutaneous drainage would be superior that stent - GOC discussion today with the daughter: No aggressive treatment for cancer. Daughter wants to focus on quality of life: antibiotics and IVF if po intake is low. Once patient stop responding she would like to gradually move her to comfort measures. Will treat infections as needed. - AMS seem to be improving, patient awake and smiling, responding to questions. Would continue some degree of medical care - Daughter wants to hold on further therapeutic or diagnostic procedures - Encourage PO- Diet mince and moist. Encourage eating, avoid pureed food, patient does not seem to enjoy them #Altered mental status, acute on chronic #Metabolic encephalopathy, improving slowly - likely multifactorial; dehydration due to infection vs poor po intake vs metabolic, vs malignant process - CT head/CT neck without acute injury or process on admission - Repeat head CT: No acute intracranial findings, no hemorrhages. Exam compromised by motion artifact - Continue supportive care, Abx as above #Poor po intake/overall decline -Speech pathology consulted: IDDSI 5 Minced and moist diet. Can trial of Soft, bite-sized when alert enough aspiration precautions mouth care 2x/day - Boost ordered - Continue PT #SAMY -baseline may be 1.2 - Cr: 1.43 - suspect prerenal due to poor po intake + NSAID use vs obstructed - hold NSAIDs as much as possible - Encourage PO intake - Monitor BMP in 3 days #Tardive dyskinesia - per pt's daughter she is on 12 mg [place]edo BID with once daily dosing every other day - Recommended to do a trail of dose once daily to avoid sedation. #Dysphagia - aspiration precautions #HTN - continue home amlodipine #Hip pain, L - had fall with hip fx in mar 2024 - hold home tramadol due to worsened AMS - hold home meloxicam due to bump in Cr and poor po intake - will do topical Voltaren gel to L hip #Depression - continue home duloxetine #Constipation - continue home prns #GERD - continue home omeprazole Pending Studies at Discharge: No Stand-Alone Forms: My [facility] Skilled Items Patient informed of condition?: Yes DNR: Yes Discharge Level of Care: Skilled Communicable Disease: Yes Discharge Prognosis: Stable Lines: None Urinary Catheter: Yes (Can discontinue when finish antibiotics) Medications and DC Order Prescriptions: New doxycycline hyclate 100 mg Capsule 100 mg PO BID 5 Days Qty: 10 0RF ciprofloxacin HCl 500 mg Tablet 500 mg PO DAILY 7 Days Qty: 7 0RF Continued omeprazole 20 mg capsule,delayed release(DR/EC) 20 mg PO DAILYBB duloxetine 60 mg Capsule,Delayed Release(Dr/Ec) 60 mg PO QAM pravastatin 40 mg tablet 40 mg PO QDD food supplemt, lactose-reduced Liquid 1 ea PO TIDM Rx Instructions: drink can of BOOST VERY VANILLA three times a day cholecalciferol (vitamin D3) 125 mcg (5,000 unit) Tablet 125 mcg PO QAM 30 Days Qty: 30 1RF amlodipine 5 mg tablet 5 mg PO QAM Austedo 12 mg tablet 12 mg PO BID multivitamin Tablet 1 tab PO DAILY lidocaine 4 % Adhesive Patch,Medicated 1 patch TOPICAL BID PRN (Reason: Pain) Rx Instructions: APPLY TO LEFT HIP magnesium hydroxide [Milk of Magnesia] 400 mg/5 mL Suspension 30 ml PO DAILY PRN (Reason: Constipation) bisacodyl [Dulcolax (bisacodyl)] 10 mg Suppository 10 mg NH DAILY PRN (Reason: Constipation) Fleet Enema 19-7 gram/118 mL Enema 118 ml NH DAILY PRN (Reason: Constipation) Held tramadol 50 mg Tablet 25 mg PO Q8H PRN (Reason: Pain) Hold Instructions: Resume on 07/23/24. Repeat BMP, ensure Cr is stable meloxicam 7.5 mg tablet 7.5 mg PO HS Hold Instructions: Resume on 07/23/24. Repeat BMP Discharge Orders: Discharge Order (Routine); Ordered 07/09/24 Ordered By: Idania Craig Admission Data Admit Date/Time: 07/03/24 17:22 Attending Provider: Cesar Gibson Admit Provider: Jordon Delgado Primary Care Provider: Greg Kim Other Providers: Jordon Delgado; [facility] [place]; Sukhwinder Hoover Other Interventions: Discharge Summary Assessment (RN) Last Done: 07/09/24 14:33 Supervising Physician Co-Signing Physician Notes I personally examined the patient and verified all ibrahim points of history and exam, discussed case, and agree with decision making with Dr Twin Craig No meaningful HPI review of systems obtainable. Had some loose bowel movement in the bedDr. Twin Craig was called out of concern that it was bloody, we saw her before things were cleaned up and it looked brown with no sign of blood, heme tested it to be safe and it was negative. Vitals noted. In general resting comfortably appears to be in no distress. Breathing unlabored no accessory muscle use. Skin without rashes pallor or icterus. No focal neurodeficits noted. A/P: 84 yo female here with worsening confusion after a fall with head trauma, found to have UTI and now with necrotic large pelvic mass causing left ureteral compression and hydronephrosis, possible liver mets P Continue broad antibiotics for now. Yesterday her daughter noted she is looking a bit better and brighter between the antibiotics and IV fluids. At the same time she is fully aware of the prognosis related to the pelvic mass, and does not want intervention diagnostically or therapeutically for this. Otherwise she would like to focus on her mother's quality of lifewhich currently does entail antibiotics and possibly intermittent IV fluids when her p.o. intake is poor. Once this no longer seems to be benefiting her, she seems of the mindset to gradually move her mother towards more of a fully comfort measures planbut given that her mother is waking up and smiling and showing some signs of quality of life, she would like to continue some degree of medical care at this time. Safe/stable for [facility] of p.o. antibiotics, consider IV fluids at times when clinically warranted DVT prophylaxisLovenox utilized during her stay otherwise as above Resident Activity Tracking Resident Involvement: Resident Care Provided Care Provided: Adult Hospital Medicine
--- NOTE | 2024-07-09 18:20 | Billing Data ---
Date of Service July 09, 2024 Coding Level of Care Code 32216 IN/OBS DISCH 30 MIN/LESS
[2024-07-09] MEDS ORDERED: DOXYCYCLINE HYCLATE 100 MG CAP PO SCH (21:00)
[2024-07-09] MEDS ORDERED: CIPROFLOXACIN 500 MG TAB PO SCH (21:00)
== END 2024-07-09 16:13 | DRG 689 ==
LOC: ED 13:05 → SUATTDRO 17:22 → EDINP 17:22 → 3E 07-04 03:54